=== PATIENT | female | born 1970 | race Caucasian/White ===

== ENCOUNTER 2016-08-28 10:22 | Emergency (ER) | payer SELFPAY ==
[~2016-08-28] VITALS: Ht 165.1 cm; Wt 81.6 kg
[~2016-08-28 10:22] MED LIST: ALBU8.5HRX IH; AMOX-358 PO; AZTH250C PO; CEPH500C PO; CIPR-225 PO; CIPR500T4; CPR500T PO; FLC100T1 PO; GFN600TCR PO; LEVO500T80 PO; LORA10TA7 PO; METR500T PO; OMEP20TA2 PO; POLY17PO23 GT; PRD20T PO; PRD50T PO; PRX20T; RT-ALBUINH; TRAM50TA2 PO
--- OUTSIDE RECORDS SUMMARY | 2016-08-28 10:31 | XMS REPORT | Continuity of Care Document ---
Author Author [facility] Organization [facility] Address Unknown Phone Unavailable Care Team Providers Care Learning Coach Name Role Phone RONIT SALINAS DO PCP Insurance Providers Payer Name Policy Number Subscriber Name Relationship Unknown Augie Daniel 19 Self / Same As Patient Advance Directives Directive Response Recorded Date/Time Advance Directives No 11/29/13 12:46pm Health Care Power of Seamless Tube Drawer No 11/29/13 12:46pm Organ Donor Yes 11/29/13 12:46pm Chief Complaint and Reason for Visit Chief Complaint Cough/Cold/Flu Symptoms Reason for Visit [id number] Pneumonia Problems Active Problems Medical Problem Onset Date Status Diverticulitis Unknown Acute Otitis media, acute Unknown Acute Pneumonia Unknown Acute chronic rectovaginal fistula Unknown Acute cystocele/rectocele Unknown Acute Medications Current Home Medications Medication Dose Units Route Directions Days/Qty Instructions Start Date Loratadine 10 Mg 10 Mg Oral Daily 11/17/11 Albuterol Sulfate 6.7 Gm 7 04/12/16 Levofloxacin 500 Mg 500 Mg Oral Daily 7 04/12/16 Prednisone 20 Mg 20 Mg Oral Daily 6 04/12/16 Past Home Medications Medication Directions Ordered Status Paroxetine Hcl 20 Mg Tab, 08/13/09 Discontinued Polyethylene Glycol 17 Gm Pack, 17 Gm G Tube Twice A Day 12/26/12 Discontinued Cephalexin Monohydrate (Keflex) 500 Mg Capsule, 1 Each Oral Four Times Daily 07/14/12 Discontinued Omeprazole 20 Mg Tablet.dr, 20 Mg Oral Daily 03/22/13 Discontinued Guaifenesin 600 Mg Tab, 600 Mg Oral Daily 03/22/13 Discontinued Albuterol Sulfate 8 Gm Hfa.aer.ad, 8 Gm Inhalation Every 4HRS as needed 03/22 Discontinued Azithromycin 250 Mg Tablet, 1 Tab Oral Daily 03/22/13 Discontinued Prednisone 50 Mg Tab, 50 Mg Oral Daily 03/22/13 Discontinued Metronidazole 500 Mg Tab, 1 Each Oral Three Times A Day 06/24/13 Discontinued Ciprofloxacin 500 Mg Tablet, 1 Tab Oral Twice A Day 06/24/13 Discontinued Tramadol Hcl 50 Mg Tablet, 50 Mg Oral Every 4HRS as needed for Pain 06/24/13 Discontinued Fluconazole 100 Mg Tablet, 1 Each Oral Daily 06/24/13 Discontinued Ciprofloxacin Hcl 500 Mg Tablet, 04/12/16 Discontinued Social History Social History Problem Response Recorded Date/Time Alcohol Use Denies Use 06/24/2013 12:22pm Recreational Drug Use No 06/24/2013 12:22pm Recent Foreign Travel No 04/12/2016 9:34am Recent Infectious Disease Exposure No 04/12/2016 9:34am Hospitalization with Isolation Denies 04/12/2016 9:34am Sexually Transmitted Disease No 04/12/2016 9:40am HIV/AIDS No 04/12/2016 9:40am Recent Hopitalizations No 04/12/2016 9:40am Sexually Transmitted Disease No 04/12/2016 9:40am Hospitalization with Isolation Denies 04/12/2016 9:34am Hospital Discharge Instructions No hospital discharge instructions. Plan of Care Discharge Date 04/12/16 12:13pm Disposition 01 HOME, SELF-CARE Condition at Discharge Stable Instructions/Education Provided Otitis Media (ED) Bacterial Pneumonia (ED) Prescriptions See Medication Section Referrals RONIT SALINAS DO - Primary Care Physician SAMUEL RENEE - Primary Care Physician Additional Instructions/Education All discharge instructions reviewed with patient and/or family. Voiced understanding. He should drink plenty of fluids and get rest. Take the antibiotics prescribed to you to completion. Return to the ER or your primary care physician if symptoms worsen or do not improve in 3-4 days. Functional Status No functional status results. Allergies, Adverse Reactions, Alerts Allergen Type Severity Reaction Status Last Updated mepveroniquedine HCl Allergy Mild "gets vicious" Active 11/17/11 Morphine Allergy Mild "gets vicious" Active 11/17/11 shellfish derived ([id number]) Allergy Unknown Active 11/17/11 [id number] (SULFA (SULFONAMIDE ANTIBIOTICS)) Allergy Mild Active Immunizations No immunization records. Vital Signs Acute Vital Signs Vital Response Date/Time Temperature (Fahrenheit) 98.2 degrees F (97.6 - 99.5) 04/12/2016 9:34am Temperature (Calculated Celsius) 36.46026 degrees C (36.4 - 37.5) 04/12/2016 9:34am Temperature Source Temporal 04/12/2016 9:34am Pulse Rate (adult) 92 bpm (60 - 90) 04/12/2016 9:34am Respiratory Rate 18 bpm (12 - 24) 04/12/2016 9:34am Blood Pressure 110/81 mm Hg 04/12/2016 9:34am Blood Pressure Mean 91 mm Hg 04/12/2016 9:34am Pain Numeric Pain Scale 0-No Pain 04/12/2016 9:34am Height (Feet) 5 feet 04/12/2016 9:34am Height (Inches) 6 inches 04/12/2016 9:34am Height (Calculated Centimeters) 167.371894 cm 04/12/2016 9:34am Weight (Pounds) 179 pounds 04/12/2016 9:34am Weight (Calculated Kilograms) 81.379367 kilograms 04/12/2016 9:34am Capillary Refill Capillary Refill Less Than 3 Seconds 04/12/2016 9:34am Height 5 ft 6 in Weight 179 lb Body Mass Index 28.9 kg/m^2 Results Laboratory Results Test Name Result Units Flags Reference Collection Date/Time Result Date/ Time Comments White Blood Count 3.6 10^3/uL L 4.3-11.0 04/12/2016 10:30am 04/12/2016 10 :39am Red Blood Count 4.85 10^6/uL 4.35-5.85 04/12/2016 10:30am 04/12/2016 10 :39am Hemoglobin 15.0 G/DL 11.5-16.0 04/12/2016 10:3004/12/2016 10:39am Hematocrit 42 % 35-52 04/12/2016 10:3004/12/2016 10:39am Mean Corpuscular Volume 87 FL 80-99 04/12/2016 10:3004/12/2016 10: 39am Mean Corpuscular Hemoglobin 31 PG 25-34 04/12/2016 10:3004/12/2016 10:39am Mean Corpuscular Hemoglobin Concent 36 G/DL 32-36 04/12/2016 10:30 10:39am Red Cell Distribution Width 13.1 % 10.0-14.5 04/12/2016 10:302015 10:39am Platelet Count 195 10^3/uL 130-400 04/12/2016 10:3004/12/2016 10: 39am Mean Platelet Volume 8.8 FL 7.4-10.4 04/12/2016 10:3004/12/2016 10: 39am Neutrophils (%) (Auto) 60 % 42-75 04/12/2016 10:04/12/2016 10: 39am Lymphocytes (%) (Auto) 25 % 12-44 04/12/2016 10:04/12/2016 10: 39am Monocytes (%) (Auto) 13 % H 0-12 04/12/2016 10:04/12/2016 10:39am Eosinophils (%) (Auto) 0 % 0-10 04/12/2016 10:04/12/2016 10:39am Basophils (%) (Auto) 1 % 0-10 04/12/2016 10:04/12/2016 10:39am Neutrophils # (Auto) 2.2 X 10^3 1.8-7.8 04/12/2016 10:3004/12/2016 10:39am Lymphocytes # (Auto) 0.9 X 10^3 L 1.0-4.0 04/12/2016 10:04/12/2016 10:39am Monocytes # (Auto) 0.5 X 10^3 0.0-1.0 04/12/2016 10:3004/12/2016 10: 39am Eosinophils # (Auto) 0.0 10^3/uL 0.0-0.3 04/12/2016 10:30am 04/12/2016 10:39am Basophils # (Auto) 0.1 10^3/uL 0.0-0.1 04/12/2016 10:30am 04/12/2016 10 :39am Urine Color YELLOW 04/12/2016 10:0504/12/2016 10:39am Urine Clarity CLEAR 04/12/2016 10:0504/12/2016 10:39am Urine pH 6 5-9 04/12/2016 10:05am 04/12/2016 10:39am Urine Specific [place] 1.010 * 1.016-1.022 04/12/2016 10:05am 2015 10:39am Urine Protein NEGATIVE NEGATIVE 04/12/2016 10:0504/12/2016 10: 39am Urine Glucose (UA) NEGATIVE NEGATIVE 04/12/2016 10:05am 04/12/2016 10 :39am Urine RBC (Auto) 1+ * NEGATIVE 04/12/2016 10:0504/12/2016 10:39am Urine Ketones NEGATIVE NEGATIVE 04/12/2016 10:0504/12/2016 10: 39am Urine Nitrite NEGATIVE NEGATIVE 04/12/2016 10:0504/12/2016 10: 39am Urine Bilirubin NEGATIVE NEGATIVE 04/12/2016 10:0504/12/2016 10: 39am Urine Urobilinogen NORMAL MG/DL NORMAL 04/12/2016 10:05am 04/12/2016 10 :39am Urine Leukocyte Esterase 2+ * NEGATIVE 04/12/2016 10:0504/12/2016 10 :39am Urine RBC RARE /HPF 04/12/2016 10:0504/12/2016 10:39am Urine WBC RARE /HPF 04/12/2016 10:05am 04/12/2016 10:39am Urine Bacteria NEGATIVE /HPF 04/12/2016 10:05am 04/12/2016 10:39am Urine Squamous Epithelial Cells 5-10 /HPF 04/12/2016 10:05am 2015 10:39am Urine Crystals NONE /LPF 04/12/2016 10:05am 04/12/2016 10:39am Urine Casts NONE /LPF 04/12/2016 10:05am 04/12/2016 10:39am Urine Mucus NEGATIVE /LPF 04/12/2016 10:05am 04/12/2016 10:39am Urine Culture Indicated NO 04/12/2016 10:05am 04/12/2016 10:39am Procedures No known history of procedures. Encounters Encounter Location Arrival/Admit Date Discharge/Depart Date Attending Provider Departed Emergency Room [facility] 04/12/16 9:34am 04/12 12:13pm YOLY SALTER MD Recent Diagnosis
[2016-08-28] MEDS ORDERED: CITA20TA7 PO (10:39)
[2016-08-28] MEDS ORDERED: URIN1STR81 MC (10:39)
[2016-08-28 11:27] LABS: BILIRUBIN,URINE NEGATIVE (NEGATIVE); KETONES,URINE NEGATIVE (NEGATIVE); LEUKOCYTE ESTERASE ,URINE 2+ (NEGATIVE); NITRITE,URINE NEGATIVE (NEGATIVE); PH,URINE 7 (5-9); PROTEIN,URINE NEGATIVE (NEGATIVE); UROBILINOGEN,URINE NORMAL (NORMAL)
--- NOTE | 2016-08-28 11:32 | ED GU-Female ---
General Chief Complaint: -Female Stated Complaint: UTI SYMPTOMS Nursing Triage Note: PT CO OF UTI SX, STARTED THIS AM Nursing Sepsis Screen: No Definite Risk History of Present Illness Time seen by provider: 11:15 Initial Comments Patient presents for UTI symptoms which began today. She also reports having a cough since February 2016. She's been treated with multiple antibiotics for pneumonia. She has an inhaler, but she hasn't used it for a few days. Timing/Duration: this morning Severity/Quality: moderate (rates pain 5/10) Location: suprapubic Radiation: none Activities at Onset: none Prior Genitourinary Problems: none Modifying Factors: Improves With Lying down, Improves With Resting, Improves With Urinating Associated Symptoms: denies symptoms Allergies and Home Medications Allergies Coded Allergies: meperidine HCl (Verified Allergy, Mild, "gets vicious", 11/17/11) morphine (Verified Allergy, Mild, "gets vicious", 11/17/11) shellfish derived (Verified Allergy, Unknown, 11/17/11) Uncoded Allergies: [id number] (SULFA (SULFONAMIDE ANTIBIOTICS)) (Allergy, Mild, 08/13/09) Home Medications Albuterol Sulfate 8.5 Gm Hfa.aer.ad #1 1-2 PUFF IH Q6H Prescribed by: JENNIFER DILLON on 08/28/16 1204 Citalopram Hydrobromide 20 Mg Tablet 20 MG PO DAILY (Reported) Guaifenesin/Pseudoephedrne HCl 1 Each Tab.er.12h #20 1 EACH PO BID Prescribed by: JENNIFER DILLON on 08/28/16 1137 Loratadine 10 Mg Tablet 10 MG PO DAILY (Reported) Nitrofurantoin Monohyd/M-Cryst 100 Mg Capsule #10 1 TAB PO BID Prescribed by: JENNIFER DILLON on 08/28/16 1204 Constitutional: no symptoms reported see HPI EENTM: no symptoms reported see HPI Respiratory: see HPI coughNo phlegm, No short of breath, wheezing Cardiovascular: no symptoms reported see HPI Gastrointestinal: no symptoms reported see HPI Genitourinary: see HPI burningdenies discharge, frequencydenies hematuria, denies incontinence, urgency : No (hysterectomy) Musculoskeletal: no symptoms reported see HPI Skin: no symptoms reported see HPI Psychiatric/Neurological: No Symptoms Reported See HPI Endocrine: No Symptoms Reported See HPI Hematologic/Lymphatic: No Symptoms Reported See HPI All Other Systemes Reviewed Negative Unless Noted: Yes Past Odlvkvo-Csgcof-Xopjjc Hx Patient Social History Alcohol Use: Denies Use Recreational Drug Use: No Smoking Status: Never a Smoker Recent Foreign Travel: No Contact w/Someone Who Travel: No Recent Infectious Disease Expo: No Recent Hopitalizations: No Immunizations Up To Date Date of Influenza Vaccine: Apr 19, 2012 Seasonal Allergies Seasonal Allergies: No Surgeries HX Surgeries: Yes Surgeries: Breast, Hysterectomy, Tonsillectomy Respiratory Hx Respiratory Disorders: Yes Respiratory Disorders: Pneumonia Cardiovascular Hx Cardiac Disorders: No Neurological Hx Neurological Disorders: No Reproductive System Hx Reproductive Disorders: No Sexually Transmitted Disease: No 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/AIDS: 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 Genitourinary Hx Genitourinary Disorders: No Gastrointestinal Hx Gastrointestinal Disorders: No Musculoskeletal Hx Musculoskeletal Disorders: No Endocrine Hx Endocrine Disorders: No HEENT HX ENT Disorders: No Cancer Hx Cancer: Yes Cancer: Breast Psychosocial Hx Psychiatric Problems: No Integumentary HX Skin/Integumentary Disorder: No Blood Transfusions Hx Blood Disorders: No Adverse Reaction to a Blood Tr: No Reviewed Nursing Assessment Reviewed/Agree w Nursing PMH: Yes Family Medical History Significant Family History: No Pertinent Family Hx Physical Exam Vital Signs Vital Sign - Last 12Hours 08/28/16 10:25 Temp 98.0 Pulse 80 Resp 18 B/P 105/67 Pulse Ox 97 Capillary Refill : Less Than 3 Seconds General Appearance: WD/WN no apparent distress HEENT: PERRL/EOMI normal ENT inspection TMs normal pharynx normal Neck: non-tender full range of motion normal inspection Cardiovascular: normal peripheral pulses regular rate, rhythm no murmur Respiratory: chest non-tender lungs clear normal breath sounds Gastrointestinal: normal bowel sounds non tender soft no organomegaly no pulsatile massNo rebound, tenderness (suprapubic) Back: normal inspection no CVA tenderness Extremities: normal range of motion non-tender normal inspection no pedal edema no calf tenderness normal capillary refill Neurologic/Psychiatric: no motor/sensory deficits alert normal mood/affect oriented x 3 Skin: normal color warm/dry Lymphatic: no adenopathy Progress/Results/Core Measures Results/Orders Lab Results Laboratory Tests Test 08/28/16 11:01 Range/Units Urine Bacteria TRACE /HPF Urine Bilirubin NEGATIVE NEGATIVE Urine Casts NONE /LPF Urine Clarity CLEAR Urine Color YELLOW Urine Crystals NONE /LPF Urine Culture Indicated YES Urine Glucose (UA) NEGATIVE NEGATIVE Urine Ketones NEGATIVE NEGATIVE Urine Leukocyte Esterase 2+ H NEGATIVE Urine Mucus NEGATIVE /LPF Urine Nitrite NEGATIVE NEGATIVE Urine Protein NEGATIVE NEGATIVE Urine RBC RARE /HPF Urine RBC (Auto) NEGATIVE NEGATIVE Urine Specific [place] 1.010 L 1.016-1.022 Urine Squamous Epithelial Cells RARE /HPF Urine Urobilinogen NORMAL NORMAL MG/DL Urine WBC 2-5 /HPF Urine pH 7 5-9 Vital Signs/I&O Vital Sign - Last 12Hours 08/28/16 08/28/16 10:25 12:24 Temp 98.0 98.0 Pulse 80 80 Resp 18 18 B/P 105/67 Pulse Ox 97 97 Blood Pressure Mean: 80 Progress Note : Time: 12:05 Progress Note Reviewed UA with patient, pH 7.0, specific gravity 1.010, 2+ leuks, 2-5 WBC. Recommended starting treatment for UTI. She can continue taking Azo. Discussed at length getting established with a primary care provider, as she recently has been just using [facility] and the emergency department for medical care. Encouraged her to call [facility] and get an established appointment with one of their providers. Departure Impression Impression: Primary Impression: Urinary tract infection Qualified Code: N30.01 - Acute cystitis with hematuria Additional Impression: Cough Disposition: HOME, SELF-CARE Condition: Stable Departure-Patient Inst. Decision time for Depature: 12:15 Referrals: [facility] (PCP/Family) Primary Care Physician Patient Instructions: Cough in Adults, Urinary Tract Infection, Adult (DC) Add. Discharge Instructions: All discharge instructions reviewed with patient and/or family. Voiced understanding. Take all antibiotics as directed. Return to Emergency Dept for increase or change in symptoms, fever, abdominal pain or any other concerns. Schedule appt at [facility] to be established with provider next week. Scripts Albuterol Sulfate (Proair Hfa)8.5 Gm Hfa.aer.ad1-2 Puff IH Q6H #1 INH Ref 1 Prov:JENNIFER DILLONP 08/28/16 Nitrofurantoin Monohyd/M-Cryst (Macrobid 100 mg Capsule)100 Mg Capsule1 Tab PO BID #10 CAP Ref 0 Prov:JENNIFER DILLON [employer] 08/28/16 Guaifenesin/Pseudoephedrne HCl (Mucinex D ER 600-60 mg Tablet)1 Each Tab.er.12h1 Each PO BID #20 TAB Ref 1 Prov:JENNIFER DILLON 08/28/16 JENNIFER DILLON Aug 28, 2016 11:32
[2016-08-28] MEDS ORDERED: GUAI-370 PO (11:37)
[2016-08-28 11:53] LABS: SQUAMOUS EPITHELIAL CELL,UR RARE /HPF
[2016-08-28] MEDS ORDERED: NITR-65 PO (12:04)
[2016-08-28] MEDS ORDERED: RT-ALBUINH IH (12:04)
[2016-08-28 12:24] VITALS: BP 105/67
== END 2016-08-28 12:24 | disposition home or self-care (01) ==
LOC: EDUNIT# 10:22 → ER 10:25
DX: N39.0 Urinary tract infection, site not specified (principal); R05 Cough
CPT/HCPCS: 81000; 87088; 99282

== ENCOUNTER 2016-08-30 12:40 | Emergency (ER) | payer SELFPAY ==
[~2016-08-30] VITALS: Ht 165.1 cm; Wt 81.6 kg
[~2016-08-30 12:40] MED LIST changes: +CITA20TA7 PO; +GUAI-370 PO; +NITR-65 PO; +RT-ALBUINH IH; +URIN1STR81 MC
--- OUTSIDE RECORDS SUMMARY | 2016-08-30 12:45 | XMS REPORT | Continuity of Care Document ---
Author Author [facility] Organization [facility] Address Unknown Phone Unavailable Care Team Providers Care Power Lineman Name Role Phone RONIT SALINAS DO PCP Insurance Providers Payer Name Policy Number Subscriber Name Relationship Unknown Augie Daniel 19 Self / Same As Patient Advance Directives Directive Response Recorded Date/Time Advance Directives No 11/29/13 12:46pm Health Care Power of Pediatrics Hospitalist No 11/29/13 12:46pm Organ Donor Yes 11/29/13 12:46pm Chief Complaint and Reason for Visit Chief Complaint Cough/Cold/Flu Symptoms Reason for Visit [id number] Pneumonia Problems Active Problems Medical Problem Onset [...] Mild "gets vicious" Active 11/17/11 shellfish derived ([id number]) Allergy Unknown Active 11/17/11 [id number] (SULFA (SULFONAMIDE ANTIBIOTICS)) Allergy Mild Active Immunizations No immunization records. Vital Signs Acute Vital Signs Vital Response Date/Time Temperature (Fahrenheit) 98.2 degrees F (97.6 - 99.5) 04/12/2016 9:34am Temperature (Calculated Celsius) 36.03529 degrees C (36.4 - 37.5) 04/12/2016 9:34am [...] 6 inches 04/12/2016 9:34am Height (Calculated Centimeters) 167.439639 cm 04/12/2016 9:34am Weight (Pounds) 179 pounds 04/12/2016 9:34am Weight (Calculated Kilograms) 81.599124 kilograms 04/12/2016 9:34am Capillary Refill Capillary Refill [...] 5-9 04/12/2016 10:05am 04/12/2016 10:39am Urine Specific [place] 1.010 * 1.016-1.022 04/12/2016 10:05am 2015 10:39am [...] Date Attending Provider Departed Emergency Room [facility] 04/12/16 9:34am 04/12 12:13pm YOLY SALTER MD Recent Diagnosis
[2016-08-30] MEDS ORDERED: NS IV 1000 ML 1,000 ML IV ONE (13:02)
[2016-08-30 13:40] LABS: BASOPHILS % (AUTO) 0 % (0-10); EOSINOPHILS # (AUTO) 0.2 10^3/uL (0.0-0.3); EOSINOPHILS % (AUTO) 2 % (0-10); LYMPHOCYTES # (AUTO) 1.7 X 10^3 (1.0-4.0); LYMPHOCYTES % (AUTO) 18 % (12-44); MEAN CORPUSCULAR HEMOGLOBIN 31 PG (25-34); MEAN CORPUSCULAR HGB CONC 35 G/DL (32-36); MEAN CORPUSCULAR VOLUME 87 FL (80-99); MEAN PLATELET VOLUME 8.7 FL (7.4-10.4); MONOCYTES # (AUTO) 0.7 X 10^3 (0.0-1.0); MONOCYTES % (AUTO) 7 % (0-12); NEUTROPHILS # (AUTO) 6.9 X 10^3 (1.8-7.8); NEUTROPHILS % (AUTO) 73 % (42-75); PLATELET COUNT 259 10^3/uL (130-400); RED BLOOD COUNT 4.12 10^6/uL (4.35-5.85); RED CELL DISTRIBUTION WIDTH 12.7 % (10.0-14.5); WHITE BLOOD COUNT 9.4 10^3/uL (4.3-11.0)
[2016-08-30 14:00] LABS: ALANINE AMINOTRANSFERASE 13 U/L (0-55); AMYLASE 44 U/L (25-125); ANION GAP 13 MMOL/L (5-14); ASPARTATE AMINO TRANSFERASE 14 U/L (5-34); BILIRUBIN,TOTAL 0.9 MG/DL (0.1-1.0); BLOOD UREA NITROGEN 10 MG/DL (7-18); BUN/CREATININE RATIO 11; CALCIUM 9.3 MG/DL (8.5-10.1); CARBON DIOXIDE 22 MMOL/L (21-32); CHLORIDE 101 MMOL/L (98-107); CREATININE SERUM 0.88 MG/DL (0.60-1.30); GFR ESTIMATED > 60; GLUCOSE 86 MG/DL (70-105); LIPASE 34 U/L (8-78); POTASSIUM 3.4 MMOL/L (3.6-5.0); SODIUM 136 MMOL/L (135-145)
--- NOTE | 2016-08-30 14:01 | ED GI ---
General Chief Complaint: Abdominal/GI Problems Stated Complaint: UTI/FEVER/DIARRHEA Nursing Triage Note: AMBULATED TO ROOM 07 WITH COMPLAINTS OF DIARRHEA SINCE THE 3RD, UTI DX 2 DAYS AGO IN THIS ER, FEVER,DIZZINESS, ET WEAKNESS Sepsis Screen: No Definite Risk Source of Information: Patient Exam Limitations: No Limitations History of Present Illness Time Seen By Provider: 13:25 Initial Comments Here with report of nausea and diarrhea with fever for the last week. Seen 2 days ago for the same. UTI found and started on nitrofurantoin. This has not helped and she returns today for persistent pain. She does report suprapubic tenderness. Diarrhea is nonbloody. States that she is able to drink but does not feel like eating. Complains of weakness. Timing/Duration: 1 Week Severity/Quality: Mild, Moderate, Aching, Cramping Location: Suprapubic Radiation: RLQ, LLQ Activities at Onset: None Associated Symptoms: Fever/Chills Fatigue Nausea/Vomiting Weakness Allergies and Home Medications Allergies Coded Allergies: meperidine HCl (Verified Allergy, Mild, "gets vicious", 11/17/11) morphine (Verified Allergy, Mild, "gets vicious", 11/17/11) shellfish derived (Verified Allergy, Unknown, 11/17/11) Uncoded Allergies: [id number] (SULFA (SULFONAMIDE ANTIBIOTICS)) (Allergy, Mild, 08/13/09) Home Medications Albuterol Sulfate 8.5 Gm Hfa.aer.ad #1 1-2 PUFF IH Q6H Prescribed by: JENNIFER DILLON on 08/28/16 1204 Ciprofloxacin HCl 500 Mg Tablet #10 500 MG PO BID Prescribed by: LAMONT HERNANDEZ on 08/30/16 1450 Citalopram Hydrobromide 20 Mg Tablet 20 MG PO DAILY (Reported) Guaifenesin/Pseudoephedrne HCl 1 Each Tab.er.12h #20 1 EACH PO BID Prescribed by: JENNIFER DILLON on 08/28/16 1137 Loratadine 10 Mg Tablet 10 MG PO DAILY (Reported) Nitrofurantoin Monohyd/M-Cryst 100 Mg Capsule #10 1 TAB PO BID Prescribed by: JENNIFER DILLON on 08/28/16 1204 Review of Systems Constitutional: see HPI chills fever weakness EENTM: No Symptoms Reported Respiratory: No Symptoms Reported Cardiovascular: No Symptoms Reported Gastrointestinal: Abdominal Pain Diarrhea Nausea Genitourinary: See HPI Pain Urgency Musculoskeletal: no symptoms reported Skin: no symptoms reported All Other Systems Reviewed Negative Unless Noted: Yes Past Krvxaef-Yuqrwc-Cjbrua Hx Patient Social History Alcohol Use: Denies Use Recreational Drug Use: No Smoking Status: Never a Smoker Recent Foreign Travel: No Contact w/Someone Who Travel: No Recent Infectious Disease Expo: No Recent Hopitalizations: No Immunizations Up To Date Date of Influenza Vaccine: Apr 19, 2012 Seasonal Allergies Seasonal Allergies: No Surgeries HX Surgeries: Yes Surgeries: Breast, Hysterectomy, Tonsillectomy Respiratory Hx Respiratory Disorders: Yes Respiratory Disorders: Pneumonia Cardiovascular Hx Cardiac Disorders: No Neurological Hx Neurological Disorders: No Reproductive System Hx Reproductive Disorders: No Sexually Transmitted Disease: No HIV/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 Genitourinary Hx Genitourinary Disorders: No Gastrointestinal Hx Gastrointestinal Disorders: No Musculoskeletal Hx Musculoskeletal Disorders: No Endocrine Hx Endocrine Disorders: No HEENT HX ENT Disorders: No Cancer Hx Cancer: Yes Cancer: Breast Psychosocial Hx Psychiatric Problems: No Integumentary HX Skin/Integumentary Disorder: No Blood Transfusions Hx Blood Disorders: No Adverse Reaction to a Blood Tr: No Reviewed Nursing Assessment Reviewed/Agree w Nursing PMH: Yes Family Medical History Significant Family History: No Pertinent Family Hx Physical Exam Vital Signs VS - Last 72 Hours, by Label 08/30/16 08/30/16 12:56 15:20 Temp 96.9 Pulse 77 86 Resp 16 14 B/P 102/68 Pulse Ox 98 98 Capillary Refill : Less Than 3 Seconds General Appearance: WD/WN no apparent distress HEENT: PERRL/EOMI pharynx normal Neck: full range of motion supple Respiratory: lungs clear normal breath sounds Cardiovascular: regular rate, rhythm no murmur Peripheral Pulses: 2+ Dorsalis Pedis (R), 2+ Left Dors-Pedis (L), 2+ Radial Pulses (R), 2+ Radial Pulses (L) Gastrointestinal: soft tenderness (suprapubic) Extremities: non-tender normal inspection Back: normal inspection no CVA tenderness no vertebral tenderness Neurologic/Psychiatric: alert oriented x 3 Skin: normal color warm/dry (LL of the urine) Progress/Results/Core Measures Results/Orders Lab Results Laboratory Tests Test 08/30/16 13:29 08/30/16 13:47 Range/Units Alanine Aminotransferase (ALT/SGPT) 13 0-55 U/L Albumin 4.0 3.2-4.5 G/DL Alkaline Phosphatase 63 40-136 U/L Amylase Level 44 25-125 U/L Anion Gap 13 5-14 MMOL/L Aspartate Amino Transf (AST/SGOT) 14 5-34 U/L BUN/Creatinine Ratio 11 Basophils # (Auto) 0.0 0.0-0.1 10^3/uL Basophils (%) (Auto) 0 0-10 % Blood Urea Nitrogen 10 7-18 MG/DL Calcium Level 9.3 8.5-10.1 MG/DL Carbon Dioxide Level 22 21-32 MMOL/L Chloride Level 101 98-107 MMOL/L Creatinine 0.88 0.60-1.30 MG/DL Eosinophils # (Auto) 0.2 0.0-0.3 10^3/uL Eosinophils (%) (Auto) 2 0-10 % Estimat Glomerular Filtration Rate > 60 Glucose Level 86 70-105 MG/DL Hematocrit 36 35-52 % Hemoglobin 12.7 11.5-16.0 G/DL Lipase 34 8-78 U/L Lymphocytes # (Auto) 1.7 1.0-4.0 X 10^3 Lymphocytes (%) (Auto) 18 12-44 % Mean Corpuscular Hemoglobin 31 25-34 PG Mean Corpuscular Hemoglobin Concent 35 32-36 G/DL Mean Corpuscular Volume 87 80-99 FL Mean Platelet Volume 8.7 7.4-10.4 FL Monocytes # (Auto) 0.7 0.0-1.0 X 10^3 Monocytes (%) (Auto) 7 0-12 % Neutrophils # (Auto) 6.9 1.8-7.8 X 10^3 Neutrophils (%) (Auto) 73 42-75 % Platelet Count 259 130-400 10^3/uL Potassium Level 3.4 L 3.6-5.0 MMOL/L Red Blood Count 4.12 L 4.35-5.85 10^6/uL Red Cell Distribution Width 12.7 10.0-14.5 % Sodium Level 136 135-145 MMOL/L Total Bilirubin 0.9 0.1-1.0 MG/DL Total Protein 7.0 6.4-8.2 G/DL White Blood Count 9.4 4.3-11.0 10^3/uL Urine Bacteria TRACE /HPF Urine Bilirubin 2+ H NEGATIVE Urine Casts NONE /LPF Urine Clarity CLEAR Urine Color YELLOW Urine Crystals NONE /LPF Urine Culture Indicated NO Urine Glucose (UA) NEGATIVE NEGATIVE Urine Ketones NEGATIVE NEGATIVE Urine Leukocyte Esterase 1+ H NEGATIVE Urine Mucus NEGATIVE /LPF Urine Nitrite POSITIVE H NEGATIVE Urine Protein NEGATIVE NEGATIVE Urine RBC NONE /HPF Urine RBC (Auto) NEGATIVE NEGATIVE Urine Specific [place] 1.005 L 1.016-1.022 Urine Squamous Epithelial Cells 0-2 /HPF Urine Urobilinogen 4 H NORMAL MG/DL Urine WBC NONE /HPF Urine pH 7 5-9 Micro Results Microbiology 08/30/16 Urine Culture - Preliminary, Resulted My Orders Orders-LAMONT HERNANDEZ MD Cbc With Automated Diff (08/30/16 13:02) Comprehensive Metabolic Panel (08/30/16 13:02) Ua Culture If Indicated (08/30/16 13:02) Saline Lock/Iv-Start (08/30/16 13:02) Ns Iv 1000 Ml (Sodium Chloride 0.9%) (08/30/16 13:02) Amylase (08/30/16 13:19) Lipase (08/30/16 13:19) Ceftriaxone Injection (Rocephin Injectio (08/30/16 14:30) Urine Culture (08/30/16 14:31) Medications Given in ED Vital Signs/I&O Vital Sign - Last 12Hours 08/30/16 08/30/16 12:56 15:20 Temp 96.9 Pulse 77 86 Resp 16 14 B/P 102/68 Pulse Ox 98 98 Blood Pressure Mean: 79 Progress Note : Progress Note Seen and evaluated. IV, labs and UA ordered. Normal saline 1 L bolus. Monitor patient. 1425: Labs reviewed and no significant findings except for nitrite positive on urine test. We will culture that. She is currently on antibiotic with nitrofurantoin. Rocephin 1 g IV given as patient has nausea symptoms and I am concerned about her being able to keep antibiotics down as well as her symptoms of diarrhea which prevents good absorption of antibiotics. Monitor patient. 1445: Feeling better with completion of fluids. We talked about outpatient antibiotic options. I will add Cipro for 5 days. Discharged home with return precautions. Patient verbalize understanding instructions and agreement with plan. Departure Impression Impression: Primary Impression: Diarrhea Qualified Code: R19.7 - Diarrhea, unspecified Additional Impression: Urinary tract infection Qualified Code: N30.00 - Acute cystitis without hematuria Disposition: HOME, SELF-CARE Condition: Stable Departure-Patient Inst. Decision time for Depature: 14:50 Referrals: [facility] (PCP/Family) Primary Care Physician Patient Instructions: Diarrhea in Adolescents and Adults, Urinary Tract Infection, Adult (DC) Add. Discharge Instructions: All discharge instructions reviewed with patient and/or family. Voiced understanding. Clear liquid diet for 24 hours and then advance as tolerated. Drink plenty of fluids. Avoid meats, cheeses or milks for the next several days and then slowly introduce some back into your diet. Follow up with your doctor on Thursday or Thursday for recheck and further evaluation. Return for worse pain, fever, vomiting, weakness, rhythm problems or other concerns as needed. Continue home medications as previously prescribed. Scripts Ciprofloxacin HCl 500 Mg [id number] Mg PO BID #10 TAB Prov:LAMONT HERNANDEZ MD 08/30/16 LAMONT HERNANDEZ MD Aug 30, 2016 14:00 understanding. Clear liquid diet for 24 hours and then advance as tolerated. Drink plenty of fluids. Avoid meats, cheeses or milks for the next several days and then slowly introduce some back into your diet. Follow up with your doctor on Thursday or Thursday for recheck and further evaluation. Return for worse pain, fever, vomiting, weakness, rhythm problems or other concerns as needed. Continue home medications as previously prescribed. Scripts Ciprofloxacin HCl 500 Mg [id number] Mg PO BID #10 TAB Prov:LAMONT HERNANDEZ MD 08/30/16 LAMONT HERNANDEZ MD Aug 30, 2016 14:00
[2016-08-30 14:05] LABS: KETONES,URINE NEGATIVE (NEGATIVE); LEUKOCYTE ESTERASE ,URINE 1+ (NEGATIVE); NITRITE,URINE POSITIVE (NEGATIVE); PH,URINE 7 (5-9); PROTEIN,URINE NEGATIVE (NEGATIVE); UROBILINOGEN,URINE 4 MG/DL (NORMAL)
[2016-08-30 14:19] LABS: BILIRUBIN,URINE 2+ (NEGATIVE); SQUAMOUS EPITHELIAL CELL,UR 0-2 /HPF
[2016-08-30] MEDS ORDERED: cefTRIAXone INJECTION 1,000 MG in NS (IVPB) 50 ML IV ONE (14:30)
[2016-08-30] MEDS ORDERED: CIPR500T4 PO (14:50)
[2016-08-30 15:20] VITALS: BP 113/86
== END 2016-08-30 15:18 | disposition home or self-care (01) ==
LOC: EDUNIT# 12:40 → ER 12:41
DX: R19.7 Diarrhea, unspecified (principal); N39.0 Urinary tract infection, site not specified
CPT/HCPCS: 36415; 80053; 81000; 82150; 83690; 85025; 87088; 96365

== ENCOUNTER 2018-04-22 14:38 | Emergency (ER) | payer SELFPAY ==
[~2018-04-22] VITALS: Ht 167.6 cm; Wt 63.5 kg
[~2018-04-22 14:38] MED LIST changes: +CIPR500T4 PO; -CITA20TA7 PO; +CITA20TA9 PO
--- OUTSIDE RECORDS SUMMARY | 2018-04-22 14:47 | XMS REPORT ---
Author Author SAMMY TOMPKINS Organization [facility] Address [address] [place] [address] Care Team Providers Care Emergency Response Technician Name Role Phone SAMMY TOMPKINS Unavailable PROBLEMS Type Condition ICD9-CM Code FLK15-LC Code Onset Dates Condition Status SNOMED Code Problem Chronic allergic rhinitis, unspecified seasonality, unspecified trigger J30.9 Active 67713810 Problem Migraine G43.909 Active 98796054 Problem Chronic UTI N39.0 Active 476556839 Problem Bladder prolapse, female, acquired N81.10 Active 898900730 Problem Personal history of breast cancer Z85.3 Active 932570415 Problem Chronic pansinusitis J32.4 Active 36127217 Problem Anhedonia R45.84 Active 47057630 ALLERGIES Substance Reaction Event Type Date Status SulfADIAZINE swelling Drug Allergy Feb, Active Morphine Sulfate Unknown Drug Allergy Feb, Active Shellfish Unknown Non Drug Allergy Feb, Active ENCOUNTERS Encounter Location Date Diagnosis [facility] [address] [address] Feb, Dizziness R42 ; Migraine G43.909 ; Anhedonia R45.84 and Screening cholesterol level Z13.220 [facility] [address] [address] Jan, Dysuria R30.0 and Acute cystitis with hematuria N30.01 [facility] [address] [address] Sep, Dysuria R30.0 ; Acute cystitis with hematuria N30.01 and Abrasion of left cornea, initial encounter S05.02XA [facility] [address] [address] Aug, Dysuria R30.0 and Acute cystitis with hematuria N30.01 [place] [address] [address] Feb, Dizziness R42 ; Chronic pansinusitis J32.4 and Chronic seasonal allergic rhinitis, unspecified trigger J30.2 [place] [address] [address] Dec, Personal history of breast cancer Z85.3 ; Anhedonia R45.84 ; Chronic allergic rhinitis, unspecified seasonality, unspecified trigger J30.9 and Bladder prolapse, female, acquired N81.10 [place] [address] [address] Dec, [place] [address] [address] November, Seasonal allergic rhinitis, unspecified allergic rhinitis trigger J30.2 [place] [address] [address] November, [place] [address] [address] November, Dysuria R30.0 ; Encounter for immunization Z23 and Personal history of pneumonia (recurrent) Z87.01 [place] [address] [address] Aug, Sinusitis J32.9 [place] [address] [address] 18 May, 2016 Acute recurrent maxillary sinusitis J01.01 [place] [address] [address] 15 May, 2016 Sinusitis J32.9 and Subacute maxillary sinusitis J01.00 [place] [address] [address] May, Subacute maxillary sinusitis J01.00 [facility] [address] [id number] Feb, Dental examination Z01.20 [facility] [id number] [place] [address] Jan, Dysuria R30.0 and Acute cystitis without hematuria N30.00 [facility] [address] [place] [id number] [place] [id number] Jan, Dental examination Z01.20 [facility] [address] [place] [id number] [place] [id number] Dec, Dental examination Z01.20 [facility] [address] [address] Dec, Dental examination Z01.20 [facility] [address] [id number] [place] [address] Oct, Dental examination Z01.20 [facility] [address] [place] [id number] [place] [address] Aug, Acute recurrent sinusitis, unspecified location J01.91 and Sinusitis J32.9 [facility] [address] [id number] [place] [address] May, Dizziness R42 and Sinusitis J32.9 [facility] [id number] [place] [address] May, Dysuria R30.0 and Urinary tract infection N39.0 [facility] [address] [id number] [place] [address] Feb, Encounter to establish care V65.8 ; Depression 311 ; Sciatica 724.3 ; Peptic ulcer 533.90 and History of breast cancer V10.3 [facility] [address] [id number] [place] [address] Jan, [facility] [id number] [place] [address] Jan, [facility] [address] [address] Oct, [facility] [place] [facility] [address] [id number] [place] [address] 13 Oct, 2014 [facility] [place] [facility] [address] [id number] [place] [address] 14 Jul, 2014 [facility] [place] [facility] [address] [id number] [place] [address] 14 Jul, 2014 [facility] [place] [facility] [address] [id number] [place] [address] Jun, [facility] [place] [facility] [address] [id number] [place] [address] Jun, [facility] [place] [facility] [address] [id number] [place] [address] May, [facility] [place] [facility] [address] [id number] [place] [address] May, [facility] [place] [facility] [address] [id number] [place] [address] 18 Mar, 2014 [facility] [place] [facility] [address] [id number] [place] [address] 18 Mar, 2014 [facility] [place] [facility] [address] [id number] [place] [address] 18 Mar, 2014 [facility] [place] [facility] [address] [id number] [place] [address] 18 Mar, 2014 [facility] [place] [facility] [address] [id number], [place] [address] November, [facility] [place] [facility] [address] [id number] [place] [address] November, [facility] [place] [facility] [address] [id number] [place] [address] Oct, [facility] [place] [facility] [address] [id number] [place] [address] Oct, [facility] [place] [facility] [address] [id number], [place] [address] Oct, [facility] [place] [facility] [address] [id number] [place] [address] Oct, [facility] [place] [facility] [address] [id number] [place] [address] Oct, [facility] [place] [facility] [address] [id number] [place] [address] Oct, [facility] [place] [facility] [address] [id number] [place] [address] Oct, [facility] [place] [facility] [address] [id number] [place] [address] Oct, [facility] [place] [facility] [address] [id number] [place] [address] Aug, [facility] [place] [facility] [address] [id number] [place] [address] Aug, [facility] [place] [facility] [address] [id number] [place] [address] Aug, [facility] [place] [facility] [address] [id number] [place] [address] Jul, [facility] [place] [facility] [address] [facility] [id number] [place] [address] Jul, [facility] [place] [facility] [address] [id number] [place] [address] Jul, [facility] [place] [facility] [address] [id number] [place] [address] Jul, [facility] [place] [facility] [address] [id number] [place] [address] Jul, [facility] [place] [facility] [address] [id number] [place] [address] Jul, [facility] [place] [facility] [address] [id number] [place] [address] Jul, [facility] [place] [facility] [address] [id number] [place] [address] Jun, [facility] [address] [id number] [place] [address] Jun, [facility] [place] [facility] [address] [id number] [place] [address] Jun, [facility] [place] [facility] [address] [id number] [place] [address] Jun, [facility] [place] [facility] [address] [id number] [place] [address] Jun, [facility] [place] [facility] [address] [id number] [place] [address] Jun, [facility] [address] [id number] [place] [address] Jun, [facility] [place] [facility] [address] [id number] [place] [address] Jun, [facility] [address] [id number] [place] [address] Jun, [facility] [place] [facility] [address] [id number] [place] [address] Jun, [facility] [place] [facility] [address] [id number] [place] [address] Apr, [facility] [place] [facility] [address] [id number] [place] [address] Apr, [facility] [place] [facility] [address] [id number] [place] [address] Apr, [facility] [place] [facility] [address] [id number] [place] [address] Apr, [facility] [place] [facility] [address] [id number] [place] [address] Apr, [facility] [place] [facility] [address] [id number] [place] [address] 24 Apr, 2013 [facility] [place] [facility] [address] [id number] [place] [address] 20 Mar, 2013 [facility] [place] [facility] [address] [id number] [place] [address] 16 Mar, 2013 [facility] [place] [facility] [address] [id number] [place] [address] Jan, [facility] [place] [facility] [address] [id number] [place] [address] Jul, [facility] [place] [facility] [address] [id number] [place] [address] Jun, [facility] [place] [facility] [address] [id number] [place] [address] Jun, [facility] [place] [facility] [address] [id number] [place] [address] Jun, [facility] [place] [facility] [address] [id number] [place] [address]- [address] Jun, [facility] [place] [facility] [address] [id number] [place] [address] Jun, [facility] [place] [facility] [address] [id number] [place] [address] Jun, [facility] [place] [facility] [address] [id number], [place] [address] May, [facility] [place] [facility] [address] [id number], [place] [address] May, [facility] [place] [facility] [address] [id number] [place] [address] Feb, [facility] [place] [facility] [address] [id number] [place] [address] November, [facility] [place] [facility] [address] [id number] [place] [address] Apr, [facility] [place] [facility] [address] [facility] [id number] [place] [address] Apr, [facility] [address] [facility] [id number], [place] [address] Apr, [facility] [address] [facility] [id number], [place] [address] Apr, [facility] [address] [facility] [id number], [place] [address] Apr, IMMUNIZATIONS No Known Immunizations SOCIAL HISTORY Never Assessed REASON FOR VISIT walk in follow up-RAMIRO keating, pt. is having headaches, dizziness and weakness PLAN OF CARE Activity Details Follow Up 6 Months Reason:depression/ anxiety VITAL SIGNS Height 65 in 2018-03-01 Weight 144.6 lbs 2018-03-01 Temperature 97.0 degrees Fahrenheit 2018-03-01 Heart Rate 69 bpm 2018-03-01 Respiratory Rate 18 2018-03-01 BMI 24.06 kg/m2 2018-03-01 Blood pressure systolic 108 mmHg 2018-03-01 Blood pressure diastolic 74 mmHg 2018-03-01 MEDICATIONS Medication Instructions Dosage Frequency Start Date End Date Duration Status Hair/Skin/Nails/Biotin - Active Tramadol HCl 50 mg Orally every 6 hrs 1 tablet as needed 6h November, Active Loratadine 10 MG Orally Once a day 1 tablet 24h Active Imitrex 50 mg Orally once daily as needed 1 tablet as needed Feb, Active 27-1 MG Orally Once a day 1 tablet 24h Active Bcsyiaw-Bxahdtbqg-Vlpw 333-133-8.3 MG Orally Once a day 1 tablet with a meal 24h Active Gelatin 600 MG Orally 2 times a day 12h Active Citalopram Hydrobromide 20 mg Orally Once a day 1 tablet 24h 30 days Active RESULTS No Results PROCEDURES Procedure Date Ordered Result Body Site ASSAY THYROID STIM HORMONE Mar 01, 2018 COMPLETE CBC W/AUTO DIFF WBC Mar 01, 2018 VENIPUNCT, ROUTINE* Mar 01, 2018 COMPREHEN METABOLIC PANEL Mar 01, 2018 INSTRUCTIONS MEDICATIONS ADMINISTERED No Known Medications MEDICAL (GENERAL) HISTORY Type Description Date Medical History dx with urogenital fistula in 2006 Medical History breast cancer with lymphnode involvement Medical History hx of Pneumonia Medical History chronic UTI's Medical History bladder infection Surgical History tonsillectomy Surgical History mastectomy-right mass with lymphnode dissection Stage III at onset Surgical History hysterectomy Surgical History surgery on foot Surgical History infuaport placement and removal Surgical History Colonoscopy - diverticulosis. Dr Ross 12/2013 Hospitalization History Hospitalization for surgery only
--- OUTSIDE RECORDS SUMMARY | 2018-04-22 14:48 | XMS REPORT ---
Author Author AMY SAY [facility] Address [address] [place] [address] Care Team Providers Care Consultant Internship Name Role Phone SAY REYES Unavailable PROBLEMS Type Condition ICD9-CM Code QUW19-OC Code Onset Dates Condition Status SNOMED Code Problem Chronic pansinusitis J32.4 Active 57425352 Problem Anhedonia R45.84 Active 03543856 Problem Chronic allergic rhinitis, unspecified seasonality, unspecified trigger J30.9 Active 97147769 Problem Bladder prolapse, female, acquired N81.10 Active 189161732 Problem Personal history of breast cancer Z85.3 Active 619067983 ALLERGIES Substance Reaction Event Type Date Status SulfADIAZINE swelling Drug Allergy Sep, Active Morphine Sulfate Unknown Drug Allergy Sep, Active Shellfish Unknown Non Drug Allergy Sep, Active ENCOUNTERS Encounter Location Date Diagnosis [facility] [address] [address] Sep, Dysuria R30.0 ; Acute cystitis with hematuria N30.01 and Abrasion of left cornea, initial encounter S05.02XA [facility] [id number] [place] [address] Aug, Dysuria R30.0 and Acute cystitis with hematuria N30.01 [facility] [id number] [place] [address] Feb, Dizziness R42 ; Chronic pansinusitis J32.4 and Chronic seasonal allergic rhinitis, unspecified trigger J30.2 [facility] [address] [address] Dec, Personal history of breast cancer Z85.3 ; Anhedonia R45.84 ; Chronic allergic rhinitis, unspecified seasonality, unspecified trigger J30.9 and Bladder prolapse, female, acquired N81.10 [facility] [address] [address] Dec, [facility] [address] [address] November, Seasonal allergic rhinitis, unspecified allergic rhinitis trigger J30.2 [facility] [address] [address] November, [facility] [address] [address] November, Dysuria R30.0 ; Encounter for immunization Z23 and Personal history of pneumonia (recurrent) Z87.01 [facility] [address] [address] Aug, Sinusitis J32.9 [facility] [address] [address] 18 May, 2016 Acute recurrent maxillary sinusitis J01.01 [facility] [address] [address] May, Sinusitis J32.9 and Subacute maxillary sinusitis J01.00 [facility] [id number] [place] [address] May, Subacute maxillary sinusitis J01.00 [facility] [address] [id number] Feb, Dental examination Z01.20 [facility] [id number] [place] [address] Jan, Dysuria R30.0 and Acute cystitis without hematuria N30.00 [facility] [address] [id number] Jan, Dental examination Z01.20 [facility] [address] [id number] Dec, Dental examination Z01.20 [facility] [id number] [place] [address] 13 Dec, 2015 Dental examination Z01.20 [facility] [id number] [place] [address] 18 Oct, 2015 Dental examination Z01.20 [facility] [id number] [place] [address] Aug, Acute recurrent sinusitis, unspecified location J01.91 and Sinusitis J32.9 [facility] [id number] [place] [address] May, Dizziness R42 and Sinusitis J32.9 [facility] [id number] [place] [address] May, Dysuria R30.0 and Urinary tract infection N39.0 [facility] [id number] [place] [address] Feb, Encounter to establish care V65.8 ; Depression 311 ; Sciatica 724.3 ; Peptic ulcer 533.90 and History of breast cancer V10.3 [facility] [id number] [place] [address] Jan, [facility] [id number] [place] [address] Jan, [facility] [id number] [place] [address] Oct, [facility] [id number] [place] [address] Oct, [facility] [address] [address] Jul, [facility] [id number] [place] [address] Jul, [facility] [id number] [place] [address] Jun, [facility] [place] [facility] [address] [id number] [place] [address] Jun, [facility] [place] [facility] [address] [id number] [place] [address] May, [facility] [place] [facility] [address] [id number] [place] [address] May, [facility] [place] [facility] [address] [id number] [place] [address] 18 Mar, 2014 [facility] [place] [facility] [address] [id number] [place] [address] Mar, [facility] [place] [facility] [address] [id number] [place] [address] Mar, [facility] [place] [facility] [address] [id number] [place] [address] Mar, [facility] [place] [facility] [address] [id number] [place] [address] November, [facility] [place] [facility] [address] [id number] [place] [address] November, [facility] [place] [facility] [address] [id number] [place] [address] Oct, [facility] [place] [facility] [address] [id number] [place] [address] Oct, [facility] [place] [facility] [address] [id number] [place] [address] Oct, [facility] [place] [facility] [address] [id number] [place] [address] Oct, [facility] [place] [facility] [address] [id number] [place] [address] Oct, [facility] [place] [facility] [address] [id number] [place] [address] Oct, [facility] [place] [facility] [address] [id number] [place] [address] Oct, [facility] [place] [facility] [address] [id number] [place] [address] Oct, [facility] [place] [facility] [address] [id number] [place] [address] Aug, [facility] [place] [facility] [address] [id number] [place] [address] Aug, [facility] [place] [facility] [address] [id number] [place] [address] Aug, [facility] [place] [facility] [address] [id number] [place] [address] Jul, [facility] [place] [facility] [address] [id number] [place] [address] Jul, [facility] [place] [facility] [address] [id number] [place] [address] Jul, [facility] [place] [facility] [address] [id number] [place] [address] Jul, [facility] [place] [facility] [address] [id number] [place] [address] Jul, [facility] [place] [facility] [address] [id number] [place] [address] Jul, [facility] [place] [facility] [address] [id number] [place] [address] Jul, [facility] [place] [facility] [address] [id number] [place] [address]- [address] Jun, [facility] [place] [facility] [address] [id number] [place] [address]- [address] Jun, [facility] [place] [facility] [address] [id number] [place] [address] Jun, [facility] [place] [facility] [address] [id number] [place] [address]- [address] Jun, [facility] [place] [facility] [address] [id number] [place] [address]- [address] Jun, [facility] [address] [id number] [place] [address] Jun, [facility] [address] [id number] [place] [address]- [address] Jun, [facility] [address] [id number] [place] [address]- [address] Jun, [facility] [address] [id number] [place] [address]- [address]686 Jun, [facility] [address] [id number] [place] [address]- [address] Jun, [facility] [address] [id number] [place] [address]- [address]798 Apr, [facility] [address] [id number] [place] [address]- [address] Apr, [facility] [address] [id number] [place] [address]- [address] Apr, [facility] [address] [id number] [place] [address]- [address] Apr, [facility] [address] [id number] [place] [address]- [address] Apr, [facility] [address] [id number] [address] Apr, [facility] [place] [facility] [address] [id number] [place] [address]- [address] Mar, [facility] [place] [facility] [address] [id number] [place] [address]- 9999 Mar, [facility] [place] [facility] [address] [id number] [place] [address] Jan, [facility] [place] [facility] [address] [id number], [place] [address] Jul, [facility] [address] [facility] [id number] [place] [address] Jun, [facility] [address] [facility] [id number], [place] [address] Jun, [facility] [address] [facility] [id number], [place] [address] Jun, [facility] [address] [facility] [id number], [place] [address] Jun, [facility] [address] [facility] [id number] [place] [address] Jun, [facility] [address] [facility] [id number], [place] [address] Jun, [facility] [address] [facility] [id number], [place] [address] May, [facility] [address] [facility] [id number], [place] [address] May, [facility] [address] [facility] [id number][place] [address] Feb, [facility] [address] [facility] [id number][place] [address] November, [facility] [address] [facility] [id number][place] [address] Apr, [facility] [address] [facility] [id number], [place] [address] Apr, [facility] [address] [facility] [id number][place] Apr, [facility] [address] [facility] [id number][place] Apr, [facility] [address] [facility] [id number], [place] [address] Apr, IMMUNIZATIONS No Known Immunizations SOCIAL HISTORY Never Assessed REASON FOR VISIT Bladder infection began this morning, "a piece of something in eye" jeanine storm PLAN OF CARE Activity Details Follow Up prn Reason: VITAL SIGNS Height 65 in 2017-09-30 Weight 154.6 lbs 2017-09-30 Temperature 97.2 degrees Fahrenheit 2017-09-30 Heart Rate 72 bpm 2017-09-30 Respiratory Rate 16 2017-09-30 BMI 25.72 kg/m2 2017-09-30 Blood pressure systolic 108 mmHg 2017-09-30 Blood pressure diastolic 72 mmHg 2017-09-30 MEDICATIONS Medication Instructions Dosage Frequency Start Date End Date Duration Status Loratadine 10 MG Orally Once a day 1 tablet 24h Active Amoxicillin 500 mg Orally every 8 hrs 1 tablet 8h Sep, Sep, 07 days Active Tramadol HCl 50 mg Orally every 6 hrs 1 tablet as needed 6h November, Not-Taking Flonase 50 mcg/act Nasally Once a day 1 spray in each nostril 24h November, 90 days Not-Taking Citalopram Hydrobromide 20 mg Orally Once a day 1 tablet 24h 90 days Active Erythromycin 5 MG/GM Ophthalmic Four times a day 1 application 6h Sep, Sep, 10 day(s) Active RESULTS No Results PROCEDURES Procedure Date Ordered Result Body Site URINALYSIS, AUTO, W/O SCOPE September 30, 2017 URINE CULTURE/COLONY COUNT September 30, 2017 INSTRUCTIONS MEDICATIONS ADMINISTERED No Known Medications MEDICAL (GENERAL) HISTORY Type Description Date Medical History dx with urogenital fistula in 2006 Medical History breast cancer with lymphnode involvement Medical History hx of Pneumonia Surgical History tonsillectomy Surgical History mastectomy-right mass with lymphnode dissection Stage III at onset Surgical History hysterectomy Surgical History surgery on foot Surgical History infuaport placement and removal Surgical History Colonoscopy - diverticulosis. Dr Ross 12/2013 Hospitalization History Hospitalization for surgery only
--- OUTSIDE RECORDS SUMMARY | 2018-04-22 14:48 | XMS REPORT ---
Author Author SANDY CABRAL [facility] eClinicalWorks Address Unknown Phone Unavailable Care Team Providers Care Marine Pipefitter Helper Name Role Phone SANDY CABRAL CP Unavailable Allergies, Adverse Reactions, Alerts Substance Reaction Event Type SulfADIAZINE Info Not Available Drug Allergy Morphine Sulfate Info Not Available Drug Allergy Shellfish Info Not Available Non Drug Allergy Problems Problem Type Condition Code Onset Dates Condition Status Problem Other symptoms referable to back 724.8 Active Problem Other specified disorders of bladder 596.89 Active Problem Diverticulitis of colon (without mention of hemorrhage) 562.11 Active Problem Malignant neoplasm of female breast, unspecified laterality, unspecified site of breast C50.919 Active Assessment Dizziness R42 Active Problem Contact dermatitis and other eczema, due to unspecified cause 692.9 Active Assessment Sinusitis J32.9 Active Problem Dysuria R30.0 Active Problem Unspecified symptom associated with female genital organs 625.9 Active Problem Rectocele without mention of uterine prolapse 618.04 Active Problem Abdominal pain, other specified site 789.09 Active Problem Urgency of urination 788.63 Active Problem Abdominal pain, generalized 789.07 Active Problem Acute nasopharyngitis (common cold) 460 Active Problem Observation of other suspected mental condition V71.09 Active Problem Other, multiple, and unspecified sites, insect bite, nonvenomous, without mention of infection 919.4 Active Problem Sciatica 724.3 Active Problem Allergic rhinitis, cause unspecified 477.9 Active Problem Major depressive disorder, recurrent episode, severe, without mention of psychotic behavior 296.33 Active Problem Other general symptoms 780.99 Active Problem Unspecified local infection of skin and subcutaneous tissue 686.9 Active Problem Sacroiliitis, not elsewhere classified 720.2 Active Medications Medication Code System Code Instructions Start Date End Date Status Dosage Amoxicillin [facility] [address]-78 500 MG Orally every 12 hrs Jun 09, 2015 Jun 19, 2015 1 tablet Flonase Allergy Relief [facility] [address]-44 50 MCG/ACT Nasally Once a day Jun 09, 2015 1 spray in each nostril Meclizine HCl [facility] [address]-34 25 MG Orally Once a day Jun 09, 2015 1 tablet as needed Loratadine [facility] [address]-31 10 MG Orally Once a day not defined Mucinex D [facility] [address]-46 60-600 MG Orally not defined Citalopram Hydrobromide [facility] [address]-85 20 MG Orally Once a day January 22, 2015 1 tablet Procedures Procedure Coding System Code Date Office Visit, Est Pt., Level 3 CPT-4 76355 Jun 09, 2015 Vital Signs Date/Time: Jun 09, 2015 Temperature 97.6 F Weight 165.4 lbs Height 65 in BMI 27.52 Index Blood Pressure Diastolic 74 mmHg Blood Pressure Systolic 105 mmHg Cardiac Monitoring Heart Rate 76 bpm Results No Known Results Summary Purpose eClinicalWorks Submission
--- OUTSIDE RECORDS SUMMARY | 2018-04-22 14:48 | XMS REPORT ---
Author Author SANDY CABRAL [facility] eClinicalWorks Address Unknown Phone Unavailable Care Team Providers Care Slab Polisher Name Role Phone SANDY CABRAL CP Unavailable Allergies, Adverse Reactions, Alerts Substance Reaction Event Type SulfADIAZINE Info Not Available Drug Allergy Morphine Sulfate Info Not Available Drug Allergy Shellfish Info Not Available Non Drug Allergy Problems Problem Type Condition Code Onset Dates Condition Status Problem Sacroiliitis, not elsewhere classified 720.2 Active Problem Diverticulitis of colon (without mention of hemorrhage) 562.11 Active Problem Other symptoms referable to back 724.8 Active Problem Contact dermatitis and other eczema, due to unspecified cause 692.9 Active Assessment Dysuria R30.0 Active Problem Abdominal pain, other specified site 789.09 Active Assessment Urinary tract infection N39.0 Active Problem Dysuria R30.0 Active Problem Rectocele without mention of uterine prolapse 618.04 Active Problem Other specified disorders of bladder 596.89 Active Problem Urgency of urination 788.63 Active Problem Unspecified symptom associated with female genital organs 625.9 Active Problem Other, multiple, and unspecified sites, insect bite, nonvenomous, without mention of infection 919.4 Active Problem Abdominal pain, generalized 789.07 Active Problem Malignant neoplasm of unspecified site of unspecified female breast C50.919 Active Problem Observation of other suspected mental condition V71.09 Active Problem Unspecified local infection of skin and subcutaneous tissue 686.9 Active Problem Sciatica 724.3 Active Problem Acute nasopharyngitis (common cold) 460 Active Problem Allergic rhinitis, cause unspecified 477.9 Active Problem Major depressive disorder, recurrent episode, severe, without mention of psychotic behavior 296.33 Active Problem Other general symptoms 780.99 Active Medications Medication Code System Code Instructions Start Date End Date Status Dosage Macrodantin [facility] [address]-31 100 MG Orally 2 times a day May 25, 2015 May 28, 2015 1 capsule Pyridium [facility] [address]-86 100 MG Orally Three times a day May 25, 2015 May 27, 2015 1 tablet after meals Citalopram Hydrobromide [facility] [address]-71 20 MG Orally Once a day January 22, 2015 1 tablet Procedures Procedure Coding System Code Date URINE CULTURE/COLONY COUNT CPT-4 47005 May 25, 2015 Office Visit, Est Pt., Level 3 CPT-4 20485 May 25, 2015 URINALYSIS, AUTO, W/O SCOPE CPT-4 98477 May 25, 2015 Vital Signs Date/Time: May 25, 2015 Temperature 98.7 F Weight 164 lbs Height 65 in BMI 27.29 Index Blood Pressure Diastolic 80 mmHg Blood Pressure Systolic 102 mmHg Cardiac Monitoring Heart Rate 70 bpm Results Name Result Date Reference Range Unit Abnormality Flag UA LONG DIP (IN HOUSE) Summary Purpose eClinicalWorks Submission
--- OUTSIDE RECORDS SUMMARY | 2018-04-22 14:48 | XMS REPORT ---
Author Author SUNG NEGRETE Organization [facility] Address [address] [place] [address] Care Team Providers Care Lock Tender Name Role Phone SUNG NEGRETE Unavailable PROBLEMS Type Condition ICD9-CM Code DSX20-GN Code Onset Dates Condition Status SNOMED Code Problem Chronic allergic rhinitis, unspecified seasonality, unspecified trigger J30.9 Active 84526023 Problem Migraine G43.909 Active 20636674 Problem Chronic UTI N39.0 Active 873114442 Problem Bladder prolapse, female, acquired N81.10 Active 687065525 Problem Personal history of breast cancer Z85.3 Active 118803258 Problem Chronic pansinusitis J32.4 Active 24583579 Problem Anhedonia R45.84 Active 44082484 ALLERGIES Substance Reaction Event Type Date Status SulfADIAZINE swelling Drug Allergy Jan, Active Morphine Sulfate Unknown Drug Allergy Jan, Active Shellfish Unknown Non Drug Allergy Jan, Active ENCOUNTERS Encounter Location Date Diagnosis [facility] [address] [address] Feb, Dizziness R42 ; Migraine G43.909 ; Anhedonia R45.84 and Screening cholesterol level Z13.220 [facility] [address] [address] Jan, Dysuria R30.0 and Acute cystitis with hematuria N30.01 [facility] [address] [address] Sep, Dysuria R30.0 ; Acute cystitis with hematuria N30.01 and Abrasion of left cornea, initial encounter S05.02XA [facility] [address] [address] Aug, Dysuria R30.0 and Acute cystitis with hematuria N30.01 [facility] [address] [place] [id number] [place] [address] Feb, Dizziness R42 ; Chronic pansinusitis J32.4 and Chronic seasonal allergic rhinitis, unspecified trigger J30.2 [place] [address] [address] Dec, Personal history of breast cancer Z85.3 ; Anhedonia R45.84 ; Chronic allergic rhinitis, unspecified seasonality, unspecified trigger J30.9 and Bladder prolapse, female, acquired N81.10 [place] [address] [address] Dec, [place] [address] [address] November, Seasonal allergic rhinitis, unspecified allergic rhinitis trigger J30.2 [place] [address] [address] November, [place] [address] [address] November, Dysuria R30.0 ; Encounter for immunization Z23 and Personal history of pneumonia (recurrent) Z87.01 [facility] [address] [address] Aug, Sinusitis J32.9 [place] [address] [address] 18 May, 2016 Acute recurrent maxillary sinusitis J01.01 [place] [address] [address] 15 May, 2016 Sinusitis J32.9 and Subacute maxillary sinusitis J01.00 [place] [address] [address] May, Subacute maxillary sinusitis J01.00 [facility] [address] [id number] Feb, Dental examination Z01.20 [facility] [address] [address] Jan, Dysuria R30.0 and Acute cystitis without hematuria N30.00 [facility] [id number] [place] [id number] Jan, Dental examination Z01.20 [facility] [address] [place] [id number] [place] [id number] Dec, Dental examination Z01.20 [facility] [id number] [place] [address] Dec, Dental examination Z01.20 [facility] [id number] [place] [address] Oct, Dental examination Z01.20 [facility] [id number] [place] [address] Aug, Acute recurrent sinusitis, unspecified location J01.91 and Sinusitis J32.9 [facility] [id number] [place] [address] May, Dizziness R42 and Sinusitis J32.9 [facility] [id number] [place] [address] May, Dysuria R30.0 and Urinary tract infection N39.0 [facility] [id number] [place] [address] Feb, Encounter to establish care V65.8 ; Depression 311 ; Sciatica 724.3 ; Peptic ulcer 533.90 and History of breast cancer V10.3 [facility] [id number] [place] [address] Jan, [facility] [id number] [place] [address] Jan, [facility] [id number] [place] [address] Oct, [facility] [place] [facility] [address] [id number] [place] [address] 13 Oct, 2014 [facility] [place] [facility] [address] [id number] [place] [address] 14 Jul, 2014 [facility] [place] [facility] [address] [id number] [place] [address] 14 Jul, 2014 [facility] [place] [facility] [address] [id number] [place] [address] Jun, [facility] [place] [facility] [address] [id number] [place] [address] Jun, [facility] [place] [facility] [address] [id number] [place] [address] May, [facility] [place] [facility] [address] [id number] [place] [address] May, [facility] [place] [facility] [address] [id number] [place] [address] 18 Mar, 2014 [facility] [place] [facility] [address] [id number] [place] [address] 18 Mar, 2014 [facility] [place] [facility] [address] [id number] [place] [address] 18 Mar, 2014 [facility] [place] [facility] [address] [id number] [place] [address] 18 Mar, 2014 [facility] [place] [facility] [address] [id number] [place] [address] November, [facility] [place] [facility] [address] [id number] [place] [address] November, [facility] [place] [facility] [address] [id number] [place] [address] Oct, [facility] [place] [facility] [address] [id number] [place] [address] Oct, [facility] [place] [facility] [address] [id number] [place] [address] 17 Oct, 2013 [facility] [place] [facility] [address] [id number] [place] [address] Oct, [facility] [place] [facility] [address] [id number] [place] [address] 8[address] Oct, [facility] [place] [facility] [address] [id number] [place] [address]- [address] Oct, [facility] [place] [facility] [address] [id number] [place] [address]- [address] Oct, [facility] [place] [facility] [address] [id number] [place] [address] 79[address] Oct, [facility] [place] [facility] [address] [id number] [place] [address] Aug, [facility] [place] [facility] [address] [id number] [place] [address] Aug, [facility] [place] [facility] [address] [id number] [place] [address] Aug, [facility] [place] [facility] [address] [id number] [place] [address]- 118[address] Jul, [facility] [place] [facility] [address] [id number] [place] [address] Jul, [facility] [place] [facility] [address] [id number] [place] [address]- [address] Jul, [facility] [place] [facility] [address] [id number] [place] [address]- 4[address] Jul, [facility] [place] [facility] [address] [id number] [place] [address]- 114[address] Jul, [facility] [place] [facility] [address] [id number] [place] [address]- 44[address] Jul, [facility] [place] [facility] [address] [id number] [place] [address]- 6276 Jul, [facility] [place] [facility] [address] [id number] [place] [address]- 15[address] Jun, [facility] [address] [id number] [place] [address] Jun, [facility] [address] [id number] [place] [address]- [address] Jun, [facility] [address] [id number] [place] [address]- 7[address] Jun, [facility] [address] [id number] [place] [address] Jun, [facility] [address] [id number] [place] [address]- [address] Jun, [facility] [address] [id number] [place] [address]- [address] Jun, [facility] [address] [id number] [place] [address]- 9[address] Jun, [facility] [address] [id number] [place] [address]- 77[address] Jun, [facility] [address] [id number] [place] [address]- [address] Jun, [facility] [address] [id number] [place] [address]- [address] Apr, [facility] [address] [id number], [place] [address] Apr, [facility] [address] [id number] [place] [address]- [address] Apr, [facility] [place] [facility] [address] [id number] [place] [address]- 49[address] Apr, [facility] [address] [id number], [place] [address] Apr, [facility] [address] [id number], [place] [address] 24 Apr, 2013 [facility] [place] [facility] [address] [id number] [place] [address]- 93[address] 20 Mar, 2013 [facility] [place] [facility] [address] [id number] [place] [address]- 96[address] 16 Mar, 2013 [facility] [place] [facility] [address] [id number] [place] [address]- 65[address] 16 Jan, 2013 [facility] [place] [facility] [address] [id number] [place] [address]- [address] Jul, [facility] [place] [facility] [address] [id number] [place] [address]- [address] Jun, [facility] [place] [facility] [address] [id number] [place] [address]- 7547 Jun, [facility] [place] [facility] [address] [id number] [place] [address]- 79[address] Jun, [facility] [place] [facility] [address] [id number] [place] [address]- 8754 Jun, [facility] [place] [facility] [address] [id number] [place] [address]- 0080 Jun, [facility] [place] [facility] [address] [id number] [place] [address]- 0916 Jun, [facility] [place] [facility] [address] [id number] [place] [address]- 70[address] May, [facility] [place] [facility] [address] [id number] [place] [address]- 139[address] May, [facility] [place] [facility] [address] [id number] [place] [address]- 6[address] Feb, [facility] [place] [facility] [address] [id number] [place] [address]- 86[address] November, [facility] [place] [facility] [address] [id number] [place] [address]- 116[address] Apr, [facility] [place] [facility] [address] [facility] [id number] [place] [address]- [address] Apr, [facility] [address] [facility] [id number], [place] [address]- [address] Apr, [facility] [address] [facility] [id number], [place] [address]- [address] Apr, [facility] [address] [facility] [id number][place] [address] Apr, IMMUNIZATIONS No Known Immunizations SOCIAL HISTORY Never Assessed REASON FOR VISIT UTI-Nausea x 1 week, fever yesterday and pain on urination last night. The patient took two amoxicillan one last night and one this morning that she had saved from last UTI. The patient is also taking cranberry pills also.--RAMIRO Austin PLAN OF CARE Activity Details Follow Up March 01 w/ Dr. Pérez Reason:chronic UTIs VITAL SIGNS Height 65 in 2018-02-10 Weight 142 lbs 2018-02-10 Temperature 97.5 degrees Fahrenheit 2018-02-10 Heart Rate 80 bpm 2018-02-10 Respiratory Rate 18 2018-02-10 BMI 23.63 kg/m2 2018-02-10 Blood pressure systolic 104 mmHg 2018-02-10 Blood pressure diastolic 82 mmHg 2018-02-10 MEDICATIONS Medication Instructions Dosage Frequency Start Date End Date Duration Status Citalopram Hydrobromide 20 mg Orally Once a day 1 tablet 24h 90 days Active Cipro 500 mg Orally Once a day 2 tablets 24h Jan, Feb, 10 day(s) Active Loratadine 10 MG Orally Once a day 1 tablet 24h Active Flonase 50 mcg/act Nasally Once a day 1 spray in each nostril 24h November, 90 days Not-Taking Cranberry 400 MG Orally Three times a day 1 capsule with meals 8h Active Tramadol HCl 50 mg Orally every 6 hrs 1 tablet as needed 6h November, Not-Taking RESULTS No Results PROCEDURES Procedure Date Ordered Result Body Site URINALYSIS, AUTO, W/O SCOPE February 10, 2018 URINE CULTURE/COLONY COUNT February 10, 2018 INSTRUCTIONS MEDICATIONS ADMINISTERED No Known Medications [...]
--- OUTSIDE RECORDS SUMMARY | 2018-04-22 14:48 | XMS REPORT ---
Author Author AWILDA DIAMOND [facility] Address [address] [place] [address] Care Team Providers Care Electronics Scale Tester Name Role Phone AWILDA DIAMOND Unavailable PROBLEMS Type Condition ICD9-CM Code WHX17-NE Code Onset Dates Condition Status SNOMED Code Problem Chronic pansinusitis J32.4 Active 83268635 Problem Anhedonia R45.84 Active 95832167 Problem Chronic allergic rhinitis, unspecified seasonality, unspecified trigger J30.9 Active 77303840 Problem Bladder prolapse, female, acquired N81.10 Active 359198719 Problem Personal history of breast cancer Z85.3 Active 794708864 ALLERGIES Substance Reaction Event Type Date Status SulfADIAZINE swelling Drug Allergy Aug, Active Morphine Sulfate Unknown Drug Allergy Aug, Active Shellfish Unknown Non Drug Allergy Aug, Active ENCOUNTERS Encounter Location Date Diagnosis [facility] [id number] [place] [address] Sep, Dysuria R30.0 ; Acute cystitis with hematuria N30.01 and Abrasion of left cornea, initial encounter S05.02XA [facility] [id number] [place] [address] Aug, Dysuria R30.0 and Acute cystitis with hematuria N30.01 [facility] [id number] [place] [address]95[address] Feb, Dizziness R42 ; Chronic pansinusitis J32.4 and Chronic seasonal allergic rhinitis, unspecified trigger J30.2 [facility] [address] [place] [address]96[address] Dec, Personal history of breast cancer Z85.3 ; Anhedonia R45.84 ; Chronic allergic rhinitis, unspecified seasonality, unspecified trigger J30.9 and Bladder prolapse, female, acquired N81.10 [facility] [id number] [place] [address]99[address] 6702 Dec, [facility] [id number] [place] [address]111[address] 7710 November, Seasonal allergic rhinitis, unspecified allergic rhinitis trigger J30.2 [facility] [address] [address] November, [facility] [address] [address] November, Dysuria R30.0 ; Encounter for immunization Z23 and Personal history of pneumonia (recurrent) Z87.01 [facility] [id number] [place] [address] 8191 Aug, Sinusitis J32.9 [facility] [address] [address]- [address] 18 May, 2016 Acute recurrent maxillary sinusitis J01.01 [facility] [id number] [place] [address]- 4199 15 May, 2016 Sinusitis J32.9 and Subacute maxillary sinusitis J01.00 [facility] [id number] [place] [address] 50867[address] 8664 May, Subacute maxillary sinusitis J01.00 [facility] [id number] [place] [id number] Feb, Dental examination Z01.20 [facility] [id number] [place] [address]659 Jan, Dysuria R30.0 and Acute cystitis without hematuria N30.00 [facility] [id number] [place] [id number] Jan, Dental examination Z01.20 [facility] [address] [id number] Dec, Dental examination Z01.20 [facility] [address] [place] [address]285[address] Dec, Dental examination Z01.20 [facility] [id number] [place] [address]01- 4968 Oct, Dental examination Z01.20 [facility] [id number] [place] [address] 80915- 7175 Aug, Acute recurrent sinusitis, unspecified location J01.91 and Sinusitis J32.9 [facility] [id number] [place] [address]95 [address]6285 May, Dizziness R42 and Sinusitis J32.9 [facility] [id number] [place] [address]2574 -9964 May, Dysuria R30.0 and Urinary tract infection N39.0 [facility] [id number] [place] [address]80- 0716 Feb, Encounter to establish care V65.8 ; Depression 311 ; Sciatica 724.3 ; Peptic ulcer 533.90 and History of breast cancer V10.3 [facility] [address] [place] [address] 46511- 8552 Jan, [facility] [address] [place] [address] 35037- 8375 Jan, [facility] [address] [place] [address] 25862- 5129 Oct, [facility] [id number] [place] [address] 42269- 2493 Oct, [facility] [id number] [place] [address] 29162- 5017 Jul, [facility] [address] [place] [address] 01974- 4141 Jul, [facility] [id number] [place] [address] 90588- 6352 Jun, [facility] [place] [facility] [address] [id number] [place] [address] 67[address] Jun, [facility] [place] [facility] [address] [id number] [place] [address] 9588 May, [facility] [place] [facility] [address] [id number] [place] [address]- 3708 May, [facility] [place] [facility] [address] [id number] [place] [address]- 9486 18 Mar, 2014 [facility] [place] [facility] [address] [id number] [place] [address]- 6123 18 Mar, 2014 [facility] [place] [facility] [address] [id number] [place] [address]- 5778 Mar, [facility] [place] [facility] [address] [id number] [place] [address]- 0925 Mar, [facility] [place] [facility] [address] [id number] [place] [address] 1990 November, [facility] [place] [facility] [address] [id number] [place] [address]- 8068 November, [facility] [place] [facility] [address] [id number] [place] [address]- 3880 Oct, [facility] [place] [facility] [address] [id number] [place] [address]- 5273 Oct, [facility] [place] [facility] [address] [id number], [place] [address] 8193 Oct, [facility] [place] [facility] [address] [id number] [place] [address]- 5566 17 Oct, 2013 [facility] [place] [facility] [address] [id number] [place] [address]- 2688 Oct, [facility] [place] [facility] [address] [id number] [place] [address]- 7294 Oct, [facility] [place] [facility] [address] [id number] [place] [address]- 0097 Oct, [facility] [address] [id number] [place] [address]- 0157 Oct, [facility] [address] [id number] [place] [address]- 3496 Aug, [facility] [address] [id number] [place] [address]- 2756 Aug, [facility] [address] [id number] [place] [address]- 3294 Aug, [facility] [address] [id number] [place] [address]- 7459 Jul, [facility] [address] [id number] [place] [address]- 0147 Jul, [facility] [address] [id number] [place] [address]- 8685 Jul, [facility] [address] [id number] [place] [address]- 0601 Jul, [facility] [address] [id number] [place] [address]- 2206 Jul, [facility] [address] [facility] [id number] [place] [address]- 2898 Jul, [facility] [address] [id number] [place] [address]- 8766 Jul, [facility] [address] [id number] [place] [address]- 9858 Jun, [facility] [place] [facility] [address] [id number] [place] [address] Jun, [facility] [place] [facility] [address] [id number] [place] [address]- 7964 Jun, [facility] [address] [id number] [place] [address]- 3304 Jun, [facility] [address] [id number] [place] [address]75 Jun, [facility] [place] [facility] [address] [id number] [place] [address] Jun, [facility] [place] [facility] [address] [id number] [place] [address]- 5123 Jun, [facility] [place] [facility] [address] [id number] [place] [address]- 7948 Jun, [facility] [address] [id number] [place] [address] Jun, [facility] [place] [facility] [address] [id number] [place] [address] Jun, [facility] [place] [facility] [address] [id number] [place] [address]- 1205 Apr, [facility] [place] [facility] [address] [id number], [place] [address]- 9939 Apr, [facility] [place] [facility] [address] [id number] [place] [address]- 7089 Apr, [facility] [place] [facility] [address] [id number], [place] [address]- 1741 Apr, [facility] [place] [facility] [address] [id number], [place] [address]- 6672 Apr, [facility] [place] [facility] [address] [id number], [place] [address]- 5622 Apr, [facility] [place] [facility] [address] [id number] [address] Mar, [facility] [place] [facility] [address] [id number], [place] [address]- 5533 Mar, [facility] [place] [facility] [address] [id number], [place] [address]- 1572 Jan, [facility] [place] [facility] [address] [id number], [place] [address]- [address] 07 Jul, 2012 [facility] [address] [facility] [id number] [place] [address]- 2377 Jun, [facility] [address] [facility] [id number], [place] [address]- 0466 Jun, [facility] [address] [address]- 7746 Jun, [facility] [address] [facility] [id number], [place] [address]- 6378 Jun, [facility] [id number] [place] [address]- 8401 Jun, [facility] [address] [id number] [address]3 Jun, [facility] [address], [place] [address]- 7557 May, [facility] [address] [address]- 3634 May, [facility] [address] [address]- 5633 Feb, [facility] [address] [address] November, [facility] [address] [address] Apr, [facility] [id number] [address]- 9420 Apr, [facility] [id number] [address]- 7912 Apr, [facility] [id number] [address] Apr, [facility] [address], [place] [address]- 1605 Apr, IMMUNIZATIONS No Known Immunizations SOCIAL HISTORY Never Assessed REASON FOR VISIT dysuria, urinary frequency with little results. been like this since last noc. [email or web address] PLAN OF CARE Activity Details Follow Up prn Reason: VITAL SIGNS Height 65 in 2017-09-07 Weight 161.6 lbs 2017-09-07 Temperature 97.9 degrees Fahrenheit 2017-09-07 Heart Rate 80 bpm 2017-09-07 Respiratory Rate 20 2017-09-07 BMI 26.89 kg/m2 2017-09-07 Blood pressure systolic 114 mmHg 2017-09-07 Blood pressure diastolic 70 mmHg 2017-09-07 MEDICATIONS Medication Instructions Dosage Frequency Start Date End Date Duration Status Citalopram Hydrobromide 20 mg Orally Once a day 1 tablet 24h 90 days Not-Taking Loratadine 10 MG Orally Once a day 1 tablet 24h Active Macrobid 100 MG Orally every 12 hrs 1 capsule with food 12h Aug, Aug, 7 day(s) Active Tramadol HCl 50 mg Orally every 6 hrs 1 tablet as needed 6h November, Active Flonase 50 mcg/act Nasally Once a day 1 spray in each nostril 24h November, 90 days Not-Taking RESULTS No Results PROCEDURES Procedure Date Ordered Result Body Site URINALYSIS, AUTO, W/O SCOPE Sep 07, 2017 URINE CULTURE/COLONY COUNT Sep 07, 2017 INSTRUCTIONS MEDICATIONS ADMINISTERED No Known Medications [...]
--- OUTSIDE RECORDS SUMMARY | 2018-04-22 14:49 | XMS REPORT ---
Author Author JOCELYN DOMINGO Organization [employer] Address Unknown Phone Unavailable Care Team Providers Care Disaster Response Director Name Role Phone JOCELYN DOMINGO CP Unavailable Allergies, Adverse Reactions, Alerts Substance Reaction Event Type Morphine Sulfate Info Not Available Drug Allergy sulfa drugs Info Not Available Non Drug Allergy Shellfish Info Not Available Non Drug Allergy Problems Problem Type Condition Code Onset Dates Condition Status Problem Other symptoms referable to back 724.8 Active Problem Other specified disorders of bladder 596.89 Active Problem Diverticulitis of colon (without mention of hemorrhage) 562.11 Active Problem Malignant neoplasm of female breast, unspecified laterality, unspecified site of breast C50.919 Active Assessment Dysuria R30.0 Active Problem Contact dermatitis and other eczema, due to unspecified cause 692.9 Active Assessment Acute cystitis without hematuria N30.00 Active Problem Dysuria R30.0 Active Problem Unspecified [...] Instructions Start Date End Date Status Dosage Citalopram Hydrobromide [facility] [address]-10 20 MG Orally Once a day 1 tablet Loratadine [facility] [address]-63 10 MG Orally Once a day 1 tablet Ciprofloxacin HCl [facility] [address]-63 500 MG Orally Twice a day February 09, 2016 February 14, 2016 1 tablet Procedures Procedure Coding System Code Date URINE CULTURE/COLONY COUNT CPT-4 55794 February 09, 2016 Office Visit, Est Pt., Level 3 CPT-4 59694 February 09, 2016 Vital Signs Date/Time: February 09, 2016 Cardiac Monitoring Heart Rate 92 bpm Weight 178.4 lbs Height 65 in Blood Pressure Diastolic 76 mmHg Blood Pressure Systolic 108 mmHg Results No Known Results Summary Purpose [employer] Submission
--- OUTSIDE RECORDS SUMMARY | 2018-04-22 14:49 | XMS REPORT ---
Author Author SAMUEL RENEE Organization [facility] Address [address] [place] [address] Care Team Providers Care Dimethylaniline Sulfator Operator Name Role Phone SAMUEL RENEE Unavailable PROBLEMS Type Condition ICD9-CM Code VOP07-ZW Code Onset Dates Condition Status SNOMED Code Problem Chronic pansinusitis J32.4 Active 47863359 Problem Anhedonia R45.84 Active 62827382 Problem Chronic allergic rhinitis, unspecified seasonality, unspecified trigger J30.9 Active 72008049 Problem Bladder prolapse, female, acquired N81.10 Active 237979204 Problem Personal history of breast cancer Z85.3 Active 364327199 ALLERGIES No Information SOCIAL HISTORY Never Assessed PLAN OF CARE VITAL SIGNS MEDICATIONS Medication Instructions Dosage Frequency Start Date End Date Duration Status Flonase Allergy Relief 50 MCG/ACT Nasally Once a day 1 spray in each nostril 24h May, 30 day(s) Active RESULTS No Results PROCEDURES No Known procedures IMMUNIZATIONS No Known Immunizations MEDICAL (GENERAL) HISTORY Type Description Date Medical [...]
--- OUTSIDE RECORDS SUMMARY | 2018-04-22 14:49 | XMS REPORT ---
Author Author DALILA ROLDAN Organization [employer] Address Unknown Phone Unavailable Care Team Providers Care Entertainment Usher Name Role Phone DALIAL ROLDAN CP Unavailable Allergies No Known Allergies Problems Problem Type Condition Code Onset Dates Condition Status Problem Other specified disorders of bladder 596.89 Active Problem Unspecified symptom associated with female genital organs 625.9 Active Problem Rectocele without mention of uterine prolapse 618.04 Active Problem Subacute maxillary sinusitis J01.00 Active Problem Other, multiple, and unspecified sites, insect bite, nonvenomous, without mention of infection 919.4 Active Problem Dysuria R30.0 Active Problem Observation of other suspected mental condition V71.09 Active Assessment Acute recurrent maxillary sinusitis J01.01 Active Problem Sinusitis J32.9 Active Problem Abdominal pain, other specified site 789.09 Active Problem Urgency of urination 788.63 Active Problem Malignant neoplasm of female breast, unspecified laterality, unspecified site of breast C50.919 Active Problem Contact dermatitis and other eczema, due to unspecified cause 692.9 Active Problem Major depressive disorder, recurrent episode, severe, without mention of psychotic behavior 296.33 Active Problem Unspecified local infection of skin and subcutaneous tissue 686.9 Active Problem Abdominal pain, generalized 789.07 Active Problem Acute nasopharyngitis (common cold) 460 Active Problem Other general symptoms 780.99 Active Problem Sacroiliitis, not elsewhere classified 720.2 Active Problem Sciatica 724.3 Active Problem Other symptoms referable to back 724.8 Active Problem Allergic rhinitis, cause unspecified 477.9 Active Problem Diverticulitis of colon (without mention of hemorrhage) 562.11 Active Medications Medication Code System Code Instructions Start Date End Date Status Dosage Sudafed [facility] [address]-76 60 mg Orally every 6 hrs Jun 06, 2016 1 tablet as needed Results No Known Results Summary Purpose [employer] Submission
--- OUTSIDE RECORDS SUMMARY | 2018-04-22 14:49 | XMS REPORT ---
Author Author SAMMY TOMPKINS Organization [facility] Address [address] [place] [address] Care Team Providers Care Clearance Diver Name Role Phone SAMMY TOMPKINS Unavailable PROBLEMS Type Condition ICD9-CM Code [id number] Code Onset Dates Condition Status SNOMED Code Problem Chronic pansinusitis J32.4 Active 11287171 Problem Anhedonia R45.84 Active 64295837 Problem Chronic allergic rhinitis, unspecified seasonality, unspecified trigger J30.9 Active 24522905 Problem Bladder prolapse, female, acquired N81.10 Active 179354542 Problem Personal history of breast cancer Z85.3 Active 816502668 ALLERGIES Substance Reaction Event Type Date Status SulfADIAZINE swelling Drug Allergy Dec, Active Morphine Sulfate Unknown Drug Allergy Dec, Active Shellfish Unknown Non Drug Allergy Dec, Active ENCOUNTERS Encounter Location Date Diagnosis [facility] [address] [address] Sep, Dysuria R30.0 ; Acute cystitis with hematuria N30.01 and Abrasion of left cornea, initial encounter S05.02XA [facility] [id number] [place] [address] Aug, Dysuria R30.0 and Acute cystitis with hematuria N30.01 [facility] [address] [address] Feb, Dizziness R42 ; Chronic pansinusitis J32.4 and Chronic seasonal allergic rhinitis, unspecified trigger J30.2 [facility] [address] [address] Dec, Personal history of breast cancer Z85.3 ; Anhedonia R45.84 ; Chronic allergic rhinitis, unspecified seasonality, unspecified trigger J30.9 and Bladder prolapse, female, acquired N81.10 [facility] [id number] [place] [address] Dec, [facility] [address] [address] November, Seasonal allergic rhinitis, unspecified allergic rhinitis trigger J30.2 [facility] [address] [address] November, [facility] [address] [address] November, Dysuria R30.0 ; Encounter for immunization Z23 and Personal history of pneumonia (recurrent) Z87.01 [facility] [id number] [place] [address] Aug, Sinusitis J32.9 [facility] [address] [address] 18 May, 2016 Acute recurrent maxillary sinusitis J01.01 [facility] [id number] [place] [address] May, Sinusitis J32.9 and Subacute maxillary sinusitis J01.00 [facility] [id number] [place] [address] May, Subacute maxillary sinusitis J01.00 [facility] [id number] [place] [id number] Feb, Dental examination Z01.20 [facility] [id number] [place] [address] Jan, Dysuria R30.0 and Acute cystitis without hematuria N30.00 [facility] [address] [id number] Jan, Dental examination Z01.20 [facility] [id number] [place] [id number] Dec, Dental examination Z01.20 [facility] [id number] [place] [address] 13 Dec, 2015 Dental examination Z01.20 [facility] [address] [address] 18 Oct, 2015 Dental examination Z01.20 [facility] [address] [address] Aug, Acute recurrent sinusitis, unspecified location J01.91 and Sinusitis J32.9 [facility] [id number] [place] [address] May, Dizziness R42 and Sinusitis J32.9 [facility] [address] [address] May, Dysuria R30.0 and Urinary tract infection N39.0 [place] [address] [address] Feb, Encounter to establish care V65.8 ; Depression 311 ; Sciatica 724.3 ; Peptic ulcer 533.90 and History of breast cancer V10.3 [facility] [address] [address] Jan, [facility] [id number] [place] [address] Jan, [facility] [id number] [place] [address] Oct, [facility] [id number] [place] [address] Oct, [facility] [address] [address] Jul, [facility] [address] [address] Jul, [facility] [address] [address] Jun, [facility] [place] [facility] [address] [id number] [place] [address] Jun, [facility] [place] [facility] [address] [id number] [place] [address] May, [facility] [place] [facility] [address] [id number] [place] [address] May, [facility] [place] [facility] [address] [id number] [place] [address] Mar, [facility] [place] [facility] [address] [id number] [place] [address] Mar, [facility] [place] [facility] [address] [id number] [place] [address] Mar, [facility] [place] [facility] [address] [id number] [place] [address] Mar, [facility] [place] [facility] [address] [id number] [place] [address] November, [facility] [place] [facility] [address] [id number] [place] [address] November, [facility] [place] [facility] [address] [id number] [place] [address] Oct, [facility] [place] [facility] [address] [id number] [place] [address] Oct, [facility] [place] [facility] [address] [id number], [place] [address] Oct, [facility] [place] [facility] [address] [id number] [place] [address] Oct, [facility] [place] [facility] [address] [id number] [place] [address] Oct, [facility] [place] [facility] [address] [id number] [place] [address] Oct, [facility] [place] [facility] [address] [id number], [place] [address] Oct, [facility] [address] [id number] [place] [address] Oct, [facility] [place] [facility] [address] [id number] [place] Aug, [facility] [place] [facility] [address] [id number] [place] [address] Aug, [facility] [place] [facility] [address] [id number] [place] [address] Aug, [facility] [place] [facility] [address] [id number] [place] [address] Jul, [facility] [place] [facility] [address] [id number] [place] [address] Jul, [facility] [address] [id number] [place] [address] Jul, [facility] [place] [facility] [address] [id number] [place] [address] Jul, [facility] [place] [facility] [address] [id number] [place] [address] Jul, [facility] [place] [facility] [address] [facility] [id number] [place] [address] Jul, [facility] [place] [facility] [address] [id number] [place] [address] Jul, [facility] [place] [facility] [address] [id number], [place] [address] Jun, [facility] [place] [facility] [address] [id number] [place] [address] Jun, [facility] [place] [facility] [address] [id number] [place] [address] Jun, [facility] [place] [facility] [address] [id number] [place] [address]- [address] Jun, [facility] [place] [facility] [address] [id number] [place] [address]- [address] Jun, [facility] [place] [facility] [address] [id number] [place] [address]- [address] Jun, [facility] [place] [facility] [address] [id number] [place] [address]- [address] Jun, [facility] [place] [facility] [address] [id number] [place] [address]- 82[address] Jun, [facility] [place] [facility] [address] [id number] [place] [address]- [address] Jun, [facility] [place] [facility] [address] [id number] [place] [address]- [address] Jun, [facility] [place] [facility] [address] [id number] [place] [address]- [address] Apr, [facility] [place] [facility] [address] [id number] [place] [address]- [address] Apr, [facility] [place] [facility] [address] [id number] [place] [address]- [address] Apr, [facility] [place] [facility] [address] [id number] [place] [address]- 3599 Apr, [facility] [place] [facility] [address] [id number] [place] [address]- 4[address] Apr, [facility] [place] [facility] [address] [id number] [place] [address]- [address] Apr, [facility] [place] [facility] [address] [id number] [place] [address]- [address] Mar, [facility] [place] [facility] [address] [id number] [place] [address]- [address] Mar, [facility] [place] [facility] [address] [id number] [place] [address]- 60[address] Jan, [facility] [place] [facility] [address] [id number] [place] [address] Jul, [facility] [address] [facility] [id number] [place] [address] Jun, [facility] [address] [facility] [id number], [place] [address] Jun, [facility] [address] [facility] [id number], [place] [address] Jun, [facility] [address] [facility] [id number], [place] [address] Jun, [facility] [address] [facility] [id number] [place] [address]- [address] Jun, [facility] [address] [facility] [id number], [place] [address] Jun, [facility] [address] [facility] [id number], [place] [address] May, [facility] [address] [facility] [id number], [place] [address] May, [facility] [address] [facility] [id number], [place] [address] Feb, [facility] [address] [facility] [id number], [place] [address] November, [facility] [address] [id number], [place] [address] Apr, [facility] [address] [facility] [id number], [place] [address] Apr, [facility] [address] [facility] [id number] [address] Apr, [facility] [address] [facility] [id number][place] [address] Apr, [facility] [address] [id number], [place] [address] Apr, IMMUNIZATIONS No Known Immunizations SOCIAL HISTORY Never Assessed REASON FOR VISIT PMH Updated -CLRN PLAN OF CARE VITAL SIGNS MEDICATIONS Medication Instructions Dosage Frequency Start Date End Date Duration Status Loratadine 10 MG Orally Once a day 1 tablet 24h Active Tramadol HCl 50 MG Orally every 6 hrs 1 tablet as needed 6h November, Active Flonase 50 mcg/act Nasally Once a day 1 spray in each nostril 24h November, 30 day(s) Active Citalopram Hydrobromide 20 mg Orally Once a day 1 tablet 24h 30 days Active RESULTS No Results PROCEDURES No Known procedures INSTRUCTIONS MEDICATIONS ADMINISTERED No Known Medications MEDICAL [...]
--- OUTSIDE RECORDS SUMMARY | 2018-04-22 14:49 | XMS REPORT ---
Author Author DALILA ROLDAN [facility] [employer] Address Unknown Phone Unavailable Care Team Providers Care District Captain Name Role Phone DALILA ROLDAN CP Unavailable Allergies, Adverse Reactions, Alerts Substance Reaction Event Type Morphine Sulfate Info Not Available Drug Allergy sulfa drugs Info Not Available Non Drug Allergy Shellfish Info Not Available Non Drug Allergy Problems Problem Type Condition Code Onset Dates Condition Status Problem Diverticulitis of colon (without mention of hemorrhage) 562.11 Active Problem Rectocele without mention of uterine prolapse 618.04 Active Problem Other specified disorders of bladder 596.89 Active Problem Dysuria R30.0 Active Problem Observation of other suspected mental condition V71.09 Active Problem Malignant neoplasm of female breast, unspecified laterality, unspecified site of breast C50.919 Active Assessment Subacute maxillary sinusitis J01.00 Active Problem Subacute maxillary sinusitis J01.00 Active Problem Urgency of urination 788.63 Active Problem Unspecified symptom associated with female genital organs 625.9 Active Problem Contact dermatitis and other eczema, due to unspecified cause 692.9 Active Problem Abdominal pain, other specified site 789.09 Active Problem Acute nasopharyngitis (common cold) 460 Active Problem Major depressive disorder, recurrent episode, severe, without mention of psychotic behavior 296.33 Active Problem Other, multiple, and unspecified sites, insect bite, nonvenomous, without mention of infection 919.4 Active Problem Abdominal pain, generalized 789.07 Active Problem Allergic rhinitis, cause unspecified 477.9 Active Problem Other general symptoms 780.99 Active Problem Unspecified local infection of skin and subcutaneous tissue 686.9 Active Problem Sacroiliitis, not elsewhere classified 720.2 Active Problem Sciatica 724.3 Active Problem Other symptoms referable to back 724.8 Active Medications Medication Code System Code Instructions Start Date End Date Status Dosage Citalopram Hydrobromide [facility] [address]-30 20 MG TAKE ONE TABLET BY MOUTH ONCE DAILY Loratadine [facility] [address]-22 10 MG Orally Once a day 1 tablet Procedures Procedure Coding System Code Date Office Visit, Est Pt., Level 4 CPT-4 70769 Jun 02, 2016 Vital Signs Date/Time: Jun 02, 2016 Cardiac Monitoring Heart Rate 72 bpm Weight 176.9 lbs Height 65 in BMI 29.43 Index Blood Pressure Diastolic 72 mmHg Blood Pressure Systolic 102 mmHg Results No Known Results Summary Purpose eClinicalWorks Submission
--- OUTSIDE RECORDS SUMMARY | 2018-04-22 14:49 | XMS REPORT ---
Author Author SAMMY TOMPKINS Organization [facility] Address [address] [place] [address] Care Team Providers Care Photographic Supervisor Name Role Phone SAMMY TOMPKINS Unavailable PROBLEMS Type Condition ICD9-CM Code VAU43-AH Code Onset Dates Condition Status SNOMED Code Problem Chronic pansinusitis J32.4 Active 93945044 Problem Anhedonia R45.84 Active 17177978 Problem Chronic allergic rhinitis, unspecified seasonality, unspecified trigger J30.9 Active 84283593 Problem Bladder prolapse, female, acquired N81.10 Active 361907765 Problem Personal history of breast cancer Z85.3 Active 219180081 ALLERGIES Substance Reaction Event Type Date Status Morphine Sulfate Unknown Drug Allergy November, Active sulfa drugs Unknown Non Drug Allergy November, Active Shellfish Unknown Non Drug Allergy November, Active SOCIAL HISTORY Never Assessed PLAN OF CARE Activity Details Follow Up est care with me Reason: VITAL SIGNS Height 65 in 2016-12-17 Weight 178.6 lbs 2016-12-17 Temperature 98.0 degrees Fahrenheit 2016-12-17 Heart Rate 74 bpm 2016-12-17 Respiratory Rate 20 2016-12-17 BMI 29.72 kg/m2 2016-12-17 Blood pressure systolic 110 mmHg 2016-12-17 Blood pressure diastolic 72 mmHg 2016-12-17 MEDICATIONS Medication Instructions Dosage Frequency Start Date End Date Duration Status Flonase 50 mcg/act Nasally Once a day 1 spray in each nostril 24h November, 30 day(s) Active Citalopram Hydrobromide 20 mg Orally Once a day 1 tablet 24h 30 days Active Loratadine 10 MG Orally Once a day 1 tablet 24h Active RESULTS No Results PROCEDURES No Known [...]
--- OUTSIDE RECORDS SUMMARY | 2018-04-22 14:49 | XMS REPORT ---
Author Author DALILA ROLDAN [facility] [employer] Address Unknown Phone Unavailable Care Team Providers Care Computer Discovery Teacher Name Role Phone DALILA ROLDAN CP Unavailable Allergies No Known Allergies [...] other suspected mental condition V71.09 Active Assessment Sinusitis J32.9 Active Problem Sinusitis J32.9 Active Problem Abdominal [...] Other symptoms referable to back 724.8 Active Assessment Subacute maxillary sinusitis J01.00 Active Problem Allergic rhinitis, cause unspecified 477.9 Active Problem Diverticulitis of colon (without mention of hemorrhage) 562.11 Active Medications No Known Medications Results Name Result Date Reference Range Unit Abnormality Flag CT Scan : Sinus w/o Contrast Summary Purpose eClinicalWorks Submission
--- OUTSIDE RECORDS SUMMARY | 2018-04-22 14:50 | XMS REPORT ---
Author Author SAMMY TOMPKINS Organization [facility] Address [address] [place] [address] Care Team Providers Care Site Inspector Name Role Phone SAMMY TOMPKINS Unavailable PROBLEMS Type Condition ICD9-CM Code HNG03-LS Code Onset Dates Condition Status SNOMED Code Problem Chronic pansinusitis J32.4 Active 86298460 Problem Anhedonia R45.84 Active 38050677 Problem Chronic allergic rhinitis, unspecified seasonality, unspecified trigger J30.9 Active 71389593 Problem Bladder prolapse, female, acquired N81.10 Active 959878415 Problem Personal history of breast cancer Z85.3 Active 367160090 ALLERGIES Substance Reaction Event Type Date Status SulfADIAZINE swelling Drug Allergy Dec, Active Morphine Sulfate Unknown Drug Allergy Dec, Active Shellfish Unknown Non Drug Allergy Dec, Active ENCOUNTERS Encounter Location Date Diagnosis [facility] [address] [address] Sep, Dysuria R30.0 ; Acute cystitis with hematuria N30.01 and Abrasion of left cornea, initial encounter S05.02XA [facility] [id number] [place] [address] Aug, Dysuria R30.0 and Acute cystitis with hematuria N30.01 [facility] [address] [address] Feb, Dizziness R42 ; Chronic pansinusitis J32.4 and Chronic seasonal allergic rhinitis, unspecified trigger J30.2 [facility] [address] [address] Dec, Personal history of breast cancer Z85.3 ; Anhedonia R45.84 ; Chronic allergic rhinitis, unspecified seasonality, unspecified trigger J30.9 and Bladder prolapse, female, acquired N81.10 [facility] [id number] [place] [address] Dec, [facility] [address] [address] November, Seasonal allergic rhinitis, unspecified allergic rhinitis trigger J30.2 [facility] [address] [address] November, [facility] [address] [address] November, Dysuria R30.0 ; Encounter for immunization Z23 and Personal history of pneumonia (recurrent) Z87.01 [facility] [id number] [place] [address] Aug, Sinusitis J32.9 [facility] [address] [address] 18 May, 2016 Acute recurrent maxillary sinusitis J01.01 [facility] [id number] [place] [address] May, Sinusitis J32.9 and Subacute maxillary sinusitis J01.00 [facility] [id number] [place] [address] May, Subacute maxillary sinusitis J01.00 [facility] [id number] [place] [id number] Feb, Dental examination Z01.20 [facility] [id number] [place] [address] Jan, Dysuria R30.0 and Acute cystitis without hematuria N30.00 [facility] [address] [id number] Jan, Dental examination Z01.20 [facility] [id number] [place] [id number] Dec, Dental examination Z01.20 [facility] [id number] [place] [address] 13 Dec, 2015 Dental examination Z01.20 [facility] [address] [address] 18 Oct, 2015 Dental examination Z01.20 [facility] [address] [address] Aug, Acute recurrent sinusitis, unspecified location J01.91 and Sinusitis J32.9 [facility] [id number] [place] [address] May, Dizziness R42 and Sinusitis J32.9 [facility] [address] [address] May, Dysuria R30.0 and Urinary tract infection N39.0 [facility] [address] [address] Feb, Encounter to establish care V65.8 ; Depression 311 ; Sciatica 724.3 ; Peptic ulcer 533.90 and History of breast cancer V10.3 [facility] [address] [address] Jan, [facility] [id number] [place] [address] Jan, [facility] [id number] [place] [address] Oct, [facility] [id number] [place] [address] Oct, [facility] [address] [address] Jul, [facility] [address] [address] Jul, [facility] [address] [address] Jun, [facility] [place] [facility] [address] [id number] [place] [address] Jun, [facility] [place] [facility] [address] [id number] [place] [address] May, [facility] [place] [facility] [address] [id number] [place] [address] May, [facility] [place] [facility] [address] [id number] [place] [address] Mar, [facility] [place] [facility] [address] [id number] [place] [address] Mar, [facility] [place] [facility] [address] [id number] [place] [address] Mar, [facility] [place] [facility] [address] [id number] [place] [address] Mar, [facility] [place] [facility] [address] [id number] [place] [address] November, [facility] [place] [facility] [address] [id number] [place] [address] November, [facility] [place] [facility] [address] [id number] [place] [address] Oct, [facility] [place] [facility] [address] [id number] [place] [address] Oct, [facility] [place] [facility] [address] [id number], [place] [address] Oct, [facility] [place] [facility] [address] [id number] [place] [address] Oct, [facility] [place] [facility] [address] [id number] [place] [address] Oct, [facility] [place] [facility] [address] [id number] [place] [address] Oct, [facility] [place] [facility] [address] [id number], [place] [address] Oct, [facility] [address] [id number] [place] [address] Oct, [facility] [place] [facility] [address] [id number] [place] [address] Aug, [facility] [place] [facility] [address] [id number] [place] [address]- [address] Aug, [facility] [place] [facility] [address] [id number] [place] [address]- [address] Aug, [facility] [place] [facility] [address] [id number] [place] [address] Jul, [facility] [place] [facility] [address] [id number] [place] [address]- [address] Jul, [facility] [address] [id number] [place] [address]- [address] Jul, [facility] [place] [facility] [address] [id number] [place] [address] Jul, [facility] [place] [facility] [address] [id number] [place] [address] Jul, [facility] [place] [facility] [address] [facility] [id number] [place] [address]- 118[address] Jul, [facility] [place] [facility] [address] [id number] [place] [address] Jul, [facility] [place] [facility] [address] [id number], [place] [address] Jun, [facility] [place] [facility] [address] [id number] [place] [address]- [address] Jun, [facility] [place] [facility] [address] [id number] [place] [address]- 9467 Jun, [facility] [place] [facility] [address] [id number] [place] [address]- [address] Jun, [facility] [place] [facility] [address] [id number] [place] [address]- [address] Jun, [facility] [place] [facility] [address] [id number] [place] [address]- [address] Jun, [facility] [place] [facility] [address] [id number] [place] [address]- [address] Jun, [facility] [place] [facility] [address] [id number] [place] [address]- [address] Jun, [facility] [place] [facility] [address] [id number] [place] [address]- [address] Jun, [facility] [place] [facility] [address] [id number] [place] [address]- [address] Jun, [facility] [place] [facility] [address] [id number] [place] [address]- [address] Apr, [facility] [place] [facility] [address] [id number] [place] [address]- [address] Apr, [facility] [place] [facility] [address] [id number] [place] [address]- [address] Apr, [facility] [place] [facility] [address] [id number] [place] [address]- 68[address] Apr, [facility] [place] [facility] [address] [id number] [place] [address]- 76[address] Apr, [facility] [place] [facility] [address] [id number] [place] [address]- 3588 Apr, [facility] [place] [facility] [address] [id number] [place] [address]- [address] Mar, [facility] [place] [facility] [address] [id number] [place] [address]- 3536 Mar, [facility] [place] [facility] [address] [id number] [place] [address]- [address] Jan, [facility] [place] [facility] [address] [id number] [place] [address]- [address] Jul, [facility] [address] [facility] [id number] [place] [address] Jun, [facility] [address] [facility] [id number], [place] [address] Jun, [facility] [address] [facility] [id number], [place] [address] Jun, [facility] [address] [facility] [id number], [place] [address] Jun, [facility] [address] [facility] [id number] [place] [address]- [address] Jun, [facility] [address] [facility] [id number], [place] [address]- [address] Jun, [facility] [address] [facility] [id number], [place] [address]- [address] May, [facility] [address] [facility] [id number], [place] [address]- [address] May, [facility] [address] [facility] [id number], [place] [address]- [address] Feb, [facility] [address] [facility] [id number], [place] [address]- [address] November, [facility] [address] [id number], [place] [address] Apr, [facility] [address] [facility] [id number], [place] [address]- [address] Apr, [facility] [address] [facility] [id number], [place] [address]- [address] Apr, [facility] [address] [facility] [id number], [place] [address] Apr, [facility] [address] [id number], [place] [address] Apr, IMMUNIZATIONS No Known Immunizations SOCIAL HISTORY Never Assessed REASON FOR VISIT Establish Care, Rash on stomach that wont go away ondr PLAN OF CARE Activity Details Follow Up 6 Months Reason: VITAL SIGNS Height 65 in 2017-01-15 Weight 175.4 lbs 2017-01-15 Temperature 97.6 degrees Fahrenheit 2017-01-15 Heart Rate 72 bpm 2017-01-15 Respiratory Rate 18 2017-01-15 BMI 29.18 kg/m2 2017-01-15 Blood pressure systolic 116 mmHg 2017-01-15 Blood pressure diastolic 74 mmHg 2017-01-15 MEDICATIONS Medication Instructions Dosage Frequency Start Date End Date Duration Status Loratadine 10 MG Orally Once a day 1 tablet 24h Active Tramadol HCl 50 mg Orally every 6 hrs 1 tablet as needed 6h November, Active Citalopram Hydrobromide 20 mg Orally Once a day 1 tablet 24h 90 days Active Flonase 50 mcg/act Nasally Once a day 1 spray in each nostril 24h November, 90 days Active RESULTS No Results PROCEDURES No [...]
--- OUTSIDE RECORDS SUMMARY | 2018-04-22 14:53 | XMS REPORT | Continuity of Care Document ---
Author Author [facility] Address Unknown Phone Unavailable Allergies Active Description Code Type Severity Reaction Onset Reported/Identified Relationship to Patient Clinical Status Yes [id number] (SULFA (SULFONAMIDE ANTIBIOTICS)) [id number] (SULFA (SULFONAMIDE ANTIBIOTICS)) Mild N/A 08/13/2009 Yes morphine Drug Allergy N/A N/A 08/23/2010 Yes sulfADIAZINE Drug Allergy N/ A N/A 08/23/2010 Yes morphine Drug Allergy 08/23/2010 Yes sulfADIAZINE Drug Allergy 08/23/2010 Yes meperidine HCl [id number] Drug Allergy Mild "gets vicious" 11/17/2011 Yes morphine [id number] Drug Allergy Mild "gets vicious" 11/17/2011 Yes shellfish derived [id number] Drug Allergy Unknown N/A 11/17/2011 Yes shellfish Food Allergy N/A N/A 04/06/2014 Medications There is no data. Problems Date Dx Coded Attending Type Code Diagnosis Diagnosed By 09/24/2009 619.1 DIGESTIVE- GENITAL TRACT FISTULA, FEMALE 09/24/2009 RONIT SALINAS DO 619.1 DIGESTIVE-GENITAL TRACT FISTULA, FEMALE 09/24/2009 619.1 DIGESTIVE- GENITAL TRACT FISTULA, FEMALE 09/24/2009 DALILA ROLDAN MD 619.1 DIGESTIVE-GENITAL TRACT FISTULA, FEMALE 09/24/2009 [facility] DIGESTIVE-GENITAL TRACT FISTULA, FEMALE 09/24/2009 ROBIN CALIXTO APRN 619.1 DIGESTIVE-GENITAL TRACT FISTULA, FEMALE 09/24/2009 NORMA RAM APRN 619.1 DIGESTIVE-GENITAL TRACT FISTULA, FEMALE 09/24/2009 ONRMA RAM APRN 619.1 DIGESTIVE-GENITAL TRACT FISTULA, FEMALE 09/24/2009 RONIT SALINAS DO 619.1 DIGESTIVE-GENITAL TRACT FISTULA, FEMALE 09/24/2009 NORMA RAM APRN 619.1 DIGESTIVE-GENITAL TRACT FISTULA, FEMALE 09/24/2009 BROOKS DDS, MARIELA 619.1 DIGESTIVE-GENITAL TRACT FISTULA, FEMALE 09/24/2009 YO BENCH INSPECTOR, NORMA R 619.1 DIGESTIVE-GENITAL TRACT FISTULA, FEMALE 09/24/2009 GUADALUPE PROP MAKER, TOM B 619.1 DIGESTIVE-GENITAL TRACT FISTULA, FEMALE 09/24/2009 YO BENCH INSPECTOR, NORMA R 619.1 DIGESTIVE-GENITAL TRACT FISTULA, FEMALE 09/24/2009 MUKESH BHAKTAN, [place] 619.1 DIGESTIVE-GENITAL TRACT FISTULA, FEMALE 09/24/2009 YO BENCH INSPECTOR, NORMA R 619.1 DIGESTIVE-GENITAL TRACT FISTULA, FEMALE 05/08/2010 311 DEPRESSIVE DISORDER NOT ELSEWHERE CLASSIFIED 05/08/2010 593.9 UNSPECIFIED DISORDER OF KIDNEY AND URETER 05/08/2010 V10.90 PERSONAL HISTORY OF UNSPECIFIED MALIGNANT NEOPLASM 05/08/2010 RONIT SALINAS DO K 311 DEPRESSIVE DISORDER NOT ELSEWHERE CLASSIFIED 05/08/2010 RONIT SALINAS DO 593.9 UNSPECIFIED DISORDER OF KIDNEY AND URETER 05/08/2010 RONIT SALINAS DO V10.90 PERSONAL HISTORY OF UNSPECIFIED MALIGNANT NEOPLASM 05/08/2010 311 DEPRESSIVE DISORDER NOT ELSEWHERE CLASSIFIED 05/08/2010 593.9 UNSPECIFIED DISORDER OF KIDNEY AND URETER 05/08/2010 V10.90 PERSONAL HISTORY OF UNSPECIFIED MALIGNANT NEOPLASM 05/08/2010 DALILA ROLDAN MD 311 DEPRESSIVE DISORDER NOT ELSEWHERE CLASSIFIED 05/08/2010 DALILA ROLDAN MD 593.9 UNSPECIFIED DISORDER OF KIDNEY AND URETER 05/08/2010 DALILA ROLDAN MD V10.90 PERSONAL HISTORY OF UNSPECIFIED MALIGNANT NEOPLASM 05/08/2010 [facility], JEROD R 311 DEPRESSIVE DISORDER NOT ELSEWHERE CLASSIFIED 05/08/2010 [facility], JEROD R 593.9 UNSPECIFIED DISORDER OF KIDNEY AND URETER 05/08/2010 [facility], JEROD R V10.90 PERSONAL HISTORY OF UNSPECIFIED MALIGNANT NEOPLASM 05/08/2010 ROBIN CALIXTO APRN A 311 DEPRESSIVE DISORDER NOT ELSEWHERE CLASSIFIED 05/08/2010 ROBIN CALIXTO APRN A 593.9 UNSPECIFIED DISORDER OF KIDNEY AND URETER 05/08/2010 ROBIN CALIXTO APRN A V10.90 PERSONAL HISTORY OF UNSPECIFIED MALIGNANT NEOPLASM 05/08/2010 YO BENCH INSPECTOR, NORMA R 311 DEPRESSIVE DISORDER NOT ELSEWHERE CLASSIFIED 05/08/2010 YO LYON NORMA R 593.9 UNSPECIFIED DISORDER OF KIDNEY AND URETER 05/08/2010 YO LYON NORMA R V10.90 PERSONAL HISTORY OF UNSPECIFIED MALIGNANT NEOPLASM 05/08/2010 YO LYON NORMA R 311 DEPRESSIVE DISORDER NOT ELSEWHERE CLASSIFIED 05/08/2010 YO LYON NORMA R 593.9 UNSPECIFIED DISORDER OF KIDNEY AND URETER 05/08/2010 YO LYON NORMA R V10.90 PERSONAL HISTORY OF UNSPECIFIED MALIGNANT NEOPLASM 05/08/2010 SALINAS DO, RONIT K 311 DEPRESSIVE DISORDER NOT ELSEWHERE CLASSIFIED 05/08/2010 SALINAS DO, RONIT K 593.9 UNSPECIFIED DISORDER OF KIDNEY AND URETER 05/08/2010 SALINAS DO, RONIT K V10.90 PERSONAL HISTORY OF UNSPECIFIED MALIGNANT NEOPLASM 05/08/2010 YO LYON NORMA R 311 DEPRESSIVE DISORDER NOT ELSEWHERE CLASSIFIED 05/08/2010 YO LYON NORMA R 593.9 UNSPECIFIED DISORDER OF KIDNEY AND URETER 05/08/2010 YO LYON NORMA R V10.90 PERSONAL HISTORY OF UNSPECIFIED MALIGNANT NEOPLASM 05/08/2010 BROOKS DDS, MARIELA 311 DEPRESSIVE DISORDER NOT ELSEWHERE CLASSIFIED 05/08/2010 BROOKS DDS, MARIELA 593.9 UNSPECIFIED DISORDER OF KIDNEY AND URETER 05/08/2010 BROOKS DDS, MARIELA V10.90 PERSONAL HISTORY OF UNSPECIFIED MALIGNANT NEOPLASM 05/08/2010 YO LYON NORMA R 311 DEPRESSIVE DISORDER NOT ELSEWHERE CLASSIFIED 05/08/2010 ELIZABETH RAM APRNINA R 593.9 UNSPECIFIED DISORDER OF KIDNEY AND URETER 05/08/2010 YO LYON NORMA R V10.90 PERSONAL HISTORY OF UNSPECIFIED MALIGNANT NEOPLASM 05/08/2010 GUADALUPE PROP MAKER, TOM B 311 DEPRESSIVE DISORDER NOT ELSEWHERE CLASSIFIED 05/08/2010 GUADALUPE PROP MAKER, TOM B 593.9 UNSPECIFIED DISORDER OF KIDNEY AND URETER 05/08/2010 GUADALUPE PROP MAKER, TOM B V10.90 PERSONAL HISTORY OF UNSPECIFIED MALIGNANT NEOPLASM 05/08/2010 YO LYON NORMA R 311 DEPRESSIVE DISORDER NOT ELSEWHERE CLASSIFIED 05/08/2010 YO LYON NORMA R 593.9 UNSPECIFIED DISORDER OF KIDNEY AND URETER 05/08/2010 YO LYON NORMA R V10.90 PERSONAL HISTORY OF UNSPECIFIED MALIGNANT NEOPLASM 05/08/2010 MADL BENCH INSPECTOR, EVERETT L 311 DEPRESSIVE DISORDER NOT ELSEWHERE CLASSIFIED 05/08/2010 MADL BENCH INSPECTOR, EVERETT L 593.9 UNSPECIFIED DISORDER OF KIDNEY AND URETER 05/08/2010 MADL BENCH INSPECTOR, EVERETT L V10.90 PERSONAL HISTORY OF UNSPECIFIED MALIGNANT NEOPLASM 05/08/2010 YO BENCH INSPECTOR, NORMA R 311 DEPRESSIVE DISORDER NOT ELSEWHERE CLASSIFIED 05/08/2010 YO BENCH INSPECTOR, NORMA R 593.9 UNSPECIFIED DISORDER OF KIDNEY AND URETER 05/08/2010 YO BENCH INSPECTOR, NORMA R V10.90 PERSONAL HISTORY OF UNSPECIFIED MALIGNANT NEOPLASM 08/23/2010 465.9 UPPER RESPIRATORY INFECTION 08/23/2010 RONIT SALINAS DO 465.9 UPPER RESPIRATORY INFECTION 08/23/2010 465.9 UPPER RESPIRATORY INFECTION 08/23/2010 JAMAR JEFF, DALILA 465.9 UPPER RESPIRATORY INFECTION 08/23/2010 [facility], JEROD R 465.9 UPPER RESPIRATORY INFECTION 08/23/2010 DURGA LYON, ROBIN A 465.9 UPPER RESPIRATORY INFECTION 08/23/2010 YO BENCH INSPECTOR, NORMA R 465.9 UPPER RESPIRATORY INFECTION 08/23/2010 YO BENCH INSPECTOR, NORMA R 465.9 UPPER RESPIRATORY INFECTION 08/23/2010 RONIT SALINAS DO K 465.9 UPPER RESPIRATORY INFECTION 08/23/2010 YO BENCH INSPECTOR, NORMA R 465.9 UPPER RESPIRATORY INFECTION 08/23/2010 TODD ARRIOLA, MARIELA 465.9 UPPER RESPIRATORY INFECTION 08/23/2010 YO BENCH INSPECTOR, NORMA R 465.9 UPPER RESPIRATORY INFECTION 08/23/2010 GAUDALUPE GREGORIOPC, TOM B 465.9 UPPER RESPIRATORY INFECTION 08/23/2010 YO BENCH INSPECTOR, NORMA R 465.9 UPPER RESPIRATORY INFECTION 08/23/2010 MADAbdiel BENCH INSPECTOR, EVERETT L 465.9 UPPER RESPIRATORY INFECTION 08/23/2010 YO BENCH INSPECTOR, NORMA R 465.9 UPPER RESPIRATORY INFECTION 09/20/2010 611.71 MASTODYNIA 09/20/2010 786.50 UNSPECIFIED CHEST PAIN 09/20/2010 RONIT SALINAS DO K 611.71 MASTODYNIA 09/20/2010 SALINAS RONIT DELVALLE K 786.50 UNSPECIFIED CHEST PAIN 09/20/2010 611.71 MASTODYNIA 09/20/2010 786.50 UNSPECIFIED CHEST PAIN 09/20/2010 JAMAR JEFF, DALILA 611.71 MASTODYNIA 09/20/2010 JAMAR JEFF, DALILA 786.50 UNSPECIFIED CHEST PAIN 09/20/2010 [facility], JEROD R 611.71 MASTODYNIA 09/20/2010 [facility], JEROD R 786.50 UNSPECIFIED CHEST PAIN 09/20/2010 DURGA BENCH INSPECTOR, ROBIN A 611.71 MASTODYNIA 09/20/2010 DURGA BENCH INSPECTOR, ROBIN A 786.50 UNSPECIFIED CHEST PAIN 09/20/2010 YO BENCH INSPECTOR, NORMA R 611.71 MASTODYNIA 09/20/2010 YO BENCH INSPECTOR, NORMA R 786.50 UNSPECIFIED CHEST PAIN 09/20/2010 YO BENCH INSPECTOR, NORMA R 611.71 MASTODYNIA 09/20/2010 YO BENCH INSPECTOR, NORMA R 786.50 UNSPECIFIED CHEST PAIN 09/20/2010 SALINAS DO, RONIT K 611.71 MASTODYNIA 09/20/2010 SALINAS DO, RONIT K 786.50 UNSPECIFIED CHEST PAIN 09/20/2010 YO BENCH INSPECTOR, NORMA R 611.71 MASTODYNIA 09/20/2010 YO BENCH INSPECTOR, NORMA R 786.50 UNSPECIFIED CHEST PAIN 09/20/2010 BROOKS DDS, MARIELA 611.71 MASTODYNIA 09/20/2010 BROOKS DDS, MARIELA 786.50 UNSPECIFIED CHEST PAIN 09/20/2010 YO BENCH INSPECTOR, NORMA R 611.71 MASTODYNIA 09/20/2010 YO BENCH INSPECTOR, NORMA R 786.50 UNSPECIFIED CHEST PAIN 09/20/2010 GUADALUPE PROP MAKER, TOM B 611.71 MASTODYNIA 09/20/2010 GUADALUPE PROP MAKER, TOM B 786.50 UNSPECIFIED CHEST PAIN 09/20/2010 YO BENCH INSPECTOR, NORMA R 611.71 MASTODYNIA 09/20/2010 YO BENCH INSPECTOR, NORMA R 786.50 UNSPECIFIED CHEST PAIN 09/20/2010 MADL BENCH INSPECTOR, EVERETT L 611.71 MASTODYNIA 09/20/2010 MADL BENCH INSPECTOR, EVERETT L 786.50 UNSPECIFIED CHEST PAIN 09/20/2010 YO BENCH INSPECTOR, NORMA R 611.71 MASTODYNIA 09/20/2010 YO BENCH INSPECTOR, NORMA R 786.50 UNSPECIFIED CHEST PAIN 10/15/2010 477.0 ALLERGIC RHINITIS DUE TO POLLEN 10/15/2010 RONIT SALINAS DO K 477.0 ALLERGIC RHINITIS DUE TO POLLEN 10/15/2010 477.0 ALLERGIC RHINITIS DUE TO POLLEN 10/15/2010 DALILA ROLDAN MD 477.0 ALLERGIC RHINITIS DUE TO POLLEN 10/15/2010 [facility], JEROD R 477.0 ALLERGIC RHINITIS DUE TO POLLEN 10/15/2010 ROBIN CALIXTO APRN A 477.0 ALLERGIC RHINITIS DUE TO POLLEN 10/15/2010 YO BENCH INSPECTOR, NORMA R 477.0 ALLERGIC RHINITIS DUE TO POLLEN 10/15/2010 YO BENCH INSPECTOR, NORMA R 477.0 ALLERGIC RHINITIS DUE TO POLLEN 10/15/2010 RONIT SALINAS DO K 477.0 ALLERGIC RHINITIS DUE TO POLLEN 10/15/2010 YO BENCH INSPECTOR, NORMA R 477.0 ALLERGIC RHINITIS DUE TO POLLEN 10/15/2010 TODD AVINASMARIELA 477.0 ALLERGIC RHINITIS DUE TO POLLEN 10/15/2010 YO BENCH INSPECTOR, NORMA R 477.0 ALLERGIC RHINITIS DUE TO POLLEN 10/15/2010 TOM BUTCHER LCPC B 477.0 ALLERGIC RHINITIS DUE TO POLLEN 10/15/2010 YO BENCH INSPECTOR, NORMA R 477.0 ALLERGIC RHINITIS DUE TO POLLEN 10/15/2010 EVERETT MAYORGA APRN 477.0 ALLERGIC RHINITIS DUE TO POLLEN 10/15/2010 YO BENCH INSPECTOR, NORMA R 477.0 ALLERGIC RHINITIS DUE TO POLLEN 11/21/2010 530.81 ESOPHAGEAL REFLUX 11/21/2010 535.10 ATROPHIC GASTRITIS (WITHOUT HEMORRHAGE) 11/21/2010 RONIT SALINAS DO K 530.81 ESOPHAGEAL REFLUX 11/21/2010 RONIT SALINAS DO K 535.10 ATROPHIC GASTRITIS (WITHOUT HEMORRHAGE) 11/21/2010 530.81 ESOPHAGEAL REFLUX 11/21/2010 535.10 ATROPHIC GASTRITIS (WITHOUT HEMORRHAGE) 11/21/2010 DALILA ROLDAN MD 530.81 ESOPHAGEAL REFLUX 11/21/2010 DALILA ROLDAN MD 535.10 ATROPHIC GASTRITIS (WITHOUT HEMORRHAGE) 11/21/2010 [facility], JEROD R 530.81 ESOPHAGEAL REFLUX 11/21/2010 [facility], JEROD R 535.10 ATROPHIC GASTRITIS (WITHOUT HEMORRHAGE) 11/21/2010 DURGA BENCH INSPECTOR, ROBIN A 530.81 ESOPHAGEAL REFLUX 11/21/2010 DURGA BENCH INSPECTOR, ROBIN A 535.10 ATROPHIC GASTRITIS (WITHOUT HEMORRHAGE) 11/21/2010 YO BENCH INSPECTOR, NORMA R 530.81 ESOPHAGEAL REFLUX 11/21/2010 YO BENCH INSPECTOR, NORMA R 535.10 ATROPHIC GASTRITIS (WITHOUT HEMORRHAGE) 11/21/2010 YO BENCH INSPECTOR, NORMA R 530.81 ESOPHAGEAL REFLUX 11/21/2010 YO BENCH INSPECTOR, NORMA R 535.10 ATROPHIC GASTRITIS (WITHOUT HEMORRHAGE) 11/21/2010 SALINAS DO, RONIT K 530.81 ESOPHAGEAL REFLUX 11/21/2010 SALINAS DO, RONIT K 535.10 ATROPHIC GASTRITIS (WITHOUT HEMORRHAGE) 11/21/2010 YO BENCH INSPECTOR, NORMA R 530.81 ESOPHAGEAL REFLUX 11/21/2010 YO BENCH INSPECTOR, NORMA R 535.10 ATROPHIC GASTRITIS (WITHOUT HEMORRHAGE) 11/21/2010 BROOKS DDS, MARIELA 530.81 ESOPHAGEAL REFLUX 11/21/2010 BROOKS DDS, MARIELA 535.10 ATROPHIC GASTRITIS (WITHOUT HEMORRHAGE) 11/21/2010 YO BENCH INSPECTOR, NORMA R 530.81 ESOPHAGEAL REFLUX 11/21/2010 YO BENCH INSPECTOR, NORMA R 535.10 ATROPHIC GASTRITIS (WITHOUT HEMORRHAGE) 11/21/2010 GUADALPUE PROP MAKER, TOM B 530.81 ESOPHAGEAL REFLUX 11/21/2010 GUADALUPE PROP MAKER, TOM B 535.10 ATROPHIC GASTRITIS (WITHOUT HEMORRHAGE) 11/21/2010 YO BENCH INSPECTOR, NORMA R 530.81 ESOPHAGEAL REFLUX 11/21/2010 YO BENCH INSPECTOR, NORMA R 535.10 ATROPHIC GASTRITIS (WITHOUT HEMORRHAGE) 11/21/2010 MADL BENCH INSPECTOR, EVERETT L 530.81 ESOPHAGEAL REFLUX 11/21/2010 MADL BENCH INSPECTOR, EVERETT L 535.10 ATROPHIC GASTRITIS (WITHOUT HEMORRHAGE) 11/21/2010 YO BENCH INSPECTOR, NORMA R 530.81 ESOPHAGEAL REFLUX 11/21/2010 YO BENCH INSPECTOR, NORMA R 535.10 ATROPHIC GASTRITIS (WITHOUT HEMORRHAGE) 02/10/2011 787.02 NAUSEA ALONE 02/10/2011 787.1 HEARTBURN 02/10/2011 SALINAS DO, RONIT K 787.02 NAUSEA ALONE 02/10/2011 SALINAS DO, RONIT K 787.1 HEARTBURN 02/10/2011 787.02 NAUSEA ALONE 02/10/2011 787.1 HEARTBURN 02/10/2011 DALILA ROLDAN MD 787.02 NAUSEA ALONE 02/10/2011 DALILA ROLDAN MD 787.1 HEARTBURN 02/10/2011 [facility], JEROD R 787.02 NAUSEA ALONE 02/10/2011 [facility], JEROD R 787.1 HEARTBURN 02/10/2011 ROBIN CALIXTO APRN A 787.02 NAUSEA ALONE 02/10/2011 ROBIN CALIXTO APRN A 787.1 HEARTBURN 02/10/2011 YO LYON NORMA R 787.02 NAUSEA ALONE 02/10/2011 YO LYON, NORMA R 787.1 HEARTBURN 02/10/2011 YO LYON NORMA R 787.02 NAUSEA ALONE 02/10/2011 YO LYON, NORMA R 787.1 HEARTBURN 02/10/2011 SALINAS DOMELODYA K 787.02 NAUSEA ALONE 02/10/2011 SALINAS DO, RONIT K 787.1 HEARTBURN 02/10/2011 YO LYON NORMA R 787.02 NAUSEA ALONE 02/10/2011 YO LYON NORMA R 787.1 HEARTBURN 02/10/2011 BROOKS DDS, MARIELA 787.02 NAUSEA ALONE 02/10/2011 BROOKS DDS, MARIELA 787.1 HEARTBURN 02/10/2011 YO LYON NORMA R 787.02 NAUSEA ALONE 02/10/2011 YO LYON NORMA R 787.1 HEARTBURN 02/10/2011 TOM BUTCHER LCPC B 787.02 NAUSEA ALONE 02/10/2011 TOM BUTCHER LCPC B 787.1 HEARTBURN 02/10/2011 YO LYON NORMA R 787.02 NAUSEA ALONE 02/10/2011 YO LYON NORMA R 787.1 HEARTBURN 02/10/2011 EVERETT MAYORGA APRN L 787.02 NAUSEA ALONE 02/10/2011 EVERETT MAYORGA APRN L 787.1 HEARTBURN 02/10/2011 YO LYON NORMA R 787.02 NAUSEA ALONE 02/10/2011 YO LYON NORMA R 787.1 HEARTBURN 04/09/2011 719.41 PAIN IN JOINT INVOLVING SHOULDER REGION 04/09/2011 V04.81 FLU DX (3 YRS AND ABOVE, IM) 04/09/2011 RONIT SALINAS DO K 719.41 PAIN IN JOINT INVOLVING SHOULDER REGION 04/09/2011 RONIT SALINAS DO K V04.81 FLU DX (3 YRS AND ABOVE, IM) 04/09/2011 719.41 PAIN IN JOINT INVOLVING SHOULDER REGION 04/09/2011 V04.81 FLU DX (3 YRS AND ABOVE, IM) 04/09/2011 DALILA ROLDAN MD 719.41 PAIN IN JOINT INVOLVING SHOULDER REGION 04/09/2011 DALILA ROLDAN MD V04.81 FLU DX (3 YRS AND ABOVE, IM) 04/09/2011 [facility], JEROD R 719.41 PAIN IN JOINT INVOLVING SHOULDER REGION 04/09/2011 [facility], JEROD R V04.81 FLU DX (3 YRS AND ABOVE, IM) 04/09/2011 ROBIN CALIXTO APRN 719.41 PAIN IN JOINT INVOLVING SHOULDER REGION 04/09/2011 ROBIN CALIXTO APRN V04.81 FLU DX (3 YRS AND ABOVE, IM) 04/09/2011 NORMA RAM APRN R 719.41 PAIN IN JOINT INVOLVING SHOULDER REGION 04/09/2011 YO LYON NORMA R V04.81 FLU DX (3 YRS AND ABOVE, IM) 04/09/2011 NORMA RAM APRN R 719.41 PAIN IN JOINT INVOLVING SHOULDER REGION 04/09/2011 ELIZABETH RAM APRNINA R V04.81 FLU DX (3 YRS AND ABOVE, IM) 04/09/2011 RONIT SALINAS DO 719.41 PAIN IN JOINT INVOLVING SHOULDER REGION 04/09/2011 RONIT SALINAS DO V04.81 FLU DX (3 YRS AND ABOVE, IM) 04/09/2011 ELIZABETH RAM APRNINA R 719.41 PAIN IN JOINT INVOLVING SHOULDER REGION 04/09/2011 ELIZABETH RAM APRNINA R V04.81 FLU DX (3 YRS AND ABOVE, IM) 04/09/2011 MARIELA BROOKS DDS 719.41 PAIN IN JOINT INVOLVING SHOULDER REGION 04/09/2011 MARIELA BROOKS DDS V04.81 FLU DX (3 YRS AND ABOVE, IM) 04/09/2011 NORMA RAM APRN R 719.41 PAIN IN JOINT INVOLVING SHOULDER REGION 04/09/2011 YO LYON, NORMA R V04.81 FLU DX (3 YRS AND ABOVE, IM) 04/09/2011 GUADALUPE PROP MAKER, TOM B 719.41 PAIN IN JOINT INVOLVING SHOULDER REGION 04/09/2011 UGADALUPE PROP MAKER, TOM B V04.81 FLU DX (3 YRS AND ABOVE, IM) 04/09/2011 YO LYON NORMA R 719.41 PAIN IN JOINT INVOLVING SHOULDER REGION 04/09/2011 YO BHAKTAN NORMA R V04.81 FLU DX (3 YRS AND ABOVE, IM) 04/09/2011 MUKESH BENCH INSPECTOR, EVERETT L 719.41 PAIN IN JOINT INVOLVING SHOULDER REGION 04/09/2011 MADL BENCH INSPECTOR, EVERETT L V04.81 FLU DX (3 YRS AND ABOVE, IM) 04/09/2011 YO LYON NORMA R 719.41 PAIN IN JOINT INVOLVING SHOULDER REGION 04/09/2011 YO LYON NORMA R V04.81 FLU DX (3 YRS AND ABOVE, IM) 11/17/2011 Ot 724.2 LUMBAGO 11/17/2011 Ot 846.0 SPRAIN LUMBOSACRAL 11/17/2011 Ot E000.8 OTHER EXTERNAL CAUSE STATUS 11/17/2011 Ot E849.0 ACCIDENT IN HOME 11/17/2011 Ot E927.0 OVEREXERTION FROM SUDDEN STRENUOUS MOVEM 11/27/2011 720.2 SACROILIITIS NOT ELSEWHERE CLASSIFIED 11/27/2011 724.8 OTHER SYMPTOMS REFERABLE TO BACK 11/27/2011 RONIT SALINAS DO 720.2 SACROILIITIS NOT ELSEWHERE CLASSIFIED 11/27/2011 RONIT SALINAS DO 724.8 OTHER SYMPTOMS REFERABLE TO BACK 11/27/2011 720.2 SACROILIITIS NOT ELSEWHERE CLASSIFIED 11/27/2011 724.8 OTHER SYMPTOMS REFERABLE TO BACK 11/27/2011 DALILA ROLDAN MD 720.2 SACROILIITIS NOT ELSEWHERE CLASSIFIED 11/27/2011 DALILA ROLDAN MD 724.8 OTHER SYMPTOMS REFERABLE TO BACK 11/27/2011 [facility] 720.2 SACROILIITIS NOT ELSEWHERE CLASSIFIED 11/27/2011 [facility] 724.8 OTHER SYMPTOMS REFERABLE TO BACK 11/27/2011 DURGA BENCH INSPECTOR, ROBIN A 720.2 SACROILIITIS NOT ELSEWHERE CLASSIFIED 11/27/2011 DURGA APRN, ROBIN A 724.8 OTHER SYMPTOMS REFERABLE TO BACK 11/27/2011 YO LYON, NORMA R 720.2 SACROILIITIS NOT ELSEWHERE CLASSIFIED 11/27/2011 YO BHAKTAN NORMA R 724.8 OTHER SYMPTOMS REFERABLE TO BACK 11/27/2011 YO LYON, NORMA R 720.2 SACROILIITIS NOT ELSEWHERE CLASSIFIED 11/27/2011 YO LYON NORMA R 724.8 OTHER SYMPTOMS REFERABLE TO BACK 11/27/2011 SALINAS DO, RONIT K 720.2 SACROILIITIS NOT ELSEWHERE CLASSIFIED 11/27/2011 SALINAS DO, RONIT K 724.8 OTHER SYMPTOMS REFERABLE TO BACK 11/27/2011 YO LYON NORMA R 720.2 SACROILIITIS NOT ELSEWHERE CLASSIFIED 11/27/2011 YO LYON NORMA R 724.8 OTHER SYMPTOMS REFERABLE TO BACK 11/27/2011 TODD DDS MARIELA 720.2 SACROILIITIS NOT ELSEWHERE CLASSIFIED 11/27/2011 BROOKS DDS, MARIELA 724.8 OTHER SYMPTOMS REFERABLE TO BACK 11/27/2011 YO LYON, NORMA R 720.2 SACROILIITIS NOT ELSEWHERE CLASSIFIED 11/27/2011 YO LYON NORMA R 724.8 OTHER SYMPTOMS REFERABLE TO BACK 11/27/2011 GUADALUPE PROP MAKER, TOM B 720.2 SACROILIITIS NOT ELSEWHERE CLASSIFIED 11/27/2011 GUADALUPE PROP MAKER, TOM B 724.8 OTHER SYMPTOMS REFERABLE TO BACK 11/27/2011 YO LYON NORMA R 720.2 SACROILIITIS NOT ELSEWHERE CLASSIFIED 11/27/2011 YO LYON NORMA R 724.8 OTHER SYMPTOMS REFERABLE TO BACK 11/27/2011 MADL SONALI, EVERETT L 720.2 SACROILIITIS NOT ELSEWHERE CLASSIFIED 11/27/2011 CHIOL SONALI, EVERETT L 724.8 OTHER SYMPTOMS REFERABLE TO BACK 11/27/2011 YO LYON NORMA R 720.2 SACROILIITIS NOT ELSEWHERE CLASSIFIED 11/27/2011 YO LYON NORMA R 724.8 OTHER SYMPTOMS REFERABLE TO BACK 03/03/2012 477.9 RHINITIS 03/03/2012 RONIT SALINAS DO K 477.9 RHINITIS 03/03/2012 477.9 RHINITIS 03/03/2012 DALILA ROLDAN MD 477.9 RHINITIS 03/03/2012 [facility], JEROD R 477.9 RHINITIS 03/03/2012 DURGA LYON, ROBIN A 477.9 RHINITIS 03/03/2012 YO BENCH INSPECTOR, NORMA R 477.9 RHINITIS 03/03/2012 YO BENCH INSPECTOR, NORMA R 477.9 RHINITIS 03/03/2012 RONIT SALINAS DO K 477.9 RHINITIS 03/03/2012 YO BENCH INSPECTOR, NORMA R 477.9 RHINITIS 03/03/2012 MARIELA BROOKS DDS 477.9 RHINITIS 03/03/2012 YO BENCH INSPECTOR, NORMA R 477.9 RHINITIS 03/03/2012 TOM BUTCHER LCPC 477.9 RHINITIS 03/03/2012 YO BENCH INSPECTOR, NORMA R 477.9 RHINITIS 03/03/2012 EVERETT MAYORGA APRN 477.9 RHINITIS 03/03/2012 YO BENCH INSPECTOR, NORMA R 477.9 RHINITIS 06/30/2012 RONIT SALINAS DO K 780.99 ANHEDONIA 06/30/2012 780.99 ANHEDONIA 06/30/2012 DALILA ROLDAN MD 780.99 ANHEDONIA 06/30/2012 [facility], JEROD R 780.99 ANHEDONIA 06/30/2012 ROBIN CALIXTO APRN A 780.99 ANHEDONIA 06/30/2012 YO BENCH INSPECTOR, NORMA R 780.99 ANHEDONIA 06/30/2012 YO BENCH INSPECTOR, NORMA R 780.99 ANHEDONIA 06/30/2012 RONIT SALINAS DO K 780.99 ANHEDONIA 06/30/2012 YO BENCH INSPECTOR, NORMA R 780.99 ANHEDONIA 06/30/2012 MARIELA BROOKS DDS 780.99 ANHEDONIA 06/30/2012 YO BENCH INSPECTOR, NORMA R 780.99 ANHEDONIA 06/30/2012 TOM BUTCHER LCPC 780.99 ANHEDONIA 06/30/2012 YO BENCH INSPECTOR, NORMA R 780.99 ANHEDONIA 06/30/2012 EVERETT MAYORGA APRN 780.99 ANHEDONIA 06/30/2012 YO BENCH INSPECTOR, NORMA R 780.99 ANHEDONIA 07/14/2012 Ot 599.0 URIN TRACT INFECTION NOS 07/14/2012 Ot 789.04 ABDOMINAL PAIN, LEFT LOWER QUADRANT 07/26/2012 788.63 URINARY URGENCY 07/26/2012 789.09 ABDOMINAL PAIN OTHER SPECIFIED SITE 07/26/2012 DALILA ROLDAN MD 788.63 URINARY URGENCY 07/26/2012 DALILA ROLDAN MD 789.09 ABDOMINAL PAIN OTHER SPECIFIED SITE 07/26/2012 AGUSTÍN LSCS, JEROD R 788.63 URINARY URGENCY 07/26/2012 AGUSTÍN LSCS, JEROD R 789.09 ABDOMINAL PAIN OTHER SPECIFIED SITE 07/26/2012 DURGA APRN, ROBIN A 788.63 URINARY URGENCY 07/26/2012 DURGA LYON ROBIN A 789.09 ABDOMINAL PAIN OTHER SPECIFIED SITE 07/26/2012 YO BENCH INSPECTOR, NORMA R 788.63 URINARY URGENCY 07/26/2012 YO BHAKTAN, NORMA R 789.09 ABDOMINAL PAIN OTHER SPECIFIED SITE 07/26/2012 YO LYON, NORMA R 788.63 URINARY URGENCY 07/26/2012 YO BHAKTAN, NORMA R 789.09 ABDOMINAL PAIN OTHER SPECIFIED SITE 07/26/2012 SALINAS DO, RONIT K 788.63 URINARY URGENCY 07/26/2012 SALINAS DO, RONIT K 789.09 ABDOMINAL PAIN OTHER SPECIFIED SITE 07/26/2012 YO BHAKTAN, NORMA R 788.63 URINARY URGENCY 07/26/2012 YO BHAKTAN, NORMA R 789.09 ABDOMINAL PAIN OTHER SPECIFIED SITE 07/26/2012 BROOKS DDS, MARIELA 788.63 URINARY URGENCY 07/26/2012 BROOKS DDS, MARIELA 789.09 ABDOMINAL PAIN OTHER SPECIFIED SITE 07/26/2012 YO BENCH INSPECTOR, NORMA R 788.63 URINARY URGENCY 07/26/2012 YO BHAKTAN, NORMA R 789.09 ABDOMINAL PAIN OTHER SPECIFIED SITE 07/26/2012 TOM BUTCHER LCPC 788.63 URINARY URGENCY 07/26/2012 TOM BUTCHER LCPC 789.09 ABDOMINAL PAIN OTHER SPECIFIED SITE 07/26/2012 YO BHAKTAN, NORMA R 788.63 URINARY URGENCY 07/26/2012 YO BHAKTAN, NORMA R 789.09 ABDOMINAL PAIN OTHER SPECIFIED SITE 07/26/2012 RYLEE MAYORGA APRNNYA L 788.63 URINARY URGENCY 07/26/2012 MADL BENCH INSPECTOR, EVERETT L 789.09 ABDOMINAL PAIN OTHER SPECIFIED SITE 07/26/2012 YO BENCH INSPECTOR, NORMA R 788.63 URINARY URGENCY 07/26/2012 YO BENCH INSPECTOR, NORMA R 789.09 ABDOMINAL PAIN OTHER SPECIFIED SITE 02/01/2013 DALILA ROLDAN MD 724.3 SCIATICA 02/01/2013 [facility], JEROD R 724.3 SCIATICA 02/01/2013 DURGA LYON, ROBIN A 724.3 SCIATICA 02/01/2013 YO BENCH INSPECTOR, NORMA R 724.3 SCIATICA 02/01/2013 YO BENCH INSPECTOR, NORMA R 724.3 SCIATICA 02/01/2013 RONIT SALINAS DO 724.3 SCIATICA 02/01/2013 YO BENCH INSPECTOR, NORMA R 724.3 SCIATICA 02/01/2013 TODD AVINAS, MARIELA 724.3 SCIATICA 02/01/2013 YO BENCH INSPECTOR, NORMA R 724.3 SCIATICA 02/01/2013 GUADALUPE PROP MAKER, TOM B 724.3 SCIATICA 02/01/2013 YO BENCH INSPECTOR, NORMA R 724.3 SCIATICA 02/01/2013 MUKESH BENCH INSPECTOR, EVERETT L 724.3 SCIATICA 02/01/2013 YO BENCH INSPECTOR, NORMA R 724.3 SCIATICA 03/22/2013 SUSAN ANGELES APRN Ot 465.9 ACUTE URI NOS 03/22/2013 SUSAN ANGELES APRN Ot 490 BRONCHITIS NOS 03/22/2013 SUSAN ANGELES APRN Ot 786.2 COUGH 04/04/2013 DALILA ROLDAN MD 686.9 UNSPECIFIED LOCAL INFECTION OF SKIN AND SUBCUTANEOUS TISSUE 04/04/2013 [facility], JEROD R 686.9 UNSPECIFIED LOCAL INFECTION OF SKIN AND SUBCUTANEOUS TISSUE 04/04/2013 ROBIN CALIXTO APRN 686.9 UNSPECIFIED LOCAL INFECTION OF SKIN AND SUBCUTANEOUS TISSUE 04/04/2013 YO LYON, NORMA R 686.9 UNSPECIFIED LOCAL INFECTION OF SKIN AND SUBCUTANEOUS TISSUE 04/04/2013 YO LYON NORMA R 686.9 UNSPECIFIED LOCAL INFECTION OF SKIN AND SUBCUTANEOUS TISSUE 04/04/2013 RONIT SALINAS DO K 686.9 UNSPECIFIED LOCAL INFECTION OF SKIN AND SUBCUTANEOUS TISSUE 04/04/2013 YO LYON, NORMA R 686.9 UNSPECIFIED LOCAL INFECTION OF SKIN AND SUBCUTANEOUS TISSUE 04/04/2013 MARIELA BROOKS DDS 686.9 UNSPECIFIED LOCAL INFECTION OF SKIN AND SUBCUTANEOUS TISSUE 04/04/2013 YO LYON, NORMA R 686.9 UNSPECIFIED LOCAL INFECTION OF SKIN AND SUBCUTANEOUS TISSUE 04/04/2013 TOM BUTCHER LCPC 686.9 UNSPECIFIED LOCAL INFECTION OF SKIN AND SUBCUTANEOUS TISSUE 04/04/2013 YO BHAKTAN, NORMA R 686.9 UNSPECIFIED LOCAL INFECTION OF SKIN AND SUBCUTANEOUS TISSUE 04/04/2013 EVERETT MAYORGA APRN 686.9 UNSPECIFIED LOCAL INFECTION OF SKIN AND SUBCUTANEOUS TISSUE 04/04/2013 YO LYON, NORMA R 686.9 UNSPECIFIED LOCAL INFECTION OF SKIN AND SUBCUTANEOUS TISSUE 05/12/2013 [facility], JEROD R V71.09 OBSERVATION OF OTHER SUSPECTED MENTAL CONDITION 05/12/2013 ROBIN CALIXTO APRN A V71.09 OBSERVATION OF OTHER SUSPECTED MENTAL CONDITION 05/12/2013 YO LYON, NORMA R V71.09 OBSERVATION OF OTHER SUSPECTED MENTAL CONDITION 05/12/2013 YO LYON, NORMA R V71.09 OBSERVATION OF OTHER SUSPECTED MENTAL CONDITION 05/12/2013 RONIT SALINAS DO K V71.09 OBSERVATION OF OTHER SUSPECTED MENTAL CONDITION 05/12/2013 YO LYON, NORMA R V71.09 OBSERVATION OF OTHER SUSPECTED MENTAL CONDITION 05/12/2013 MARIELA BROOKS DDS V71.09 OBSERVATION OF OTHER SUSPECTED MENTAL CONDITION 05/12/2013 YO LYON, NORMA R V71.09 OBSERVATION OF OTHER SUSPECTED MENTAL CONDITION 05/12/2013 TOM BUTCHER LCPC V71.09 OBSERVATION OF OTHER SUSPECTED MENTAL CONDITION 05/12/2013 YO LYON, NORMA R V71.09 OBSERVATION OF OTHER SUSPECTED MENTAL CONDITION 05/12/2013 EVERETT MAYORGA APRN V71.09 OBSERVATION OF OTHER SUSPECTED MENTAL CONDITION 05/12/2013 YO LYON, NORMA R V71.09 OBSERVATION OF OTHER SUSPECTED MENTAL CONDITION 06/24/2013 MARIELA SMITH L Ot 562.11 DIVERTICULITIS COLON (W/O MENT OF HEMORR 06/24/2013 MARIELA SMITH Ot 618.01 CYSTOCELE, MIDLINE 06/24/2013 MARIELA SMITH Ot 618.04 RECTOCELE 06/24/2013 MARIELA SMITH Ot 619.1 DIGEST-GENIT FISTUL, FEM 06/24/2013 MARIELA SMITH Ot 789.00 ABDOMINAL PAIN, UNSPECIFIED SITE 06/27/2013 ROBIN CALIXTO APRN A 562.11 DIVERTICULITIS OF COLON (WITHOUT HEMORRHAGE) 06/27/2013 ROBIN CALIXTO APRN A 596.89 OTHER SPECIFIED DISORDERS OF BLADDER 06/27/2013 ROBIN CALIXTO APRN A 618.04 RECTOCELE 06/27/2013 ROBIN CALIXTO APRN A 625.9 PELVIC PAIN 06/27/2013 YO LYON NORMA R 562.11 DIVERTICULITIS OF COLON (WITHOUT HEMORRHAGE) 06/27/2013 YO LYON NORMA R 596.89 OTHER SPECIFIED DISORDERS OF BLADDER 06/27/2013 YO LYON NORMA R 618.04 RECTOCELE 06/27/2013 YO LYON, NORMA R 625.9 PELVIC PAIN 06/27/2013 YO LYON, NORMA R 562.11 DIVERTICULITIS OF COLON (WITHOUT HEMORRHAGE) 06/27/2013 YO LYON NORMA R 596.89 OTHER SPECIFIED DISORDERS OF BLADDER 06/27/2013 YO BHAKTAN, NORMA R 618.04 RECTOCELE 06/27/2013 YO BHAKTAN, NORMA R 625.9 PELVIC PAIN 06/27/2013 RITA DO RONIT K 562.11 DIVERTICULITIS OF COLON (WITHOUT HEMORRHAGE) 06/27/2013 SALINAS DO RONIT K 596.89 OTHER SPECIFIED DISORDERS OF BLADDER 06/27/2013 SALINAS DO, RONIT K 618.04 RECTOCELE 06/27/2013 SALINAS DO RONIT K 625.9 PELVIC PAIN 06/27/2013 YO LYON, NORMA R 562.11 DIVERTICULITIS OF COLON (WITHOUT HEMORRHAGE) 06/27/2013 YO LYON NORMA R 596.89 OTHER SPECIFIED DISORDERS OF BLADDER 06/27/2013 YO LYON, NORMA R 618.04 RECTOCELE 06/27/2013 YO LYON, NORMA R 625.9 PELVIC PAIN 06/27/2013 BROOKS DDS, MARIELA 562.11 DIVERTICULITIS OF COLON (WITHOUT HEMORRHAGE) 06/27/2013 BROOKS DDS, MARIELA 596.89 OTHER SPECIFIED DISORDERS OF BLADDER 06/27/2013 BROOKS DDS, MARIELA 618.04 RECTOCELE 06/27/2013 BROKOS DDS, MARIELA 625.9 PELVIC PAIN 06/27/2013 YO LYON NORMA R 562.11 DIVERTICULITIS OF COLON (WITHOUT HEMORRHAGE) 06/27/2013 YO BHAKTAN NORMA R 596.89 OTHER SPECIFIED DISORDERS OF BLADDER 06/27/2013 YO BENCH INSPECTOR, NORMA R 618.04 RECTOCELE 06/27/2013 YO LYON NORMA R 625.9 PELVIC PAIN 06/27/2013 GUADALUPE GREGORIOPCTOM B 562.11 DIVERTICULITIS OF COLON (WITHOUT HEMORRHAGE) 06/27/2013 GUADALUPE PROP MAKER, TOM B 596.89 OTHER SPECIFIED DISORDERS OF BLADDER 06/27/2013 GUADALUPE PROP MAKER, TOM B 618.04 RECTOCELE 06/27/2013 GUADALUPE PROP MAKER, TOM B 625.9 PELVIC PAIN 06/27/2013 YO BHAKTAN NORMA R 562.11 DIVERTICULITIS OF COLON (WITHOUT HEMORRHAGE) 06/27/2013 YO LYON NORMA R 596.89 OTHER SPECIFIED DISORDERS OF BLADDER 06/27/2013 YO BHAKTAN NORMA R 618.04 RECTOCELE 06/27/2013 YO LYON NORMA R 625.9 PELVIC PAIN 06/27/2013 CHIOL SONALI EVERETT L 562.11 DIVERTICULITIS OF COLON (WITHOUT HEMORRHAGE) 06/27/2013 MADL BENCH INSPECTOR, EVERETT L 596.89 OTHER SPECIFIED DISORDERS OF BLADDER 06/27/2013 MADL BENCH INSPECTOR, EVERETT L 618.04 RECTOCELE 06/27/2013 CHIOL BENCH INSPECTOR, EVERETT L 625.9 PELVIC PAIN 06/27/2013 YO BHAKTAN NORMA R 562.11 DIVERTICULITIS OF COLON (WITHOUT HEMORRHAGE) 06/27/2013 YO LYON NORMA R 596.89 OTHER SPECIFIED DISORDERS OF BLADDER 06/27/2013 YO LYON NORMA R 618.04 RECTOCELE 06/27/2013 YO BENCH INSPECTOR, NORMA R 625.9 PELVIC PAIN 07/07/2013 YO BENCH INSPECTOR, NORMA R 789.07 ABDOMINAL PAIN GENERALIZED 07/07/2013 YO BENCH INSPECTOR, NORMA R 789.07 ABDOMINAL PAIN GENERALIZED 07/07/2013 SALINAS RONIT DELVALLE Higinio 789.07 ABDOMINAL PAIN GENERALIZED 07/07/2013 YO BENCH INSPECTOR, NORMA R 789.07 ABDOMINAL PAIN GENERALIZED 07/07/2013 TODD AVINAS, MARIELA 789.07 ABDOMINAL PAIN GENERALIZED 07/07/2013 YO BENCH INSPECTOR, NORMA R 789.07 ABDOMINAL PAIN GENERALIZED 07/07/2013 TOM BUTCHER LCPC 789.07 ABDOMINAL PAIN GENERALIZED 07/07/2013 YO BENCH INSPECTOR, NORMA R 789.07 ABDOMINAL PAIN GENERALIZED 07/07/2013 EVERETT MAYORGA APRN 789.07 ABDOMINAL PAIN GENERALIZED 07/07/2013 YO BENCH INSPECTOR, NORMA R 789.07 ABDOMINAL PAIN GENERALIZED 10/19/2013 YO LYON, NORMA R 692.9 CONTACT DERMATITIS AND OTHER ECZEMA UNSPECIFIED CAUSE 10/19/2013 TODD AVINAS, MARIELA 692.9 CONTACT DERMATITIS AND OTHER ECZEMA UNSPECIFIED CAUSE 10/19/2013 YO BENCH INSPECTOR, NORMA R 692.9 CONTACT DERMATITIS AND OTHER ECZEMA UNSPECIFIED CAUSE 10/19/2013 TOM BUTCHER LCPC 692.9 CONTACT DERMATITIS AND OTHER ECZEMA UNSPECIFIED CAUSE 10/19/2013 YO BENCH INSPECTOR, NORMA R 692.9 CONTACT DERMATITIS AND OTHER ECZEMA UNSPECIFIED CAUSE 10/19/2013 EVERETT MAYORGA APRN 692.9 CONTACT DERMATITIS AND OTHER ECZEMA UNSPECIFIED CAUSE 10/19/2013 YO BENCH INSPECTOR, NORMA R 692.9 CONTACT DERMATITIS AND OTHER ECZEMA UNSPECIFIED CAUSE 11/08/2013 YO BENCH INSPECTOR, NORMA R 919.4 INSECT BITE NONVENOMOUS OF OTHER MULTIPLE AND UNSPECIFIED SITES WITHOUT INFECTION 11/08/2013 TOM BUTCHER LCPC B 919.4 INSECT BITE NONVENOMOUS OF OTHER MULTIPLE AND UNSPECIFIED SITES WITHOUT INFECTION 11/08/2013 YO BENCH INSPECTOR, NORMA R 919.4 INSECT BITE NONVENOMOUS OF OTHER MULTIPLE AND UNSPECIFIED SITES WITHOUT INFECTION 11/08/2013 EVERETT MAYORGA APRN L 919.4 INSECT BITE NONVENOMOUS OF OTHER MULTIPLE AND UNSPECIFIED SITES WITHOUT INFECTION 11/08/2013 NORMA RAM APRN R 919.4 INSECT BITE NONVENOMOUS OF OTHER MULTIPLE AND UNSPECIFIED SITES WITHOUT INFECTION 11/29/2013 ANAY SERRANO DO Ot 562.10 DIVERTICULOSIS COLON (W/O MENT OF HEMORR 11/29/2013 ANAY SERRANO DO Ot 618.01 CYSTOCELE, MIDLINE 11/29/2013 ANAY SERRANO DO Ot 618.04 RECTOCELE 04/06/2014 TOM BUTCHER LCPC B 296.33 MO DEPRESSIVE RECURRENT SEVERE W/O PSYCHOTIC BEHAVIOR 04/06/2014 TOM BUTCHER LCPC B 460 ACUTE NASOPHARYNGITIS (COMMON COLD) 04/06/2014 NORMA RAM APRN 296.33 MO DEPRESSIVE RECURRENT SEVERE W/O PSYCHOTIC BEHAVIOR 04/06/2014 NORMA RAM APRN 460 ACUTE NASOPHARYNGITIS (COMMON COLD) 04/06/2014 EVERETT MAYORGA APRN 296.33 MO DEPRESSIVE RECURRENT SEVERE W/O PSYCHOTIC BEHAVIOR 04/06/2014 EVERETT MAYORGA APRN 460 ACUTE NASOPHARYNGITIS (COMMON COLD) 04/06/2014 NOMRA RAM APRN 296.33 MO DEPRESSIVE RECURRENT SEVERE W/O PSYCHOTIC BEHAVIOR 04/06/2014 NORMA RAM APRN 460 ACUTE NASOPHARYNGITIS (COMMON COLD) 06/01/2014 Ot 530.81 06/01/2014 Ot 564.00 06/01/2014 Ot V10.3 06/01/2014 Ot V45.71 06/01/2014 Ot V67.2 06/01/2014 Ot 530.81 06/01/2014 Ot 536.8 06/01/2014 Ot 564.00 06/01/2014 Ot V10.3 06/01/2014 Ot V45.71 06/01/2014 Ot V67.2 06/01/2014 ANAY SERRANO DO Ot 789.00 06/01/2014 ANAY SERRANO DO Ot V12.79 06/01/2014 ANAY SERRANO DO Ot V72.84 10/23/2014 EVERETT MAYORGA APRN 461.9 SINUSITIS ACUTE 10/23/2014 NORMA RAM APRN 461.9 SINUSITIS ACUTE 03/20/2015 Ot 530.81 03/20/2015 Ot 564.00 03/20/2015 Ot V10.3 03/20/2015 Ot V45.71 03/20/2015 Ot V67.2 03/20/2015 Ot 530.81 03/20/2015 Ot 536.8 03/20/2015 Ot 564.00 03/20/2015 Ot V10.3 03/20/2015 Ot V45.71 03/20/2015 Ot V67.2 03/20/2015 ANAY SERRANO DO Ot 789.00 03/20/2015 ANAY SERRANO DO Ot V12.79 03/20/2015 ANAY SERRANO DO Ot V72.84 04/18/2015 ZAKI JEFF, CHERRI Sylvester Ot 791.9 ABN URINE FINDINGS NEC 04/18/2015 ZAKI JEFF, CHERRI Sylvester Ot V10.3 HX OF BREAST MALIGNANCY 04/18/2015 ZAKI JEFF, CHERRI Sylvester Ot V45.71 ACQUIRED ABSENCE OF BREAST AND NIPPLE 04/18/2015 ZAKI JEFF, CHERRI Sylvester Ot V67.2 CHEMOTHERAPY FOLLOW-UP 05/10/2015 Ot 530.81 05/10/2015 Ot 564.00 05/10/2015 Ot V10.3 05/10/2015 Ot V45.71 05/10/2015 Ot V67.2 05/10/2015 Ot 530.81 05/10/2015 Ot 536.8 05/10/2015 Ot 564.00 05/10/2015 Ot V10.3 05/10/2015 Ot V45.71 05/10/2015 Ot V67.2 05/10/2015 SERRANOANAY PLATA DO Ot 789.00 05/10/2015 ANAY SERRANO DO Ot V12.79 05/10/2015 ANAY SERRANO DO Ot V72.84 05/10/2015 ZAKI JEFF, CHERRI Sylvester Ot 174.9 05/10/2015 ZAKI JEFF, CHERRI Sylvester Ot 241.0 05/10/2015 ZAKI JEFF, CHERRI Sylvester Ot V58.69 05/10/2015 ZAKI JEFF, CHERRI Sylvester Ot V58.83 05/10/2015 ZAKI JEFF, CHERRI Sylvester Ot V10.3 05/10/2015 CHERRI HAINES MD Ot V45.71 05/10/2015 CHERRI HAINES MD Ot V67.2 05/10/2015 CHERRI HAINES MD Higinio Ot 174.9 05/10/2015 ZAKI JEFF, CHERRI Higinio Ot 241.0 05/10/2015 ZAKI JEFF, CHERRI Higinio Ot V58.69 05/10/2015 ZAKI JEFF, CHERRI Higinio Ot V58.83 05/11/2015 ZAKI JEFF, CHERRI Higinio Ot C50.919 05/11/2015 ZAKI JEFF, CHERRI Higinio Ot M89.9 05/22/2015 ZAKI JEFF, CHERRI Sylvester Ot V10.3 05/22/2015 ZAKI JEFF, CHERRI Higinio Ot V45.71 05/22/2015 ZAKI JEFF, CHERRI Higinio Ot V67.2 05/29/2015 ZAKI JEFF, CHERRI Higinio Ot V10.3 05/29/2015 ZAKI JEFF, CHERRI Higinio Ot V45.71 05/29/2015 ZAKI JEFF, CHERRI Higinio Ot V67.2 06/06/2015 ZAKI JEFF, CHERRI Higinio Ot C50.411 06/06/2015 ZAKI JEFF, CHERRI Sylvester Ot Z12.31 06/11/2015 ZAKI JEFF, CHERRI Sylvester Ot C50.411 06/11/2015 ZAKI JEFF, CHERRI Sylvester Ot Z12.31 07/03/2015 ZAKI JEFF, CHERRI Higinio Ot V10.3 07/03/2015 ZAKI JEFF, CHERRI Higinio Ot V45.71 07/03/2015 ZAKI JEFF, CHERRI Higinio Ot V67.2 07/11/2015 ZAKI JEFF, CHERRI Higinio Ot 174.9 07/11/2015 ZAKI JEFF, CHERRI Higinio Ot 241.0 07/11/2015 ZAKI JEFF, CHERRI Higinio Ot V58.69 07/11/2015 ZAKI JEFF, CHERRI Sylvester Ot V58.83 07/11/2015 ZAKI JEFF, CHERRI Sylvester Ot C50.919 07/11/2015 ZAKI JEFF, CHERRI Sylvester Ot M89.9 07/11/2015 ZAKI JEFF, CHERRI Sylvester Ot C50.919 07/11/2015 ZAKI JEFF, CHERRI Sylvester Ot M89.9 08/27/2015 ZAKI JEFF, CHERRI Sylvester Ot Z08 ENCNTR FOR FOLLOW-UP EXAM AFTER TRTMT FO 08/27/2015 ZAKI JEFF, CHERRI Sylvester Ot Z85.3 PERSONAL HISTORY OF MALIGNANT NEOPLASM O 08/27/2015 ZAKI JEFF, CHERRI Sylvester Ot Z90.10 ACQUIRED ABSENCE OF UNSPECIFIED BREAST A 09/17/2015 Ot Z08 09/17/2015 Ot Z85.3 09/17/2015 Ot Z90.10 04/12/2016 YOLY SALTER MD Ot B37.3 CANDIDIASIS OF VULVA AND VAGINA 04/12/2016 YOLY SALTER MD Ot H65.191 OTHER ACUTE NONSUPPURATIVE OTITIS MEDIA, 04/12/2016 YOLY SALTER MD Ot J18.9 PNEUMONIA, UNSPECIFIED ORGANISM 04/12/2016 YOLY SALTER MD Ot R05 COUGH 04/12/2016 Ot 530.81 ESOPHAGEAL REFLUX 04/12/2016 Ot 564.00 UNSPEC CONSTIPATION 04/12/2016 Ot V10.3 HX OF BREAST MALIGNANCY 04/12/2016 Ot V45.71 ACQUIRED ABSENCE OF BREAST AND NIPPLE 04/12/2016 Ot V67.2 CHEMOTHERAPY FOLLOW-UP 04/12/2016 Ot 530.81 ESOPHAGEAL REFLUX 04/12/2016 Ot 536.8 STOMACH FUNCTION DIS NEC 04/12/2016 Ot 564.00 UNSPEC CONSTIPATION 04/12/2016 Ot V10.3 HX OF BREAST MALIGNANCY 04/12/2016 Ot V45.71 ACQUIRED ABSENCE OF BREAST AND NIPPLE 04/12/2016 Ot V67.2 CHEMOTHERAPY FOLLOW-UP 04/12/2016 ANAY SERRANO DO Ot 789.00 ABDOMINAL PAIN, UNSPECIFIED SITE 04/12/2016 ANAY SERRANO DO Ot V12.79 PERSONAL HISTORY OTH SPEC DIGESTIVE SYST 04/12/2016 ANAY SERRANO DO Ot V72.84 EXAM PRE-OPERATIVE NOS 04/12/2016 CHERRI HAINES MD Ot 174.9 MALIGN NEOPL BREAST NOS 04/12/2016 CHERRI HAINES MD Ot 241.0 NONTOX UNINODULAR GOITER 04/12/2016 CHERRI HAINES MD Ot V58.69 OTH MED,LT,CURRENT USE 04/12/2016 CHERRI HAINES MD Ot V58.83 ENCOUNTER FOR THERAPEUTIC DRUG MONITORIN 04/12/2016 CHERRI HAINES MD Ot C50.411 MALIG NEOPLM OF UPPER-OUTER QUADRANT OF 04/12/2016 CHERRI HAINES MD Ot Z12.31 ENCNTR SCREEN MAMMOGRAM FOR MALIGNANT NE 04/12/2016 Ot Z08 ENCNTR FOR FOLLOW-UP EXAM AFTER TRTMT FO 04/12/2016 Ot Z85.3 PERSONAL HISTORY OF MALIGNANT NEOPLASM O 04/12/2016 Ot Z90.10 ACQUIRED ABSENCE OF UNSPECIFIED BREAST A 04/14/2016 YOLY SALTER MD Ot H65.191 OTHER ACUTE NONSUPPURATIVE OTITIS MEDIA, 04/14/2016 YOLY SALTER MD Ot J18.9 PNEUMONIA, UNSPECIFIED ORGANISM 04/14/2016 YOLY SALTER MD J Ot R05 COUGH 04/14/2016 YOLY SALTER MD Ot H65.191 OTHER ACUTE NONSUPPURATIVE OTITIS MEDIA, 04/14/2016 YOLY SALTER MD Ot J18.9 PNEUMONIA, UNSPECIFIED ORGANISM 04/14/2016 YOLY SALTER MD Ot R05 COUGH 04/14/2016 YOLY SALTER MD Ot B37.3 CANDIDIASIS OF VULVA AND VAGINA 04/14/2016 YOLY SALTER MD Ot H65.191 OTHER ACUTE NONSUPPURATIVE OTITIS MEDIA, 04/14/2016 YOLY SALTER MD J Ot J18.9 PNEUMONIA, UNSPECIFIED ORGANISM 04/14/2016 YOLY SALTER MD Ot R05 COUGH 04/17/2016 SUSAN ANGELES APRN Ot J40 BRONCHITIS, NOT SPECIFIED ACUTE OR CH 04/17/2016 SUSAN ANGELES BENCH INSPECTOR Ot R05 COUGH 04/18/2016 YOLY SALTER MD Ot B37.3 CANDIDIASIS OF VULVA AND VAGINA 04/18/2016 YOLY SALTER MD Ot H65.191 OTHER ACUTE NONSUPPURATIVE OTITIS MEDIA, 04/18/2016 YOLY SALTER MD Ot J18.9 PNEUMONIA, UNSPECIFIED ORGANISM 04/18/2016 YOLY SALTER MD Ot R05 COUGH 04/18/2016 SUSAN ANGELES APRN Ot J40 BRONCHITIS, NOT SPECIFIED ACUTE OR CH 04/18/2016 SUSAN ANGELES BENCH INSPECTOR Ot R05 COUGH 04/25/2016 MADDY GARCIA MD Ot N39.0 URINARY TRACT INFECTION, SITE NOT SPECIF 04/25/2016 MADDY GARCIA MD Ot R30.0 DYSURIA 04/30/2016 MADDY GARCIA MD Ot N39.0 URINARY TRACT INFECTION, SITE NOT SPECIF 04/30/2016 MADDY GARCIA MD Ot R30.0 DYSURIA 05/26/2016 PRUDENCIO JEFF, NIKI Jaiver Ot H92.03 OTALGIA, BILATERAL 05/26/2016 PRUDENCIO MD, NIKI S Ot J06.9 ACUTE UPPER RESPIRATORY INFECTION, UNSPE 05/27/2016 PRUDENCIO JEFF, NIKI Javier Ot H92.03 OTALGIA, BILATERAL 05/27/2016 PRUDENCIO JEFF, NIKI Concepcion Ot J06.9 ACUTE UPPER RESPIRATORY INFECTION, UNSPE 06/03/2016 SUSAN ANGELES BENCH INSPECTOR Ot H92.01 OTALGIA, RIGHT EAR 06/03/2016 SUSAN ANGELES BENCH INSPECTOR Ot J01.00 ACUTE MAXILLARY SINUSITIS, UNSPECIFIED 06/04/2016 SUSAN ANGELES BENCH INSPECTOR Ot H92.01 OTALGIA, RIGHT EAR 06/04/2016 SUSAN ANGELES BENCH INSPECTOR Ot J01.00 ACUTE MAXILLARY SINUSITIS, UNSPECIFIED 06/04/2016 Ot 530.81 ESOPHAGEAL REFLUX 06/04/2016 Ot 564.00 UNSPEC CONSTIPATION 06/04/2016 Ot V10.3 HX OF BREAST MALIGNANCY 06/04/2016 Ot V45.71 ACQUIRED ABSENCE OF BREAST AND NIPPLE 06/04/2016 Ot V67.2 CHEMOTHERAPY FOLLOW-UP 06/04/2016 Ot 530.81 ESOPHAGEAL REFLUX 06/04/2016 Ot 536.8 STOMACH FUNCTION DIS NEC 06/04/2016 Ot 564.00 UNSPEC CONSTIPATION 06/04/2016 Ot V10.3 HX OF BREAST MALIGNANCY 06/04/2016 Ot V45.71 ACQUIRED ABSENCE OF BREAST AND NIPPLE 06/04/2016 Ot V67.2 CHEMOTHERAPY FOLLOW-UP 06/04/2016 ANAY SERRANO DO Ot 789.00 ABDOMINAL PAIN, UNSPECIFIED SITE 06/04/2016 ANAY SERRANO DO Ot V12.79 PERSONAL HISTORY OTH SPEC DIGESTIVE SYST 06/04/2016 ANAY SERRANO DO Ot V72.84 EXAM PRE-OPERATIVE NOS 06/04/2016 CHERRI HAINES MD Ot 174.9 MALIGN NEOPL BREAST NOS 06/04/2016 CHERRI HAINES MD Ot 241.0 NONTOX UNINODULAR GOITER 06/04/2016 CHERRI HAINES MD Ot V58.69 OTH MED,LT,CURRENT USE 06/04/2016 CHERRI HAINES MD Ot V58.83 ENCOUNTER FOR THERAPEUTIC DRUG MONITORIN 06/04/2016 CHERRI HAINES MD Ot C50.411 MALIG NEOPLM OF UPPER-OUTER QUADRANT OF 06/04/2016 CHERRI HAINES MD Ot Z12.31 ENCNTR SCREEN MAMMOGRAM FOR MALIGNANT NE 06/04/2016 Ot Z08 ENCNTR FOR FOLLOW-UP EXAM AFTER TRTMT FO 06/04/2016 Ot Z85.3 PERSONAL HISTORY OF MALIGNANT NEOPLASM O 06/04/2016 Ot Z90.10 ACQUIRED ABSENCE OF UNSPECIFIED BREAST A 06/04/2016 ZAKI JEFF, CHERRI Sylvester Ot C50.411 MALIG NEOPLM OF UPPER-OUTER QUADRANT OF 06/04/2016 CHERRI HAINES MD Ot Z12.31 ENCNTR SCREEN MAMMOGRAM FOR MALIGNANT NE 06/09/2016 DALILA ROLDAN MD Ot J01.00 ACUTE MAXILLARY SINUSITIS, UNSPECIFIED 06/18/2016 SUSAN ANGELES APRN Ot H92.01 OTALGIA, RIGHT EAR 06/18/2016 SUSAN ANGELES APRN Ot J01.00 ACUTE MAXILLARY SINUSITIS, UNSPECIFIED 07/03/2016 DALILA ROLDAN MD Ot J01.00 ACUTE MAXILLARY SINUSITIS, UNSPECIFIED 07/03/2016 ZAKI JEFF, CHERRI Sylvester Ot C50.411 MALIG NEOPLM OF UPPER-OUTER QUADRANT OF 07/03/2016 CHERRI HAINES MD Ot Z12.31 ENCNTR SCREEN MAMMOGRAM FOR MALIGNANT NE 07/04/2016 CHERRI HAINES MD Ot C50.411 MALIG NEOPLM OF UPPER-OUTER QUADRANT OF 07/04/2016 CHERRI HAINES MD Ot Z12.31 ENCNTR SCREEN MAMMOGRAM FOR MALIGNANT NE 08/28/2016 JENNIFER DILLON Ot N39.0 URINARY TRACT INFECTION, SITE NOT SPECIF 08/28/2016 JENNIFER DILLON Ot R05 COUGH 08/29/2016 WILMA, JENNIFER FISHMAN Ot N39.0 URINARY TRACT INFECTION, SITE NOT SPECIF 08/29/2016 WILMA, JENNIFER PANEL FITTER Ot R05 COUGH 08/30/2016 DALILA ROLDAN MD Ot J01.00 ACUTE MAXILLARY SINUSITIS, UNSPECIFIED 09/02/2016 LAMONT HERNANDEZ MD Ot N39.0 URINARY TRACT INFECTION, SITE NOT SPECIF 09/02/2016 LAMONT HERNANDEZ MD Ot R19.7 DIARRHEA, UNSPECIFIED Procedures Code Description [place] [address] UA W/ CULTURE IF INDICATED 07/26/2012 05695 PSYCH DIAGNOSTIC EVALUATION 05/12/2013 18854 ROUTINE VENIPUNCTURE 07/07/2013 22222 CBC 07/07/2013 [id number] GFR CALC (RESULT ONLY) 07/07/2013 55824 CMP 07/07/2013 73917 PSYTX CRISIS INITIAL 60 MIN 04/06/2014 65483 UA W/ CULTURE IF INDICATED 10/23/2014 Results Test Result Range Complete urinalysis with reflex to culture - 04/12/16 10:05 Urine color determination YELLOW NRG Urine clarity determination CLEAR NRG Urine pH measurement by test strip 6 5-9 Specific gravity of urine by test strip 1.010 1.016- 1.022 Urine protein assay by test strip, semi-quantitative NEGATIVE NEGATIVE Urine glucose detection by automated test strip NEGATIVE NEGATIVE Erythrocytes detection in urine sediment by light microscopy 1+ NEGATIVE Urine ketones detection by automated test strip NEGATIVE NEGATIVE Urine nitrite detection by test strip NEGATIVE NEGATIVE Urine total bilirubin detection by test strip NEGATIVE NEGATIVE Urine urobilinogen measurement by automated test strip (mass/volume) NORMAL NORMAL Urine leukocyte esterase detection by dipstick 2+ NEGATIVE Automated urine sediment erythrocyte count by microscopy (number/high power field) RARE NRG Automated urine sediment leukocyte count by microscopy (number/high power field ) RARE NRG Bacteria detection in urine sediment by light microscopy NEGATIVE NRG Squamous epithelial cells detection in urine sediment by light microscopy 5-10 NRG Crystals detection in urine sediment by light microscopy NONE NRG Casts detection in urine sediment by light microscopy NONE NRG Mucus detection in urine sediment by light microscopy NEGATIVE NRG Complete urinalysis with reflex to culture NO NRG Complete blood count (CBC) with automated white blood cell (WBC) differential - 04/12/16 10:30 Blood leukocytes automated count (number/volume) 3.6 10*3/uL 4.3-11.0 Blood erythrocytes automated count (number/volume) 4.85 10*6/uL 4.35-5.85 Venous blood hemoglobin measurement (mass/volume) 15.0 g/dL 11.5-16.0 Blood hematocrit (volume fraction) 42 % 35-52 Automated erythrocyte mean corpuscular volume 87 [foz_us] 80-99 Automated erythrocyte mean corpuscular hemoglobin (mass per erythrocyte) 31 pg 25-34 Automated erythrocyte mean corpuscular hemoglobin concentration measurement ( mass/volume) 36 g/dL 32-36 Automated erythrocyte distribution width ratio 13.1 % 10.0-14.5 Automated blood platelet count (count/volume) 195 10*3/uL 130-400 Automated blood platelet mean volume measurement 8.8 [foz_us] 7.4-10.4 Automated blood neutrophils/100 leukocytes 60 % 42-75 Automated blood lymphocytes/100 leukocytes 25 % 12-44 Blood monocytes/100 leukocytes 13 % 0-12 Automated blood eosinophils/100 leukocytes 0 % 0-10 Automated blood basophils/100 leukocytes 1 % 0-10 Blood neutrophils automated count (number/volume) 2.2 10*3 1.8-7.8 Blood lymphocytes automated count (number/volume) 0.9 10*3 1.0-4.0 Blood monocytes automated count (number/volume) 0.5 10*3 0.0-1.0 Automated eosinophil count 0.0 10*3/uL 0.0-0.3 Automated blood basophil count (count/volume) 0.1 10*3/uL 0.0-0.1 Complete blood count (CBC) with automated white blood cell (WBC) differential - 04/17/16 21:38 Blood leukocytes automated count (number/volume) 7.5 10*3/uL 4.3-11.0 Blood erythrocytes automated count (number/volume) 4.43 10*6/uL 4.35-5.85 Venous blood hemoglobin measurement (mass/volume) 13.7 g/dL 11.5-16.0 Blood hematocrit (volume fraction) 39 % 35-52 Automated erythrocyte mean corpuscular volume 87 [foz_us] 80-99 Automated erythrocyte mean corpuscular hemoglobin (mass per erythrocyte) 31 pg 25-34 Automated erythrocyte mean corpuscular hemoglobin concentration measurement ( mass/volume) 35 g/dL 32-36 Automated erythrocyte distribution width ratio 13.0 % 10.0-14.5 Automated blood platelet count (count/volume) 254 10*3/uL 130-400 Automated blood platelet mean volume measurement 8.8 [foz_us] 7.4-10.4 Automated blood neutrophils/100 leukocytes 71 % 42-75 Automated blood lymphocytes/100 leukocytes 22 % 12-44 Blood monocytes/100 leukocytes 6 % 0-12 Automated blood eosinophils/100 leukocytes 0 % 0-10 Automated blood basophils/100 leukocytes 1 % 0-10 Blood neutrophils automated count (number/volume) 5.3 10*3 1.8-7.8 Blood lymphocytes automated count (number/volume) 1.7 10*3 1.0-4.0 Blood monocytes automated count (number/volume) 0.5 10*3 0.0-1.0 Automated eosinophil count 0.0 10*3/uL 0.0-0.3 Automated blood basophil count (count/volume) 0.1 10*3/uL 0.0-0.1 Complete urinalysis with reflex to culture - 04/25/16 14:15 Urine color determination YELLOW NRG Urine clarity determination CLEAR NRG Urine pH measurement by test strip 7 5-9 Specific gravity of urine by test strip 1.005 1.016- 1.022 Urine protein assay by test strip, semi-quantitative NEGATIVE NEGATIVE Urine glucose detection by automated test strip NEGATIVE NEGATIVE Erythrocytes detection in urine sediment by light microscopy 2+ NEGATIVE Urine ketones detection by automated test strip NEGATIVE NEGATIVE Urine nitrite detection by test strip NEGATIVE NEGATIVE Urine total bilirubin detection by test strip NEGATIVE NEGATIVE Urine urobilinogen measurement by automated test strip (mass/volume) NORMAL NORMAL Urine leukocyte esterase detection by dipstick 3+ NEGATIVE Automated urine sediment erythrocyte count by microscopy (number/high power field) [HPF] NRG Automated urine sediment leukocyte count by microscopy (number/high power field ) [HPF] NRG Bacteria detection in urine sediment by light microscopy NEGATIVE NRG Squamous epithelial cells detection in urine sediment by light microscopy NONE NRG Crystals detection in urine sediment by light microscopy NONE NRG Casts detection in urine sediment by light microscopy NONE NRG Mucus detection in urine sediment by light microscopy NEGATIVE NRG Complete urinalysis with reflex to culture YES NRG Bacterial urine culture - 04/25/16 14:15 Bacterial urine culture [id number] NRG COLONY COUNT <10,000 NRG FTX;REPORTABLE PLUS MIXED GRAM POSITIVES NRG FREE TEXT ENTRY 2 <10,000/ML NRG Complete urinalysis with reflex to culture - 08/28/16 11:01 Urine color determination YELLOW NRG Urine clarity determination CLEAR NRG Urine pH measurement by test strip 7 5-9 Specific gravity of urine by test strip 1.010 1.016- 1.022 Urine protein assay by test strip, semi-quantitative NEGATIVE NEGATIVE Urine glucose detection by automated test strip NEGATIVE NEGATIVE Erythrocytes detection in urine sediment by light microscopy NEGATIVE NEGATIVE Urine ketones detection by automated test strip NEGATIVE NEGATIVE Urine nitrite detection by test strip NEGATIVE NEGATIVE Urine total bilirubin detection by test strip NEGATIVE NEGATIVE Urine urobilinogen measurement by automated test strip (mass/volume) NORMAL NORMAL Urine leukocyte esterase detection by dipstick 2+ NEGATIVE Automated urine sediment erythrocyte count by microscopy (number/high power field) RARE NRG Automated urine sediment leukocyte count by microscopy (number/high power field ) [HPF] NRG Bacteria detection in urine sediment by light microscopy TRACE NRG Squamous epithelial cells detection in urine sediment by light microscopy RARE NRG Crystals detection in urine sediment by light microscopy NONE NRG Casts detection in urine sediment by light microscopy NONE NRG Mucus detection in urine sediment by light microscopy NEGATIVE NRG Complete urinalysis with reflex to culture YES NRG Bacterial urine culture - 08/28/16 11:01 URINE CULTURE RESULTS <10,000/ML NRG Complete blood count (CBC) with automated white blood cell (WBC) differential - 08/30/16 13:29 Blood leukocytes automated count (number/volume) 9.4 10*3/uL 4.3-11.0 Blood erythrocytes automated count (number/volume) 4.12 10*6/uL 4.35-5.85 Venous blood hemoglobin measurement (mass/volume) 12.7 g/dL 11.5-16.0 Blood hematocrit (volume fraction) 36 % 35-52 Automated erythrocyte mean corpuscular volume 87 [foz_us] 80-99 Automated erythrocyte mean corpuscular hemoglobin (mass per erythrocyte) 31 pg 25-34 Automated erythrocyte mean corpuscular hemoglobin concentration measurement ( mass/volume) 35 g/dL 32-36 Automated erythrocyte distribution width ratio 12.7 % 10.0-14.5 Automated blood platelet count (count/volume) 259 10*3/uL 130-400 Automated blood platelet mean volume measurement 8.7 [foz_us] 7.4-10.4 Automated blood neutrophils/100 leukocytes 73 % 42-75 Automated blood lymphocytes/100 leukocytes 18 % 12-44 Blood monocytes/100 leukocytes 7 % 0-12 Automated blood eosinophils/100 leukocytes 2 % 0-10 Automated blood basophils/100 leukocytes 0 % 0-10 Blood neutrophils automated count (number/volume) 6.9 10*3 1.8-7.8 Blood lymphocytes automated count (number/volume) 1.7 10*3 1.0-4.0 Blood monocytes automated count (number/volume) 0.7 10*3 0.0-1.0 Automated eosinophil count 0.2 10*3/uL 0.0-0.3 Automated blood basophil count (count/volume) 0.0 10*3/uL 0.0-0.1 Comprehensive metabolic panel - 08/30/16 13:29 Serum or plasma sodium measurement (moles/volume) 136 mmol/L 135-145 Serum or plasma potassium measurement (moles/volume) 3.4 mmol/L 3.6-5.0 Serum or plasma chloride measurement (moles/volume) 101 mmol/L 98-107 Carbon dioxide 22 mmol/L 21-32 Serum or plasma anion gap determination (moles/volume) 13 mmol/L 5-14 Serum or plasma urea nitrogen measurement (mass/volume) 10 mg/dL 7-18 Serum or plasma creatinine measurement (mass/volume) 0.88 mg/dL 0.60-1.30 Serum or plasma urea nitrogen/creatinine mass ratio 11 NRG Serum or plasma creatinine measurement with calculation of estimated glomerular filtration rate > NRG Serum or plasma glucose measurement (mass/volume) 86 mg/dL 70-105 Serum or plasma calcium measurement (mass/volume) 9.3 mg/dL 8.5-10.1 Serum or plasma total bilirubin measurement (mass/volume) 0.9 mg/dL 0.1-1.0 Serum or plasma alkaline phosphatase measurement (enzymatic activity/volume) 63 U/L 40-136 Serum or plasma aspartate aminotransferase measurement (enzymatic activity/ volume) 14 U/L 5-34 Serum or plasma alanine aminotransferase measurement (enzymatic activity/volume ) 13 U/L 0-55 Serum or plasma protein measurement (mass/volume) 7.0 g/dL 6.4-8.2 Serum or plasma albumin measurement (mass/volume) 4.0 g/dL 3.2-4.5 Serum or plasma amylase measurement (enzymatic activity/volume) - 08/30/16 13: 29 Serum or plasma amylase measurement (enzymatic activity/volume) 44 U /L 25-125 Lipase - 08/30/16 13:29 Lipase 34 U/L 8-78 Complete urinalysis with reflex to culture - 08/30/16 13:47 Urine color determination YELLOW NRG Urine clarity determination CLEAR NRG Urine pH measurement by test strip 7 5-9 Specific gravity of urine by test strip 1.005 1.016- 1.022 Urine protein assay by test strip, semi-quantitative NEGATIVE NEGATIVE Urine glucose detection by automated test strip NEGATIVE NEGATIVE Erythrocytes detection in urine sediment by light microscopy NEGATIVE NEGATIVE Urine ketones detection by automated test strip NEGATIVE NEGATIVE Urine nitrite detection by test strip POSITIVE NEGATIVE Urine total bilirubin detection by test strip 2+ NEGATIVE Urine urobilinogen measurement by automated test strip (mass/volume) 4 mg/dL NORMAL Urine leukocyte esterase detection by dipstick 1+ NEGATIVE Automated urine sediment erythrocyte count by microscopy (number/high power field) NONE NRG Automated urine sediment leukocyte count by microscopy (number/high power field ) NONE NRG Bacteria detection in urine sediment by light microscopy TRACE NRG Squamous epithelial cells detection in urine sediment by light microscopy 0-2 NRG Crystals detection in urine sediment by light microscopy NONE NRG Casts detection in urine sediment by light microscopy NONE NRG Mucus detection in urine sediment by light microscopy NEGATIVE NRG Complete urinalysis with reflex to culture NO NRG Bacterial urine culture - 08/30/16 13:47 URINE CULTURE RESULTS <10,000/ML NRG CBC With Differential/Platelet - 03/11/17 11:37 WBC 3.9 x10E3/uL 3.4-10.8 RBC 4.62 x10E6/uL 3.77-5.28 Hemoglobin 14.0 g/dL 11.1-15.9 Hematocrit 40.6 % 34.0-46.6 MCV 88 fL 79-97 MCH 30.3 pg 26.6-33.0 MCHC 34.5 g/dL 31.5-35.7 RDW 13.6 % 12.3-15.4 Platelets 252 x10E3/uL 150-379 Neutrophils 50 % Lymphs 38 % Monocytes 7 % Eos 3 % Basos 1 % Neutrophils (Absolute) 2.0 x10E3/uL 1.4-7.0 Lymphs (Absolute) 1.5 x10E3/uL 0.7-3.1 Monocytes(Absolute) 0.3 x10E3/uL 0.1-0.9 Eos (Absolute) 0.1 x10E3/uL 0.0-0.4 Baso (Absolute) 0.0 x10E3/uL 0.0-0.2 Immature Granulocytes 1 % Immature Grans (Abs) 0.0 x10E3/uL 0.0-0.1 CBC - 03/11/17 11:37 WBC 3.9 x10E3/uL 3.4-10.8 RBC 4.62 x10E6/uL 3.77-5.28 Hemoglobin 14.0 g/dL 11.1-15.9 Hematocrit 40.6 % 34.0-46.6 MCV 88 fL 79-97 MCH 30.3 pg 26.6-33.0 MCHC 34.5 g/dL 31.5-35.7 RDW 13.6 % 12.3-15.4 Platelets 252 x10E3/uL 150-379 Neutrophils 50 % NRG Lymphs 38 % NRG Monocytes 7 % NRG Eos 3 % NRG Basos 1 % NRG Neutrophils (Absolute) 2.0 x10E3/uL 1.4-7.0 Lymphs (Absolute) 1.5 x10E3/uL 0.7-3.1 Monocytes(Absolute) 0.3 x10E3/uL 0.1-0.9 Eos (Absolute) 0.1 x10E3/uL 0.0-0.4 Baso (Absolute) 0.0 x10E3/uL 0.0-0.2 Immature Granulocytes 1 % NRG Immature Grans (Abs) 0.0 x10E3/uL 0.0-0.1 Immature Cells NRG NRBC NRG Hematology Comments: NRG CULTURE, URINE - 09/07/17 16:51 CULTURE, URINE, ROUTINE SEE NOTE NRG CULTURE, URINE - 09/30/17 09:01 CULTURE, URINE, ROUTINE SEE NOTE NRG CULTURE, URINE - 02/10/18 12:50 CULTURE, URINE, ROUTINE SEE NOTE NRG TSH - 03/01/18 14:26 TSH 1.25 mIU/L NRG Encounters ACCT No. Visit Date/Time Discharge Status Pt. Type Provider Facility Loc./Unit Complaint [id number] 11/02/2014 15:22:00 11/02/2014 23:59:59 CLS Outpatient NORMA RAM APRN [id number] 10/23/2014 11:00:00 10/23/2014 23:59:59 CLS Outpatient EVERETT MAYORGA APRN [id number] 06/30/2014 08:22:00 06/30/2014 23:59:59 CLS Outpatient NORMA RAM APRN [id number] 04/06/2014 10:17:00 04/06/2014 23:59:59 CLS Outpatient TOM BUTCHER LCPC [id number] 11/08/2013 16:37:00 11/08/2013 23:59:59 CLS Outpatient NORMA RAM APRN [id number] 10/26/2013 14:44:00 10/26/2013 23:59:59 CLS Outpatient MARIELA BROOKS DDS [id number] 10/19/2013 13:06:00 10/19/2013 23:59:59 CLS Outpatient YO LYON NORMA Vazquez [id number] 08/17/2013 13:55:00 08/17/2013 23:59:59 CLS Outpatient RONIT SALINAS DO [id number] 08/03/2013 13:21:00 08/03/2013 23:59:59 CLS Outpatient YO LYONNORMA [id number] 07/07/2013 11:15:00 07/07/2013 23:59:59 CLS Outpatient YO LYONNORMA [id number] 06/27/2013 09:51:00 06/27/2013 23:59:59 CLS Outpatient MONY CALIXTO APRNLIZABETH De Dios [id number] 05/12/2013 10:52:00 05/12/2013 23:59:59 CLS Outpatient JEROD ZAVALETA [id number] 04/04/2013 15:39:00 04/04/2013 23:59:59 CLS Outpatient DALILA ROLDAN MD [id number] 07/26/2012 08:46:00 07/26/2012 23:59:59 CLS Outpatient [id number] 06/30/2012 08:47:00 06/30/2012 23:59:59 CLS Outpatient RITA DELVALLE RONIT Higinio [id number] 04/15/2012 07:49:00 04/15/2012 23:59:59 CLS Outpatient [id number] 03/12/2017 07:05:00 Document Registration [id number] 04/17/2015 14:35:20 ACT Document Registration [id number] 08/30/2016 12:41:00 08/30/2016 15:18:00 DIS Outpatient LAMONT HERNANDEZ MD [facility] ER UTI/FEVER/DIARRHEA [id number] 08/28/2016 10:25:00 08/28/2016 12:24:00 DIS Emergency JENNIFER DILLON [facility] ER UTI SYMPTOMS [id number] 06/03/2016 12:55:00 06/03/2016 23:59:59 CLS Outpatient DALILA ROLDAN MD [facility] RAD SUBACUTE MAXILLARY SINUSITIS [id number] 06/03/2016 13:25:00 06/03/2016 14:33:00 DIS Emergency SUSAN ANGELES BENCH INSPECTOR [facility] ER FACIAL/EAR PAIN [id number] 05/26/2016 13:50:00 05/26/2016 16:18:00 DIS Emergency PRUDENCIO JEFF, NIKI Javier [facility] ER EARACHE CHEST CONGESTION [id number] 04/25/2016 13:04:00 04/25/2016 15:26:00 DIS Emergency RADHA JEFF, MADDY Sylvester [facility] ER UTI SYMPTOMS [id number] 04/17/2016 20:56:00 04/17/2016 22:24:00 DIS Emergency SUSAN ANGELES APRN [facility] ER PNEUMONIA [id number] 04/12/2016 09:34:00 04/12/2016 12:13:00 DIS Emergency YOLY SALTER MD [facility] ER COUGH/BURNING LUNGS [id number] 06/04/2015 10:22:00 06/04/2015 23:59:59 CLS Outpatient CHERRI HAINES MD [facility] RAD SCREENING,RT BREAST CA [id number] 05/29/2015 14:49:00 05/29/2015 23:59:59 CLS Outpatient CHERRI HAINES MD [facility] ONC [id number] 05/10/2015 12:06:00 05/10/2015 23:59:59 CLS Outpatient CHERRI HAINES MD [facility] CARD [id number] 04/17/2015 14:31:00 04/18/2015 00:01:00 DIS Outpatient CHERRI HAINES MD [facility] ONC [id number] 03/29/2015 12:41:00 03/29/2015 23:59:59 CLS Outpatient CHERRI HAINES MD [facility] RAD BREAST CANCER CARDIOTOXIC DRUG [id number] 11/29/2013 12:19:00 11/29/2013 15:50:00 DIS Outpatient ANAY SERRANO DO [facility] SDC HISTORY DIVERTICULTIS [id number] 11/23/2013 08:53:00 11/23/2013 23:59:59 CLS Outpatient ZACH DELVALLEANAY [facility] PREOP HISTORY DIVERTICULITIS [id number] 08/10/2013 12:08:00 08/10/2013 23:59:59 CLS Outpatient SERRANO ANAY DELVALLE [facility] RAD ABD PAIN ,HX OF DIVERTICULITIS [id number] 06/24/2013 11:59:00 06/24/2013 16:16:00 DIS Emergency MARIELA SMITH [facility] ER BLADDER PAIN/PRESSURE [id number] 03/22/2013 11:05:00 03/22/2013 12:15:00 DIS Emergency SUSAN ANGLEES APRN [facility] ER FEVER COUGH/CONGESTION [id number] 09/24/2015 14:38:00 Document Registration [id number] 03/20/2015 17:16:00 Document Registration [id number] 07/14/2012 04:37:00 Document Registration [id number] 11/17/2011 19:37:00 Document Registration [id number] 05/19/2011 14:14:00 Document Registration [id number] 05/05/2011 13:39:00 Document Registration [id number] 02/10/2018 11:20:00 02/10/2018 23:59:59 CLS Outpatient SAMMY YOUNG MD [facility] [id number] 03/01/2018 13:00:00 Document Registration [id number] 02/10/2018 11:20:00 Document Registration [id number] 09/30/2017 08:00:00 Document Registration [id number] 09/07/2017 16:20:00 Document Registration [id number] 03/11/2017 10:40:00 Document Registration
[2018-04-22 15:11] LABS: BASOPHILS # (AUTO) 0.1 10^3/uL (0.0-0.1); BASOPHILS % (AUTO) 1 % (0-10); EOSINOPHILS # (AUTO) 0.1 10^3/uL (0.0-0.3); EOSINOPHILS % (AUTO) 1 % (0-10); HEMATOCRIT 39 % (35-52); LYMPHOCYTES # (AUTO) 1.6 X 10^3 (1.0-4.0); LYMPHOCYTES % (AUTO) 32 % (12-44); MEAN CORPUSCULAR HEMOGLOBIN 32 PG (25-34); MEAN CORPUSCULAR HGB CONC 36 G/DL (32-36); MEAN CORPUSCULAR VOLUME 87 FL (80-99); MEAN PLATELET VOLUME 8.7 FL (7.4-10.4); MONOCYTES # (AUTO) 0.3 X 10^3 (0.0-1.0); MONOCYTES % (AUTO) 6 % (0-12); NEUTROPHILS % (AUTO) 59 % (42-75); PLATELET COUNT 271 10^3/uL (130-400); RED BLOOD COUNT 4.43 10^6/uL (4.35-5.85); RED CELL DISTRIBUTION WIDTH 13.2 % (10.0-14.5); WHITE BLOOD COUNT 5.1 10^3/uL (4.3-11.0)
[2018-04-22] MEDS ORDERED: ASPIRIN 81 MG CHEW (CHILDREN'S ASA) PO ONE (15:15)
--- NOTE | 2018-04-22 15:15 | ED General ---
General Chief Complaint: Chest Pain Stated Complaint: WEAKNESS;DIZZINESS;NAUSEA;CP Nursing Triage Note: PT AMB TO ROOM #9 W/O DIFFICULTY. A&OX4. CO LT SIDED CHEST PAIN DESCRIBED "FEELS LIKE MY HEART FLOPPED IN MY CHEST." PT REPOTS SYMPTOMS BECAME SEVERE THIS MORNING WHEN SHE FELT "SO WEAK SHE FELL TO THE GROUND AND COULDNT GET UP." PT DENIES INJURY OR HITTING HEAD. PT REPORTS SHE IS CURRENTLY ON A KETO DIET, AND HAS RECENTLY LOST 40LBS. PT REPORTS SHE FEELS NAUSEOUS, WEAK, AND DIZZY, WITH INTERMITTENT CHEST DISCOMFORT. Nursing Sepsis Screen: No Definite Risk Source of Information: Patient Exam Limitations: No Limitations History of Present Illness Date Seen by Provider: Apr 22, 2018 Time Seen by Provider: 15:11 Initial Comments To ER with reports of left sided chest pain that she states feels "like my heart flipped over in my chest". The pain is gone now this lasted only a few seconds and occurred while she was at rest watching TV. She also states that she 's had progressive weakness over the past several weeks. This was initially believed by primary care to be related to her Celexa. She stopped the Celexa last month and for about one week her symptoms improved. They then recurred, she states that she has constant nausea, she gets carsick now which is a new symptom for her she has intermittent dizziness nearly every day. She also states that her ears are very itchy. She denies any runny nose or sore throat or cough or shortness of breath. She denies fevers or chills. The only symptom that is new today is that her "heart flipped over in her chest". All other symptoms have been present for at least a month. Timing/Duration: Intermittent Severity: Moderate Associated Systoms: No Chest Pain, No Cough, No Diaphoresis, No Fever/Chills; Malaise, Nausea/Vomiting, Weakness Allergies and Home Medications Allergies Coded Allergies: meperidine HCl (Verified Allergy, Mild, "gets vicious", 11/17/11) morphine (Verified Allergy, Mild, "gets vicious", 11/17/11) shellfish derived (Verified Allergy, Unknown, 11/17/11) Uncoded Allergies: [id number] (SULFA (SULFONAMIDE ANTIBIOTICS)) (Allergy, Mild, 1/25/10) Home Medications Albuterol Sulfate 8.5 Gm Hfa.aer.ad, 1-2 PUFF IH Q6H Prescribed by: JENNIFER DILLON on 08/28/16 1204 Ciprofloxacin HCl 500 Mg Tablet, 500 MG PO BID Prescribed by: LAMONT HERNANDEZ on 08/30/16 1450 Citalopram Hydrobromide 20 Mg Tablet, 20 MG PO DAILY, (Reported) Guaifenesin/Pseudoephedrne HCl 1 Each Tab.er.12h, 1 EACH PO BID Prescribed by: JENNIFER DILLON on 08/28/16 1137 Loratadine 10 Mg Tablet, 10 MG PO DAILY, (Reported) Meclizine HCl 25 Mg Tab.chew, 25 MG PO TID PRN for DIZZINESS Prescribed by: SUSAN ANGELES on 04/22/18 1611 Nitrofurantoin Monohyd/M-Cryst 100 Mg Capsule, 1 TAB PO BID Prescribed by: JENNIFER DILLON on 08/28/16 1204 Patient Home Medication List Home Medication List Reviewed: Yes Review of Systems Review of Systems Constitutional: see HPI; No chills, No fever; malaise, weakness EENTM: see HPI Respiratory: no symptoms reported; No cough, No short of breath Cardiovascular: see HPI, chest pain; No edema, No Hx of Intervention; palpitations; No syncope, No vascular heart diseas Gastrointestinal: No abdominal pain, No constipation, No diarrhea; nausea; No vomiting Genitourinary: no symptoms reported; No dysuria, No frequency, No hematuria, No hesitancy Musculoskeletal: no symptoms reported; No back pain, No joint pain, No joint swelling Psychiatric/Neurological: See HPI, Emotional Problems (she states that she gets very angry sometimes) Past Ioosqus-Lkodja-Zjjcmz Hx Patient Social History Recent Foreign Travel: No Contact w/Someone Who Travel: No Recent Infectious Disease Expo: No Recent Hopitalizations: No Immunizations Up To Date Date of Influenza Vaccine: Apr 19, 2012 Seasonal Allergies Seasonal Allergies: No Past Medical History Breast, Hysterectomy, Tonsillectomy Pneumonia 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 oz. 63.459320cc; 25.82 BMI Method:Stated General Appearance: No Apparent Distress, WD/WN Eyes: Bilateral Eye Normal Inspection, Bilateral Eye PERRL, Bilateral Eye EOMI HEENT: PERRL/EOMI, TMs Normal Respiratory: No Accessory Muscle Use, No Respiratory Distress Cardiovascular: Regular Rate, Rhythm, Normal Peripheral Pulses Gastrointestinal: Normal Bowel Sounds, Non Tender, Soft Extremity: Normal Capillary Refill, Normal Inspection Neurologic/Psychiatric: Alert, Oriented x3 Skin: Normal Color, Warm/Dry Progress/Results/Core Measures Suspected Sepsis Recent Fever Within 48 Hours: No Infection Criteria Present: None New/Unexplained Altered Menta: No Sepsis Screen: No Definite Risk SIRS Temperature:97.2 Pulse: 68 Respiratory Rate: 15 Laboratory Tests 04/22/18 14:50: White Blood Count 5.1 Blood Pressure 123 /73 Mean: 90 Laboratory Tests 04/22/18 14:50: Creatinine 0.92, INR Comment 1.0, Platelet Count 271, Total Bilirubin 0.8 Results/Orders Lab Results Laboratory Tests Test 04/22/18 14:50 04/22/18 15:55 Range/Units White Blood Count 5.1 4.3-11.0 10^3/uL Red Blood Count 4.43 4.35-5.85 10^6/uL Hemoglobin 14.0 11.5-16.0 G/DL Hematocrit 39 35-52 % Mean Corpuscular Volume 87 80-99 FL Mean Corpuscular Hemoglobin 32 25-34 PG Mean Corpuscular Hemoglobin Concent 36 32-36 G/DL Red Cell Distribution Width 13.2 10.0-14.5 % Platelet Count 271 130-400 10^3/uL Mean Platelet Volume 8.7 7.4-10.4 FL Neutrophils (%) (Auto) 59 42-75 % Lymphocytes (%) (Auto) 32 12-44 % Monocytes (%) (Auto) 6 0-12 % Eosinophils (%) (Auto) 1 0-10 % Basophils (%) (Auto) 1 0-10 % Neutrophils # (Auto) 3.0 1.8-7.8 X 10^3 Lymphocytes # (Auto) 1.6 1.0-4.0 X 10^3 Monocytes # (Auto) 0.3 0.0-1.0 X 10^3 Eosinophils # (Auto) 0.1 0.0-0.3 10^3/uL Basophils # (Auto) 0.1 0.0-0.1 10^3/uL Prothrombin Time 13.0 12.2-14.7 SEC INR Comment 1.0 0.8-1.4 Activated Partial Thromboplast Time 30 24-35 SEC D-Dimer 0.15 0.00-0.49 UG/ML Sodium Level 137 135-145 MMOL/L Potassium Level 3.8 3.6-5.0 MMOL/L Chloride Level 103 98-107 MMOL/L Carbon Dioxide Level 24 21-32 MMOL/L Anion Gap 10 5-14 MMOL/L Blood Urea Nitrogen 10 7-18 MG/DL Creatinine 0.92 0.60-1.30 MG/DL Estimat Glomerular Filtration Rate > 60 BUN/Creatinine Ratio 11 Glucose Level 92 70-105 MG/DL Calcium Level 9.7 8.5-10.1 MG/DL Corrected Calcium 8.5-10.1 MG/DL Magnesium Level 2.4 1.8-2.4 MG/DL Total Bilirubin 0.8 0.1-1.0 MG/DL Aspartate Amino Transf (AST/SGOT) 18 5-34 U/L Alanine Aminotransferase (ALT/SGPT) 14 0-55 U/L Alkaline Phosphatase 54 40-136 U/L Myoglobin 47.7 10.0-92.0 NG/ML Troponin I < 0.30 <0.30 NG/ML B-Type Natriuretic Peptide 21.3 <100.0 PG/ML Total Protein 7.4 6.4-8.2 GM/DL Albumin 4.6 H 3.2-4.5 GM/DL Lipase 65 8-78 U/L Thyroid Stimulating Hormone (TSH) 0.91 0.35-4.94 UIU/ML Urine Color YELLOW Urine Clarity CLEAR Urine pH 6 5-9 Urine Specific [place] 1.010 L 1.016-1.022 Urine Protein NEGATIVE NEGATIVE Urine Glucose (UA) NEGATIVE NEGATIVE Urine Ketones NEGATIVE NEGATIVE Urine Nitrite NEGATIVE NEGATIVE Urine Bilirubin NEGATIVE NEGATIVE Urine Urobilinogen NORMAL NORMAL MG/DL Urine Leukocyte Esterase NEGATIVE NEGATIVE Urine RBC (Auto) NEGATIVE NEGATIVE Urine RBC NONE /HPF Urine WBC NONE /HPF Urine Squamous Epithelial Cells 0-2 /HPF Urine Crystals NONE /LPF Urine Bacteria NONE /HPF Urine Casts NONE /LPF Urine Mucus NEGATIVE /LPF Urine Culture Indicated NO Urine Test NEGATIVE NEGATIVE My Orders Orders - SUSAN ANGELES APRN Cbc With Automated Diff (04/22/18 15:02) Magnesium (04/22/18 15:02) Ekg Tracing (04/22/18 15:02) Cardiac Profile 1 (04/22/18 15:02) Comprehensive Metabolic Panel (04/22/18 15:02) Myoglobin Serum (04/22/18 15:02) Protime With Inr (04/22/18 15:02) Partial Thromboplastin Time (04/22/18 15:02) O2 (04/22/18 15:02) Monitor-Rhythm Ecg Trace Only (04/22/18 15:02) Aspirin Chewable Tablet (Baby Aspirin Ch (04/22/18 15:15) Saline Lock/Iv-Start (04/22/18 15:02) Lipase (04/22/18 15:02) BNP (04/22/18 15:02) Fibrin Degradation Products (04/22/18 15:02) Ua Culture If Indicated (04/22/18 15:03) Hcg,Qualitative Urine (04/22/18 15:03) Ct Head Wo (04/22/18 15:15) Chest Pa/Lat (2 View) (04/22/18 15:02) Thyroid Stimulating Hormone (04/22/18 15:52) Ondansetron Injection (Zofran Injectio (04/22/18 16:00) Medications Given in ED Current Medications Medications Dose Ordered Sig/Johnathon Route Start Time Stop Time Status Last Admin Dose Admin Aspirin 324 mg ONCE ONCE PO 04/22/18 15:15 04/22/18 15:16 DC 04/22/18 15:30 324 MG Ondansetron HCl 8 mg ONCE ONCE IVP 04/22/18 16:00 04/22/18 16:01 DC 04/22/18 16:00 8 MG Vital Signs/I&O 04/22/18 04/22/18 04/22/18 14:43 14:43 17:14 Temp 97.2 97.2 Pulse 68 66 Resp 15 16 B/P (MAP) 123/73 (90) 101/62 (90) Pulse Ox 99 99 O2 Delivery Room Air Room Air Room Air Capillary Refill : Less Than 3 Seconds Blood Pressure Mean: 90 Departure Impression Primary Impression: Dizziness Additional Impressions: Intermittent palpitations Nausea Disposition: 01 HOME, SELF-CARE Condition: Stable Departure-Patient Inst. Decision time for Depature: 15:49 Referrals: [facility] (PCP/Family) Primary Care Physician Patient Instructions: Nausea and Vomiting, Adult, Palpitations, Vertigo (a Type of Dizziness) Add. Discharge Instructions: 1. Follow up with primary care to further evaluate your symptoms 2. Return to ER for any concerns. All discharge instructions reviewed with patient and/or family. Voiced understanding. Scripts Meclizine HCl (Meclizine HCl) 25 Mg Tab.chew 25 MG PO TID PRN for DIZZINESS, #20 TAB Prov: SUSAN ANGELES APRN 04/22/18 SUSAN ANGELES APRN Apr 22, 2018 15:15
[2018-04-22 15:27] LABS: ALANINE AMINOTRANSFERASE 14 U/L (0-55); ALBUMIN 4.6 GM/DL (3.2-4.5); ALKALINE PHOSPHATASE 54 U/L (40-136); BILIRUBIN,TOTAL 0.8 MG/DL (0.1-1.0); BUN/CREATININE RATIO 11; CALCIUM 9.7 MG/DL (8.5-10.1); CARBON DIOXIDE 24 MMOL/L (21-32); CHLORIDE 103 MMOL/L (98-107); CREATININE SERUM 0.92 MG/DL (0.60-1.30); GFR ESTIMATED > 60; GLUCOSE 92 MG/DL (70-105); LIPASE 65 U/L (8-78); MAGNESIUM 2.4 MG/DL (1.8-2.4); POTASSIUM 3.8 MMOL/L (3.6-5.0); SODIUM 137 MMOL/L (135-145); TOTAL PROTEIN 7.4 GM/DL (6.4-8.2)
[2018-04-22 15:35] LABS: MYOGLOBIN SERUM 47.7 NG/ML (10.0-92.0)
--- NOTE | 2018-04-22 15:50 | Diagnostic Imaging Report ---
PROCEDURE: CT head without contrast. TECHNIQUE: Multiple contiguous axial images were obtained through the brain without the use of intravenous contrast. INDICATION: Dizziness and weakness. No prior studies are available for comparison. Ventricles and sulci are within normal limits. No sulcal effacement, midline shift or hemorrhage is detected. The cisterns are patent. The visualized paranasal sinuses are clear. IMPRESSION: No acute intracranial process is detected. Dictated by: Dictated on workstation # [id number]
--- NOTE | 2018-04-22 15:52 | Diagnostic Imaging Report ---
INDICATION: Heart palpitations. TIME OF EXAM 4:11 p.m. EXAMINATION: Two views of the chest were obtained. COMPARISON: Correlation is made with prior study from 05/26/2016. FINDINGS: The heart size is normal. The pulmonary vascularity is unremarkable. The lungs are clear. No infiltrate, effusion or pneumothorax is detected. IMPRESSION: No acute cardiopulmonary process is detected. Dictated by: Dictated on workstation # [id number]
[2018-04-22] MEDS ORDERED: ONDANSETRON 4 MG/2 ML (SDV) Z0FRAN IVP ONE (16:00)
[2018-04-22 16:01] LABS: BILIRUBIN,URINE NEGATIVE (NEGATIVE); CLARITY,URINE CLEAR; COLOR,URINE YELLOW; GLUCOSE, URINE (UA) NEGATIVE (NEGATIVE); KETONES,URINE NEGATIVE (NEGATIVE); LEUKOCYTE ESTERASE ,URINE NEGATIVE (NEGATIVE); NITRITE,URINE NEGATIVE (NEGATIVE); PH,URINE 6 (5-9); PROTEIN,URINE NEGATIVE (NEGATIVE); UROBILINOGEN,URINE NORMAL (NORMAL)
[2018-04-22 16:07] LABS: SQUAMOUS EPITHELIAL CELL,UR 0-2 /HPF
[2018-04-22] MEDS ORDERED: MECL-124 PO (16:11)
[2018-04-22 17:14] VITALS: BP 101/62
== END 2018-04-22 17:15 | disposition home or self-care (01) ==
LOC: EDUNIT# 14:38 → ER 14:39
DX: R42 Dizziness and giddiness (principal); R00.2 Palpitations; R11.0 Nausea; Z88.5 Allergy status to narcotic agent; Z88.8 Allergy status to other drugs, medicaments and biological substances; Z79.51 Long term (current) use of inhaled steroids; Z90.710 Acquired absence of both cervix and uterus; Z87.01 Personal history of pneumonia (recurrent); Z90.89 Acquired absence of other organs
CPT/HCPCS: 36415; 70450; 71046; 80053; 81000; 83690; 83735; 83874; 83880; 84443; 84484; 84703; 85025; 85379; 85610; 85730; 93005; 93041

== ENCOUNTER 2019-04-30 13:08 | Emergency (ER) | payer SELFPAY ==
[~2019-04-30] VITALS: Ht 165 cm; Wt 63.0 kg
[~2019-04-30 13:08] MED LIST changes: +MECL-124 PO
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
[2019-04-30] MEDS ORDERED: CYCL10TA9 PO (13:53)
[2019-04-30] MEDS ORDERED: IBUPROFEN 800 MG (MOTRIN) TAB PO ONE (14:00)
[2019-04-30 14:10] VITALS: BP 128/87
== END 2019-04-30 14:09 | disposition home or self-care (01) ==
LOC: EDUNIT# 13:08 → ER 13:09
DX: S16.1XXA Strain of muscle, fascia and tendon at neck level, initial encounter (principal); Z88.5 Allergy status to narcotic agent; Z90.710 Acquired absence of both cervix and uterus; Z90.89 Acquired absence of other organs; Z85.3 Personal history of malignant neoplasm of breast; V49.50XA Passenger injured in collision with unspecified motor vehicles in traffic accident, initial encounter
CPT/HCPCS: 70450; 72125

== ENCOUNTER → 2019-08-01 | Outpatient (CLI) | payer SELFPAY ==
[~2019-08-01] MED LIST changes: +CYCL10TA9 PO
--- NOTE | 2019-08-01 15:37 | Diagnostic Imaging Report ---
PROCEDURE: MRI lumbar spine. TECHNIQUE: Multiplanar, multisequence MRI of the lumbar spine was performed without contrast. INDICATION: Chronic low back pain. COMPARISON: No prior studies are available for comparison. FINDINGS: Curvature and alignment of the lumbar spine are normal. Vertebral body heights are maintained. Marrow signal intensity is unremarkable. There is fairly normal height and signal intensity to the lumbar intervertebral discs. The conus is unremarkable at the L1 level. T12-L1: The central canal and neural foramina are widely patent. L1-L2: There are some degenerative facet changes, but central canal and neural foramina are widely patent. L2-L3: Degenerative facet changes are noted, but central canal and neural foramina appear patent. L3-L4: There is some broad-based disc/osteophyte complex with mild wide-based midline disc bulge indenting the ventral thecal sac. Central canal remains patent. There does appear to be some narrowing of the lateral recesses bilaterally. There is also takn-ig-vflhypzt bilateral neural foraminal narrowing. Degenerative facet changes are noted. L4-L5: Hypertrophic facet changes are noted. There is broad-based disc/osteophyte complex flattening the ventral thecal sac. This does narrow the lateral recesses bilaterally as well as produce moderate bilateral neural foraminal narrowing. L5-S1: There are mild facet degenerative changes. Central canal is widely patent. Neural foramina are patent. Paraspinous tissues are unremarkable. IMPRESSION: Generalized lumbar degenerative facet and disc disease with lateral recess and neural foraminal narrowing described level by level above. No significant central canal stenosis is seen. There is a small wide-based midline disc bulge at the L3-L4 level. No acute compression fracture is detected. Dictated by: Dictated on workstation # [id number]
== END ==
LOC: RAD 13:05
PROVIDERS: ATTEND Nurse Practitioner Community Health
DX: M47.817 Spondylosis without myelopathy or radiculopathy, lumbosacral region (principal); M48.061 Spinal stenosis, lumbar region without neurogenic claudication; M51.26 Other intervertebral disc displacement, lumbar region; M51.36 Other intervertebral disc degeneration, lumbar region
CPT/HCPCS: 72148

== ENCOUNTER 2020-02-27 10:56 | Emergency (ER) | payer SELFPAY ==
[~2020-02-27] VITALS: Ht 165.1 cm; Wt 63.5 kg
--- NOTE | 2020-02-27 11:04 | ED General ---
General Stated Complaint: LOW BACK PAIN History of Present Illness Date Seen by Provider: Feb 27, 2020 Time Seen by Provider: 11:04 Initial Comments 50-year-old female presents with back pain that is now moved into her pelvis. Patient thinks that she has a urinary tract infection or kidney stone. Patient reports frequent urination. No gross blood. Mild nausea no vomiting. No fevers or chills. Patient reports the pain started in her back on Thursday and over the last day or 2 his with a urinary symptoms presented. Allergies and Home Medications Allergies Coded Allergies: meperidine HCl (Verified Allergy, Mild, "gets vicious", 11/17/11) morphine (Verified Allergy, Mild, "gets vicious", 11/17/11) shellfish derived (Verified Allergy, Unknown, 11/17/11) Uncoded Allergies: [id number] (SULFA (SULFONAMIDE ANTIBIOTICS)) (Allergy, Mild, 08/13/09) Home Medications Albuterol Sulfate 8.5 Gm Hfa.aer.ad, 1-2 PUFF IH Q6H Prescribed by: JENNIFER DILLON on 08/28/16 1204 Ciprofloxacin HCl 500 Mg Tablet, 500 MG PO BID Prescribed by: LAMONT HERNANDEZ on 08/30/16 1450 Ciprofloxacin HCl 500 Mg Tablet, 500 MG PO BID Prescribed by: PAYAL KATZ on 02/27/20 1247 Citalopram Hydrobromide 20 Mg Tablet, 20 MG PO DAILY, (Reported) Cyclobenzaprine HCl 10 Mg Tablet, 10 MG PO Q8H PRN for SPASMS Prescribed by: YOLY SALTER on 04/30/19 1353 Guaifenesin/Pseudoephedrne HCl 1 Each Tab.er.12h, 1 EACH PO BID Prescribed by: JENNIFER DILLON on 08/28/16 1137 Loratadine 10 Mg Tablet, 10 MG PO DAILY, (Reported) Meclizine HCl 25 Mg Tab.chew, 25 MG PO TID PRN for DIZZINESS Prescribed by: SUSAN ANGELES on 04/22/18 1611 Metronidazole 500 Mg Tablet, 500 MG PO BID Prescribed by: PAYAL KATZ on 02/27/20 1247 Nitrofurantoin Monohyd/M-Cryst 100 Mg Capsule, 1 TAB PO BID Prescribed by: JENNIFER DILLON on 08/28/16 1204 Patient Home Medication List Home Medication List Reviewed: Yes Review of Systems Review of Systems Constitutional: No chills, No fever Respiratory: No cough, No short of breath Cardiovascular: No chest pain Gastrointestinal: see HPI, abdominal pain (suprapubic), nausea; No vomiting Genitourinary: frequency, pain Musculoskeletal: see HPI, back pain Skin: no symptoms reported Psychiatric/Neurological: No Symptoms Reported Hematologic/Lymphatic: No Symptoms Reported Immunological/Allergic: no symptoms reported Past Vueyjeb-Unanfz-Kkuvzq Hx Past Med/Social Hx: Reviewed Nursing Past Med/Soc Hx Patient Social History 2nd Hand Smoke Exposure: No Recent Foreign Travel: No Contact w/Someone Who Travel: No Recent Hopitalizations: No Immunizations Up To Date Date of Influenza Vaccine: Apr 19, 2012 Seasonal Allergies Seasonal Allergies: No Past Medical History Surgeries: Yes (MASTECTOMY ) Breast, Hysterectomy, Tonsillectomy Respiratory: Yes Pneumonia Cardiac: No Neurological: No Reproductive Disorders: No [employer]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 oz. 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 Norm as Tested Skin: Normal Color, Warm/Dry Progress/Results/Core Measures Suspected Sepsis SIRS Temperature: Pulse: Respiratory Rate: Blood Pressure / Mean: Results/Orders Lab Results Laboratory Tests Test 02/27/20 11:13 Range/Units Urine Color YELLOW Urine Clarity CLEAR Urine pH 6.5 5-9 Urine Specific [place] 1.010 L 1.016-1.022 Urine Protein NEGATIVE NEGATIVE Urine Glucose (UA) NEGATIVE NEGATIVE Urine Ketones NEGATIVE NEGATIVE Urine Nitrite NEGATIVE NEGATIVE Urine Bilirubin NEGATIVE NEGATIVE Urine Urobilinogen 0.2 < = 1.0 MG/DL Urine Leukocyte Esterase 3+ H NEGATIVE Urine RBC (Auto) 1+ H NEGATIVE Urine RBC 2-5 H /HPF Urine WBC 25-50 H /HPF Urine Squamous Epithelial Cells 2-5 /HPF Urine Renal Epithelial Cells 2-5 /HPF Urine Crystals NONE /LPF Urine Bacteria TRACE /HPF Urine Casts NONE /LPF Urine Mucus NEGATIVE /LPF Urine Culture Indicated YES My Orders Orders - KATZ,PAYAL L DO Ua Culture If Indicated (02/27/20 11:08) Abdomen/Kub 1view (02/27/20 11:08) Ketorolac Injection (Toradol Injection) (02/27/20 11:08) Ed Iv/Invasive Line Start (02/27/20 11:08) Urine Culture (02/27/20 11:13) Ceftriaxone For Iv Use (Rocephin For I (02/27/20 12:00) Ct Abd/Pelvis Wo(Kidney Stone) (02/27/20 11:50) Medications Given in ED Current Medications Medications Dose Ordered Sig/Johnathon Route Start Time Stop Time Status Last Admin Dose Admin Ceftriaxone Sodium 1000 mg/ Sterile Water 10 ml @ 200 mls/hr ONCE ONCE IV 02/27/20 12:00 02/27/20 12:02 DC 02/27/20 12:20 200 MLS/HR Vital Signs/I&O 02/27/20 11:01 Temp 37.3 Pulse 78 Resp 20 B/P (MAP) 104/45 (64) Pulse Ox 99 O2 Delivery Room Air Capillary Refill : Progress Note : Time: 12:48 Progress Note Patient with a urinary tract infection along with some mild diverticulitis. I will treat her with Cipro and Flagyl which should cover both entities. Patient is stable and needs follow-up with her primary care provider in 5-7 days for recheck in today symptoms. Diagnostic Imaging Diagonstic Imaging: Xray, CT Comments [facility] [place] NAME: AUGIE MENON MED REC#: [id number] PT STATUS: REG ER : 1970 PHYSICIAN: PAYAL KATZ DO ADMIT DATE: 02/27/20/ER Signed Date of Exam:02/27/20 ABDOMEN/KUB 1VIEW INDICATION: Low back pain with radiation superiorly into the lower pelvic region. TECHNIQUE: Single supine view of the abdomen 11:50 AM CORRELATION STUDY: None FINDINGS: There is no evidence for underlying bowel obstruction or gas to the level of the rectum. Mild/moderate severity fecal retention. No large fecal impaction. Surgical clips within the pelvis. No pathologic intra-abdominal calcifications. Osseous structures are unremarkable. IMPRESSION: 1. Mild severity fecal retention. No evidence for large fecal impaction or underlying bowel obstruction. [facility] [place] NAME: AUGIE MENON [employer] REC#: [id number] PT STATUS: REG ER : 1970 PHYSICIAN: PAYAL KATZ DO ADMIT DATE: 02/27/20/ER Draft Date of Exam:02/27/20 CT ABD/PELVIS WO(KIDNEY STONE) PROCEDURE: CT urinary tract, rule out kidney stone. TECHNIQUE: Multiple contiguous axial images were obtained through the abdomen and pelvis without the use of intravenous contrast. Auto Exposure Controls were utilized during the CT exam to meet ALARA standards for radiation dose reduction. INDICATION: Bilateral low back pain radiating to anterior with hematuria. Correlation is made with prior CT from 08/10/2013. The lung bases are clear. The liver and gallbladder are unremarkable. No biliary ductal dilatation is identified. Pancreas and spleen are unremarkable. No adrenal mass is detected. No renal calculi are identified. There is no hydronephrosis. No definite ureteral calculi or hydronephrosis is seen. No bladder calculi are detected. The aorta is non-aneurysmal. Bowel loops are normal in caliber. There is diverticulosis of sigmoid colon. There is suggestion a mild inflammation involving the sigmoid colon, suggesting mild acute diverticulitis. No fluid collection or abscess is seen. There is no obstruction. Uterus is surgically absent. The bony structures are nonacute. IMPRESSION: 1. No CT evidence of urinary tract calculi or obstruction. 2. Findings suggestive of mild sigmoid diverticulitis. No abscess formation or bowel obstruction is identifie Reviewed: Reviewed by Me, Reviewed/Discussed Departure Impression Primary Impression: Acute cystitis Qualified Codes: N30.01 - Acute cystitis with hematuria Additional Impression: Diverticulitis Disposition: HOME, SELF-CARE Condition: Stable Departure-Patient Inst. Referrals: [facility] (PCP/Family) Primary Care Physician Patient Instructions: Diverticulitis (DC), Urinary Tract Infection, Adult (DC) Add. Discharge Instructions: Follow-up with your primary care provider and approximate 5-7 days for continuation of care and recheck in today symptoms Scripts Metronidazole (Metronidazole) 500 Mg Tablet 500 MG PO BID, #14 TAB 0 Refills Prov: PAYAL KATZ DO 02/27/20 Ciprofloxacin HCl (Ciprofloxacin HCl) 500 Mg Tablet 500 MG PO BID, #14 TAB Prov: PAYAL KATZ DO 02/27/20 PAYAL KATZ DO Feb 27, 2020 11:04
[2020-02-27] MEDS ORDERED: KETOROLAC 30 MG/ML VIAL IVP STA (11:08)
[2020-02-27 11:19] LABS: BILIRUBIN,URINE NEGATIVE (NEGATIVE); CLARITY,URINE CLEAR; COLOR,URINE YELLOW; GLUCOSE, URINE (UA) NEGATIVE (NEGATIVE); KETONES,URINE NEGATIVE (NEGATIVE); LEUKOCYTE ESTERASE ,URINE 3+ (NEGATIVE); NITRITE,URINE NEGATIVE (NEGATIVE); PH,URINE 6.5 (5-9); PROTEIN,URINE NEGATIVE (NEGATIVE)
--- OUTSIDE RECORDS SUMMARY | 2020-02-27 11:38 | XMS REPORT ---
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 Interpreta Keya non-blacks MDRD vol [facility] rate[facility]area (S/P/Bld[facility] (51059) serum or plasma creatinine measurement (mass/volume) on 2018-04-22 Creatinine mass conc 0.92 mg/dL Invalid 0.60-1.30 Via Interpreta Keya tion Code [facility] (52827) serum or plasma chloride measurement (moles/volume) on 2018-04-22 Chloride molar conc 103 mmol/L Invalid 98-107 Via Interpreta Keya tion Code [facility] (49549) serum or plasma calcium measurement (mass/volume) on 2018-04-22 Calcium mass conc 9.7 mg/dL Invalid 8.5-10.1 Via Interpreta Keya tion Code [facility] (56262) serum or plasma aspartate aminotransferase measurement (enzymatic activity/volume) on 2018-04-22 AST enzyme act/vol 18 U/L Invalid 5-34 Via Interpreta Keya tion Code [facility] (75206) serum or plasma anion gap determination (moles/volume) on 2018-04-22 Anion gap 3 molar 10 mmol/L Invalid 5-14 Via conc Interpreta Keya tion Code [facility] (73517) serum or plasma alkaline phosphatase measurement (enzymatic activity/volume) on 2018-04-22 ALP enzyme act/vol 54 U/L Invalid 40-136 Via Interpreta Keya tion Code [facility] (52309) serum or plasma albumin measurement (mass/volume) on 2018-04-22 Albumin mass conc 4.6 g/dL High 3.2-4.[address] [facility] [facility] (04266) serum or plasma alanine aminotransferase measurement (enzymatic activity/volume) on 2018-04-22 ALT enzyme act/vol 14 U/L Invalid 0-55 Via Interpreta Keya tion Code [facility] (66676) prothrombin time (pt) in platelet poor plasma by coagulation assay on 2018-04-22 Prothrombin time 13.0 s Invalid 12.2-14.7 Via (PT) Coag time (PPP) Interpreta [facility] tion Code [facility] (44588) myoglobin, serum on 2018-04-22 Myoglobin mass conc 47.7 ng/mL Invalid 10.0-92.0 Via Interpreta Keya tion Code [facility] (97933) mucus detection in urine sediment by light microscopy on 2018-04-22 Mucus LM Ql (Urine Negative Invalid Via sed) Interpreta Keya tion Code [facility] (92302) magnesium on 2018-04-22 Magnesium mass conc 2.4 mg/dL Invalid 1.8-2.4 Via Interpreta Keya tion Code [facility] (78412) lipase on 2018-04-22 Lipase enzyme 65 U/L Invalid 8-78 Via act/vol Interpreta Keya tion Code [facility] (48473) leukocyte esterase on 2018-04-22 Leukocyte esterase Negative Invalid NEGATIVE Via Test strip Ql (U) Interpreta Keya tion Code [facility] (26141[facility] inr in platelet poor plasma or blood by coagulation assay on 2018-04-22 INR Coag RelTime 1.0 Invalid 0.8-1.4 Via (Platelet poor Interpreta Keya plasma or blood) tion Code [facility] (59789) fibrin d-dimer feu measurement in platelet poor plasma (mass/volume) on 2018-04-22 Fibrin D-dimer FEU 0.15 ug/mL Invalid 0.00-0.49 Via IA mass conc (Bld) Interpreta [facility]ion [facility] (62822) erythrocytes detection in urine sediment by light microscopy on 2018-04-22 RBC LM Ql (Urine Negative Invalid NEGATIVE Via sed) Interpreta Keya tion Code [facility] (36329) crystals detection in urine sediment by light microscopy on 2018-04-22 Crystals LM Ql NONE Invalid Via (Urine sed) Interpreta Keya tion Code [facility] (20095) complete urinalysis with reflex to culture on 2018-04-22 Urinalysis complete NO Invalid Via W Reflex Culture Interpreta Keya panel - Urine tion Code [facility] (07941) casts detection in urine sediment by light microscopy on 2018-04-22 Casts LM Ql (Urine NONE Invalid Via sed) Interpreta Keya tion Code [facility] (90294) carbon dioxide on 2018-04-22 CO2 molar conc 24 mmol/L Invalid 21-32 Via Interpreta Keya tion Code [facility] (88301) bnp level on 2018-04-22 Natriuretic peptide 21.3 pg/mL Invalid <100.0 Via B mass conc (Bld) Interpreta Keya tion Code [facility] (20853) blood neutrophils automated count (number/volume) on 2018-04-22 Neutrophils Auto 3.0 10*3/uL Invalid 1.8-7.8 Via #/vol (Bld) Interpreta Key[place] tion Code [facility] (69111) blood monocytes/100 leukocytes on 2018-04-22 Monocytes/100 WBC 6 % Invalid 0-12 Via Auto (Bld) Interpreta Keya tion Code [facility] (78319) blood monocytes automated count (number/volume) on 2018-04-22 Monocytes Auto #/vol 0.3 10*3/uL Invalid 0.0-1.0 Via (Bld) Interpreta Keya tion Code [facility] (75866) blood lymphocytes automated count (number/volume) on 2018-04-22 Lymphocytes Auto 1.6 10*3/uL Invalid 1.0-4.0 Via #/vol (Bld) Interpreta Keya tion Code [facility] (96229) blood leukocytes automated count (number/volume) on 2018-04-22 WBC Auto #/vol (Bld) 5.1 10*3/uL Invalid 4.3-11.0 Via Interpreta Keya tion Code [facility] (48436) blood hematocrit (volume fraction) on 2018-04-22 Hematocrit Auto 39 % Invalid 35-52 Via Volume Fraction Interpreta Keya (Bld) tion Code [facility] (96110) blood erythrocytes automated count (number/volume) on 2018-04-22 RBC Auto #/vol (Bld) 4.43 10*6/uL Invalid 4.35-5.85 Via Interpreta Keya tion Code [facility] (27301) bacteria detection in urine sediment by light microscopy on 2018-04-22 Bacteria LM Ql NONE Invalid Via (Urine sed) Interpreta Keya tion Code [facility] (43852) automated urine sediment leukocyte count by microscopy (number/high power field) on 2018-04-22 WBC LM.HPF #/area NONE Invalid Via (Urine sed) Interpreta Keya tion Code [facility] (66071) automated urine sediment erythrocyte count by microscopy (number/high power field) on 2018-04-22 RBC LM.HPF #/area NONE Invalid Via (Urine sed) Interpreta Keya tion Code [facility] (86638) automated erythrocyte mean corpuscular volume on 2018-04-22 MCV Auto Entitic 87 fL Invalid 80-99 Via volume (RBC) Interpreta Keya tion Code [facility] (85060) automated erythrocyte mean corpuscular hemoglobin concentration measurement (mass/volume) on 2018-04-22 MCHC Auto mass conc 36 g/dL Invalid 32-36 Via (RBC) Interpreta Keya tion Code [facility] (20006) automated erythrocyte mean corpuscular hemoglobin (mass per erythrocyte) on 2018-04-22 MCH Auto Entitic 32 pg Invalid 25-34 Via mass (RBC) Interpreta Keya tion Code [facility] (73240) automated erythrocyte distribution width ratio on 2018-04-22 Erythrocyte 13.2 % Invalid 10.0-14.5 Via distribution width Interpreta Keya Auto Ratio (RBC) tion Code [facility] (01018) automated eosinophil count on 2018-04-22 Eosinophils Auto 0.1 10*3/uL Invalid 0.0-0.3 Via #/vol (Bld) Interpreta Keya tion Code [facility] (29399) automated blood platelet mean volume measurement on 2018-04-22 Platelet mean volume 8.7 fL Invalid 7.4-10.4 Via Auto Entitic volume Interpreta Keya (Bld) tion Code [facility] (44350) automated blood platelet count (count/volume) on 2018-04-22 Platelets Auto #/vol 271 10*3/uL Invalid 130-400 Via (Bld) Interpreta Keya tion Code [facility] (38818) automated blood neutrophils/100 leukocytes on 2018-04-22 Neutrophils/100 WBC 59 % Invalid 42-75 Via Auto (Bld) [facility] (80017) automated blood lymphocytes/100 leukocytes on 2018-04-22 Lymphocytes/100 WBC 32 % Invalid 12-44 Via Auto (Bld) Interpreta Keya tion Code [facility] (61337) automated blood eosinophils/100 leukocytes on 2018-04-22 Eosinophils/100 WBC 1 % Invalid 0-10 Via Auto (Bld) Interpreta Keya tion Code [facility] (26193) automated blood basophils/100 leukocytes on 2018-04-22 Basophils/100 WBC 1 % Invalid 0-10 Via Auto (Bld) Interpreta Keya tion Code [facility] (61543) automated blood basophil count (count/volume) on 2018-04-22 Basophils Auto #/vol 0.1 10*3/uL Invalid 0.0-0.1 Via (Bld) Interpreta Keya tion Code [facility] (19197) activated partial thromboplastin time (aptt) in platelet poor plasma bycoagulation assay on 2018-04-22 aPTT Coag time (Bld) 30 s Invalid 24-35 Via Interpreta Keya tion Code [facility] (49908) thyroid on 2018-03-01 Thyrotropin Qn 1.25 m[IU]/L Normal mIU/L [facility] (04080) other on 2018-03-01 Albumin/Globulin 2.2 Normal 1.0-2.5 Communi mass ratio (calc) [facility] (22639) Globulin Calculated 2.2 Normal 1.9-3.7 Commun i mass conc (S) g/dL (calc) [facility] (42005) metabolic panel on 2018-03-01 Albumin mass conc 4.9 g/dL Normal 3.6-5.1 Communi g/dL [facility] (87529) ALP enzyme act/vol 52 U/L Normal 33-115 U/L [facility] (23990) ALT enzyme act/vol 14 U/L Normal 6-29 U/L [facility] (13736) AST enzyme act/vol 18 U/L Normal 10-35 U/L Communi ty [facility] (91852) Bilirubin mass conc 0.6 mg/dL Normal 0.2-1.2 Commun i mg/dL ty [facility] (43472) Calcium mass conc 9.7 mg/dL Normal 8.6-10.2 Communi mg/dL [facility] (05113) Chloride molar conc 103 mmol/L Normal 98-110 Commun i mmol/L [facility] (54656) CO2 molar conc 30 mmol/L Normal 20-32 Communi mmol/L [facility] (20436) Creatinine mass conc 1.03 mg/dL Normal 0.50-1.10 Commu ni mg/dL [facility] (02127) GFR/1.73 sq M 75 mL/min/{1.73_m2} Normal > OR = 60 Comm uni predicted among mL/min/1.7 ty blacks MDRD vol 2 Health rate/area (S/P/Bld) [facility] (89105) GFR/1.73 sq 65 mL/min/{1.73_m2} Normal > OR = 60 Commun i M.predicted MDRD vol mL/min/1.7 ty rate/area [address] [place] [address] (53821) Glucose mass conc 86 mg/dL Normal 65-99 Communi mg/dL [facility] (84805) Potassium molar conc 4.1 mmol/L Normal 3.5-5.3 Commu ni mmol/L [facility] (98495) Protein mass conc 7.1 g/dL Normal 6.1-8.1 Communi g/dL [facility] (47452) Sodium molar conc 140 mmol/L Normal 135-146 Communi mmol/L [facility] (88155) Urea nitrogen mass 15 mg/dL Normal 7-25 mg/dL Communi conc [facility] (78594) Urea NOT APPLICABLE Invalid 6-22 Communi nitrogen/Creatinine Interpreta (calc) ty mass ratio tion Code [facility] (90845) hematology on 2018-03-01 Basophils Auto #/vol 0.059 10*3/uL Normal 0-200 Com cecelia (Bld) cells/uL ty [facility] (38413) Basophils/100 WBC 1.3 % Normal % Communi Auto (Bld) [facility] (28655) Eosinophils Auto 0.059 10*3/uL Normal 15-500 Communi #/vol (Bld) cells/uL ty [facility] (69199) Eosinophils/100 WBC 1.3 % Normal % Commun i Auto (Bld) ty [facility] (10750) Erythrocyte 13.0 % Normal 11.0-15.0 Communi distribution width % ty Auto Ratio (RBC) [facility] (62170) Hematocrit Auto 41.8 % Normal 35.0-45.0 Communi Volume Fraction % ty (Bld) [facility] (37469) Hemoglobin mass conc 14.7 g/dL Normal 11.7-15.5 Commu ni (Bld) g/dL ty [facility] (41950) Lymphocytes Auto 1.733 10*3/uL Normal 850-3900 Communi #/vol (Bld) cells/uL [facility] (94035) Lymphocytes/100 WBC 38.5 % Normal % Commun i Auto (Bld) [facility] (94305) MCH Auto Entitic 31.3 pg Normal 27.0-33.0 Communi mass (RBC) pg ty [facility] (72051) MCHC Auto mass conc 35.2 g/dL Normal 32.0-36.0 Commun i (RBC) g/dL [facility] (88372) MCV Auto Entitic 89.1 fL Normal 80.0-100.0 Communi volume (RBC) fL [facility] (10193) Monocytes Auto #/vol 0.333 10*3/uL Normal 200-950 Com cecelia (Bld) cells/uL [facility] (83494) Monocytes/100 WBC 7.4 % Normal % Communi Auto (Bld) ty [facility] (46748) Neutrophils Auto 2.318 10*3/uL Normal 6208-6894 Communi #/vol (Bld) cells/uL ty [facility] (28708) Neutrophils/100 WBC 51.5 % Normal % Commun i Auto (Bld) ty [facility] (51815) Platelet mean volume 8.5 fL Normal 7.5-12.5 Commu ni Auto Entitic volume fL ty (Bld) [facility] (92188) Platelets Auto #/vol 267 10*3/uL Normal 140-400 Commu ni (Bld) Thousand/u ty L [facility] (83083) RBC Auto #/vol (Bld) 4.69 10*6/uL Normal 3.80-5.10 Comm uni Million/uL ty [facility] (01130) WBC Auto #/vol (Bld) 4.5 10*3/uL Normal 3.8-10.8 Commu ni Thousand/u ty L [facility] (21097) urinalysis on 2018-02-10 Urine culture, SEE NOTE Invalid Communi bacteria Interpreta ty tion Code [facility] (71427) Urine, protein Negative Invalid Communi Interpreta ty tion Code [facility] (20430) other on 2018-02-10 BLO 05/2018~clear~orange~yest~Trace~Negative~Nega Invalid Communi tive~<=1.005~Negative Interpreta ty tion Code [facility] (42526) Exp date Negative Invalid Communi Interpreta ty tion Code [facility] (45079) Lot # [id number] Invalid Communi Interpreta ty tion Code [facility] (32404) URO 1.0 Invalid Communi Interpreta ty tion Code [facility] (97714) hematology on 2018-02-10 pH of blood 5.5 [pH] Invalid Communi Interpreta ty tion Code [facility] (07158) urinalysis on 2017-09-30 Bacteria identified SEE NOTE Invalid Communi Cx Nom (U) Interpreta ty tion Code [facility] (91492) Protein mass conc 2+ Invalid Communi (U) Interpreta ty tion Code [facility] (13546) other on 2017-09-30 BLO 3+ Invalid Communi Interpreta ty tion Code [facility] (54851) KET 05/19/2018~cloudy~orange~none~trace~negative~ Invalid Communi negative Interpreta ty tion Code [facility] (26913) OMARI Positive Invalid Communi Interpreta ty tion Code [facility] (83973) Lot # [id number] Invalid Communi Interpreta ty tion Code [facility] (05977) SG 1.005 Invalid Communi Interpreta ty tion [facility] (46521) URO 1.0 Invalid Communi Interpreta ty tion Code [facility] (75569) hematology on 2017-09-30 pH (Bld) 5.5 [pH] Invalid Communi Interpreta ty tion [facility] (06372) urinalysis on 2017-09-07 Bacteria identified SEE NOTE Abnormal Communi Cx Nom (U) ty [facility] (13767) Protein mass conc 2+ Invalid Communi (U) Interpreta ty tion Code [facility] (20283) other on 2017-09-07 BLO 3+ Invalid Communi Interpreta ty tion Code [facility] (43435) Exp date Negative Invalid Communi Interpreta ty tion Code [facility] (26690) KET 2018 10 Invalid Communi 31~cloudy~yellow~none~negative~negative~negat Interpreta ty dereck tion [facility] (74235) Lot # [id number] Invalid Communi Interpreta ty tion Code [facility] (67953) SG 1.015 Invalid Communi Interpreta ty tion Code [facility] (26265) URO 1.0 Invalid Communi Interpreta ty tion Code [facility] (94091) hematology on 2017-09-07 pH (Bld) 7.5 [pH] Invalid Communi Interpreta ty tion Code [facility] (46771) other on 2017-03-12 Erythrocyte 13.6 % Invalid 12.3-15.4 Not distribution width Interpreta % Availab 017 (RBC) [Ratio] tion Code le 07:33-0 (09461) 400 Immature 0.0 10*3/uL Invalid 0.0-0.1 Not granulocytes (Bld) Interpreta x10E3/uL Availab 017 [#/Vol] tion Code le 07:33-0 (64951) 400 Immature 1 % Invalid % Not granulocytes/100 WBC Interpreta Availab 017 (Bld) tion Code le 07:33-0 (18552) 400 MCHC (RBC) 34.5 g/dL Invalid 31.5-35.7 Not [Mass/Vol] Interpreta g/dL Availab 017 tion Code le 07:33-0 (95077) 400 hematology on 2017-03-12 Basophils (Bld) 0.0 10*3/uL Invalid 0.0-0.2 Not 03-12 [#/Vol] Interpreta x10E3/uL Availab 017 tion Code le 07:33-0 (13445) 400 Basophils/100 WBC 1 % Invalid % Not 03-12 (Bld) Interpreta Availab 017 tion Code le 07:33-0 (09343) 400 Eosinophils (Bld) 0.1 10*3/uL Invalid 0.0-0.4 Not [#/Vol] Interpreta x10E3/uL Availab 017 tion Code le 07:33-0 (41107) 400 Eosinophils/100 WBC 3 % Invalid % Not (Bld) Interpreta Availab 017 tion Code le 07:33-0 (39522) 400 Hematocrit (Bld) 40.6 % Invalid 34.0-46.6 Not [Volume fraction] Interpreta % Availab 017 tion Code le 07:33-0 (99492) 400 Hemoglobin (Bld) 14.0 g/dL Invalid 11.1-15.9 Not [Mass/Vol] Interpreta g/dL Availab 017 tion Code le 07:33-0 (29250) 400 Lymphocytes (Bld) 1.5 10*3/uL Invalid 0.7-3.1 Not [#/Vol] Interpreta x10E3/uL Availab 017 tion Code le 07:33-0 (82389) 400 Lymphocytes/100 WBC 38 % Invalid % Not (Bld) Interpreta Availab 017 tion Code le 07:33-0 (78008) 400 MCH (RBC) [Entitic 30.3 pg Invalid 26.6-33.0 Not 02-18 4-2 mass] Interpreta pg Availab 017 tion Code le 07:33-0 (62810) 400 MCV (RBC) [Entitic 88 fL Invalid 79-97 fL Not 02-18 4-2 vol] Interpreta Availab 017 tion Code le 07:33-0 (20211) 400 Monocytes (Bld) 0.3 10*3/uL Invalid 0.1-0.9 Not 03-12 [#/Vol] Interpreta x10E3/uL Availab 017 tion Code le 07:33-0 (62496) 400 Monocytes/100 WBC 7 % Invalid % Not 03-12 (Bld) Interpreta Availab 017 tion Code le 07:33-0 (32691) 400 Neutrophils (Bld) 2.0 10*3/uL Invalid 1.4-7.0 Not [#/Vol] Interpreta x10E3/uL Availab 017 tion Code le 07:33-0 (62135) 400 Neutrophils/100 WBC 50 % Invalid % Not (Bld) Interpreta Availab 017 tion Code le 07:33-0 (67160) 400 Platelets (Bld) 252 10*3/uL Invalid 150-379 Not 03-12 [#/Vol] Interpreta x10E3/uL Availab 017 tion Code le 07:33-0 (86039) 400 RBC (Bld) [#/Vol] 4.62 10*6/uL Invalid 3.77-5.28 Not Interpreta x10E6/uL Availab 017 tion Code le 07:33-0 (78463) 400 WBC (Bld) [#/Vol] 3.9 10*3/uL Invalid 3.4-10.8 Not 24-2 Interpreta x10E3/uL Availab 017 tion Code le 07:33-0 (22489) 400 Social History Date Type Detail Facility Start: Tobacco smoking status NHIS Never smoked tobac co [place] [facility]83[facility] Start: Never a Smoker [place] [facility] 04-30-2019 [facility] (59247) Start: Denies Use [place] [facility] 06-24-2013 [facility] (31650) Start: No [place] [facility] 06-24-2013 [facility] (07396) Start: Sex Assigned At Female [facility] 1970 [facility] (23221) Vital Signs Date Time Vital Sign Value Performing Clinician Facil it 10-06-2018 Body height 165.1 cm [facility] 11:40-0400 [facility] () 10-06-2018 Body mass index 23.44 kg/m2 [facility] 11:40-0400 (BMI) [Ratio] [facility] () 10-06-2018 Body temperature 98.2 [degF] [facility] 11:40-0400 [facility] () 10-06-2018 Body weight 63.91 kg [facility] 11:40-0400 [facility] () 10-06-2018 Oxygen saturation in 97 % [facility] 11:40-0400 Arterial blood by [facility] Pulse oximetry [place] () 07-05-2018 BMI (Body Mass 23.89 kg/m2 [facility] 16:00-0500 Index) [facility] () 07-05-2018 Body Temperature 97.9 [degF] [facility] 16:00-0500 [facility] () 07-05-2018 Height 165.1 cm [facility] 16:00-0500 [facility] (26142) 07-05-2018 [facility] 65.14 [facility] (57357) 06-07-2018 BMI (Body Mass 3.09 kg/m2 [facility] 14:40-0500 Index) [facility] (44580) 06-07-2018 Body Temperature 97.9 [degF] [facility] 14:[facility] (15023) 06-07-2018 Height 165.1 cm [facility] ealt 14:40-0500 [facility] (99005) 06-07-2018 Weight 8.44 kg SUJEY [facility] ealt 14:40-0500 [facility] ([id number]) 04-11-2018 BMI (Body Mass 23.99 kg/m2 [facility] 13:45-0400 Index) [facility] ([id number]) 04-11-2018 Body Temperature 98 [degF] [facility] 13:45-0400 [facility] ([id number]) 04-11-2018 Height 165.1 cm [facility] lt 13:45-0400 [facility] ([id number]) 04-11-2018 Weight 65.41 kg [facility] 13:45-0400 [facility] ([id number]) 03-01-2018 BMI (Body Mass 24.06 kg/m2 [facility] 14:00-0400 Index) [facility] ([id number]) 03-01-2018 Body Temperature 97 [degF] [facility] 14:00-0400 [facility] ([id number]) 03-01-2018 Height 165.1 cm SAMMY [facility] 14:00-0400 [facility] ([id number]) 03-01-2018 Weight 65.59 kg SAMMY [facility] 14:00-0400 [facility] ([id number]) 02-10-2018 BMI (Body Mass 23.63 kg/m2 [facility] 12:0 Index) [facility] ([id number]) 02-10-2018 Body Temperature 97.5 [degF] [facility] 12:0400 [facility] ([id number]) 02-10-2018 Height 165.1 cm [facility] 12:0400 [facility] ([id number]) 02-10-2018 Weight 64.41 kg [facility] 12:200400 [facility] ([id number]) 06-30-2014 Body Temperature 97.2 [degF] [facility] 08:22-0500 [facility] ([id number]) 06-30-2014 Body weight 79.58 kg Counts include 234 beds at the [facility] 08:22-0500 [facility] ([id number]) 06-30-2014 Height 165.1 cm Counts include 234 beds at the [facility] 08:22-0500 [facility] ([id number]) 04-06-2014 Body Temperature 98.8 [degF] [facility] 08:54-0400 [facility] ([id number]) 04-06-2014 Body weight 77.43 kg Counts include 234 beds at the [facility] 08:54-0400 [facility] ([id number]) 04-06-2014 Height 165.1 cm Counts include 234 beds at the [facility] 08:54-0400 [facility] ([id number]) Functional Status The data below is from unstructured sourcesNo functional status results.No functional status results.No functional status results.No functional status results.No functional status results.No functional status results.No functional status results.No functional status results.No functional status results.No functional status results.No functional status results.No functional status results.No functional status results.No functional status re sults.No functional status results.No functional status results.No functional st atus results.No functional status results.No functional status results.No functi onal status information available.No functional status information available.No Functional Status information availableNo Functional Status information availabl e Mental Status The data below is from unstructured sourcesNo Mental Status Information Available Summary Purpose eClinicalWorks SubmissioneClinicalWorks SubmissioneClinicalWorks SubmissioneClinicalWorks SubmissioneClinicalWorks Submission Advance Directives Directive Response Recor ded Date/Time Advance Directives No 12:46pm Health Care Power of Program Professional No 11/29/13 12:46pm Organ Donor Yes 11/29/13 12:46pm Directive Response Recor ded Date/Time Advance Directives No 9:13pm Health Care Power of Program Professional No 04/17/16 9:13pm Organ Donor Yes 04/17/16 9:13pm Resuscitation Status Full Code 04/17/16 9:13pm Directive Response Recor ded Date/Time Advance Directives No 2:21pm Health Care Power of Program Professional No 04/25/16 2:21pm Organ Donor Yes 04/25/16 2:21pm Resuscitation Status Full Code 04/25/16 2:21pm Directive Response Recor ded Date/Time Advance Directives No 3:04pm Health Care Power of Program Professional No 05/26/16 3:04pm Organ Donor Yes 05/26/16 3:04pm Resuscitation Status Full Code 05/26/16 3:04pm Directive Response Recor ded Date/Time Advance Directives No 2:21pm Health Care Power of Program Professional No 06/03/16 2:21pm Organ Donor Yes 06/03/16 2:21pm Resuscitation Status Full Code 06/03/16 2:21pm Directive Response Recor ded Date/Time Advance Directives No 10:25am Health Care Power of Program Professional No 08/28/16 10:25am Organ Donor Yes 08/28/16 10:25am Resuscitation Status Full Code 08/28/16 10:25am Directive Response Recor ded Date/Time Advance Directives No 10:25am Health Care Power of Program Professional No 08/28/16 10:25am Organ Donor Yes 08/28/16 10:25am Directive Response Recor ded Date Advance Directives N 09/29 11:16am Directive Response Recor ded Date/Time Advance Directives No 2:43pm Health Care Power of Program Professional No 04/22/18 2:43pm Organ Donor Yes 04/22/18 2:43pm Resuscitation Status Full Code 04/22/18 2:43pm Advance Directive Response Recorded Date/Time Advance Directives No Oc tober 2018 1:25pm Health Care Power of Program Professional No April 22, 2018 2:43pm Organ Donor Yes April 22, 2018 2:43pm Resuscitation Status Full Code April 30, 2019 1:25pm Discharge Instructions No hospital discharge instructions.No hospital discharge instructions.No hospital discharge instructions.No hospital discharge instructions.No hospital discharge instructions.No hospital discharge instructions.No hospital discharge instructions.No hospital discharge instructions.No hospital discharge instructions.No hospital discharge instructions.No hospital discharge instruction information available. Chief Complaint and Reason for Visit Chief Complaint Chest Pain Reason for Visit Dizziness Intermittent palpitations Nausea Chief Complaint Trauma-Non Activatio n Reason for Visit [id number] Assessments No Assessments Information Available Additional Source Comments This clinical document has been generated using [employer] software that has been certified by the Office of the National Coordinator for Health Information Technology (ONC 15.99.04.3023.Diam.[id number]) and the National [employer] for [employer] (NCQA, as an eMeasure certified technology). FOR RECORDS PERTAINING TO PATIENTS WHO ARE OR HAVE BEEN ENROLLED IN A CHEMICAL D EPENDENCY/SUBSTANCE ABUSE PROGRAM, SOME INFORMATION MAY BE OMITTED. This clinica l summary was aggregated from multiple sources. Caution should be exercised in using it in the provision of clinical care. This summary normalizes information from multiple sources, and as a consequence, information in this document may ma terially change the coding, format and clinical context of patient data. In kimi tion, data may be omitted in some cases. CLINICAL DECISIONS SHOULD BE BASED ON T HE PRIMARY CLINICAL RECORDS. [employer] provides no warranty or guara ntee of the accuracy or completeness of information in this document.The followi ng information is based on time limited clinical information UNRECOGNIZED CONTENT PROVIDED BELOW FOR UNRECOGNIZED SECTION MEDICAL (GENERAL) HISTORY Type Description Date Medical History dx with urogenital f istula in 2006 Medical History breast cancer with l ymphnode involvement Medical History hx of Pneumonia Surgical History tonsillectomy Surgical History mastectomy-right ma ss with lymphnode dissection Stage III at onset Surgical History hysterectomy Surgical History surgery on foot Surgical History infuaport placement and removal Surgical History Colonoscopy - diver ticulosis. Dr Serrano 12/2013 Hospitalization History Hospitalizat ion for surgery only Type Description Date Medical History dx with urogenital f istula in 2006 Medical History breast cancer with l ymphnode involvement Medical History hx of Pneumonia Medical History chronic UTI's Medical History bladder infection Surgical History tonsillectomy Surgical History mastectomy-right ma ss with lymphnode dissection Stage III at onset Surgical History hysterectomy Surgical History surgery on foot Surgical History infuaport placement and removal Surgical History Colonoscopy - diver ticulosis. Dr Serrano 12/2013 Hospitalization History Hospitalizat ion for surgery only UNRECOGNIZED CONTENT PROVIDED BELOW FOR UNRECOGNIZED SECTION REASON FOR VISIT UTI-Nausea x 1 week, fever yesterday and pain on urination last night. The patie nt took two amoxicillan one last night and one this morning that she had saved f rom last UTI. The patient is also taking cranberry pills also.--Rohith Austin in follow up-RAMIRO keating, pt. is having headaches, dizziness and weakness Insect bite, possible right inner thigh started yesterday JStrasserRNbladder infection- abdominal pain, burning on urination and urinary retention.--Josselin Austin (mendoza k-in)est care Pt in to establish care, needing referral to urologist, Pt has an equilibrium problem, is better if she takes a motion sickness pill every night MARISA SwansonRWDGV-[id number]-[id number]-MigEMR-MigUlcers Pt states she has been having issue s with ulcers, today she is having lower abdominal pain, may be bladder or diver ticulitis Jose Whittesting mammogram
--- OUTSIDE RECORDS SUMMARY | 2020-02-27 11:39 | XMS REPORT ---
Author Author Maryam RENEE [facility] Address [address] [place] [address] Care Team Providers Care Plant Science Professor Name Role Phone SAMUEL RENEE Unavailable PROBLEMS Type Condition ICD9-CM Code UCM70-OT Code Onset Dates Condition S tatus SNOMED Code Problem Bladder prolapse, female, acquired N81.10 Active 328006056 Problem Anhedonia R45.84 Active 14078020 Problem Chronic pansinusitis J32.4 Active 67270733 Problem Severe episode of recurrent major depressive disorder, without psychotic features F33.2 Active 21407558 Problem Personal history of breast cancer Z85.3 Active 982057903 Problem Other chronic pain G89.29 Active 8 4294320 Problem Chronic allergic rhinitis, unspecified s easonality, unspecified trigger J30.9 Active 64624472 Problem Chronic UTI N39.0 Active 40284119 6 Problem Migraine G43.909 Active 14103014 Problem Personal history of malignant neoplasm of breast Z 85.3 Active 055207920 Problem Acute diverticulitis K57.92 Active 235183697 ALLERGIES No Information ENCOUNTERS Encounter Location Date Diagnosis [place] [address] [address] [facility] [id number] [address] [place] [address] Jan, [place] [address] [place] [id number] [address] [place] [address] Oct, Acute non-recurrent maxillar y sinusitis J01.00 [place] [address] [address] [facility] [id number] [address] [place] [address] Aug, Low back pain M54.5 and Othe r chronic pain G89.29 [place] [address] [address] [facility] [id number] [address] [place] [address] Jul, Acute midline low back pain without sciatica M54.5 and Severe episode of recurrent major depressive disorder, without psychotic features F33.2 [place] [address] [facility] [id number] [address] [place] [address] Jul, Low back pain M54.5 and Othe r chronic pain G89.29 [facility] [address] [facility] [id number] [address] [place] [address] Jun, Acute midline low back pain without sciatica M54.5 [place] [address] [address] [facility] [id number] [address] [place] [address] Jun, Acute midline low back pain without sciatica M54.5 and Severe episode of recurrent major depressive disorder, without psychotic features F33.2 [place] [address] [address] [facility] [id number] [address] [place] [address] Apr, [place] [address] [address] [facility] [id number] [address] [place] [address] Apr, Severe episode of recurrent major depressive disorder, without psychotic features F33.2 ; Arthralgia, unspecified joint M25.50 ; Chilling R68.83 ; Acute non-recurrent maxillary sinusitis J01.00 and Encounter for immunization Z23 [facility] [address] [facility] [id number] [address] [place] [address] November, Dysuria R30.0 and Urinary tr act infection without hematuria, site unspecified N39.0 [facility] [address] [facility] [id number] [address] [place] [address] November, Viral upper respiratory trac t infection J06.[id number] [place] [address] Oct, Encounter for other screenin g for malignant neoplasm of breast Z12.39 [facility] [address] [facility] [id number] [address] [place] [address] Oct, Encounter for other screenin g for malignant neoplasm of breast Z12.39 [place] [address] [address] [facility] [id number] [address] [place] [address] Sep, Abdominal pain R10.9 ; Acute diverticulitis K57.92 ; History of stomach ulcers Z87.19 and Dysfunction of both eustachian tubes H69.83 [place] [address] [address] 18 Sep, 2018 [place] [address] [address] 11 Aug, 2018 [place] [address] [address] Jun, Screening cholesterol level Z13.[address] [address] Jun, Personal history of malignan t neoplasm of breast Z85.3 ; Bladder prolapse, female, acquired N81.10 and Dizziness R42 [address] [address] May, Encounter for immunization Z 23 [facility] [address] [address] May, Dysuria R30.0 and Acute urin beata tract infection N39.0 [facility] [address] [address] Mar, Insect bite (nonvenomous), r ight lower leg, initial encounter S80.861A and Bitten or stung by nonvenomous insect and other nonvenomous arthropods, initial encounter W57.XXXA [address] [address] Feb, Dizziness R42 ; Migraine G43 .909 ; Anhedonia R45.84 and Screening cholesterol level Z13.220 [facility] [address] [address] Jan, Dysuria R30.0 and Acute cyst itis with hematuria N30.01 [facility] [address] [place] [address] Sep, Dysuria R30.0 ; Acute cystit is with hematuria N30.01 and Abrasion of left cornea, initial encounter S05.02XA [facility] IN [facility] [address] [address] Aug, Dysuria R30.0 and Acute cyst itis with hematuria N30.01 [facility] [address] [address] Feb, Dizziness R42 ; Chronic pans inusitis J32.4 and Chronic seasonal allergic rhinitis, unspecified trigger J30.2 [facility] [address] [address] Dec, Personal history of breast c ancer Z85.3 ; Anhedonia R45.84 ; Chronic allergic rhinitis, unspecified seasonality, unspecified trigger J30.9 and Bladder prolapse, female, acquired N81.10 [facility] [address] [address] Dec, [facility] [address] [address] November, Seasonal allergic rhinitis, unspecified allergic rhinitis trigger J30.2 [place] [address] [address] November, [facility] [address] [address] November, Dysuria R30.0 ; Encounter fo r immunization Z23 and Personal history of pneumonia (recurrent) Z87.01 [facility] [address] [address] Aug, Sinusitis J32.9 [place] [address] [address] May, Acute recurrent maxillary si nusitis J01.01 [facility] [address] [address] May, Sinusitis J32.9 and Subacute maxillary sinusitis J01.00 [facility] [address] [address] May, Subacute maxillary sinusitis J01.00 [facility] [address] [place] [id number] Feb, Dental examination Z01.20 [facility] [address] [address] Jan, Dysuria R30.0 and Acute cyst itis without hematuria N30.00 [facility] [address] [id number] Jan, Dental examination Z01.20 [facility] [address] [place] [id number] [place] [id number] Dec, Dental examination Z01.20 [facility] [address] [address] Dec, Dental examination Z01.20 [facility] [address] [address] Oct, Dental examination Z01.20 [facility] [address] [address] Aug, Acute recurrent sinusitis, u nspecified location J01.91 and Sinusitis J32.9 [facility] [address] [address] May, Dizziness R42 and Sinusitis J32.9 [facility] [address] [address] May, Dysuria R30.0 and Urinary tr act infection N39.0 [facility] [address] [address] Feb, Encounter to establish care V65.8 ; Depression 311 ; Sciatica 724.3 ; Peptic ulcer 533.90 and History of breast cancer V10.3 [facility] [address] [id number] [address] [place] [address], [place] [address] 30 Jan, 2015 [facility] [address] [id number] [address] [place] [address] 06 Jan, 2015 [facility] [address] [id number] [address] [place] [address], [place] [address] 14 Oct, 2014 [facility] [address] [id number] [address] [place] [address] 13 Oct, 2014 [facility] [address] [id number] [address] [place] [address], [place] [address] 14 Jul, 2014 [facility] [address] [id number] [address] [place] [address] Jul, [facility] [address] [id number] [address] [place] [address] Jun, [facility] [address] [id number] [address] [place] [address] Jun, [facility] [address] [id number] [address] [place] [address] May, [facility] [address] [id number] [address] [place] [address] May, [facility] [address] [id number] [address] [place] [address], [place] [address] 18 Mar, 2014 [facility] [address] [id number] [address] [place] [address] Mar, [facility] [address] [id number] [address] [place] [address] Mar, [facility] [address] [id number] [address] [place] [address] Mar, [facility] [address] [id number] [address] [place] [address] November, [facility] [address] [id number] [address] [place] [address], [place] [address] November, [facility] [address] [id number] [address] [place] [address], [place] [address] Oct, [facility] [address] [id number] [address] [place] [address], [place] [address] Oct, [facility] [address] [id number] [address] [place] [address], [place] [address] Oct, [facility] [address] [id number] [address] [place] [address], [place] [address] Oct, [facility] [address] [id number] [address] [place] [address], [place] [address] Oct, [facility] [address] [id number] [address] [place] [address], [place] [address] Oct, [facility] [address] [id number] [address] [place] [address], [place] [address] Oct, [facility] [address] [id number] [address] [place] [address], [place] [address] Oct, [facility] [address] [id number] [address] [place] [address], [place] [address] Aug, [facility] [address] [id number] [address] [place] [address], [place] [address] Aug, [facility] [address] [id number] [address] [place] [address], [place] [address] Aug, [facility] [address] [id number] [address] [place] [address], [place] [address] Jul, [facility] [address] [id number] [address] [place] [address], [place] [address] Jul, [facility] [address] [id number] [address] [place] [address], [place] [address] Jul, [facility] [address] [id number] [address] [place] [address], [place] [address] Jul, [facility] [address] [id number] [address] [place] [address], [place] [address] Jul, [facility] [address] [id number] [address] [place] [address], [place] [address] Jul, [facility] [address] [id number] [address] [place] [address], [place] [address] Jul, [facility] [address] [id number] [address] [place] [address], [place] [address] Jun, [facility] [address] [id number] [address] [place] [address], [place] [address] Jun, [facility] [address] [id number] [address] [place] [address], [place] [address] Jun, [facility] [address] [id number] [address] [place] [address], [place] [address] Jun, [facility] [address] [id number] [address] [place] [address], [place] [address] Jun, [facility] [address] [id number] [address] [place] [address], [place] [address] Jun, [facility] [address] [id number] [address] [place] [address], [place] [address] Jun, [facility] [address] [id number] [address] [place] [address], [place] [address] Jun, [facility] [address] [id number] [address] [place] [address] Jun, [facility] [address] [id number] [address] [place] [address], [place] [address] Jun, [facility] [address] [id number] [address] [place] [address], [place] [address] Apr, [facility] [address] [id number] [address] [place] [address], [place] [address] Apr, [facility] [address] [id number] [address] [place] [address], [place] [address] Apr, [facility] [address] [id number] [address] [place] [address], [place] [address] Apr, [facility] [address] [id number] [address] [place] [address], [place] [address] Apr, [facility] [address] [id number] [address] [place] [address], [place] [address] Apr, [facility] [address] [id number] [address] [place] [address], [place] [address] Mar, [facility] [address] [id number] [address] [place] [address], [place] [address] Mar, [facility] [address] [id number] [address] [place] [address], [place] [address] Jan, [facility] [address] [id number] [address] [place] [address], [place] [address] Jul, [facility] [address] [id number] [address] [place] [address], [place] [address] Jun, [facility] [address] [id number] [address] [place] [address], [place] [address] Jun, [facility] [address] [id number] [address] [place] [address], [place] [address] Jun, [facility] [address] [id number] [address] [place] [address], [place] [address] Jun, [facility] [address] [id number] [address] [place] [address], [place] [address] Jun, [facility] [address] [id number] [address] [place] [address], [place] [address] Jun, [facility] [address] [id number] [address] [place] [address], [place] [address] May, [facility] [address] [id number] [address] [place] [address], [place] [address] May, [facility] [address] [id number] [address] [place] [address] Feb, [facility] [address] [id number] [address] [place] [address] November, [facility] [address] [id number] [address] [place] [address] Apr, [facility] [address] [id number] [address] [place] [address] Apr, [facility] [address] [id number] [address] [place] [address] Apr, [facility] [address] [id number] [address] [place] [address] Apr, [facility] [address] [id number] [address] [place] [address] Apr, IMMUNIZATIONS No Known Immunizations SOCIAL HISTORY Never Assessed REASON FOR VISIT requesting mammogram PLAN OF CARE VITAL SIGNS MEDICATIONS Unknown Medications RESULTS No Results PROCEDURES No Known procedures INSTRUCTIONS MEDICATIONS ADMINISTERED No Known Medications MEDICAL (GENERAL) HISTORY Type Description Date Medical History dx with urogenital fistula in 2006 Medical History breast cancer with lymphnode involvement Medical History hx of Pneumonia Medical History chronic UTI's Medical History bladder infection Surgical History tonsillectomy Surgical History mastectomy-right mass with l ymphnode dissection Stage III at onset Surgical History hysterectomy Surgical History surgery on foot Surgical History infuaport placement and removal Surgical History Colonoscopy - diverticulosis. Dr Ross 12/2013 Hospitalization History Hospitalization for surgery only
--- OUTSIDE RECORDS SUMMARY | 2020-02-27 11:39 | XMS REPORT ---
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 Name Role Phone AGUSTÍNAROLDOJEROD Unavailable PROBLEMS Type Condition ICD9-CM Code UOR70-RD Code Onset Dates Condition S tatus SNOMED Code Problem Bladder prolapse, female, acquired N81.10 Active 999730587 Problem Anhedonia R45.84 Active 01717645 Problem Chronic pansinusitis J32.4 Active 12986075 Problem Severe episode of recurrent major depressive disorder, without psychotic features F33.2 Active 81726840 Problem Personal history of breast cancer Z85.3 Active 971820464 Problem Other chronic pain G89.29 Active 8 4807887 Problem Chronic allergic rhinitis, unspecified s easonality, unspecified trigger J30.9 Active 05467207 Problem Chronic UTI N39.0 Active 21490125 6 Problem Migraine G43.909 Active 30637851 Problem Personal history of malignant neoplasm of breast Z 85.3 Active 458135847 Problem Acute diverticulitis K57.92 Active 697260345 ALLERGIES No Information ENCOUNTERS Encounter Location Date Diagnosis [facility] [address] [facility] [id number] [address] [place] [id number] Jan, [facility] [address] [facility] [id number] [address] [place] [address] Oct, Acute non-recurrent maxillar y sinusitis J01.00 [facility] [address] [facility] [id number] [address] [place] [id number] 03 Aug, 2019 Low back pain M54.5 and Othe r chronic pain G89.29 [facility] [address] [facility] [id number] [address] [place] [address] Jul, Acute midline low back pain without sciatica M54.5 and Severe episode of recurrent major depressive disorder, without psychotic features F33.2 [place] [address] [facility] [id number] [address] [place] [address] Jul, Low back pain M54.5 and Othe r chronic pain G89.29 [place] [address] [facility] [id number] [address] [place] [id number] Jun, Acute midline low back pain without sciatica M54.5 [place] [address] [facility] [id number] [address] [place] [address] Jun, Acute midline low back pain without sciatica M54.5 and Severe episode of recurrent major depressive disorder, without psychotic features F33.2 [place] [address] [facility] [id number] [address] [place] [address] Apr, [place] [address] [facility] [id number] [address] [place] [address] Apr, Severe episode of recurrent major depressive disorder, without psychotic features F33.2 ; Arthralgia, unspecified joint M25.50 ; Chilling R68.83 ; Acute non-recurrent maxillary sinusitis J01.00 and Encounter for immunization Z23 [facility] [address] [facility] [id number] [address] [place] [phone] November, Dysuria R30.0 and Urinary tr act infection without hematuria, site unspecified N39.0 [facility] [address] [facility] [id number] [address] [place] [address] November, Viral upper respiratory trac t infection J06.[address] 340B [id number] [place] [phone] Oct, Encounter for other screenin g for malignant neoplasm of breast Z12.39 [place] [address] [facility] [id number] [address] [place] [phone] Oct, Encounter for other screenin g for malignant neoplasm of breast Z12.39 [place] [address] [facility] [id number] [address] [place] [address] Sep, Abdominal pain R10.9 ; Acute diverticulitis K57.92 ; History of stomach ulcers Z87.19 and Dysfunction of both eustachian tubes H69.[address] [address] 18 Sep, 2018 [place] [address] [address] 11 Aug, [address] [address] Jun, Screening cholesterol level Z13.[address] [address] 17 Jun, 2018 Personal history of malignan t neoplasm of breast Z85.3 ; Bladder prolapse, female, acquired N81.10 and Dizziness R42 [address] [address] May, Encounter for immunization Z 23 [facility] [address] [address] May, Dysuria R30.0 and Acute urin beata tract infection N39.0 [facility] [address] [address] Mar, Insect bite (nonvenomous), r ight lower leg, initial encounter S80.861A and Bitten or stung by nonvenomous insect and other nonvenomous arthropods, initial encounter W57.XXXA [address] [address] Feb, Dizziness R42 ; Migraine G43 .909 ; Anhedonia R45.84 and Screening cholesterol level Z13.220 [facility] [address] [address] Jan, Dysuria R30.0 and Acute cyst itis with hematuria N30.01 [facility] [address] [address] Sep, Dysuria R30.0 ; Acute cystit is with hematuria N30.01 and Abrasion of left cornea, initial encounter S05.02XA [facility] [address] [address] Aug, Dysuria R30.0 and Acute cyst itis with hematuria N30.01 [facility] [address] [address] Feb, Dizziness R42 ; Chronic pans inusitis J32.4 and Chronic seasonal allergic rhinitis, unspecified trigger J30.2 [place] [address] [address] Dec, Personal history of breast c ancer Z85.3 ; Anhedonia R45.84 ; Chronic allergic rhinitis, unspecified seasonality, unspecified trigger J30.9 and Bladder prolapse, female, acquired N81.10 [facility] [address] [address] Dec, [facility] [address] [address] November, Seasonal allergic rhinitis, unspecified allergic rhinitis trigger J30.2 [place] [address] [address] November, [facility] [address] [address] November, Dysuria R30.0 ; Encounter fo r immunization Z23 and Personal history of pneumonia (recurrent) Z87.01 [facility] [address] [address] Aug, Sinusitis J32.9 [place] [address] [address] May, Acute recurrent maxillary si nusitis J01.01 [facility] [address] [address] May, Sinusitis J32.9 and Subacute maxillary sinusitis J01.00 [facility] [address] [address] May, Subacute maxillary sinusitis J01.00 [facility] [address] [place] [id number] [place] [id number] Feb, Dental examination Z01.20 [facility] [address] [address] Jan, Dysuria R30.0 and Acute cyst itis without hematuria N30.00 [facility] [address] [id number] Jan, Dental examination Z01.20 [facility] [address] [place] [id number] [place] [id number] Dec, Dental examination Z01.20 [facility] [address] [address] Dec, Dental examination Z01.20 [facility] [address] [address] Oct, Dental examination Z01.20 [facility] [address] [address] Aug, Acute recurrent sinusitis, u nspecified location J01.91 and Sinusitis J32.9 [facility] [address] [address] May, Dizziness R42 and Sinusitis J32.9 [facility] [address] [address] May, Dysuria R30.0 and Urinary tr act infection N39.0 [facility] [address] [address] Feb, Encounter to establish care V65.8 ; Depression 311 ; Sciatica 724.3 ; Peptic ulcer 533.90 and History of breast cancer V10.3 [facility] [address] [id number] [address] [place] [address], [place] [address] 30 Jan, 2015 [facility] [address] [id number] [address] [place] [address], [place] [address] 06 Jan, 2015 [facility] [address] [id number] [address] [place] [address], [place] [address] 14 Oct, 2014 [facility] [address] [id number] [address] [place] [address] 13 Oct, 2014 [facility] [address] [id number] [address] [place] [address], [place] [address] 14 Jul, 2014 [facility] [address] [id number] [address] [place] [address], [place] [address] Jul, [facility] [address] [id number] [address] [place] [address], [place] [address] Jun, [facility] [address] [id number] [address] [place] [address], [place] [address] Jun, [facility] [address] [id number] [address] [place] [address], [place] [address] May, [facility] [address] [id number] [address] [place] [address], [place] [address] May, [facility] [address] [id number] [address] [place] [address], [place] [address] 18 Mar, 2014 [facility] [address] [id number] [address] [place] [address], [place] [address] Mar, [facility] [address] [id number] [address] [place] [address], [place] [address] Mar, [facility] [address] [id number] [address] [place] [address], [place] [address] Mar, [facility] [address] [id number] [address] [place] [address], [place] [address] November, [facility] [address] [id number] [address] [place] [address], [place] [address] November, [facility] [address] [id number] [address] [place] [address], [place] [address] Oct, [facility] [address] [id number] [address] [place] [address], [place] [address] Oct, [facility] [address] [id number] [address] [place] [address], [place] [address] Oct, [facility] [address] [id number] [address] [place] [address], [place] [address] Oct, [facility] [address] [id number] [address] [place] [address], [place] [address] Oct, [facility] [address] [id number] [address] [place] [address], [place] [address] Oct, [facility] [address] [id number] [address] [place] [address], [place] [address] Oct, [facility] [address] [id number] [address] [place] [address], [place] [address] Oct, [facility] [address] [id number] [address] [place] [address], [place] [address] Aug, [facility] [address] [id number] [address] [place] [address], [place] [address] Aug, [facility] [address] [id number] [address] [place] [address], [place] [address] Aug, [facility] [address] [id number] [address] [place] [address], [place] [address] Jul, [facility] [address] [id number] [address] [place] [address], [place] [address] Jul, [facility] [address] [id number] [address] [place] [address], [place] [address] Jul, [facility] [address] [id number] [address] [place] [address], [place] [address] Jul, [facility] [address] [id number] [address] [place] [address], [place] [address] Jul, [facility] [address] [id number] [address] [place] [address], [place] [address] Jul, [facility] [address] [id number] [address] [place] [address], [place] [address] Jul, [facility] [address] [id number] [address] [place] [address], [place] [address] Jun, [facility] [address] [id number] [address] [place] [address], [place] [address] Jun, [facility] [address] [id number] [address] [place] [address], [place] [address] Jun, [facility] [address] [id number] [address] [place] [address], [place] [address] Jun, [facility] [address] [id number] [address] [place] [address], [place] [address] Jun, [facility] [address] [id number] [address] [place] [address], [place] [address] Jun, [facility] [address] [id number] [address] [place] [address], [place] [address] Jun, [facility] [address] [id number] [address] [place] [address], [place] [address] Jun, [facility] [address] [id number] [address] [place] [address] Jun, [facility] [address] [id number] [address] [place] [address], [place] [address] Jun, [facility] [address] [id number] [address] [place] [address], [place] [address] Apr, [facility] [address] [id number] [address] [place] [address], [place] [address] Apr, [facility] [address] [id number] [address] [place] [address], [place] [address] Apr, [facility] [address] [id number] [address] [place] [address], [place] [address] Apr, [facility] [address] [id number] [address] [place] [address], [place] [address] Apr, [facility] [address] [id number] [address] [place] [address], [place] [address] Apr, [facility] [address] [id number] [address] [place] [address], [place] [address] Mar, [facility] [address] [id number] [address] [place] [address], [place] [address] Mar, [facility] [address] [id number] [address] [place] [address], [place] [address] Jan, [facility] [address] [id number] [address] [place] [address], [place] [address] Jul, [facility] [address] [id number] [address] [place] [address], [place] [address] Jun, [facility] [address] [id number] [address] [place] [address], [place] [address] Jun, [facility] [address] [id number] [address] [place] [address], [place] [address] Jun, [facility] [address] [id number] [address] [place] [address], [place] [address] Jun, [facility] [address] [id number] [address] [place] [address], [place] [address] Jun, [facility] [address] [id number] [address] [place] [address], [place] [address] Jun, [facility] [address] [id number] [address] [place] [address], [place] [address] May, [facility] [address] [id number] [address] [place] [address], [place] [address] May, [facility] [address] [id number] [address] [place] [id number] Feb, [facility] [address] [id number] [address] [place] [address] November, [facility] [address] [id number] [address] [place] [address] Apr, [facility] [address] [id number] [address] [place] [address] Apr, [facility] [address] [id number] [address] [place] [address] Apr, [facility] [address] [facility] [id number] [address] [place] [address] Apr, [facility] [address] [facility] [id number] [address] [place] [address] Apr, IMMUNIZATIONS Vaccine Route Administration Date Status influenza IIV3 (history) Unknown May 12, 2013 Adminis tered SOCIAL HISTORY Never Assessed REASON FOR VISIT PLAN OF CARE VITAL SIGNS MEDICATIONS Unknown Medications RESULTS No Results PROCEDURES Procedure Date Ordered Result Body Site PSYCH DIAGNOSTIC EVALUATION May 12, 2013 INSTRUCTIONS MEDICATIONS ADMINISTERED No Known Medications MEDICAL [...]
--- OUTSIDE RECORDS SUMMARY | 2020-02-27 11:39 | XMS REPORT ---
Author Author Maryam RANDOLPH Organization [facility] Address [address] [place] [address] Care Team Providers Care Waste Examiner Name Role Phone AGUSTÍNAROLDOJEROD Unavailable PROBLEMS Type Condition ICD9-CM Code BKN86-RK Code Onset Dates Condition S tatus SNOMED Code Problem Bladder prolapse, female, acquired N81.10 Active 932798407 Problem Anhedonia R45.84 Active 71012601 Problem Chronic pansinusitis J32.4 Active 61578851 Problem Severe episode of recurrent major depressive disorder, without psychotic features F33.2 Active 36630778 Problem Personal history of breast cancer Z85.3 Active 438883280 Problem Other chronic pain G89.29 Active 8 1053906 Problem Chronic allergic rhinitis, unspecified s easonality, unspecified trigger J30.9 Active 93658353 Problem Chronic UTI N39.0 Active 74134353 6 Problem Migraine G43.909 Active 41529693 Problem Personal history of malignant neoplasm of breast Z 85.3 Active 872339745 Problem Acute diverticulitis K57.92 Active 163076836 ALLERGIES No Information ENCOUNTERS Encounter Location Date Diagnosis [facility] [address] [facility] [id number] [address] [place] [address] Jan, [facility] [address] [facility] [id number] [address] [place] [address] Oct, Acute non-recurrent maxillar y sinusitis J01.00 [facility] [address] [facility] [id number] [address] [place] [address] 03 Aug, 2019 Low back pain M54.5 and Othe r chronic pain G89.29 [facility] [address] [facility] [id number] [address] [place] [address] Jul, Acute midline low back pain without sciatica M54.5 and Severe episode of recurrent major depressive disorder, without psychotic features F33.2 [place] [address] [facility] [id number] [address] [place] [address] Jul, Low back pain M54.5 and Othe r chronic pain G89.29 [place] [address] [facility] [id number] [address] [place] [address] Jun, Acute midline low back pain without sciatica M54.5 [place] [address] [facility] [id number] [address] [place] [address] Jun, Acute midline low back pain without sciatica M54.5 and Severe episode of recurrent major depressive disorder, without psychotic features F33.2 [place] [address] [facility] [id number] [address] [place] [address] Apr, [place] [address] [facility] [id number] [address] [place] [address] Apr, Severe episode of recurrent major depressive disorder, without psychotic features F33.2 ; Arthralgia, unspecified joint M25.50 ; Chilling R68.83 ; Acute non-recurrent maxillary sinusitis J01.00 and Encounter for immunization Z23 [facility] [address] [facility] [id number] [address] [place] [address] November, Dysuria R30.0 and Urinary tr act infection without hematuria, site unspecified N39.0 [facility] [address] [facility] [id number] [address] [place] [address] November, Viral upper respiratory trac t infection J06.[id number] [place] [address] Oct, Encounter for other screenin g for malignant neoplasm of breast Z12.39 [place] [address] [facility] [id number] [address] [place] [address] Oct, Encounter for other screenin g for malignant neoplasm of breast Z12.39 [place] [address] [facility] [id number] [address] [place] [address] Sep, Abdominal pain R10.9 ; Acute diverticulitis K57.92 ; History of stomach ulcers Z87.19 and Dysfunction of both eustachian tubes H69.[address] [address] 18 Sep, 2018 [place] [address] [address] 11 Aug, [address] [address] Jun, Screening cholesterol level Z13.[address] [address] 17 Jun, 2018 Personal history of malignan t neoplasm of breast Z85.3 ; Bladder prolapse, female, acquired N81.10 and Dizziness R42 [address] [address] May, Encounter for immunization Z 23 [facility] [address] [address] May, Dysuria R30.0 and Acute urin beata tract infection N39.0 [facility] [address] [address] Mar, Insect bite (nonvenomous), r ight lower leg, initial encounter S80.861A and Bitten or stung by nonvenomous insect and other nonvenomous arthropods, initial encounter W57.XXXA [address] [address] Feb, Dizziness R42 ; Migraine G43 .909 ; Anhedonia R45.84 and Screening cholesterol level Z13.220 [facility] [address] [address] Jan, Dysuria R30.0 and Acute cyst itis with hematuria N30.01 [facility] [address] [address] Sep, Dysuria R30.0 ; Acute cystit is with hematuria N30.01 and Abrasion of left cornea, initial encounter S05.02XA [facility] [address] [address] Aug, Dysuria R30.0 and Acute cyst itis with hematuria N30.01 [facility] [address] [address] Feb, Dizziness R42 ; Chronic pans inusitis J32.4 and Chronic seasonal allergic rhinitis, unspecified trigger J30.2 [place] [address] [address] Dec, Personal history of breast c ancer Z85.3 ; Anhedonia R45.84 ; Chronic allergic rhinitis, unspecified seasonality, unspecified trigger J30.9 and Bladder prolapse, female, acquired N81.10 [facility] [address] [address] Dec, [facility] [address] [address] November, Seasonal allergic rhinitis, unspecified allergic rhinitis trigger J30.2 [place] [address] [address] November, [facility] [address] [address] November, Dysuria R30.0 ; Encounter fo r immunization Z23 and Personal history of pneumonia (recurrent) Z87.01 [facility] [address] [address] Aug, Sinusitis J32.9 [place] [address] [address] May, Acute recurrent maxillary si nusitis J01.01 [facility] [address] [address] May, Sinusitis J32.9 and Subacute maxillary sinusitis J01.00 [facility] [address] [address] May, Subacute maxillary sinusitis J01.00 [facility] [address] [place] [id number] [place] [id number] Feb, Dental examination Z01.20 [facility] [address] [address] Jan, Dysuria R30.0 and Acute cyst itis without hematuria N30.00 [facility] [address] [id number] Jan, Dental examination Z01.20 [facility] [address] [place] [id number] [place] [id number] Dec, Dental examination Z01.20 [facility] [address] [address] Dec, Dental examination Z01.20 [facility] [address] [address] Oct, Dental examination Z01.20 [facility] [address] [address] Aug, Acute recurrent sinusitis, u nspecified location J01.91 and Sinusitis J32.9 [facility] [address] [address] May, Dizziness R42 and Sinusitis J32.9 [facility] [address] [address] May, Dysuria R30.0 and Urinary tr act infection N39.0 [facility] [address] [address] Feb, Encounter to establish care V65.8 ; Depression 311 ; Sciatica 724.3 ; Peptic ulcer 533.90 and History of breast cancer V10.3 [facility] [address] [id number] [address] [place] [address], [place] [address] 30 Jan, 2015 [facility] [address] [id number] [address] [place] [address], [place] [address] 06 Jan, 2015 [facility] [address] [id number] [address] [place] [address], [place] [address] 14 Oct, 2014 [facility] [address] [id number] [address] [place] [address] 13 Oct, 2014 [facility] [address] [id number] [address] [place] [address], [place] [address] 14 Jul, 2014 [facility] [address] [id number] [address] [place] [address], [place] [address] Jul, [facility] [address] [id number] [address] [place] [address], [place] [address] Jun, [facility] [address] [id number] [address] [place] [address], [place] [address] Jun, [facility] [address] [id number] [address] [place] [address], [place] [address] May, [facility] [address] [id number] [address] [place] [address], [place] [address] May, [facility] [address] [id number] [address] [place] [address], [place] [address] 18 Mar, 2014 [facility] [address] [id number] [address] [place] [address], [place] [address] Mar, [facility] [address] [id number] [address] [place] [address], [place] [address] Mar, [facility] [address] [id number] [address] [place] [address], [place] [address] Mar, [facility] [address] [id number] [address] [place] [address], [place] [address] November, [facility] [address] [id number] [address] [place] [address], [place] [address] November, [facility] [address] [id number] [address] [place] [address], [place] [address] Oct, [facility] [address] [id number] [address] [place] [address], [place] [address] Oct, [facility] [address] [id number] [address] [place] [address], [place] [address] Oct, [facility] [address] [id number] [address] [place] [address], [place] [address] Oct, [facility] [address] [id number] [address] [place] [address], [place] [address] Oct, [facility] [address] [id number] [address] [place] [address], [place] [address] Oct, [facility] [address] [id number] [address] [place] [address], [place] [address] Oct, [facility] [address] [id number] [address] [place] [address], [place] [address] Oct, [facility] [address] [id number] [address] [place] [address], [place] [address] Aug, [facility] [address] [id number] [address] [place] [address], [place] [address] Aug, [facility] [address] [id number] [address] [place] [address], [place] [address] Aug, [facility] [address] [id number] [address] [place] [address], [place] [address] Jul, [facility] [address] [id number] [address] [place] [address], [place] [address] Jul, [facility] [address] [id number] [address] [place] [address], [place] [address] Jul, [facility] [address] [id number] [address] [place] [address], [place] [address] Jul, [facility] [address] [id number] [address] [place] [address], [place] [address] Jul, [facility] [address] [id number] [address] [place] [address], [place] [address] Jul, [facility] [address] [id number] [address] [place] [address], [place] [address] Jul, [facility] [address] [id number] [address] [place] [address], [place] [address] Jun, [facility] [address] [id number] [address] [place] [address], [place] [address] Jun, [facility] [address] [id number] [address] [place] [address], [place] [address] Jun, [facility] [address] [id number] [address] [place] [address], [place] [address] Jun, [facility] [address] [id number] [address] [place] [address], [place] [address] Jun, [facility] [address] [id number] [address] [place] [address], [place] [address] Jun, [facility] [address] [id number] [address] [place] [address], [place] [address] Jun, [facility] [address] [id number] [address] [place] [address], [place] [address] Jun, [facility] [address] [id number] [address] [place] [address] Jun, [facility] [address] [id number] [address] [place] [address], [place] [address] Jun, [facility] [address] [id number] [address] [place] [address], [place] [address] Apr, [facility] [address] [id number] [address] [place] [address], [place] [address] Apr, [facility] [address] [id number] [address] [place] [address], [place] [address] Apr, [facility] [address] [id number] [address] [place] [address], [place] [address] Apr, [facility] [address] [id number] [address] [place] [address], [place] [address] Apr, [facility] [address] [id number] [address] [place] [address], [place] [address] Apr, [facility] [address] [id number] [address] [place] [address], [place] [address] Mar, [facility] [address] [id number] [address] [place] [address], [place] [address] Mar, [facility] [address] [id number] [address] [place] [address], [place] [address] Jan, [facility] [address] [id number] [address] [place] [address], [place] [address] Jul, [facility] [address] [id number] [address] [place] [address], [place] [address] Jun, [facility] [address] [id number] [address] [place] [address], [place] [address] Jun, [facility] [address] [id number] [address] [place] [address], [place] [address] Jun, [facility] [address] [id number] [address] [place] [address], [place] [address] Jun, [facility] [address] [id number] [address] [place] [address], [place] [address] Jun, [facility] [address] [id number] [address] [place] [address], [place] [address] Jun, [facility] [address] [id number] [address] [place] [address], [place] [address] May, [facility] [address] [id number] [address] [place] [address], [place] [address] May, [facility] [address] [id number] [address] [place] [address] Feb, [facility] [address] [id number] [address] [place] [address] November, [facility] [address] [id number] [address] [place] [address] Apr, [facility] [address] [id number] [address] [place] [address] Apr, [facility] [address] [id number] [address] [place] [address] Apr, [facility] [address] [id number] [address] [place] [address] Apr, [facility] [address] [id number] [address] [place] [address] Apr, IMMUNIZATIONS No Known Immunizations SOCIAL HISTORY [...]
--- OUTSIDE RECORDS SUMMARY | 2020-02-27 11:39 | XMS REPORT ---
Author Author Maryam Casiano Organization [facility] Address [address] [place] [address] Care Team Providers Care It Infrastructure Specialist Name Role Phone NORMA Casiano Unavailable PROBLEMS Type Condition ICD9-CM Code MBL99-EQ Code Onset Dates Condition S tatus SNOMED Code Problem Bladder prolapse, female, acquired N81.10 Active 855517504 Problem Anhedonia R45.84 Active 58118833 Problem Chronic pansinusitis J32.4 Active 87832500 Problem Severe episode of recurrent major depressive disorder, without psychotic features F33.2 Active 66891754 Problem Personal history of breast cancer Z85.3 Active 851782228 Problem Other chronic pain G89.29 Active 8 4900873 Problem Chronic allergic rhinitis, unspecified s easonality, unspecified trigger J30.9 Active 97472705 Problem Chronic UTI N39.0 Active 40820506 6 Problem Migraine G43.909 Active 29089798 Problem Personal history of malignant neoplasm of breast Z 85.3 Active 887760643 Problem Acute diverticulitis K57.92 Active [id number] ALLERGIES No Information ENCOUNTERS Encounter Location Date Diagnosis [place] [address] [address] [facility] [id number] [address] [place] [address] Jan, [place] [address] [address] [facility] [id number] [address] [place] [address] Oct, Acute non-recurrent maxillar y sinusitis J01.00 [place] [address] [address] [facility] [id number] [address] [place] [address] 03 Aug, 2019 Low back pain M54.5 and Othe r chronic pain G89.29 [place] [address] [address] [facility] [id number] [address] [place] [address] Jul, Acute midline low back pain without sciatica M54.5 and Severe episode of recurrent major depressive disorder, without psychotic features F33.2 [place] [address] [address] [facility] [id number] [address] [place] [address] Jul, Low back pain M54.5 and Othe r chronic pain G89.29 [place] [address] [address] [facility] [id number] [address] [place] [address] Jun, Acute midline low back pain without sciatica M54.5 [place] [address] [address] [facility] [id number] [address] [place] [address] Jun, Acute midline low back pain without sciatica M54.5 and Severe episode of recurrent major depressive disorder, without psychotic features F33.2 [place] [address] [address] [facility] [id number] [address] [place] [address] Apr, [place] [address] [address] [facility] [id number] [address] [place] [address] Apr, Severe episode of recurrent major depressive disorder, without psychotic features F33.2 ; Arthralgia, unspecified joint M25.50 ; Chilling R68.83 ; Acute non-recurrent maxillary sinusitis J01.00 and Encounter for immunization Z23 [facility] [address] [facility] [id number] [address] [place] [address] November, Dysuria R30.0 and Urinary tr act infection without hematuria, site unspecified N39.0 [facility] [address] [facility] [id number] [address] [place] [address] November, Viral upper respiratory trac t infection J06.[address] [id number] [address] Oct, Encounter for other screenin g for malignant neoplasm of breast Z12.39 [facility] [address] [facility] [id number] [address] [place] [address] Oct, Encounter for other screenin g for malignant neoplasm of breast Z12.39 [place] [address] [facility] [id number] [address] [place] [address] Sep, Abdominal pain R10.9 ; Acute diverticulitis K57.92 ; History of stomach ulcers Z87.19 and Dysfunction of both eustachian tubes H69.[address] [address] 18 Sep, 2018 [place] [address] [address] Aug, [place] [address] [address] Jun, Screening cholesterol level Z13.[address] [address] Jun, Personal history of malignan t neoplasm of breast Z85.3 ; Bladder prolapse, female, acquired N81.10 and Dizziness R42 [address] [address] May, Encounter for immunization Z 23 [facility] [address] [place] [address] May, Dysuria R30.0 and Acute urin beata tract infection N39.0 [facility] [address] [address] Mar, Insect bite (nonvenomous), r ight lower leg, initial encounter S80.861A and Bitten or stung by nonvenomous insect and other nonvenomous arthropods, initial encounter W57.XXXA [address] [address] Feb, Dizziness R42 ; Migraine G43 .909 ; Anhedonia R45.84 and Screening cholesterol level Z13.220 [facility] [address] [address] Jan, Dysuria R30.0 and Acute cyst itis with hematuria N30.01 [facility] [address] [address] Sep, Dysuria R30.0 ; Acute cystit is with hematuria N30.01 and Abrasion of left cornea, initial encounter S05.02XA [facility] [address] [address] Aug, Dysuria R30.0 and Acute cyst itis with hematuria N30.01 [facility] [address] [address] Feb, Dizziness R42 ; Chronic pans inusitis J32.4 and Chronic seasonal allergic rhinitis, unspecified trigger J30.2 [place] [address] [address] Dec, Personal history of breast c ancer Z85.3 ; Anhedonia R45.84 ; Chronic allergic rhinitis, unspecified seasonality, unspecified trigger J30.9 and Bladder prolapse, female, acquired N81.10 [facility] [address] [address] Dec, [facility] [address] [address] November, Seasonal allergic rhinitis, unspecified allergic rhinitis trigger J30.2 [facility] [address] [address] November, [facility] [address] [address] November, Dysuria R30.0 ; Encounter fo r immunization Z23 and Personal history of pneumonia (recurrent) Z87.01 [facility] [address] [address] Aug, Sinusitis J32.9 [place] [address] [address] May, Acute recurrent maxillary si nusitis J01.01 [facility] [address] [address] 15 May, 2016 Sinusitis J32.9 and Subacute maxillary sinusitis J01.00 [facility] [address] [address] May, Subacute maxillary sinusitis J01.00 [facility] [address] [id number] Feb, Dental examination Z01.20 [facility] [address] [address] Jan, Dysuria R30.0 and Acute cyst itis without hematuria N30.00 [facility] [address] [id number] Jan, Dental examination Z01.20 [facility] [address] [id number] Dec, Dental examination Z01.20 [facility] [address] [address] Dec, Dental examination Z01.20 [facility] [address] [address] Oct, Dental examination Z01.20 [facility] [address] [address] Aug, Acute recurrent sinusitis, u nspecified location J01.91 and Sinusitis J32.9 [facility] [address] [address] May, Dizziness R42 and Sinusitis J32.9 [facility] [address] [address] May, Dysuria R30.0 and Urinary tr act infection N39.0 [facility] [address] [address] Feb, Encounter to establish care V65.8 ; Depression 311 ; Sciatica 724.3 ; Peptic ulcer 533.90 and History of breast cancer V10.3 [facility] [address] [id number] [address] [place] [address] 30 Jan, 2015 [facility] [address] [id number] [address] [place] [address] 06 Jan, 2015 [facility] [address] [id number] [address] [place] [address] 14 Oct, 2014 [facility] [address] [id number] [address] [place] [address] Oct, [facility] [address] [id number] [address] [place] [address] Jul, [facility] [address] [id number] [address] [place] [address] Jul, [facility] [address] [id number] [address] [place] [address] Jun, [facility] [address] [id number] [address] [place] [address] Jun, [facility] [address] [id number] [address] [place] [address] May, [facility] [address] [id number] [address] [place] [address] May, [facility] [address] [id number] [address] [place] [address] 18 Mar, 2014 [facility] [address] [id number] [address] [place] [address] Mar, [facility] [address] [id number] [address] [place] [address] Mar, [facility] [address] [id number] [address] [place] [address] Mar, [facility] [address] [id number] [address] [place] [address] November, [facility] [address] [id number] [address] [place] [address], [place] [address] November, [facility] [address] [id number] [address] [place] [address], [place] [address] Oct, [facility] [address] [id number] [address] [place] [address], [place] [address] Oct, [facility] [address] [id number] [address] [place] [address], [place] [address] Oct, [facility] [address] [id number] [address] [place] [address], [place] [address] Oct, [facility] [address] [id number] [address] [place] [address], [place] [address] Oct, [facility] [address] [id number] [address] [place] [address], [place] [address] Oct, [facility] [address] [id number] [address] [place] [address], [place] [address] Oct, [facility] [address] [id number] [address] [place] [address], [place] [address] Oct, [facility] [address] [id number] [address] [place] [address], [place] [address] Aug, [facility] [address] [id number] [address] [place] [address], [place] [address] Aug, [facility] [address] [id number] [address] [place] [address], [place] [address] Aug, [facility] [address] [id number] [address] [place] [address], [place] [address] Jul, [facility] [address] [id number] [address] [place] [address], [place] [address] Jul, [facility] [address] [id number] [address] [place] [address], [place] [address] Jul, [facility] [address] [id number] [address] [place] [address] Jul, [facility] [address] [id number] [address] [place] [address], [place] [address] Jul, [facility] [address] [id number] [address] [place] [address], [place] [address] Jul, [facility] [address] [id number] [address] [place] [address], [place] [address] Jul, [facility] [address] [id number] [address] [place] [address], [place] [address] Jun, [facility] [address] [id number] [address] [place] [address], [place] [address] Jun, [facility] [address] [id number] [address] [place] [address], [place] [address] Jun, [facility] [address] [id number] [address] [place] [address] Jun, [facility] [address] [id number] [address] [place] [address], [place] [address] Jun, [facility] [address] [id number] [address] [place] [address], [place] [address] Jun, [facility] [address] [id number] [address] [place] [address], [place] [address] Jun, [facility] [address] [id number] [address] [place] [address], [place] [address] Jun, [facility] [address] [id number] [address] [place] [address] Jun, [facility] [address] [id number] [address] [place] [address], [place] [address] Jun, [facility] [address] [id number] [address] [place] [address], [place] [address] Apr, [facility] [address] [id number] [address] [place] [address], [place] [address] Apr, [facility] [address] [id number] [address] [place] [address], [place] [address] Apr, [facility] [address] [id number] [address] [place] [address], [place] [address] Apr, [facility] [address] [id number] [address] [place] [address], [place] [address] Apr, [facility] [address] [id number] [address] [place] [address], [place] [address] Apr, [facility] [address] [id number] [address] [place] [address], [place] [address] Mar, [facility] [address] [id number] [address] [place] [address], [place] [address] Mar, [facility] [address] [id number] [address] [place] [address], [place] [address] Jan, [facility] [address] [id number] [address] [place] [address], [place] [address] Jul, [facility] [address] [id number] [address] [place] [address], [place] [address] Jun, [facility] [address] [id number] [address] [place] [address], [place] [address] Jun, [facility] [address] [id number] [address] [place] [address], [place] [address] Jun, [facility] [address] [id number] [address] [place] [address], [place] [address] Jun, [facility] [address] [id number] [address] [place] [address], [place] [address] Jun, [facility] [address] [id number] [address] [place] [address], [place] [address] Jun, [facility] [address] [id number] [address] [place] [address], [place] [address] May, [facility] [address] [id number] [address] [place] [address] [address] May, [facility] [address] [id number] [address] [place] [address] Feb, [facility] [address] [id number] [address] [place] [address] November, [facility] [address] [id number] [address] [place] [address] Apr, [facility] [address] [id number] [address] [place] [address] Apr, [facility] [address] [id number] [address] [place] [address] Apr, [facility] [address] [id number] [address] [place] [address] Apr, [facility] [address] [id number] [address] [place] [address] Apr, IMMUNIZATIONS No Known Immunizations SOCIAL HISTORY [...]
--- OUTSIDE RECORDS SUMMARY | 2020-02-27 11:39 | XMS REPORT ---
Author Author Maryam ROLDAN Organization [facility] Address [address] [place] [address] Care Team Providers Care Tour Leader Name Role Phone DALILA ROLDAN Unavailable PROBLEMS Type Condition ICD9-CM Code WEM20-HX Code Onset Dates Condition S tatus SNOMED Code Problem Bladder prolapse, female, acquired N81.10 Active 177635229 Problem Anhedonia R45.84 Active 42115655 Problem Chronic pansinusitis J32.4 Active 87314341 Problem Severe episode of recurrent major depressive disorder, without psychotic features F33.2 Active 56777642 Problem Personal history of breast cancer Z85.3 Active 504285341 Problem Other chronic pain G89.29 Active 8 7100202 Problem Chronic allergic rhinitis, unspecified s easonality, unspecified trigger J30.9 Active 01509667 Problem Chronic UTI N39.0 Active 73002160 6 Problem Migraine G43.909 Active 04649686 Problem Personal history of malignant neoplasm of breast Z 85.3 Active 225762709 Problem Acute diverticulitis K57.92 Active 162621548 ALLERGIES No Information ENCOUNTERS Encounter Location Date Diagnosis [place] [address] [address] [facility] [id number] [address] [place] [address] Jan, [facility] [address] [facility] [id number] [address] [place] [address] Oct, Acute non-recurrent maxillar y sinusitis J01.00 [facility] [address] [facility] [id number] [address] [place] [address] 03 Aug, 2019 Low back pain M54.5 and Othe r chronic pain G89.29 [facility] [address] [facility] [id number] [address] [place] [address] Jul, Acute midline low back pain without sciatica M54.5 and Severe episode of recurrent major depressive disorder, without psychotic features F33.2 [place] [address] [address] [facility] [id number] [address] [place] [address] Jul, Low back pain M54.5 and Othe r chronic pain G89.29 [place] [address] [address] [facility] [id number] [address] [place] [address] Jun, Acute midline low back pain without sciatica M54.5 [place] [address] [address] [facility] [id number] [address] [place] [address] Jun, Acute midline low back pain without sciatica M54.5 and Severe episode of recurrent major depressive disorder, without psychotic features F33.2 [place] [address] [address] [facility] [id number] [address] [place] [address] Apr, [place] [address] [address] [facility] [id number] [address] [place] [address] Apr, Severe episode of recurrent major depressive disorder, without psychotic features F33.2 ; Arthralgia, unspecified joint M25.50 ; Chilling R68.83 ; Acute non-recurrent maxillary sinusitis J01.00 and Encounter for immunization Z23 [facility] [address] [facility] [id number] [address] [place] [address] November, Dysuria R30.0 and Urinary tr act infection without hematuria, site unspecified N39.0 [facility] [address] [facility] [id number] [address] [place] [address] November, Viral upper respiratory trac t infection J06.[id number] [address] Oct, Encounter for other screenin g for malignant neoplasm of breast Z12.39 [place] [address] [address] [facility] [id number] [address] [place] [address] Oct, Encounter for other screenin g for malignant neoplasm of breast Z12.39 [place] [address] [address] [facility] [id number] [address] [place] [address] Sep, Abdominal pain R10.9 ; Acute diverticulitis K57.92 ; History of stomach ulcers Z87.19 and Dysfunction of both eustachian tubes H69.[address] [address] 18 Sep, 2018 [place] [address] [address] 11 Aug, [address] [address] Jun, Screening cholesterol level Z13.[address] [address] 17 Jun, 2018 Personal history of malignan t neoplasm of breast Z85.3 ; Bladder prolapse, female, acquired N81.10 and Dizziness R42 [address] [address] May, Encounter for immunization Z 23 [facility] [address] [address] May, Dysuria R30.0 and Acute urin beata tract infection N39.0 [facility] [address] [address] Mar, Insect bite (nonvenomous), r ight lower leg, initial encounter S80.861A and Bitten or stung by nonvenomous insect and other nonvenomous arthropods, initial encounter W57.XXXA [address] [address] Feb, Dizziness R42 ; Migraine G43 .909 ; Anhedonia R45.84 and Screening cholesterol level Z13.220 [facility] [address] [address] Jan, Dysuria R30.0 and Acute cyst itis with hematuria N30.01 [facility] [address] [address] Sep, Dysuria R30.0 ; Acute cystit is with hematuria N30.01 and Abrasion of left cornea, initial encounter S05.02[facility] IN [facility] [address] [address] Aug, Dysuria R30.0 and Acute cyst itis with hematuria N30.01 [facility] [address] [address] Feb, Dizziness R42 ; Chronic pans inusitis J32.4 and Chronic seasonal allergic rhinitis, unspecified trigger J30.2 [facility] [address] [address] Dec, Personal history of breast c ancer Z85.3 ; Anhedonia R45.84 ; Chronic allergic rhinitis, unspecified seasonality, unspecified trigger J30.9 and Bladder prolapse, female, acquired N81.10 [facility] [address] [address] Dec, [facility] [address] [address] November, Seasonal allergic rhinitis, unspecified allergic rhinitis trigger J30.2 [facility] [address] [address] November, [facility] [address] [address] November, Dysuria R30.0 ; Encounter fo r immunization Z23 and Personal history of pneumonia (recurrent) Z87.01 [facility] [address] [address] Aug, Sinusitis J32.9 [place] [address] [address] May, Acute recurrent maxillary si nusitis J01.01 [facility] [address] [address] May, Sinusitis J32.9 and Subacute maxillary sinusitis J01.00 [facility] [address] [address] May, Subacute maxillary sinusitis J01.00 [facility] [id number] [place] [id number] Feb, Dental examination Z01.20 [facility] [address] [place] [id number] [place] [address] Jan, Dysuria R30.0 and Acute cyst itis without hematuria N30.00 [facility] [address] [id number] Jan, Dental examination Z01.20 [facility] [address] [id number] Dec, Dental examination Z01.20 [facility] [address] [address] Dec, Dental examination Z01.20 [facility] [address] [address] Oct, Dental examination Z01.20 [facility] [address] [address] Aug, Acute recurrent sinusitis, u nspecified location J01.91 and Sinusitis J32.9 [facility] [address] [address] May, Dizziness R42 and Sinusitis J32.9 [facility] [address] [address] May, Dysuria R30.0 and Urinary tr act infection N39.0 [facility] [address] [place] [id number] [place] [address] Feb, Encounter to establish care V65.8 ; Depression 311 ; Sciatica 724.3 ; Peptic ulcer 533.90 and History of breast cancer V10.3 [facility] [address] [id number] [address] [place] [address], [place] [address] 30 Jan, 2015 [facility] [address] [id number] [address] [place] [address], [place] [address] 06 Jan, 2015 [facility] [address] [id number] [address] [place] [address], [place] [address] 14 Oct, 2014 [facility] [address] [id number] [address] [place] [address], [place] [address] 13 Oct, 2014 [facility] [address] [id number] [address] [place] [address], [place] [address] 14 Jul, 2014 [facility] [address] [id number] [address] [place] [address], [place] [address] Jul, [facility] [address] [id number] [address] [place] [address], [place] [address] Jun, [facility] [address] [id number] [address] [place] [address], [place] [address] Jun, [facility] [address] [id number] [address] [place] [address], [place] [address] May, [facility] [address] [id number] [address] [place] [address], [place] [address] May, [facility] [address] [id number] [address] [place] [address], [place] [address] 18 Mar, 2014 [facility] [address] [id number] [address] [place] [address], [place] [address] 18 Mar, 2014 [facility] [address] [id number] [address] [place] [address], [place] [address] Mar, [facility] [address] [id number] [address] [place] [address], [place] [address] Mar, [facility] [address] [id number] [address] [place] [address], [place] [address] November, [facility] [address] [id number] [address] [place] [address], [place] [address] November, [facility] [address] [id number] [address] [place] [address], [place] [address] Oct, [facility] [address] [id number] [address] [place] [address], [place] [address] Oct, [facility] [address] [id number] [address] [place] [address], [place] [address] Oct, [facility] [address] [id number] [address] [place] [address], [place] [address] Oct, [facility] [address] [id number] [address] [place] [address], [place] [address] Oct, [facility] [address] [id number] [address] [place] [address], [place] [address] Oct, [facility] [address] [id number] [address] [place] [address], [place] [address] Oct, [facility] [address] [id number] [address] [place] [address], [place] [address] Oct, [facility] [address] [id number] [address] [place] [address], [place] [address] Aug, [facility] [address] [id number] [address] [place] [address], [place] [address] Aug, [facility] [address] [id number] [address] [place] [address], [place] [address] Aug, [facility] [address] [id number] [address] [place] [address], [place] [address] Jul, [facility] [address] [id number] [address] [place] [address], [place] [address] Jul, [facility] [address] [id number] [address] [place] [address], [place] [address] Jul, [facility] [address] [id number] [address] [place] [address] [address] Jul, [facility] [address] [id number] [address] [place] [address], [place] [address] Jul, [facility] [address] [id number] [address] [place] [address], [place] [address] Jul, [facility] [address] [id number] [address] [place] [address], [place] [address] Jul, [facility] [address] [id number] [address] [place] [address], [place] [address] Jun, [facility] [address] [id number] [address] [place] [address], [place] [address] Jun, [facility] [address] [id number] [address] [place] [address], [place] [address] Jun, [facility] [address] [id number] [address] [place] [address], [place] [address] Jun, [facility] [address] [id number] [address] [place] [address], [place] [address] Jun, [facility] [address] [id number] [address] [place] [address], [place] [address] Jun, [facility] [address] [id number] [address] [place] [address], [place] [address] Jun, [facility] [address] [id number] [address] [place] [address], [place] [address] Jun, [facility] [address] [id number] [address] [place] [address] Jun, [facility] [address] [id number] [address] [place] [address], [place] [address] Jun, [facility] [address] [id number] [address] [place] [address], [place] [address] Apr, [facility] [address] [id number] [address] [place] [address], [place] [address] Apr, [facility] [address] [id number] [address] [place] [address], [place] [address] Apr, [facility] [address] [id number] [address] [place] [address], [place] [address] Apr, [facility] [address] [id number] [address] [place] [address], [place] [address] Apr, [facility] [address] [id number] [address] [place] [address], [place] [address] Apr, [facility] [address] [id number] [address] [place] [address], [place] [address] Mar, [facility] [address] [id number] [address] [place] [address], [place] [address] Mar, [facility] [address] [id number] [address] [place] [address], [place] [address] Jan, [facility] [address] [id number] [address] [place] [address], [place] [address] Jul, [facility] [address] [id number] [address] [place] [address], [place] [address] Jun, [facility] [address] [id number] [address] [place] [address], [place] [address] Jun, [facility] [address] [id number] [address] [place] [address], [place] [address] Jun, [facility] [address] [id number] [address] [place] [address], [place] [address] Jun, [facility] [address] [id number] [address] [place] [address], [place] [address] Jun, [facility] [address] [id number] [address] [place] [address], [place] [address] Jun, [facility] [address] [id number] [address] [place] [address], [place] [address] May, [facility] [address] [id number] [address] [place] [address], [place] [address] May, [facility] [address] [id number] [address] [place] [address] Feb, [facility] [address] [id number] [address] [place] [address] November, [facility] [address] [id number] [address] [place] [address] Apr, [facility] [address] [id number] [address] [place] [address] Apr, [facility] [address] [id number] [address] [place] [address] Apr, [facility] [address] [id number] [address] [place] [address] Apr, [facility] [address] [id number] [address] [place] [address] Apr, IMMUNIZATIONS No Known Immunizations SOCIAL HISTORY [...]
--- OUTSIDE RECORDS SUMMARY | 2020-02-27 11:39 | XMS REPORT ---
Author Author Maryam Cuba Organization [facility] Address [address] [place] [address] Care Team Providers Care Workers Compensation Claims Supervisor Name Role Phone ROBIN Cuba Unavailable PROBLEMS Type Condition ICD9-CM Code HHK82-LC Code Onset Dates Condition S tatus SNOMED Code Problem Bladder prolapse, female, acquired N81.10 Active 279442546 Problem Anhedonia R45.84 Active 18821445 Problem Chronic pansinusitis J32.4 Active 53584399 Problem Severe episode of recurrent major depressive disorder, without psychotic features F33.2 Active 31352080 Problem Personal history of breast cancer Z85.3 Active 821340114 Problem Other chronic pain G89.29 Active 8 6718244 Problem Chronic allergic rhinitis, unspecified s easonality, unspecified trigger J30.9 Active 29389457 Problem Chronic UTI N39.0 Active 16641573 6 Problem Migraine G43.909 Active 61087686 Problem Personal history of malignant neoplasm of breast Z 85.3 Active 150534756 Problem Acute diverticulitis K57.92 Active 602815968 ALLERGIES No Information ENCOUNTERS Encounter Location Date Diagnosis [place] [address] [address] [facility] [id number] [address] [place] [id number] Jan, [place] [address] [address] [facility] [id number] [address] [place] [address] Oct, Acute non-recurrent maxillar y sinusitis J01.00 [place] [address] [address] [facility] [id number] [address] [place] [address] Aug, Low back pain M54.5 and Othe r chronic pain G89.29 [place] [facility] [id number] [address] [place] [address] Jul, Acute midline low back pain without sciatica M54.5 and Severe episode of recurrent major depressive disorder, without psychotic features F33.2 [place] [facility] [id number] [address] [place] [address] Jul, Low back pain M54.5 and Othe r chronic pain G89.29 [facility] [address] [facility] [id number] [address] [place] [address] Jun, Acute midline low back pain without sciatica M54.5 [place] [address] [address] [facility] [id number] [address] [place] [address] Jun, Acute midline low back pain without sciatica M54.5 and Severe episode of recurrent major depressive disorder, without psychotic features F33.2 [place] [address] [address] [facility] [id number] [address] [place] [address] Apr, [place] [address] [address] [facility] [id number] [address] [place] [address] Apr, Severe episode of recurrent major depressive disorder, without psychotic features F33.2 ; Arthralgia, unspecified joint M25.50 ; Chilling R68.83 ; Acute non-recurrent maxillary sinusitis J01.00 and Encounter for immunization Z23 [facility] [address] [facility] [id number] [address] [place] [address] November, Dysuria R30.0 and Urinary tr act infection without hematuria, site unspecified N39.0 [facility] [address] [facility] [id number] [address] [place] [address] November, Viral upper respiratory trac t infection J06.[address]B [id number] [place] [address] Oct, Encounter for other screenin g for malignant neoplasm of breast Z12.39 [facility] [address] [facility] [id number] [address] [place] [address] Oct, Encounter for other screenin g for malignant neoplasm of breast Z12.39 [place] [address] [address] [facility] [id number] [address] [place] [address] Sep, Abdominal pain R10.9 ; Acute diverticulitis K57.92 ; History of stomach ulcers Z87.19 and Dysfunction of both eustachian tubes H69.83 [place] [address] [address] 18 Sep, 2018 [place] [address] [address] 11 Aug, 2018 [place] [address] [address] Jun, Screening cholesterol level Z13.[address] [address] Jun, Personal history of malignan t neoplasm of breast Z85.3 ; Bladder prolapse, female, acquired N81.10 and Dizziness R42 [address] [address] May, Encounter for immunization Z 23 [facility] [address] [address] May, Dysuria R30.0 and Acute urin beata tract infection N39.0 [facility] [address] [address] Mar, Insect bite (nonvenomous), r ight lower leg, initial encounter S80.861A and Bitten or stung by nonvenomous insect and other nonvenomous arthropods, initial encounter W57.XXXA [address] [address] Feb, Dizziness R42 ; Migraine G43 .909 ; Anhedonia R45.84 and Screening cholesterol level Z13.220 [facility] [address] [address] Jan, Dysuria R30.0 and Acute cyst itis with hematuria N30.01 [facility] [address] [place] [address] Sep, Dysuria R30.0 ; Acute cystit is with hematuria N30.01 and Abrasion of left cornea, initial encounter S05.02XA [facility] IN [facility] [address] [address] Aug, Dysuria R30.0 and Acute cyst itis with hematuria N30.01 [facility] [address] [address] Feb, Dizziness R42 ; Chronic pans inusitis J32.4 and Chronic seasonal allergic rhinitis, unspecified trigger J30.2 [facility] [address] [address] Dec, Personal history of breast c ancer Z85.3 ; Anhedonia R45.84 ; Chronic allergic rhinitis, unspecified seasonality, unspecified trigger J30.9 and Bladder prolapse, female, acquired N81.10 [facility] [address] [address] Dec, [facility] [address] [address] November, Seasonal allergic rhinitis, unspecified allergic rhinitis trigger J30.2 [place] [address] [address] November, [facility] [address] [address] November, Dysuria R30.0 ; Encounter fo r immunization Z23 and Personal history of pneumonia (recurrent) Z87.01 [facility] [address] [address] Aug, Sinusitis J32.9 [place] [address] [address] May, Acute recurrent maxillary si nusitis J01.01 [facility] [address] [address] May, Sinusitis J32.9 and Subacute maxillary sinusitis J01.00 [facility] [address] [address] May, Subacute maxillary sinusitis J01.00 [facility] [id number] [place] [id number] Feb, Dental examination Z01.20 [facility] [address] [address] Jan, Dysuria R30.0 and Acute cyst itis without hematuria N30.00 [facility] [address] [id number] Jan, Dental examination Z01.20 [facility] [address] [place] [id number] [place] [id number] Dec, Dental examination Z01.20 [facility] [address] [address] Dec, Dental examination Z01.20 [facility] [address] [address] Oct, Dental examination Z01.20 [facility] [address] [address] Aug, Acute recurrent sinusitis, u nspecified location J01.91 and Sinusitis J32.9 [facility] [address] [address] May, Dizziness R42 and Sinusitis J32.9 [facility] [address] [address] May, Dysuria R30.0 and Urinary tr act infection N39.0 [facility] [address] [address] Feb, Encounter to establish care V65.8 ; Depression 311 ; Sciatica 724.3 ; Peptic ulcer 533.90 and History of breast cancer V10.3 [facility] [address] [id number] [address] [place] [address], [place] [address] 30 Jan, 2015 [facility] [address] [id number] [address] [place] [address] 06 Jan, 2015 [facility] [address] [id number] [address] [place] [address], [place] [address] 14 Oct, 2014 [facility] [address] [id number] [address] [place] [address] 13 Oct, 2014 [facility] [address] [id number] [address] [place] [address], [place] [address] 14 Jul, 2014 [facility] [address] [id number] [address] [place] [address] Jul, [facility] [address] [id number] [address] [place] [phone] Jun, [facility] [address] [id number] [address] [place] [address] Jun, [facility] [address] [id number] [address] [place] [address] May, [facility] [address] [id number] [address] [place] [address] May, [facility] [address] [id number] [address] [place] [address], [place] [address] 18 Mar, 2014 [facility] [address] [id number] [address] [place] [phone] Mar, [facility] [address] [id number] [address] [place] [address] Mar, [facility] [address] [id number] [address] [place] [address] Mar, [facility] [address] [id number] [address] [place] [address] November, [facility] [address] [id number] [address] [place] [address], [place] [address] November, [facility] [address] [id number] [address] [place] [address], [place] [address] Oct, [facility] [address] [id number] [address] [place] [address], [place] [address] Oct, [facility] [address] [id number] [address] [place] [address], [place] [address] Oct, [facility] [address] [id number] [address] [place] [address], [place] [address] Oct, [facility] [address] [id number] [address] [place] [address], [place] [address] Oct, [facility] [address] [id number] [address] [place] [address], [place] [address] Oct, [facility] [address] [id number] [address] [place] [address], [place] [address] Oct, [facility] [address] [id number] [address] [place] [address], [place] [address] Oct, [facility] [address] [id number] [address] [place] [address], [place] [address] Aug, [facility] [address] [id number] [address] [place] [address], [place] [address] Aug, [facility] [address] [id number] [address] [place] [address], [place] [address] Aug, [facility] [address] [id number] [address] [place] [address], [place] [address] Jul, [facility] [address] [id number] [address] [place] [address], [place] [address] Jul, [facility] [address] [id number] [address] [place] [address], [place] [address] Jul, [facility] [address] [id number] [address] [place] [address], [place] [address] Jul, [facility] [address] [id number] [address] [place] [address], [place] [address] Jul, [facility] [address] [id number] [address] [place] [address], [place] [address] Jul, [facility] [address] [id number] [address] [place] [address], [place] [address] Jul, [facility] [address] [id number] [address] [place] [address], [place] [address] Jun, [facility] [address] [id number] [address] [place] [address], [place] [address] Jun, [facility] [address] [id number] [address] [place] [address], [place] [address] Jun, [facility] [address] [id number] [address] [place] [address], [place] [address] Jun, [facility] [address] [id number] [address] [place] [address], [place] [address] Jun, [facility] [address] [id number] [address] [place] [address], [place] [address] Jun, [facility] [address] [id number] [address] [place] [address], [place] [address] Jun, [facility] [address] [id number] [address] [place] [address], [place] [address] Jun, [facility] [address] [id number] [address] [place] [address] Jun, [facility] [address] [id number] [address] [place] [address], [place] [address] Jun, [facility] [address] [id number] [address] [place] [address], [place] [address] Apr, [facility] [address] [id number] [address] [place] [address], [place] [address] Apr, [facility] [address] [id number] [address] [place] [address], [place] [address] Apr, [facility] [address] [id number] [address] [place] [address], [place] [address] Apr, [facility] [address] [id number] [address] [place] [address], [place] [address] Apr, [facility] [address] [id number] [address] [place] [address], [place] [address] Apr, [facility] [address] [id number] [address] [place] [address], [place] [address] Mar, [facility] [address] [id number] [address] [place] [address], [place] [address] Mar, [facility] [address] [id number] [address] [place] [address], [place] [address] Jan, [facility] [address] [id number] [address] [place] [address], [place] [address] Jul, [facility] [address] [id number] [address] [place] [address], [place] [address] Jun, [facility] [address] [id number] [address] [place] [address], [place] [address] Jun, [facility] [address] [id number] [address] [place] [address], [place] [address] Jun, [facility] [address] [id number] [address] [place] [address], [place] [address] Jun, [facility] [address] [id number] [address] [place] [address], [place] [address] Jun, [facility] [address] [id number] [address] [place] [address], [place] [address] Jun, [facility] [address] [id number] [address] [place] [address], [place] [address] May, [facility] [address] [id number] [address] [place] [address], [place] [address] May, [facility] [address] [id number] [address] [place] [address] Feb, [facility] [address] [id number] [address] [place] [address] November, [facility] [address] [id number] [address] [place] [address] Apr, [facility] [address] [id number] [address] [place] [address] Apr, [facility] [address] [id number] [address] [place] [address] Apr, [facility] [address] [id number] [address] [place] [address] Apr, [facility] [address] [id number] [address] [place] [address] Apr, IMMUNIZATIONS No Known Immunizations SOCIAL HISTORY Never Assessed REASON FOR VISIT PLAN OF CARE VITAL SIGNS Height 65 in 2013-06-27 Weight 177.67 lbs 2013-06-27 Temperature 97.6 degrees Fahrenheit 2013-06-27 Heart Rate 68 bpm 2013-06-27 Respiratory Rate 18 2013-06-27 Blood pressure systolic 118 mmHg 2013-06-27 Blood pressure diastolic 70 mmHg 2013-06-27 MEDICATIONS Unknown Medications RESULTS No Results PROCEDURES [...]
--- OUTSIDE RECORDS SUMMARY | 2020-02-27 11:40 | XMS REPORT ---
Author Author Maryam Paerl Doctor Organization [facility] Address Unknown Phone Unavailable Care Team Providers Care Maths Tutor Name Role Phone Migration, Doctor Unavailable Unavailable PROBLEMS Type Condition ICD9-CM Code [id number] Code Onset Dates Condition S tatus SNOMED Code Problem Bladder prolapse, female, acquired N81.10 Active 771494013 Problem Anhedonia R45.84 Active 23099086 Problem Chronic pansinusitis J32.4 Active 70413799 Problem Severe episode of recurrent major depressive disorder, without psychotic features F33.2 Active 20307456 Problem Personal history of breast cancer Z85.3 Active 558369898 Problem Other chronic pain G89.29 Active 8 1941835 Problem Chronic allergic rhinitis, unspecified s easonality, unspecified trigger J30.9 Active 30821032 Problem Chronic UTI N39.0 Active 05496502 6 Problem Migraine G43.909 Active 02352651 Problem Personal history of malignant neoplasm of breast Z 85.3 Active 655513123 Problem Acute diverticulitis K57.92 Active 177315684 ALLERGIES No Information ENCOUNTERS Encounter Location Date Diagnosis [place] [address] [address] [facility] [id number] [address] [place] [address] Jan, [place] [address] [address] [facility] [id number] [address] [place] [address] Aug, Low back pain M54.5 and Othe r chronic pain G89.29 [id number] [address] [facility] [id number] [address] [place] [address] Jul, Acute midline low back pain without sciatica M54.5 and Severe episode of recurrent major depressive disorder, without psychotic features F33.2 [place] [facility] [id number] [address] [place] [address] Jul, Low back pain M54.5 and Othe r chronic pain G89.29 [place] [address] [address] [facility] [id number] [address] [place] [address] Jun, Acute midline low back pain without sciatica M54.5 [place] [address] [address] Jun, Acute midline low back pain without sciatica M54.5 and Severe episode of recurrent major depressive disorder, without psychotic features F33.2 [place] [address] [address] Apr, [place] [address] [address] Apr, Severe episode of recurrent major depressive disorder, without psychotic features F33.2 ; Arthralgia, unspecified joint M25.50 ; Chilling R68.83 ; Acute non-recurrent maxillary sinusitis J01.00 and Encounter for immunization Z23 [facility] [address] [place] [id number] [address] [place] [address] November, Dysuria R30.0 and Urinary tr act infection without hematuria, site unspecified N39.0 [facility] [address] [place] [id number] [address] [place] [address] November, Viral upper respiratory trac t infection J06.[address] [id number] [address] Oct, Encounter for other screenin g for malignant neoplasm of breast Z12.39 [place] [address] [place] [id number] [address] [place] [address] Oct, Encounter for other screenin g for malignant neoplasm of breast Z12.39 [place] [address] [address] [facility] [id number] [address] [place] [address] Sep, Abdominal pain R10.9 ; Acute diverticulitis K57.92 ; History of stomach ulcers Z87.19 and Dysfunction of both eustachian tubes H69.83 [place] [address] [place] [id number] [address] [place] [address] Sep, [address] [address] 11 Aug, [address] [address] Jun, Screening cholesterol level Z13.[address] [address] 17 Jun, 2018 Personal history of malignan t neoplasm of breast Z85.3 ; Bladder prolapse, female, acquired N81.10 and Dizziness R42 [address] [address] May, Encounter for immunization Z 23 [facility] [address] [address] May, Dysuria R30.0 and Acute urin beata tract infection N39.0 [facility] [address] [address] Mar, Insect bite (nonvenomous), r ight lower leg, initial encounter S80.861A and Bitten or stung by nonvenomous insect and other nonvenomous arthropods, initial encounter W57.XXXA [address] [address] Feb, Dizziness R42 ; Migraine G43 .909 ; Anhedonia R45.84 and Screening cholesterol level Z13.220 [facility] [address] [address] Jan, Dysuria R30.0 and Acute cyst itis with hematuria N30.01 [facility] [address] [address] 14 Sep, 2017 Dysuria R30.0 ; Acute cystit is with hematuria N30.01 and Abrasion of left cornea, initial encounter S05.02XA [facility] [address] [address] Aug, Dysuria R30.0 and Acute cyst itis with hematuria N30.01 [place] [address] [address] Feb, Dizziness R42 ; Chronic pans inusitis J32.4 and Chronic seasonal allergic rhinitis, unspecified trigger J30.2 [place] [address] [address] Dec, Personal history of breast c ancer Z85.3 ; Anhedonia R45.84 ; Chronic allergic rhinitis, unspecified seasonality, unspecified trigger J30.9 and Bladder prolapse, female, acquired N81.10 [place] [address] [address] Dec, [place] [address] [address] November, Seasonal allergic rhinitis, unspecified allergic rhinitis trigger J30.2 [place] [address] [address] November, [place] [address] [address] November, Dysuria R30.0 ; Encounter fo r immunization Z23 and Personal history of pneumonia (recurrent) Z87.01 [place] [address] [address] Aug, Sinusitis J32.9 [place] [address] [address] May, Acute recurrent maxillary si nusitis J01.01 [place] [address] [address] 15 May, 2016 Sinusitis J32.9 and Subacute maxillary sinusitis J01.00 [facility] [address] [address] 14 May, 2016 Subacute maxillary sinusitis J01.00 [place] [facility] [id number] [address] [place] [id number] Feb, Dental examination Z01.20 [facility] [address] [place] [id number] [place] [address] Jan, Dysuria R30.0 and Acute cyst itis without hematuria N30.00 [facility] [address] [id number] [address] [place] [id number] Jan, Dental examination Z01.20 [facility] [address] [facility] [id number] [place] [id number] Dec, Dental examination Z01.20 [facility] [address] [address] Dec, Dental examination Z01.20 [facility] [address] [address] Oct, Dental examination Z01.20 [facility] [address] [address] Aug, Acute recurrent sinusitis, u nspecified location J01.91 and Sinusitis J32.9 [facility] [address] [address] May, Dizziness R42 and Sinusitis J32.9 [facility] [address] [address] May, Dysuria R30.0 and Urinary tr act infection N39.0 [facility] [address] [address] Feb, Encounter to establish care V65.8 ; Depression 311 ; Sciatica 724.3 ; Peptic ulcer 533.90 and History of breast cancer V10.3 [facility] [address] [place] [id number] [address] [place] [address] Jan, [facility] [address] [address] Jan, [facility] [address] [id number] [address] [place] [address], [place] [address] 14 Oct, 2014 [facility] [address] [id number] [address] [place] [address], [place] [address] 13 Oct, 2014 [facility] [address] [id number] [address] [place] [address], [place] [address] 14 Jul, 2014 [facility] [address] [id number] [address] [place] [address], [place] [address] 14 Jul, 2014 [facility] [address] [id number] [address] [place] [address], [place] [address] Jun, [facility] [address] [id number] [address] [place] [address], [place] [address] Jun, [facility] [address] [id number] [address] [place] [address], [place] [address] May, [facility] [address] [id number] [address] [place] [address], [place] [address] May, [facility] [address] [id number] [address] [place] [address], [place] [address] 18 Mar, 2014 [facility] [address] [id number] [address] [place] [address], [place] [address] 18 Mar, 2014 [facility] [address] [id number] [address] [place] [address], [place] [address] 18 Mar, 2014 [facility] [address] [id number] [address] [place] [address], [place] [address] 18 Mar, 2014 [facility] [address] [id number] [address] [place] [address], [place] [address] November, [facility] [address] [id number] [address] [place] [address], [place] [address] November, [facility] [address] [id number] [address] [place] [address], [place] [address] Oct, [facility] [address] [id number] [address] [place] [address], [place] [address] Oct, [facility] [address] [id number] [address] [place] [address], [place] [address] Oct, [facility] [address] [id number] [address] [place] [address], [place] [address] Oct, [facility] [address] [id number] [address] [place] [address], [place] [address] Oct, [facility] [address] [id number] [address] [place] [address], [place] [address] Oct, [facility] [address] [id number] [address] [place] [address], [place] [address] Oct, [facility] [address] [id number] [address] [place] [address], [place] [address] Oct, [facility] [address] [id number] [address] [place] [address], [place] [address] Aug, [facility] [address] [id number] [address] [place] [address], [place] [address] Aug, [facility] [address] [id number] [address] [place] [address], [place] [address] Aug, [facility] [address] [id number] [address] [place] [address], [place] [address] Jul, [facility] [address] [id number] [address] [place] [address], [place] [address] Jul, [facility] [address] [id number] [address] [place] [address], [place] [address] Jul, [facility] [address] [id number] [address] [place] [address], [place] [address] Jul, [facility] [address] [id number] [address] [place] [address], [place] [address] Jul, [facility] [address] [id number] [address] [place] [address], [place] [address] Jul, [facility] [address] [id number] [address] [place] [address], [place] [address] Jul, [facility] [address] [id number] [address] [place] [address], [place] [address] Jun, [facility] [address] [id number] [address] [place] [address], [place] [address] Jun, [facility] [address] [id number] [address] [place] [address], [place] [address] Jun, [facility] [address] [id number] [address] [place] [address], [place] [address] Jun, [facility] [address] [id number] [address] [place] [address], [place] [address] Jun, [facility] [address] [id number] [address] [place] [address], [place] [address] Jun, [facility] [address] [id number] [address] [place] [address], [place] [address] Jun, [facility] [address] [id number] [address] [place] [address], [place] [address] Jun, [facility] [address] [id number] [address] [place] [address], [place] [address] Jun, [facility] [address] [id number] [address] [place] [address], [place] [address] Jun, [facility] [address] [id number] [address] [place] [address] Apr, [facility] [address] [id number] [address] [place] [address], [place] [address] Apr, [facility] [address] [id number] [address] [place] [address], [place] [address] Apr, [facility] [address] [id number] [address] [place] [address] Apr, [facility] [address] [id number] [address] [place] [address] Apr, [facility] [address] [id number] [address] [place] [address], [place] [address] 24 Apr, 2013 [facility] [address] [id number] [address] [place] [address], [place] [address] 20 Mar, 2013 [facility] [address] [id number] [address] [place] [address], [place] [address] 16 Mar, 2013 [facility] [address] [id number] [address] [place] [address], [place] [address] 16 Jan, 2013 [facility] [address] [id number] [address] [place] [address], [place] [address] Jul, [facility] [address] [id number] [address] [place] [address], [place] [address] Jun, [facility] [address] [id number] [address] [place] [address], [place] [address] Jun, [facility] [address] [id number] [address] [place] [address], [place] [address] Jun, [facility] [address] [id number] [address] [place] [address], [place] [address] Jun, [facility] [address] [id number] [address] [place] [address], [place] [address] Jun, [facility] [address] [id number] [address] [place] [address], [place] [address] Jun, [facility] [address] [id number] [address] [place] [address], [place] [address] May, [facility] [address] [id number] [address] [place] [address], [place] [address] May, [facility] [address] [id number] [address] [place] [address], [place] [address] Feb, [facility] [address] [id number] [address] [place] [address], [place] [address] November, [facility] [address] [id number] [address] [place] [address] Apr, [facility] [address] [facility] [id number] [address] [place] [address] Apr, [facility] [address] [facility] [id number] [address] [place] [address] Apr, [facility] [address] [facility] [id number] [address] [place] [address] Apr, [facility] [address] [facility] [id number] [address] [place] [address] Apr, IMMUNIZATIONS No Known Immunizations SOCIAL HISTORY [...]
--- OUTSIDE RECORDS SUMMARY | 2020-02-27 11:40 | XMS REPORT ---
Author Author Maryam Casiano Organization [facility] Address [address] [place] [address] Care Team Providers Care Casing Mixer Name Role Phone NORMA Casiano Unavailable PROBLEMS Type Condition ICD9-CM Code CYJ67-ST Code Onset Dates Condition S tatus SNOMED Code Problem Bladder prolapse, female, acquired N81.10 Active 411807897 Problem Anhedonia R45.84 Active 94250080 Problem Chronic pansinusitis J32.4 Active 30292720 Problem Severe episode of recurrent major depressive disorder, without psychotic features F33.2 Active 59242261 Problem Personal history of breast cancer Z85.3 Active 451344862 Problem Other chronic pain G89.29 Active 8 9192868 Problem Chronic allergic rhinitis, unspecified s easonality, unspecified trigger J30.9 Active 06102781 Problem Chronic UTI N39.0 Active 37371714 6 Problem Migraine G43.909 Active 06485651 Problem Personal history of malignant neoplasm of breast Z 85.3 Active 344837859 Problem Acute diverticulitis K57.92 Active 214193318 ALLERGIES No Information ENCOUNTERS Encounter Location Date Diagnosis [place] [address] [facility] [id number] [address] [place] [address] Jan, [place] [address] [facility] [id number] [address] [place] [address] Oct, Acute non-recurrent maxillar y sinusitis J01.00 [place] [address] [facility] [id number] [address] [place] [address] 03 Aug, 2019 Low back pain M54.5 and Othe r chronic pain G89.29 [place] [address] [facility] [id number] [address] [place] [address] Jul, Acute midline low back pain without sciatica M54.5 and Severe episode of recurrent major depressive disorder, without psychotic features F33.2 [place] [address] [facility] [id number] [address] [place] [address] Jul, Low back pain M54.5 and Othe r chronic pain G89.29 [place] [address] [facility] [id number] [address] [place] [address] Jun, Acute midline low back pain without sciatica M54.5 [place] [address] [facility] [id number] [address] [place] [address] Jun, Acute midline low back pain without sciatica M54.5 and Severe episode of recurrent major depressive disorder, without psychotic features F33.2 [place] [address] [facility] [id number] [address] [place] [address] Apr, [place] [address] [facility] [id number] [address] [place] [address] Apr, Severe episode of recurrent major depressive disorder, without psychotic features F33.2 ; Arthralgia, unspecified joint M25.50 ; Chilling R68.83 ; Acute non-recurrent maxillary sinusitis J01.00 and Encounter for immunization Z23 [facility] [address] [facility] [id number] [address] [place] [address] November, Dysuria R30.0 and Urinary tr act infection without hematuria, site unspecified N39.0 [facility] [address] [facility] [id number] [address] [place] [address] November, Viral upper respiratory trac t infection J06.[address] [place] [address] Oct, Encounter for other screenin g for malignant neoplasm of breast Z12.39 [facility] [address] [facility] [id number] [address] [place] [address] Oct, Encounter for other screenin g for malignant neoplasm of breast Z12.39 [place] [address] [facility] [id number] [address] [place] [address] Sep, Abdominal pain R10.9 ; Acute diverticulitis K57.92 ; History of stomach ulcers Z87.19 and Dysfunction of both eustachian tubes H69.[address] [address] 18 Sep, 2018 [place] [address] [address] Aug, [place] [address] [address] Jun, Screening cholesterol level Z13.[address] [address] Jun, Personal history of malignan t neoplasm of breast Z85.3 ; Bladder prolapse, female, acquired N81.10 and Dizziness R42 [address] [address] May, Encounter for immunization Z 23 [facility] [address] [place] [address] May, Dysuria R30.0 and Acute urin beata tract infection N39.0 [facility] [address] [address] Mar, Insect bite (nonvenomous), r ight lower leg, initial encounter S80.861A and Bitten or stung by nonvenomous insect and other nonvenomous arthropods, initial encounter W57.XXXA [address] [address] Feb, Dizziness R42 ; Migraine G43 .909 ; Anhedonia R45.84 and Screening cholesterol level Z13.220 [facility] [address] [address] Jan, Dysuria R30.0 and Acute cyst itis with hematuria N30.01 [facility] [address] [address] Sep, Dysuria R30.0 ; Acute cystit is with hematuria N30.01 and Abrasion of left cornea, initial encounter S05.02XA [facility] [address] [address] Aug, Dysuria R30.0 and Acute cyst itis with hematuria N30.01 [facility] [address] [address] Feb, Dizziness R42 ; Chronic pans inusitis J32.4 and Chronic seasonal allergic rhinitis, unspecified trigger J30.2 [place] [address] [address] Dec, Personal history of breast c ancer Z85.3 ; Anhedonia R45.84 ; Chronic allergic rhinitis, unspecified seasonality, unspecified trigger J30.9 and Bladder prolapse, female, acquired N81.10 [facility] [address] [address] Dec, [facility] [address] [address] November, Seasonal allergic rhinitis, unspecified allergic rhinitis trigger J30.2 [facility] [address] [address] November, [facility] [address] [address] November, Dysuria R30.0 ; Encounter fo r immunization Z23 and Personal history of pneumonia (recurrent) Z87.01 [facility] [address] [address] Aug, Sinusitis J32.9 [place] [address] [address] May, Acute recurrent maxillary si nusitis J01.01 [facility] [address] [address] 15 May, 2016 Sinusitis J32.9 and Subacute maxillary sinusitis J01.00 [facility] [address] [address] May, Subacute maxillary sinusitis J01.00 [facility] [address] [id number] Feb, Dental examination Z01.20 [facility] [address] [address] Jan, Dysuria R30.0 and Acute cyst itis without hematuria N30.00 [facility] [address] [id number] Jan, Dental examination Z01.20 [facility] [address] [id number] Dec, Dental examination Z01.20 [facility] [address] [address] Dec, Dental examination Z01.20 [facility] [address] [address] Oct, Dental examination Z01.20 [facility] [address] [address] Aug, Acute recurrent sinusitis, u nspecified location J01.91 and Sinusitis J32.9 [facility] [address] [address] May, Dizziness R42 and Sinusitis J32.9 [facility] [address] [address] May, Dysuria R30.0 and Urinary tr act infection N39.0 [facility] [address] [address] Feb, Encounter to establish care V65.8 ; Depression 311 ; Sciatica 724.3 ; Peptic ulcer 533.90 and History of breast cancer V10.3 [facility] [address] [id number] [address] [place] [address] 30 Jan, 2015 [facility] [address] [id number] [address] [place] [address] 06 Jan, 2015 [facility] [address] [id number] [address] [place] [address] 14 Oct, 2014 [facility] [address] [id number] [address] [place] [address] Oct, [facility] [address] [id number] [address] [place] [address] Jul, [facility] [address] [id number] [address] [place] [address] Jul, [facility] [address] [id number] [address] [place] [address] Jun, [facility] [address] [id number] [address] [place] [address] Jun, [facility] [address] [id number] [address] [place] [address] May, [facility] [address] [id number] [address] [place] [address] May, [facility] [address] [id number] [address] [place] [address] 18 Mar, 2014 [facility] [address] [id number] [address] [place] [address] Mar, [facility] [address] [id number] [address] [place] [address] Mar, [facility] [address] [id number] [address] [place] [address] Mar, [facility] [address] [id number] [address] [place] [address] November, [facility] [address] [id number] [address] [place] [address], [place] [address] November, [facility] [address] [id number] [address] [place] [address], [place] [address] Oct, [facility] [address] [id number] [address] [place] [address], [place] [address] Oct, [facility] [address] [id number] [address] [place] [address], [place] [address] Oct, [facility] [address] [id number] [address] [place] [address], [place] [address] Oct, [facility] [address] [id number] [address] [place] [address], [place] [address] Oct, [facility] [address] [id number] [address] [place] [address], [place] [address] Oct, [facility] [address] [id number] [address] [place] [address], [place] [address] Oct, [facility] [address] [id number] [address] [place] [address], [place] [address] Oct, [facility] [address] [id number] [address] [place] [address], [place] [address] Aug, [facility] [address] [id number] [address] [place] [address], [place] [address] Aug, [facility] [address] [id number] [address] [place] [address], [place] [address] Aug, [facility] [address] [id number] [address] [place] [address], [place] [address] Jul, [facility] [address] [id number] [address] [place] [address], [place] [address] Jul, [facility] [address] [id number] [address] [place] [address], [place] [address] Jul, [facility] [address] [id number] [address] [place] [address] Jul, [facility] [address] [id number] [address] [place] [address], [place] [address] Jul, [facility] [address] [id number] [address] [place] [address], [place] [address] Jul, [facility] [address] [id number] [address] [place] [address], [place] [address] Jul, [facility] [address] [id number] [address] [place] [address], [place] [address] Jun, [facility] [address] [id number] [address] [place] [address], [place] [address] Jun, [facility] [address] [id number] [address] [place] [address], [place] [address] Jun, [facility] [address] [id number] [address] [place] [address] Jun, [facility] [address] [id number] [address] [place] [address], [place] [address] Jun, [facility] [address] [id number] [address] [place] [address], [place] [address] Jun, [facility] [address] [id number] [address] [place] [address], [place] [address] Jun, [facility] [address] [id number] [address] [place] [address], [place] [address] Jun, [facility] [address] [id number] [address] [place] [address] Jun, [facility] [address] [id number] [address] [place] [address], [place] [address] Jun, [facility] [address] [id number] [address] [place] [address], [place] [address] Apr, [facility] [address] [id number] [address] [place] [address], [place] [address] Apr, [facility] [address] [id number] [address] [place] [address], [place] [address] Apr, [facility] [address] [id number] [address] [place] [address], [place] [address] Apr, [facility] [address] [id number] [address] [place] [address], [place] [address] Apr, [facility] [address] [id number] [address] [place] [address], [place] [address] Apr, [facility] [address] [id number] [address] [place] [address], [place] [address] Mar, [facility] [address] [id number] [address] [place] [address], [place] [address] Mar, [facility] [address] [id number] [address] [place] [address], [place] [address] Jan, [facility] [address] [id number] [address] [place] [address], [place] [address] Jul, [facility] [address] [id number] [address] [place] [address], [place] [address] Jun, [facility] [address] [id number] [address] [place] [address], [place] [address] Jun, [facility] [address] [id number] [address] [place] [address], [place] [address] Jun, [facility] [address] [id number] [address] [place] [address], [place] [address] Jun, [facility] [address] [id number] [address] [place] [address], [place] [address] Jun, [facility] [address] [id number] [address] [place] [address], [place] [address] Jun, [facility] [address] [id number] [address] [place] [address], [place] [address] May, [facility] [address] [id number] [address] [place] [address] [address] May, [facility] [address] [id number] [address] [place] [address] Feb, [facility] [address] [id number] [address] [place] [address] November, [facility] [address] [id number] [address] [place] [address] Apr, [facility] [address] [id number] [address] [place] [address] Apr, [facility] [address] [id number] [address] [place] [address] Apr, [facility] [address] [id number] [address] [place] [id number] Apr, [facility] [address] [id number] [address] [place] [address] Apr, IMMUNIZATIONS No Known Immunizations SOCIAL HISTORY [...]
--- OUTSIDE RECORDS SUMMARY | 2020-02-27 11:40 | XMS REPORT ---
Author Author Maryam Casiano Organization [facility] Address [address] [place] [address] Care Team Providers Care Human Resources Vice President Name Role Phone NORMA Casiano Unavailable PROBLEMS Type Condition ICD9-CM Code [id number] Code Onset Dates Condition S tatus SNOMED Code Problem Bladder prolapse, female, acquired N81.10 Active 888626159 Problem Anhedonia R45.84 Active 41553803 Problem Chronic pansinusitis J32.4 Active 09152802 Problem Severe episode of recurrent major depressive disorder, without psychotic features F33.2 Active 86240466 Problem Personal history of breast cancer Z85.3 Active 440970630 Problem Other chronic pain G89.29 Active 8 6308760 Problem Chronic allergic rhinitis, unspecified s easonality, unspecified trigger J30.9 Active 55021488 Problem Chronic UTI N39.0 Active 17593380 6 Problem Migraine G43.909 Active 28968852 Problem Personal history of malignant neoplasm of breast Z 85.3 Active 076893289 Problem Acute diverticulitis K57.92 Active [id number] ALLERGIES No Information ENCOUNTERS Encounter Location Date Diagnosis [place] [address] [address] [facility] [id number] [address] [place] [phone] Jan, [place] [id number] [facility] [id number] [address] [place] [address] Aug, Low back pain M54.5 and Othe r chronic pain G89.29 [facility] [address] [facility] [id number] [address] [place] [address] Jul, Acute midline low back pain without sciatica M54.5 and Severe episode of recurrent major depressive disorder, without psychotic features F33.2 [place] [address] [facility] [id number] [address] [place] [address] Jul, Low back pain M54.5 and Othe r chronic pain G89.29 [place] [address] [facility] [id number] [address] [place] [address] Jun, Acute midline low back pain without sciatica M54.5 [place] [address] [facility] [id number] [address] [place] [address] Jun, Acute midline low back pain without sciatica M54.5 and Severe episode of recurrent major depressive disorder, without psychotic features F33.2 [place] [address] [facility] [id number] [address] [place] [address] Apr, [place] [address] [place] [id number] [place] [address] Apr, Severe episode of recurrent major depressive disorder, without psychotic features F33.2 ; Arthralgia, unspecified joint M25.50 ; Chilling R68.83 ; Acute non-recurrent maxillary sinusitis J01.00 and Encounter for immunization Z23 [facility] [address] [place] [id number] [address] [place] [address] November, Dysuria R30.0 and Urinary tr act infection without hematuria, site unspecified N39.0 [facility] [address] [facility] [id number] [address] [place] [address] November, Viral upper respiratory trac t infection J06.[address] 340B [id number] [place] [address] Oct, Encounter for other screenin g for malignant neoplasm of breast Z12.39 [place] [address] [facility] [id number] [address] [place] [address] Oct, Encounter for other screenin g for malignant neoplasm of breast Z12.39 [place] [address] [facility] [id number] [address] [place] [address] Sep, Abdominal pain R10.9 ; Acute diverticulitis K57.92 ; History of stomach ulcers Z87.19 and Dysfunction of both eustachian tubes H69.83 [place] [address] [address] 18 Sep, 2018 [place] [address] [address] 11 Aug, 2018 [place] [address] [address] Jun, Screening cholesterol level Z13.220 [place] [address] [address] Jun, Personal history of malignan t neoplasm of breast Z85.3 ; Bladder prolapse, female, acquired N81.10 and Dizziness R42 [address] [address] May, Encounter for immunization Z 23 [facility] [address] [address] May, Dysuria R30.0 and Acute urin beata tract infection N39.0 [facility] [address] [address] Mar, Insect bite (nonvenomous), r ight lower leg, initial encounter S80.861A and Bitten or stung by nonvenomous insect and other nonvenomous arthropods, initial encounter W57.XXXA [address] [address] Feb, Dizziness R42 ; Migraine G43 .909 ; Anhedonia R45.84 and Screening cholesterol level Z13.220 [facility] [address] [address] Jan, Dysuria R30.0 and Acute cyst itis with hematuria N30.01 [facility] [address] [place] [address] 14 Sep, 2017 Dysuria R30.0 ; Acute cystit is with hematuria N30.01 and Abrasion of left cornea, initial encounter S05.02XA [facility] [address] [facility] [id number] [place] [address] Aug, Dysuria R30.0 and Acute cyst itis with hematuria N30.01 [facility] [address] [place] [id number] [address] [place] [address] Feb, Dizziness R42 ; Chronic pans inusitis J32.4 and Chronic seasonal allergic rhinitis, unspecified trigger J30.2 [facility] [address] [address] Dec, Personal history of breast c ancer Z85.3 ; Anhedonia R45.84 ; Chronic allergic rhinitis, unspecified seasonality, unspecified trigger J30.9 and Bladder prolapse, female, acquired N81.10 [facility] [address] [address] Dec, [facility] [address] [address] November, Seasonal allergic rhinitis, unspecified allergic rhinitis trigger J30.2 [place] [address] [address] November, [facility] [address] [address] November, Dysuria R30.0 ; Encounter fo r immunization Z23 and Personal history of pneumonia (recurrent) Z87.01 [facility] [address] [address] Aug, Sinusitis J32.9 [place] [address] [address] May, Acute recurrent maxillary si nusitis J01.01 [facility] [address] [place] [id number] [place] [address] May, Sinusitis J32.9 and Subacute maxillary sinusitis J01.00 [place] [address] [address] May, Subacute maxillary sinusitis J01.00 [facility] [address] [place] [id number] [place] [id number] Feb, Dental examination Z01.20 [facility] [address] [place] [id number] [place] [address] Jan, Dysuria R30.0 and Acute cyst itis without hematuria N30.00 [facility] [address] [place] [id number] [place] [id number] Jan, Dental examination Z01.20 [facility] [address] [id number] Dec, Dental examination Z01.20 [facility] [address] [address] Dec, Dental examination Z01.20 [facility] [address] [address] Oct, Dental examination Z01.20 [facility] [address] [address] Aug, Acute recurrent sinusitis, u nspecified location J01.91 and Sinusitis J32.9 [facility] [address] [address] May, Dizziness R42 and Sinusitis J32.9 [facility] [address] [address] May, Dysuria R30.0 and Urinary tr act infection N39.0 [facility] [address] [address] Feb, Encounter to establish care V65.8 ; Depression 311 ; Sciatica 724.3 ; Peptic ulcer 533.90 and History of breast cancer V10.3 [facility] [address] [address] 30 Jan, 2015 [facility] [address] [id number] [address] [place] [address], [place] [address] 06 Jan, 2015 [facility] [address] [id number] [address] [place] [address], [place] [address] 14 Oct, 2014 [facility] [address] [id number] [address] [place] [address], [place] [address] Oct, [facility] [address] [id number] [address] [place] [address], [place] [address] 14 Jul, 2014 [facility] [address] [id number] [address] [place] [address], [place] [address] Jul, [facility] [address] [id number] [address] [place] [address], [place] [address] Jun, [facility] [address] [id number] [address] [place] [address], [place] [address] Jun, [facility] [address] [id number] [address] [place] [address], [place] [address] May, [facility] [address] [id number] [address] [place] [address], [place] [address] May, [facility] [address] [id number] [address] [place] [address], [place] [address] 18 Mar, 2014 [facility] [address] [id number] [address] [place] [address], [place] [address] 18 Mar, 2014 [facility] [address] [id number] [address] [place] [address], [place] [address] Mar, [facility] [address] [id number] [address] [place] [address], [place] [address] Mar, [facility] [address] [id number] [address] [place] [address], [place] [address] November, [facility] [address] [id number] [address] [place] [address], [place] [address] November, [facility] [address] [id number] [address] [place] [address], [place] [address] Oct, [facility] [address] [id number] [address] [place] [address], [place] [address] Oct, [facility] [address] [id number] [address] [place] [address], [place] [address] Oct, [facility] [address] [id number] [address] [place] [address], [place] [address] Oct, [facility] [address] [id number] [address] [place] [address], [place] [address] Oct, [facility] [address] [id number] [address] [place] [address], [place] [address] Oct, [facility] [address] [id number] [address] [place] [address], [place] [address] Oct, [facility] [address] [id number] [address] [place] [address], [place] [address] Oct, [facility] [address] [id number] [address] [place] [address], [place] [address] Aug, [facility] [address] [id number] [address] [place] [address], [place] [address] Aug, [facility] [address] [id number] [address] [place] [address], [place] [address] Aug, [facility] [address] [id number] [address] [place] [address], [place] [address] Jul, [facility] [address] [id number] [address] [place] [address], [place] [address] Jul, [facility] [address] [id number] [address] [place] [address], [place] [address] Jul, [facility] [address] [id number] [address] [place] [address], [place] [address] Jul, [facility] [address] [id number] [address] [place] [address], [place] [address] Jul, [facility] [address] [id number] [address] [place] [address], [place] [address] Jul, [facility] [address] [id number] [address] [place] [address], [place] [address] Jul, [facility] [address] [id number] [address] [place] [address], [place] [address] Jun, [facility] [address] [id number] [address] [place] [address], [place] [address] Jun, [facility] [address] [id number] [address] [place] [address], [place] [address] Jun, [facility] [address] [id number] [address] [place] [address], [place] [address] Jun, [facility] [address] [id number] [address] [place] [address], [place] [address] Jun, [facility] [address] [id number] [address] [place] [address] Jun, [facility] [address] [id number] [address] [place] [address], [place] [address] Jun, [facility] [address] [id number] [address] [place] [address] Jun, [facility] [address] [id number] [address] [place] [address] Jun, [facility] [address] [id number] [address] [place] [address] Jun, [facility] [address] [id number] [address] [place] [address], [place] [address] Apr, [facility] [address] [id number] [address] [place] [address], [place] [address] Apr, [facility] [address] [id number] [address] [place] [address] Apr, [facility] [address] [id number] [address] [place] [address] Apr, [facility] [address] [id number] [address] [place] [address], [place] [address] Apr, [facility] [address] [id number] [address] [place] [address], [place] [address] Apr, [facility] [address] [id number] [address] [place] [address], [place] [address] Mar, [facility] [address] [id number] [address] [place] [address], [place] [address] 16 Mar, 2013 [facility] [address] [id number] [address] [place] [address], [place] [address] Jan, [facility] [address] [id number] [address] [place] [address], [place] [address] Jul, [facility] [address] [id number] [address] [place] [address], [place] [address] Jun, [facility] [address] [id number] [address] [place] [address], [place] [address] Jun, [facility] [address] [id number] [address] [place] [address], [place] [address] Jun, [facility] [address] [id number] [address] [place] [address], [place] [address] Jun, [facility] [address] [id number] [address] [place] [address], [place] [address] Jun, [facility] [address] [id number] [address] [place] [address], [place] [address] Jun, [facility] [address] [id number] [address] [place] [address], [place] [address] May, [facility] [address] [id number] [address] [place] [address], [place] [address] May, [facility] [address] [id number] [address] [place] [address], [place] [address] Feb, [facility] [address] [id number] [address] [place] [address] November, [facility] [address] [id number] [address] [place] [address] Apr, [facility] [address] [facility] [id number] [address] [place] [address] Apr, [facility] [address] [facility] [id number] [address] [place] [address] Apr, [facility] [address] [facility] [id number] [address] [place] [address] Apr, [facility] [address] [facility] [id number] [address] [place] [address] Apr, IMMUNIZATIONS No Known Immunizations SOCIAL HISTORY Never Assessed REASON FOR VISIT PLAN OF CARE VITAL SIGNS Height 65 in 2013-08-17 Weight 172.5 lbs 2013-08-17 Temperature 98.6 degrees Fahrenheit 2013-08-17 Heart Rate 82 bpm 2013-08-17 Respiratory Rate 20 2013-08-17 Blood pressure systolic 126 mmHg 2013-08-17 Blood pressure diastolic 78 mmHg 2013-08-17 MEDICATIONS Unknown Medications RESULTS No Results PROCEDURES [...]
--- OUTSIDE RECORDS SUMMARY | 2020-02-27 11:40 | XMS REPORT ---
Author Author Maryam Casiano Organization [facility] Address [address] [place] [address] Care Team Providers Care Program Analyst Name Role Phone NORMA Casiano Unavailable PROBLEMS Type Condition ICD9-CM Code UUW11-SC Code Onset Dates Condition S tatus SNOMED Code Problem Bladder prolapse, female, acquired N81.10 Active 547046672 Problem Anhedonia R45.84 Active 24994106 Problem Chronic pansinusitis J32.4 Active 92877198 Problem Severe episode of recurrent major depressive disorder, without psychotic features F33.2 Active 56712559 Problem Personal history of breast cancer Z85.3 Active 774403316 Problem Other chronic pain G89.29 Active 8 4613724 Problem Chronic allergic rhinitis, unspecified s easonality, unspecified trigger J30.9 Active 81345592 Problem Chronic UTI N39.0 Active 23749677 6 Problem Migraine G43.909 Active 78626514 Problem Personal history of malignant neoplasm of breast Z 85.3 Active 987192943 Problem Acute diverticulitis K57.92 Active [id number] ALLERGIES No Information ENCOUNTERS Encounter Location Date Diagnosis [place] [address] [facility] [id number] [address] [place] [address] Jan, [place] [address] [facility] [id number] [address] [place] [address] Aug, Low back pain M54.5 and Othe r chronic pain G89.29 [facility] [address] [facility] [id number] [address] [place] [address] Jul, Acute midline low back pain without sciatica M54.5 and Severe episode of recurrent major depressive disorder, without psychotic features F33.2 [place] [address] [facility] [id number] [address] [place] [address] Jul, Low back pain M54.5 and Othe r chronic pain G89.29 [place] [address] [address] [facility] [id number] [address] [place] [address] Jun, Acute midline low back pain without sciatica M54.5 [place] [address] [facility] [id number] [address] [place] [address] Jun, Acute midline low back pain without sciatica M54.5 and Severe episode of recurrent major depressive disorder, without psychotic features F33.2 [place] [address] [address] [facility] [id number] [address] [place] [address] Apr, [place] [address] [place] [id number] [place] [address] Apr, Severe episode of recurrent major depressive disorder, without psychotic features F33.2 ; Arthralgia, unspecified joint M25.50 ; Chilling R68.83 ; Acute non-recurrent maxillary sinusitis J01.00 and Encounter for immunization Z23 [facility] [address] [place] [id number] [address] [place] [address] November, Dysuria R30.0 and Urinary tr act infection without hematuria, site unspecified N39.0 [facility] [address] [facility] [id number] [address] [place] [address] November, Viral upper respiratory trac t infection J06.[id number] [place] [address] Oct, Encounter for other screenin g for malignant neoplasm of breast Z12.39 [place] [address] [facility] [id number] [address] [place] [address] Oct, Encounter for other screenin g for malignant neoplasm of breast Z12.39 [place] [address] [address] [facility] [id number] [address] [place] [address] Sep, Abdominal pain R10.9 ; Acute diverticulitis K57.92 ; History of stomach ulcers Z87.19 and Dysfunction of both eustachian tubes H69.83 [place] [address] [address] 18 Sep, 2018 [place] [address] [address] 11 Aug, 2018 [place] [address] [address] Jun, Screening cholesterol level Z13.220 [place] [address] [address] Jun, Personal history of malignan t neoplasm of breast Z85.3 ; Bladder prolapse, female, acquired N81.10 and Dizziness R42 [address] [address] May, Encounter for immunization Z [address] [facility] [address] [address] May, Dysuria R30.0 and Acute urin beata tract infection N39.0 [facility] [address] [address] Mar, Insect bite (nonvenomous), r ight lower leg, initial encounter S80.861A and Bitten or stung by nonvenomous insect and other nonvenomous arthropods, initial encounter W57.XXXA [address] [address] Feb, Dizziness R42 ; Migraine G43 .909 ; Anhedonia R45.84 and Screening cholesterol level Z13.220 [facility] [address] [address] Jan, Dysuria R30.0 and Acute cyst itis with hematuria N30.[address] [facility] [address] [place] [address] 14 Sep, 2017 Dysuria R30.0 ; Acute cystit is with hematuria N30.01 and Abrasion of left cornea, initial encounter S05.02XA [facility] [address] [facility] [id number] [place] [address] Aug, Dysuria R30.0 and Acute cyst itis with hematuria N30.01 [facility] [address] [place] [id number] [address] [place] [address] Feb, Dizziness R42 ; Chronic pans inusitis J32.4 and Chronic seasonal allergic rhinitis, unspecified trigger J30.2 [facility] [address] [address] Dec, Personal history of breast c ancer Z85.3 ; Anhedonia R45.84 ; Chronic allergic rhinitis, unspecified seasonality, unspecified trigger J30.9 and Bladder prolapse, female, acquired N81.10 [facility] [address] [address] Dec, [facility] [address] [address] November, Seasonal allergic rhinitis, unspecified allergic rhinitis trigger J30.2 [place] [address] [address] November, [facility] [address] [address] November, Dysuria R30.0 ; Encounter fo r immunization Z23 and Personal history of pneumonia (recurrent) Z87.01 [facility] [address] [address] Aug, Sinusitis J32.9 [place] [address] [address] May, Acute recurrent maxillary si nusitis J01.01 [facility] [address] [place] [id number] [place] [address] May, Sinusitis J32.9 and Subacute maxillary sinusitis J01.00 [place] [address] [address] May, Subacute maxillary sinusitis J01.00 [facility] [address] [place] [id number] [place] [id number] Feb, Dental examination Z01.20 [facility] [address] [place] [id number] [place] [address] Jan, Dysuria R30.0 and Acute cyst itis without hematuria N30.00 [facility] [address] [place] [id number] [place] [id number] Jan, Dental examination Z01.20 [facility] [address] [id number] Dec, Dental examination Z01.20 [facility] [address] [address] Dec, Dental examination Z01.20 [facility] [address] [address] Oct, Dental examination Z01.20 [facility] [address] [address] Aug, Acute recurrent sinusitis, u nspecified location J01.91 and Sinusitis J32.[address] [facility] [address] [address] May, Dizziness R42 and Sinusitis J32.[address] [facility] [address] [address] May, Dysuria R30.0 and Urinary tr act infection N39.0 [facility] [address] [address] Feb, Encounter to establish care V65.8 ; Depression 311 ; Sciatica 724.3 ; Peptic ulcer 533.90 and History of breast cancer V10.3 [facility] [address] [address] 30 Jan, 2015 [facility] [address] [id number] [address] [place] [address], [place] [address] 06 Jan, 2015 [facility] [address] [id number] [address] [place] [address], [place] [address] 14 Oct, 2014 [facility] [address] [id number] [address] [place] [address], [place] [address] Oct, [facility] [address] [id number] [address] [place] [address], [place] [address] 14 Jul, 2014 [facility] [address] [id number] [address] [place] [address], [place] [address] Jul, [facility] [address] [id number] [address] [place] [address], [place] [address] Jun, [facility] [address] [id number] [address] [place] [address], [place] [address] Jun, [facility] [address] [id number] [address] [place] [address], [place] [address] May, [facility] [address] [id number] [address] [place] [address], [place] [address] May, [facility] [address] [id number] [address] [place] [address], [place] [address] 18 Mar, 2014 [facility] [address] [id number] [address] [place] [address], [place] [address] 18 Mar, 2014 [facility] [address] [id number] [address] [place] [address], [place] [address] Mar, [facility] [address] [id number] [address] [place] [address], [place] [address] Mar, [facility] [address] [id number] [address] [place] [address], [place] [address] November, [facility] [address] [id number] [address] [place] [address], [place] [address] November, [facility] [address] [id number] [address] [place] [address], [place] [address] Oct, [facility] [address] [id number] [address] [place] [address], [place] [address] Oct, [facility] [address] [id number] [address] [place] [address], [place] [address] Oct, [facility] [address] [id number] [address] [place] [address], [place] [address] Oct, [facility] [address] [id number] [address] [place] [address], [place] [address] Oct, [facility] [address] [id number] [address] [place] [address], [place] [address] Oct, [facility] [address] [id number] [address] [place] [address], [place] [address] Oct, [facility] [address] [id number] [address] [place] [address], [place] [address] Oct, [facility] [address] [id number] [address] [place] [address], [place] [address] Aug, [facility] [address] [id number] [address] [place] [address], [place] [address] Aug, [facility] [address] [id number] [address] [place] [address], [place] [address] Aug, [facility] [address] [id number] [address] [place] [address], [place] [address] Jul, [facility] [address] [id number] [address] [place] [address], [place] [address] Jul, [facility] [address] [id number] [address] [place] [address], [place] [address] Jul, [facility] [address] [id number] [address] [place] [address], [place] [address] Jul, [facility] [address] [id number] [address] [place] [address], [place] [address] Jul, [facility] [address] [id number] [address] [place] [address], [place] [address] Jul, [facility] [address] [id number] [address] [place] [address], [place] [address] Jul, [facility] [address] [id number] [address] [place] [address], [place] [address] Jun, [facility] [address] [id number] [address] [place] [address], [place] [address] Jun, [facility] [address] [id number] [address] [place] [address], [place] [address] Jun, [facility] [address] [id number] [address] [place] [address], [place] [address] Jun, [facility] [address] [id number] [address] [place] [address], [place] [address] Jun, [facility] [address] [id number] [address] [place] [address] Jun, [facility] [address] [id number] [address] [place] [address], [place] [address] Jun, [facility] [address] [id number] [address] [place] [address] Jun, [facility] [address] [id number] [address] [place] [address] Jun, [facility] [address] [id number] [address] [place] [address] Jun, [facility] [address] [id number] [address] [place] [address], [place] [address] Apr, [facility] [address] [id number] [address] [place] [address], [place] [address] Apr, [facility] [address] [id number] [address] [place] [address] Apr, [facility] [address] [id number] [address] [place] [address] Apr, [facility] [address] [id number] [address] [place] [address], [place] [address] Apr, [facility] [address] [id number] [address] [place] [address], [place] [address] Apr, [facility] [address] [id number] [address] [place] [address], [place] [address] Mar, [facility] [address] [id number] [address] [place] [address], [place] [address] 16 Mar, 2013 [facility] [address] [id number] [address] [place] [address], [place] [address] Jan, [facility] [address] [id number] [address] [place] [address], [place] [address] Jul, [facility] [address] [id number] [address] [place] [address], [place] [address] Jun, [facility] [address] [id number] [address] [place] [address], [place] [address] Jun, [facility] [address] [id number] [address] [place] [address], [place] [address] Jun, [facility] [address] [id number] [address] [place] [address], [place] [address] Jun, [facility] [address] [id number] [address] [place] [address], [place] [address] Jun, [facility] [address] [id number] [address] [place] [address], [place] [address] Jun, [facility] [address] [id number] [address] [place] [address], [place] [address] May, [facility] [address] [id number] [address] [place] [address], [place] [address] May, [facility] [address] [id number] [address] [place] [address], [place] [address] Feb, [facility] [address] [id number] [address] [place] [address] November, [facility] [address] [id number] [address] [place] [address] Apr, [facility] [address] [id number] [address] [place] [address] Apr, [facility] [address] [facility] [id number] [address] [place] [address] Apr, [facility] [address] [facility] [id number] [address] [place] [address] Apr, [facility] [address] [facility] [id number] [address] [place] [address] Apr, IMMUNIZATIONS No Known Immunizations SOCIAL HISTORY Never Assessed REASON FOR VISIT PLAN OF CARE VITAL SIGNS Height 65 in 2013-08-03 Weight 175.25 lbs 2013-08-03 Temperature 97 degrees Fahrenheit 2013-08-03 Heart Rate 74 bpm 2013-08-03 Respiratory Rate 18 2013-08-03 Blood pressure systolic 120 mmHg 2013-08-03 Blood pressure diastolic 82 mmHg 2013-08-03 MEDICATIONS Unknown Medications RESULTS No Results PROCEDURES [...]
--- OUTSIDE RECORDS SUMMARY | 2020-02-27 11:40 | XMS REPORT ---
Author Author Maryam Cuba Organization [facility] Address [address] [place] [address] Care Team Providers Care Research Project Manager Name Role Phone ROBIN Cuba Unavailable PROBLEMS Type Condition ICD9-CM Code DYL79-ZH Code Onset Dates Condition S tatus SNOMED Code Problem Bladder prolapse, female, acquired N81.10 Active 195801541 Problem Anhedonia R45.84 Active 73319961 Problem Chronic pansinusitis J32.4 Active 78189264 Problem Severe episode of recurrent major depressive disorder, without psychotic features F33.2 Active 86974103 Problem Personal history of breast cancer Z85.3 Active 601428605 Problem Other chronic pain G89.29 Active 8 1358123 Problem Chronic allergic rhinitis, unspecified s easonality, unspecified trigger J30.9 Active 48740207 Problem Chronic UTI N39.0 Active 44783417 6 Problem Migraine G43.909 Active 37658966 Problem Personal history of malignant neoplasm of breast Z 85.3 Active 898609043 Problem Acute diverticulitis K57.92 Active 781436246 ALLERGIES No Information ENCOUNTERS Encounter Location Date Diagnosis [place] [address] [address] [facility] [id number] [address] [place] [address] Jan, [place] [address] [address] [facility] [id number] [address] [place] [address] Oct, Acute non-recurrent maxillar y sinusitis J01.00 [place] [address] [address] [facility] [id number] [address] [place] [address] Aug, Low back pain M54.5 and Othe r chronic pain G89.29 [place] [address] [facility] [id number] [address] [place] [address] Jul, Acute midline low back pain without sciatica M54.5 and Severe episode of recurrent major depressive disorder, without psychotic features F33.2 [place] [address] [facility] [id number] [address] [place] [address] Jul, Low back pain M54.5 and Othe r chronic pain G89.29 [facility] [address] [facility] [id number] [address] [place] [address] Jun, Acute midline low back pain without sciatica M54.5 [place] [address] [address] [facility] [id number] [address] [place] [address] Jun, Acute midline low back pain without sciatica M54.5 and Severe episode of recurrent major depressive disorder, without psychotic features F33.2 [place] [address] [address] [facility] [id number] [address] [place] [address] Apr, [place] [address] [address] [facility] [id number] [address] [place] [address] Apr, Severe episode of recurrent major depressive disorder, without psychotic features F33.2 ; Arthralgia, unspecified joint M25.50 ; Chilling R68.83 ; Acute non-recurrent maxillary sinusitis J01.00 and Encounter for immunization Z23 [facility] [address] [facility] [id number] [address] [place] [address] November, Dysuria R30.0 and Urinary tr act infection without hematuria, site unspecified N39.0 [facility] [address] [facility] [id number] [address] [place] [address] November, Viral upper respiratory trac t infection J06.[id number] [place] [address] Oct, Encounter for other screenin g for malignant neoplasm of breast Z12.39 [facility] [address] [facility] [id number] [address] [place] [address] Oct, Encounter for other screenin g for malignant neoplasm of breast Z12.39 [place] [address] [address] [facility] [id number] [address] [place] [address] Sep, Abdominal pain R10.9 ; Acute diverticulitis K57.92 ; History of stomach ulcers Z87.19 and Dysfunction of both eustachian tubes H69.83 [place] [address] [address] 18 Sep, 2018 [place] [address] [address] 11 Aug, 2018 [place] [address] [address] Jun, Screening cholesterol level Z13.[address] [address] Jun, Personal history of malignan t neoplasm of breast Z85.3 ; Bladder prolapse, female, acquired N81.10 and Dizziness R42 [address] [address] May, Encounter for immunization Z 23 [facility] [address] [address] May, Dysuria R30.0 and Acute urin beata tract infection N39.0 [facility] [address] [address] Mar, Insect bite (nonvenomous), r ight lower leg, initial encounter S80.861A and Bitten or stung by nonvenomous insect and other nonvenomous arthropods, initial encounter W57.XXXA [address] [address] Feb, Dizziness R42 ; Migraine G43 .909 ; Anhedonia R45.84 and Screening cholesterol level Z13.220 [facility] [address] [address] Jan, Dysuria R30.0 and Acute cyst itis with hematuria N30.01 [facility] IN [address] [place] [address] Sep, Dysuria R30.0 ; Acute cystit is with hematuria N30.01 and Abrasion of left cornea, initial encounter S05.02XA [facility] [address] [address] Aug, Dysuria R30.0 and Acute cyst itis with hematuria N30.01 [facility] [address] [address] Feb, Dizziness R42 ; Chronic pans inusitis J32.4 and Chronic seasonal allergic rhinitis, unspecified trigger J30.2 [facility] [address] [address] Dec, Personal history of breast c ancer Z85.3 ; Anhedonia R45.84 ; Chronic allergic rhinitis, unspecified seasonality, unspecified trigger J30.9 and Bladder prolapse, female, acquired N81.10 [facility] [address] [address] Dec, [facility] [address] [address] November, Seasonal allergic rhinitis, unspecified allergic rhinitis trigger J30.2 [place] [address] [address] November, [facility] [address] [address] November, Dysuria R30.0 ; Encounter fo r immunization Z23 and Personal history of pneumonia (recurrent) Z87.01 [facility] [address] [address] Aug, Sinusitis J32.9 [place] [address] [address] May, Acute recurrent maxillary si nusitis J01.01 [facility] [address] [address] May, Sinusitis J32.9 and Subacute maxillary sinusitis J01.00 [facility] [address] [address] May, Subacute maxillary sinusitis J01.00 [facility] [id number] [place] [id number] Feb, Dental examination Z01.20 [facility] [address] [address] Jan, Dysuria R30.0 and Acute cyst itis without hematuria N30.00 [facility] [address] [id number] Jan, Dental examination Z01.20 [facility] [address] [place] [id number] [place] [id number] Dec, Dental examination Z01.20 [facility] [address] [address] Dec, Dental examination Z01.20 [facility] [address] [address] Oct, Dental examination Z01.20 [facility] [address] [address] Aug, Acute recurrent sinusitis, u nspecified location J01.91 and Sinusitis J32.9 [facility] [address] [address] May, Dizziness R42 and Sinusitis J32.9 [facility] [address] [address] May, Dysuria R30.0 and Urinary tr act infection N39.0 [facility] [address] [address] Feb, Encounter to establish care V65.8 ; Depression 311 ; Sciatica 724.3 ; Peptic ulcer 533.90 and History of breast cancer V10.3 [facility] [address] [id number] [address] [place] [address], [place] [address] 30 Jan, 2015 [facility] [address] [id number] [address] [place] [address] 06 Jan, 2015 [facility] [address] [id number] [address] [place] [address], [place] [address] 14 Oct, 2014 [facility] [address] [id number] [address] [place] [address] 13 Oct, 2014 [facility] [address] [id number] [address] [place] [address], [place] [address] 14 Jul, 2014 [facility] [address] [id number] [address] [place] [address] Jul, [facility] [address] [id number] [address] [place] [address] Jun, [facility] [address] [id number] [address] [place] [address] Jun, [facility] [address] [id number] [address] [place] [address] May, [facility] [address] [id number] [address] [place] [address] May, [facility] [address] [id number] [address] [place] [address], [place] [address] 18 Mar, 2014 [facility] [address] [id number] [address] [place] [address] Mar, [facility] [address] [id number] [address] [place] [address] Mar, [facility] [address] [id number] [address] [place] [address] Mar, [facility] [address] [id number] [address] [place] [address] November, [facility] [address] [id number] [address] [place] [address], [place] [address] November, [facility] [address] [id number] [address] [place] [address], [place] [address] Oct, [facility] [address] [id number] [address] [place] [address], [place] [address] Oct, [facility] [address] [id number] [address] [place] [address], [place] [address] Oct, [facility] [address] [id number] [address] [place] [address], [place] [address] Oct, [facility] [address] [id number] [address] [place] [address], [place] [address] Oct, [facility] [address] [id number] [address] [place] [address], [place] [address] Oct, [facility] [address] [id number] [address] [place] [address], [place] [address] Oct, [facility] [address] [id number] [address] [place] [address], [place] [address] Oct, [facility] [address] [id number] [address] [place] [address], [place] [address] Aug, [facility] [address] [id number] [address] [place] [address], [place] [address] Aug, [facility] [address] [id number] [address] [place] [address], [place] [address] Aug, [facility] [address] [id number] [address] [place] [address], [place] [address] Jul, [facility] [address] [id number] [address] [place] [address], [place] [address] Jul, [facility] [address] [id number] [address] [place] [address], [place] [address] Jul, [facility] [address] [id number] [address] [place] [address], [place] [address] Jul, [facility] [address] [id number] [address] [place] [address], [place] [address] Jul, [facility] [address] [id number] [address] [place] [address], [place] [address] Jul, [facility] [address] [id number] [address] [place] [address], [place] [address] Jul, [facility] [address] [id number] [address] [place] [address], [place] [address] Jun, [facility] [address] [id number] [address] [place] [address], [place] [address] Jun, [facility] [address] [id number] [address] [place] [address], [place] [address] Jun, [facility] [address] [id number] [address] [place] [address], [place] [address] Jun, [facility] [address] [id number] [address] [place] [address], [place] [address] Jun, [facility] [address] [id number] [address] [place] [address], [place] [address] Jun, [facility] [address] [id number] [address] [place] [address], [place] [address] Jun, [facility] [address] [id number] [address] [place] [address], [place] [address] Jun, [facility] [address] [id number] [address] [place] [address] Jun, [facility] [address] [id number] [address] [place] [address], [place] [address] Jun, [facility] [address] [id number] [address] [place] [address], [place] [address] Apr, [facility] [address] [id number] [address] [place] [address], [place] [address] Apr, [facility] [address] [id number] [address] [place] [address], [place] [address] Apr, [facility] [address] [id number] [address] [place] [address], [place] [address] Apr, [facility] [address] [id number] [address] [place] [address], [place] [address] Apr, [facility] [address] [id number] [address] [place] [address], [place] [address] Apr, [facility] [address] [id number] [address] [place] [address], [place] [address] Mar, [facility] [address] [id number] [address] [place] [address], [place] [address] Mar, [facility] [address] [id number] [address] [place] [address], [place] [address] Jan, [facility] [address] [id number] [address] [place] [address], [place] [address] Jul, [facility] [address] [id number] [address] [place] [address], [place] [address] Jun, [facility] [address] [id number] [address] [place] [address], [place] [address] Jun, [facility] [address] [id number] [address] [place] [address], [place] [address] Jun, [facility] [address] [id number] [address] [place] [address], [place] [address] Jun, [facility] [address] [id number] [address] [place] [address], [place] [address] Jun, [facility] [address] [id number] [address] [place] [address], [place] [address] Jun, [facility] [address] [id number] [address] [place] [address], [place] [address] May, [facility] [address] [id number] [address] [place] [address], [place] [address] May, [facility] [address] [id number] [address] [place] [address] Feb, [facility] [address] [id number] [address] [place] [address] November, [facility] [address] [id number] [address] [place] [address] Apr, [facility] [address] [id number] [address] [place] [address] Apr, [facility] [address] [id number] [address] [place] [address] Apr, [facility] [address] [id number] [address] [place] [address] Apr, [facility] [address] [facility] [id number] [address] [place] [address] Apr, IMMUNIZATIONS No Known Immunizations SOCIAL HISTORY [...]
--- OUTSIDE RECORDS SUMMARY | 2020-02-27 11:40 | XMS REPORT ---
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 Name Role Phone Migration, Doctor Unavailable Unavailable PROBLEMS Type Condition ICD9-CM Code [id number] Code Onset Dates Condition S tatus SNOMED Code Problem Bladder prolapse, female, acquired N81.10 Active 000967969 Problem Anhedonia R45.84 Active 31934201 Problem Chronic pansinusitis J32.4 Active 42220639 Problem Severe episode of recurrent major depressive disorder, without psychotic features F33.2 Active 00620329 Problem Personal history of breast cancer Z85.3 Active 641329279 Problem Other chronic pain G89.29 Active 8 7869290 Problem Chronic allergic rhinitis, unspecified s easonality, unspecified trigger J30.9 Active 10542206 Problem Chronic UTI N39.0 Active 80590583 6 Problem Migraine G43.909 Active 46576893 Problem Personal history of malignant neoplasm of breast Z 85.3 Active 137904703 Problem Acute diverticulitis K57.92 Active [id number] ALLERGIES No Information ENCOUNTERS Encounter Location Date Diagnosis [place] [address] [address] [facility] [id number] [address] [place] [address] Jan, [place] [address] [address] FORMER[facility] NAMED [facility] [id number] [address] [place] [address] Oct, Acute non-recurrent maxillar y sinusitis J01.00 [place] [address] [address] [facility]MER[facility] NAM[address] [facility] [id number] [address] [place] [address] Aug, Low back pain M54.5 and Othe r chronic pain G89.29 [place] [address] [address] FORMER[facility] NAM[address] [facility] [id number] [address] [place] [id number] Jul, Acute midline low back pain without sciatica M54.5 and Severe episode of recurrent major depressive disorder, without psychotic features F33.2 [place] [address] [address] FORMER[facility] NAMED [facility] [id number] [address] [place] [address] Jul, Low back pain M54.5 and Othe r chronic pain G89.29 [place] [address] [address] [facility]MER[facility] NAMED [facility] [id number] [address] [place] [address] Jun, Acute midline low back pain without sciatica M54.5 [place] [address] [address] FOR[facility] NAMED [facility] [id number] [address] [place] [address] Jun, Acute midline low back pain without sciatica M54.5 and Severe episode of recurrent major depressive disorder, without psychotic features F33.2 [place] [address] [address] FOR[facility] NAM[address] [facility] [id number] [address] [place] [address] Apr, [place] [address] [address] [facility]AMED [facility] [id number] [address] [place] [address] Apr, Severe episode of recurrent major depressive disorder, without psychotic features F33.2 ; Arthralgia, unspecified joint M25.50 ; Chilling R68.83 ; Acute non-recurrent maxillary sinusitis J01.00 and Encounter for immunization Z23 [facility] [address] [address] [facility] [id number] [address] [place] [address] November, Dysuria R30.0 and Urinary tr act infection without hematuria, site unspecified N39.0 [facility] IN [facility] [address] FORMER[facility] [address]AM[address] [facility] [id number] [address] [place] [address] November, Viral upper respiratory trac t infection J06.[address] [id number] [address] Oct, Encounter for other screenin g for malignant neoplasm of breast Z12.39 [place] [address] [address] FORMER[facility] NAMED [facility] [id number] [address] [place] [address] Oct, Encounter for other screenin g for malignant neoplasm of breast Z12.39 [place] [address] [address] FOR[facility] NAMED [facility] [id number] [address] [place] [address] Sep, Abdominal pain R10.9 ; Acute diverticulitis K57.92 ; History of stomach ulcers Z87.19 and Dysfunction of both eustachian tubes H69.83 [place] [address] [address] 18 Sep, 2018 [place] [address] [address] 11 Aug, [address] [address] Jun, Screening cholesterol level Z13.[address] [address] 17 Jun, 2018 Personal history of malignan t neoplasm of breast Z85.3 ; Bladder prolapse, female, acquired N81.10 and Dizziness R42 [address] [address] May, Encounter for immunization Z 23 [facility] [address] [address] May, Dysuria R30.0 and Acute urin beata tract infection N39.0 [facility] IN [address] [address] Mar, Insect bite (nonvenomous), r ight lower leg, initial encounter S80.861A and Bitten or stung by nonvenomous insect and other nonvenomous arthropods, initial encounter W57.XXXA [address] [address] Feb, Dizziness R42 ; Migraine G43 .909 ; Anhedonia R45.84 and Screening cholesterol level Z13.220 [facility] [address] [address] Jan, Dysuria R30.0 and Acute cyst itis with hematuria N30.01 [facility] [address] [address] 14 Sep, 2017 Dysuria R30.0 ; Acute cystit is with hematuria N30.01 and Abrasion of left cornea, initial encounter S05.02XA [facility] [address] [facility] [address]AM[address] [facility] [id number] [address] [place] [address] Aug, Dysuria R30.0 and Acute cyst itis with hematuria N30.01 [facility] [address] [place] [id number] [place] [address] Feb, Dizziness R42 ; Chronic pans inusitis J32.4 and Chronic seasonal allergic rhinitis, unspecified trigger J30.2 [facility] [address] [facility] [address]AM[address] [facility] [id number] [place] [address] Dec, Personal history of breast c ancer Z85.3 ; Anhedonia R45.84 ; Chronic allergic rhinitis, unspecified seasonality, unspecified trigger J30.9 and Bladder prolapse, female, acquired N81.10 [facility] [address] [address] Dec, [facility] [address] [address] November, Seasonal allergic rhinitis, unspecified allergic rhinitis trigger J30.2 [facility] [address] [address] November, [facility] [address] [address] November, Dysuria R30.0 ; Encounter fo r immunization Z23 and Personal history of pneumonia (recurrent) Z87.01 [facility] [address] [place] [id number] [address] [place] [address] Aug, Sinusitis J32.9 [place] [address] [address] May, Acute recurrent maxillary si nusitis J01.01 [facility] [address] [place] [id number] [place] [address] May, Sinusitis J32.9 and Subacute maxillary sinusitis J01.00 [facility] [address] [address]AM[address] [facility] [id number] [address] [place] [address] 14 May, 2016 Subacute maxillary sinusitis J01.00 [facility] [address] [facility] [id number] [place] [id number] Feb, Dental examination Z01.20 [facility] [address] [facility] [address]AM[address] [facility] [id number] [address] [place] [address] Jan, Dysuria R30.0 and Acute cyst itis without hematuria N30.00 [facility] [address] [facility] [id number] [address] [place] [id number] Jan, Dental examination Z01.20 [facility] [id number] [place] [id number] Dec, Dental examination Z01.20 [facility] [address] [address] Dec, Dental examination Z01.20 [facility] [address] [address] Oct, Dental examination Z01.20 [facility] [address] [address] Aug, Acute recurrent sinusitis, u nspecified location J01.91 and Sinusitis J32.9 [facility] [address] [address] May, Dizziness R42 and Sinusitis J32.9 [facility] [address] [address] May, Dysuria R30.0 and Urinary tr act infection N39.0 [place] [id number] [address] Feb, Encounter to establish care V65.8 ; Depression 311 ; Sciatica 724.3 ; Peptic ulcer 533.90 and History of breast cancer V10.3 [place] [address] [address] [place] [address] 30 Jan, 2015 [facility] [address] [id number] [address] [place] [address], [place] [address] 06 Jan, 2015 [facility] [address] [id number] [address] [place] [address], [place] [address] 14 Oct, 2014 [facility] [address] [id number] [address] [place] [address], [place] [address] 13 Oct, 2014 [facility] [address] [id number] [address] [place] [address], [place] [address] 14 Jul, 2014 [facility] [address] [id number] [address] [place] [address], [place] [address] Jul, [facility] [address] [id number] [address] [place] [address], [place] [address] Jun, [facility] [address] [id number] [address] [place] [address], [place] [address] Jun, [facility] [address] [id number] [address] [place] [address], [place] [address] May, [facility] [address] [id number] [address] [place] [address], [place] [address] May, [facility] [address] [id number] [address] [place] [address], [place] [address] 18 Mar, 2014 [facility] [address] [id number] [address] [place] [address], [place] [address] 18 Mar, 2014 [facility] [address] [id number] [address] [place] [address], [place] [address] Mar, [facility] [address] [id number] [address] [place] [address], [place] [address] Mar, [facility] [address] [id number] [address] [place] [address], [place] [address] November, [facility] [address] [id number] [address] [place] [address], [place] [address] November, [facility] [address] [id number] [facility] [place] [address] Oct, [facility] [address] [id number] [address] [place] [address], [place] [address] Oct, [facility] [address] [id number] [address] [place] [address], [place] [address] Oct, [facility] [address] [id number] [address] [place] [address], [place] [address] Oct, [facility] [address] [id number] [address] [place] [address], [place] [address] Oct, [facility] [address] [id number] [address] [place] [address], [place] [address] Oct, [facility] [address] [id number] [address] [place] [address], [place] [address] Oct, [facility] [address] [id number] [address] [place] [address], [place] [address] Oct, [facility] [address] [id number] [address] [place] [address], [place] [address] Aug, [facility] [address] [id number] [address] [place] [address], [place] [address] Aug, [facility] [address] [id number] [address] [place] [address], [place] [address] Aug, [facility] [address] [id number] [address] [place] [address], [place] [address] Jul, [facility] [address] [id number] [address] [place] [address], [place] [address] Jul, [facility] [address] [id number] [address] [place] [address], [place] [address] Jul, [facility] [address] [id number] [address] [place] [address], [place] [address] Jul, [facility] [address] [id number] [address] [place] [address] Jul, [facility] [address] [id number] [address] [place] [address], [place] [address] Jul, [facility] [address] [id number] [address] [place] [address] Jul, [facility] [address] [id number] [address] [place] [address], [place] [address] Jun, [facility] [address] [id number] [address] [place] [address] Jun, [facility] [address] [id number] [address] [place] [address], [place] [address] Jun, [facility] [address] [id number] [address] [place] [address], [place] [address] Jun, [facility] [address] [id number] [address] [place] [address], [place] [address] Jun, [facility] [address] [id number] [address] [place] [address], [place] [address] Jun, [facility] [address] [id number] [address] [place] [address], [place] [address] Jun, [facility] [address] [id number] [address] [place] [address], [place] [address] Jun, [facility] [address] [id number] [address] [place] [address], [place] [address] Jun, [facility] [address] [id number] [address] [place] [address] Jun, [facility] [address] [id number] [address] [place] [address], [place] [address] Apr, [facility] [address] [id number] [address] [place] [address] Apr, [facility] [address] [id number] [address] [place] [address], [place] [address] Apr, [facility] [address] [id number] [address] [place] [address], [place] [address] Apr, [facility] [address] [id number] [address] [place] [address], [place] [address] Apr, [facility] [address] [id number] [address] [place] [address], [place] [address] Apr, [facility] [address] [id number] [address] [place] [address], [place] [address] Mar, [facility] [address] [id number] [address] [place] [address], [place] [address] 16 Mar, 2013 [facility] [address] [id number] [address] [place] [address], [place] [address] Jan, [facility] [address] [id number] [address] [place] [address], [place] [address] Jul, [facility] [address] [id number] [address] [place] [address], [place] [address] Jun, [facility] [address] [id number] [address] [place] [address], [place] [address] Jun, [facility] [address] [id number] [address] [place] [address], [place] [address] Jun, [facility] [address] [id number] [address] [place] [address], [place] [address] Jun, [facility] [address] [id number] [address] [place] [address], [place] [address] Jun, [facility] [address] [id number] [address] [place] [address], [place] [address] Jun, [facility] [address] [id number] [address] [place] [address], [place] [address] May, [facility] [address] [id number] [address] [place] [address], [place] [address] May, [facility] [address] [id number] [address] [place] [address], [place] [address] Feb, [facility] [address] [facility] [address] [facility] [id number] [address] [place] [address] November, [facility] [address] [facility]MER[facility] [address]AM[address] [facility] [id number] [address] [place] [address] Apr, [facility] [address] FORMER[facility] [address]AMED [facility] [id number] [address] [place] [address] Apr, [facility] [address] FORMER[facility] [address]AM[address] [facility] [id number] [address] [place] [address] Apr, [facility] [address] FORMER[address]AMED [facility] [id number] [address] [place] [address] Apr, [facility] [address] FORMER[facility] [address]AMED [facility] [id number] [address] [place] [address] Apr, IMMUNIZATIONS No Known Immunizations SOCIAL HISTORY [...]
--- OUTSIDE RECORDS SUMMARY | 2020-02-27 11:41 | XMS REPORT ---
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 Name Role Phone NORMA Casiano Unavailable PROBLEMS Type Condition ICD9-CM Code [id number] Code Onset Dates Condition S tatus SNOMED Code Problem Bladder prolapse, female, acquired N81.10 Active 262785789 Problem Anhedonia R45.84 Active 13496044 Problem Chronic pansinusitis J32.4 Active 90775371 Problem Severe episode of recurrent major depressive disorder, without psychotic features F33.2 Active 32505195 Problem Personal history of breast cancer Z85.3 Active 619174933 Problem Other chronic pain G89.29 Active 8 4881982 Problem Chronic allergic rhinitis, unspecified s easonality, unspecified trigger J30.9 Active 15462025 Problem Chronic UTI N39.0 Active 63528111 6 Problem Migraine G43.909 Active 29029902 Problem Personal history of malignant neoplasm of breast Z 85.3 Active 046269909 Problem Acute diverticulitis K57.92 Active 341877395 ALLERGIES No Information ENCOUNTERS Encounter Location Date Diagnosis [place] [address] [address] Jan, [facility] [address] [address] Aug, Low back pain M54.5 and Other chronic pa in G89.29 [facility] [address] [address] Jul, Acute midline low back pain without scia tru M54.5 and Severe episode of recurrent major depressive disorder, without psychotic features F33.2 [place] [address] [address] Jul, Low back pain M54.5 and Other chronic pa in G89.29 [place] [address] [address] Jun, Acute midline low back pain without scia tru M54.5 [place] [address] [address] Jun, Acute midline low back pain without scia tru M54.5 and Severe episode of recurrent major depressive disorder, without psychotic features F33.2 [place] [address] [address] Apr, [address] [address] Apr, Severe episode of recurrent major depres sive disorder, without psychotic features F33.2 ; Arthralgia, unspecified joint M25.50 ; Chilling R68.83 ; Acute non-recurrent maxillary sinusitis J01.00 and Encounter for immunization Z23 [facility] [address] [place] [id number] [address] [place] [address] November, Dysuria R30.0 and Urinary tr act infection without hematuria, site unspecified N39.0 [facility] [place] [id number] [address] [place] [address] November, Viral upper respiratory trac t infection J06.[address] [place] [address] Oct, Encounter for other screenin g for malignant neoplasm of breast Z12.39 [place] [address] [address] [place] [id number] [place] [address] Oct, Encounter for other screening for malign ant neoplasm of breast Z12.39 [place] [address] [address] Sep, Abdominal pain R10.9 ; Acute diverticuli tis K57.92 ; History of stomach ulcers Z87.19 and Dysfunction of both eustachian tubes H69.83 [place] [address] [address] Sep, [place] [address] [address] Aug, [place] [address] [address] Jun, Screening cholesterol level Z13.[address] [address] Jun, Personal history of malignant neoplasm o f breast Z85.3 ; Bladder prolapse, female, acquired N81.10 and Dizziness R42 [address] [address] May, Encounter for immunization Z23 [facility] [address] [address] May, Dysuria R30.0 and Acute urin beata tract infection N39.0 [facility] [address] [address] Mar, Insect bite (nonvenomous), r ight lower leg, initial encounter S80.861A and Bitten or stung by nonvenomous insect and other nonvenomous arthropods, initial encounter W57.XXXA [address] [address] Feb, Dizziness R42 ; Migraine G43.909 ; Anhed onia R45.84 and Screening cholesterol level Z13.220 [facility] [address] [address] Jan, Dysuria R30.0 and Acute cyst itis with hematuria N30.01 [facility] [address] [address] 14 Sep, 2017 Dysuria R30.0 ; Acute cystit is with hematuria N30.01 and Abrasion of left cornea, initial encounter S05.02XA [facility] [address] [address] Aug, Dysuria R30.0 and Acute cyst itis with hematuria N30.01 [place] [address] [address] Feb, Dizziness R42 ; Chronic pansinusitis J32 .4 and Chronic seasonal allergic rhinitis, unspecified trigger J30.2 [place] [address] [address] Dec, Personal history of breast cancer Z85.3 ; Anhedonia R45.84 ; Chronic allergic rhinitis, unspecified seasonality, unspecified trigger J30.9 and Bladder prolapse, female, acquired N81.10 [place] [address] [address] Dec, [place] [address] [address] November, Seasonal allergic rhinitis, unspecified allergic rhinitis trigger J30.2 [place] [address] [address] November, [address] [address] November, Dysuria R30.0 ; Encounter for immunizati on Z23 and Personal history of pneumonia (recurrent) Z87.01 [place] [address] [address] Aug, Sinusitis J32.9 [place] [address] [address] May, Acute recurrent maxillary sinusitis J01. [address] [address] May, Sinusitis J32.9 and Subacute maxillary s inusitis J01.00 [facility] [address] [address] May, Subacute maxillary sinusitis J01.00 [facility] [address] [id number] Feb, Dental examination Z01.[address] [facility] [address] [place] [address] Jan, Dysuria R30.0 and Acute cyst itis without hematuria N30.00 [facility] [address] [id number] Jan, Dental examination Z01.20 [facility] [address] [id number] Dec, Dental examination Z01.20 [place] [address] [address] Dec, Dental examination Z01.20 [facility] [address] [address] Oct, Dental examination Z01.20 [place] [address] [address] Aug, Acute recurrent sinusitis, unspecified l ocation J01.91 and Sinusitis J32.9 [facility] [address] [address] May, Dizziness R42 and Sinusitis J32.9 [facility] [address] [place] [address] May, Dysuria R30.0 and Urinary tr act infection N39.0 [place] [address] [address] Feb, Encounter to establish care V65.8 ; Depr ession 311 ; Sciatica 724.3 ; Peptic ulcer 533.90 and History of breast cancer V10.3 [place] [address] [address] Jan, [place] [address] [address] Jan, [place] [address] [address] Oct, [facility] [address] [id number] [place] [address] 13 Oct, 2014 [facility] [address] [id number] [place] [address] 14 Jul, 2014 [facility] [address] [id number] [place] [address] 14 Jul, 2014 [facility] [address] [id number] [place] [address] 12 Jun, 2014 [facility] [address] [id number] [place] [address] Jun, [facility] [address] [id number] [place] [address] May, [facility] [address] [id number] [place] [address] May, [facility] [address] [id number] [place] [address] 18 Mar, 2014 [facility] [address] [id number] [place] [address] 18 Mar, 2014 [facility] [address] [id number] [place] [address] 18 Mar, 2014 [facility] [address] [id number] [place] [address] 18 Mar, 2014 [facility] [address] [id number] [place] [address] November, [facility] [address] [id number] [place] [address] November, [facility] [address] [id number] [place] [address] Oct, [facility] [address] [id number] [place] [address] 22 Oct, 2013 [facility] [address] [id number] [place] [address] 17 Oct, 2013 [facility] [address] [id number] [place] [address] 17 Oct, 2013 [facility] [address] [id number] [place] [address] Oct, [facility] [address] [id number] [place] [address] Oct, [facility] [address] [id number] [place] [address] Oct, [facility] [address] [id number] [place] [address] Oct, [facility] [address] [id number] [place] [address] Aug, [facility] [address] [id number] [place] [address] Aug, [facility] [address] [id number] [place] [address] Aug, [facility] [address] [id number] [place] [address] Jul, [facility] [address] [id number] [place] [address] Jul, [facility] [address] [id number] [place] [address] Jul, [facility] [address] [id number] [place] [address] Jul, [facility] [address] [id number] [place] [address] Jul, [facility] [address] [id number] [place] [address] Jul, [facility] [address] [id number] [place] [address] Jul, [facility] [address] [id number] [place] [address] Jun, [facility] [address] [id number] [place] [address] Jun, [facility] [address] [id number] [place] [address] Jun, [facility] [address] [id number] [place] [address] Jun, [facility] [address] [id number] [place] [address] Jun, 2012 [facility] [address] [id number] [place] [address] Jun, [facility] [address] [id number] [place] [address] Jun, [facility] [address] [id number] [place] [address] Jun, [facility] [address] [id number] [place] [address] Jun, [facility] [address] [id number] [place] [address] Jun, [facility] [address] [id number] [place] [address] Apr, [facility] [address] [id number] [place] [address] Apr, [facility] [address] [id number] [place] [address] Apr, [facility] [address] [id number] [place] [address] Apr, [facility] [address] [id number] [place] [address] Apr, [facility] [address] [id number] [place] [address] Apr, [facility] [address] [place] [id number] [place] [address] Mar, [facility] [address] [id number] [place] [address] 16 Mar, 2013 [facility] [address] [id number] [place] [address] Jan, [facility] [address] [id number] [place] [address] Jul, [facility] [address] [place] [id number] [place] [address] Jun, [facility] [address] [id number] [place] [address] Jun, [facility] [address] [place] [id number] [place] [address] Jun, [facility] [address] [id number] [place] [address] Jun, [facility] [address] [place] [id number] [place] [address] Jun, [facility] [address] [id number] [place] [address] Jun, [facility] [address] [place] [id number] [place] [address] May, [facility] [address] [place] [id number] [place] [address] May, [facility] [address] [place] [id number] [place] [address] Feb, [facility] [address] [place] [id number] [place] [address] November, [facility] [address] [place] [id number] [place] [address] Apr, [facility] [address] [place] [id number] [place] [address] Apr, [facility] [address] [place] [id number] [place] [address] Apr, [facility] [address] [place] [id number] [place] [address] Apr, [facility] [address] [place] [id number] [place] [address] Apr, IMMUNIZATIONS No Known Immunizations SOCIAL HISTORY [...]
--- OUTSIDE RECORDS SUMMARY | 2020-02-27 11:41 | XMS REPORT ---
Author Author Maryam Casiano Organization [facility] Address [address] [place] [address] Care Team Providers Care Invoicing Specialist Name Role Phone NORMA Casiano Unavailable PROBLEMS Type Condition ICD9-CM Code ADX42-UM Code Onset Dates Condition S tatus SNOMED Code Problem Bladder prolapse, female, acquired N81.10 Active 347494030 Problem Anhedonia R45.84 Active 05262876 Problem Chronic pansinusitis J32.4 Active 08670064 Problem Severe episode of recurrent major depressive disorder, without psychotic features F33.2 Active 07439360 Problem Personal history of breast cancer Z85.3 Active 209960339 Problem Other chronic pain G89.29 Active 8 0802322 Problem Chronic allergic rhinitis, unspecified s easonality, unspecified trigger J30.9 Active 37554767 Problem Chronic UTI N39.0 Active 38636515 6 Problem Migraine G43.909 Active 64879038 Problem Personal history of malignant neoplasm of breast Z 85.3 Active 677288020 Problem Acute diverticulitis K57.92 Active [id number] ALLERGIES No Information ENCOUNTERS Encounter Location Date Diagnosis [place] [address] [address] Jan, [place] [address] [address] Aug, [place] [address] [address] Aug, Low back pain M54.5 and Other chronic pa in G89.29 [place] [address] [address] Jul, Acute midline low back pain without scia tru M54.5 and Severe episode of recurrent major depressive disorder, without psychotic features F33.2 [place] [address] [address] Jul, Low back pain M54.5 and Other chronic pa in G89.29 [place] [address] [address] Jun, Acute midline low back pain without scia tru M54.5 [place] [address] [address] Jun, Acute midline low back pain without scia tru M54.5 and Severe episode of recurrent major depressive disorder, without psychotic features F33.2 [place] [address] [address] Apr, [place] [address] [address] Apr, Severe episode of recurrent major depres sive disorder, without psychotic features F33.2 ; Arthralgia, unspecified joint M25.50 ; Chilling R68.83 ; Acute non-recurrent maxillary sinusitis J01.00 and Encounter for immunization Z23 [facility] [address] [place] [id number] [place] [address] November, Dysuria R30.0 and Urinary tr act infection without hematuria, site unspecified N39.0 [facility] [address] [place] [id number] [place] [address] November, Viral upper respiratory trac t infection J06.9 [address] [place] [address] Oct, Encounter for other screenin g for malignant neoplasm of breast Z12.39 [place] [address] [address] Oct, Encounter for other screening for malign ant neoplasm of breast Z12.39 [place] [address] [place] [id number] [place] [address] Sep, Abdominal pain R10.9 ; Acute diverticuli tis K57.92 ; History of stomach ulcers Z87.19 and Dysfunction of both eustachian tubes H69.83 [place] [address] [address] 18 Sep, 2018 [place] [address] [address] 11 Aug, 2018 [place] [address] [address] Jun, Screening cholesterol level Z13.220 [place] [address] [address] 17 Jun, 2018 Personal history of malignant neoplasm o f breast Z85.3 ; Bladder prolapse, female, acquired N81.10 and Dizziness R42 [address] [address] May, Encounter for immunization Z23 [facility] [address] [address] May, Dysuria R30.0 and Acute urin beata tract infection N39.0 [facility] [address] [address] Mar, Insect bite (nonvenomous), r ight lower leg, initial encounter S80.861A and Bitten or stung by nonvenomous insect and other nonvenomous arthropods, initial encounter W57.XXXA [address] [address] Feb, Dizziness R42 ; Migraine G43.909 ; Anhed onia R45.84 and Screening cholesterol level Z13.220 [facility] [address] [address] Jan, Dysuria R30.0 and Acute cyst itis with hematuria N30.01 [facility] [address] [address] 14 Sep, 2017 Dysuria R30.0 ; Acute cystit is with hematuria N30.01 and Abrasion of left cornea, initial encounter S05.02XA [facility] [address] [facility] [id number] [place] [address] Aug, Dysuria R30.0 and Acute cyst itis with hematuria N30.01 [facility] [address] [address] Feb, Dizziness R42 ; Chronic pansinusitis J32 .4 and Chronic seasonal allergic rhinitis, unspecified trigger J30.2 [place] [address] [address] Dec, Personal history of breast cancer Z85.3 ; Anhedonia R45.84 ; Chronic allergic rhinitis, unspecified seasonality, unspecified trigger J30.9 and Bladder prolapse, female, acquired N81.10 [facility] [address] [address] Dec, [place] [address] [address] November, Seasonal allergic rhinitis, unspecified allergic rhinitis trigger J30.2 [place] [address] [address] November, [place] [address] [address] November, Dysuria R30.0 ; Encounter for immunizati on Z23 and Personal history of pneumonia (recurrent) Z87.01 [place] [address] [address] Aug, Sinusitis J32.9 [place] [address] [address] May, Acute recurrent maxillary sinusitis J01. 01 [place] [address] [address] 15 May, 2016 Sinusitis J32.9 and Subacute maxillary s inusitis J01.00 [place] [address] [address] May, Subacute maxillary sinusitis J01.00 [facility] [address] [id number] Feb, Dental examination Z01.20 [facility] [address] [address] Jan, Dysuria R30.0 and Acute cyst itis without hematuria N30.00 [facility] [address] [id number] Jan, Dental examination Z01.20 [facility] [address] [id number] Dec, Dental examination Z01.20 [place] [address] [address] Dec, Dental examination Z01.20 [place] [address] [address] Oct, Dental examination Z01.20 [place] [address] [address] Aug, Acute recurrent sinusitis, unspecified l ocation J01.91 and Sinusitis J32.9 [facility] [address] [place] [address] May, Dizziness R42 and Sinusitis J32.9 [facility] [address] [address] May, Dysuria R30.0 and Urinary tr act infection N39.[address] [address] Feb, Encounter to establish care V65.8 ; Depr ession 311 ; Sciatica 724.3 ; Peptic ulcer 533.90 and History of breast cancer V10.[address] [address] Jan, [address] [address] Jan, [facility] [address] [id number] [place] [address] 14 Oct, 2014 [facility] [address] [id number] [place] [address] 13 Oct, 2014 [facility] [address] [id number] [place] [address] 14 Jul, 2014 [facility] [address] [id number] [place] [address] 14 Jul, 2014 [facility] [address] [id number] [place] [address] Jun, [facility] [address] [id number] [place] [address] Jun, [facility] [address] [id number] [place] [address] May, [facility] [address] [id number] [place] [address] May, [facility] [address] [id number] [place] [address] 18 Mar, 2014 [facility] [address] [id number] [place] [address] 18 Mar, 2014 [facility] [address] [id number] [place] [address] 18 Mar, 2014 [facility] [address] [id number] [place] [address] Mar, [facility] [address] [id number] [place] [address] November, [facility] [address] [id number] [place] [address] November, [facility] [address] [id number] [place] [address] Oct, [facility] [address] [id number] [place] [address] Oct, [facility] [address] [id number] [place] [address] Oct, [facility] [address] [facility] [id number] [place] [address] Oct, [facility] [address] [id number] [place] [address] Oct, [facility] [address] [id number] [place] [address] Oct, [facility] [address] [id number] [place] [address] Oct, [facility] [address] [facility] [id number] [place] [address] Oct, [facility] [address] [id number] [place] [address] Aug, [facility] [address] [id number] [place] [address] Aug, [facility] [address] [id number] [place] [address] Aug, [facility] [address] [id number] [place] [address] Jul, [facility] [address] [id number] [place] [address] Jul, [facility] [address] [id number] [place] [address] Jul, [facility] [address] [id number] [place] [address] Jul, [facility] [address] [facility] [id number] [place] [address] Jul, [facility] [address] [id number] [place] [address] Jul, [facility] [address] [id number] [place] [address] Jul, [facility] [address] [id number] [place] [address] Jun, [facility] [address] [id number] [place] [address] Jun, [facility] [address] [id number] [place] [address] Jun, [facility] [address] [id number] [place] [address] Jun, [facility] [address] [id number] [place] [address] Jun, 2012 [facility] [address] [id number] [place] [address] Jun, [facility] [address] [id number] [place] [address] Jun, [facility] [address] [id number] [place] [address] Jun, [facility] [address] [id number] [place] [address] Jun, [facility] [address] [id number] [place] [address] Jun, [facility] [address] [id number] [place] [address] Apr, [facility] [address] [id number] [place] [address] Apr, [facility] [address] [id number] [place] [address] Apr, [facility] [address] [id number] [place] [address] Apr, [facility] [address] [id number] [place] [address] Apr, [facility] [address] [place] [id number] [place] [address] Apr, [facility] [address] [id number] [place] [address] 20 Mar, 2013 [facility] [address] [id number] [place] [address] 16 Sep, 2013 [facility] [address] [id number] [place] [address] 16 Jan, 2013 [facility] [address] [id number] [place] [address] Jul, [facility] [address] [id number] [place] [address] 13 Jun, 2012 [facility] [address] [id number] [place] [address] Jun, [facility] [address] [id number] [place] [address] Jun, [facility] [address] [id number] [place] [address] Jun, [facility] [address] [id number] [place] [address] Jun, [facility] [address] [id number] [place] [address] Jun, [facility] [address] [id number] [place] [address] May, [facility] [address] [id number] [place] [address] May, [facility] [address] [id number] [place] [address] Feb, [facility] [address] [id number] [place] [address] November, [facility] [address] [id number] [place] [address] Apr, [facility] [address] [id number] [place] [address] Apr, [facility] [address] [id number] [place] [address] Apr, [facility] [address] [id number] [place] [address] Apr, [facility] [address] [id number] [place] [address] Apr, IMMUNIZATIONS No Known Immunizations SOCIAL HISTORY Never Assessed REASON FOR VISIT PLAN OF CARE VITAL SIGNS Height 65 in 2013-10-19 Weight 165.44 lbs 2013-10-19 Temperature 97.6 degrees Fahrenheit 2013-10-19 Heart Rate 70 bpm 2013-10-19 Respiratory Rate 18 2013-10-19 Blood pressure systolic 118 mmHg 2013-10-19 Blood pressure diastolic 74 mmHg 2013-10-19 MEDICATIONS Unknown Medications RESULTS No Results PROCEDURES [...]
--- OUTSIDE RECORDS SUMMARY | 2020-02-27 11:41 | XMS REPORT ---
Author Author Maryam Casiano Organization [facility] Address [address] [place] [address] Care Team Providers Care Entry Level Project Engineer Name Role Phone NORMA Casiano Unavailable PROBLEMS Type Condition ICD9-CM Code HDO17-RB Code Onset Dates Condition S tatus SNOMED Code Problem Bladder prolapse, female, acquired N81.10 Active 370658928 Problem Anhedonia R45.84 Active 32687005 Problem Chronic pansinusitis J32.4 Active 84258033 Problem Severe episode of recurrent major depressive disorder, without psychotic features F33.2 Active 96546094 Problem Personal history of breast cancer Z85.3 Active 019238083 Problem Other chronic pain G89.29 Active 8 5826927 Problem Chronic allergic rhinitis, unspecified s easonality, unspecified trigger J30.9 Active 81660816 Problem Chronic UTI N39.0 Active 36556623 6 Problem Migraine G43.909 Active 77644841 Problem Personal history of malignant neoplasm of breast Z 85.3 Active 742696622 Problem Acute diverticulitis K57.92 Active 359296443 ALLERGIES No Information ENCOUNTERS Encounter Location Date Diagnosis [place] [address] [address] Jan, [place] [address] [address] Aug, [place] [address] [address] Aug, Low back pain M54.5 and Other chronic pa in G89.29 [place] [address] [address] Jul, Acute midline low back pain without scia tru M54.5 and Severe episode of recurrent major depressive disorder, without psychotic features F33.2 [place] [address] [address] Jul, Low back pain M54.5 and Other chronic pa in G89.29 [place] [address] [address] Jun, Acute midline low back pain without scia tru M54.5 [place] [address] [address] Jun, Acute midline low back pain without scia tru M54.5 and Severe episode of recurrent major depressive disorder, without psychotic features F33.2 [place] [address] [address] Apr, [place] [address] [address] Apr, Severe episode of recurrent major depres sive disorder, without psychotic features F33.2 ; Arthralgia, unspecified joint M25.50 ; Chilling R68.83 ; Acute non-recurrent maxillary sinusitis J01.00 and Encounter for immunization Z23 [facility] [address] [place] [id number] [place] [address] November, Dysuria R30.0 and Urinary tr act infection without hematuria, site unspecified N39.0 [facility] [address] [place] [id number] [place] [address] November, Viral upper respiratory trac t infection J06.[address] [place] [address] Oct, Encounter for other screenin g for malignant neoplasm of breast Z12.39 [place] [address] [address] Oct, Encounter for other screening for malign ant neoplasm of breast Z12.39 [place] [address] [place] [id number] [place] [address] Sep, Abdominal pain R10.9 ; Acute diverticuli tis K57.92 ; History of stomach ulcers Z87.19 and Dysfunction of both eustachian tubes H69.83 [place] [address] [address] 18 Sep, 2018 [place] [address] [address] 11 Aug, 2018 [place] [address] [address] Jun, Screening cholesterol level Z13.220 [place] [address] [address] 17 Jun, 2018 Personal history of malignant neoplasm o f breast Z85.3 ; Bladder prolapse, female, acquired N81.10 and Dizziness R42 [address] [address] May, Encounter for immunization Z23 [facility] [address] [address] May, Dysuria R30.0 and Acute urin beata tract infection N39.0 [facility] [address] [address] Mar, Insect bite (nonvenomous), r ight lower leg, initial encounter S80.861A and Bitten or stung by nonvenomous insect and other nonvenomous arthropods, initial encounter W57.XXXA [address] [address] Feb, Dizziness R42 ; Migraine G43.909 ; Anhed onia R45.84 and Screening cholesterol level Z13.220 [facility] [address] [address] Jan, Dysuria R30.0 and Acute cyst itis with hematuria N30.01 [facility] [address] [address] 14 Sep, 2017 Dysuria R30.0 ; Acute cystit is with hematuria N30.01 and Abrasion of left cornea, initial encounter S05.02XA [facility] [address] [facility] [id number] [address] [place] [address] Aug, Dysuria R30.0 and Acute cyst itis with hematuria N30.01 [facility] [address] [address] Feb, Dizziness R42 ; Chronic pansinusitis J32 .4 and Chronic seasonal allergic rhinitis, unspecified trigger J30.2 [place] [address] [address] Dec, Personal history of breast cancer Z85.3 ; Anhedonia R45.84 ; Chronic allergic rhinitis, unspecified seasonality, unspecified trigger J30.9 and Bladder prolapse, female, acquired N81.10 [facility] [address] [address] Dec, [place] [address] [address] November, Seasonal allergic rhinitis, unspecified allergic rhinitis trigger J30.2 [place] [address] [address] November, [place] [address] [address] November, Dysuria R30.0 ; Encounter for immunizati on Z23 and Personal history of pneumonia (recurrent) Z87.01 [place] [address] [address] Aug, Sinusitis J32.9 [place] [address] [address] May, Acute recurrent maxillary sinusitis J01. 01 [place] [address] [address] 15 May, 2016 Sinusitis J32.9 and Subacute maxillary s inusitis J01.00 [place] [address] [address] May, Subacute maxillary sinusitis J01.00 [facility] [address] [id number] Feb, Dental examination Z01.20 [facility] [address] [address] Jan, Dysuria R30.0 and Acute cyst itis without hematuria N30.00 [facility] [address] [id number] Jan, Dental examination Z01.20 [facility] [address] [id number] Dec, Dental examination Z01.20 [place] [address] [address] Dec, Dental examination Z01.20 [place] [address] [address] Oct, Dental examination Z01.20 [place] [address] [address] Aug, Acute recurrent sinusitis, unspecified l ocation J01.91 and Sinusitis J32.9 [facility] [address] [place] [address] May, Dizziness R42 and Sinusitis J32.9 [facility] [address] [address] May, Dysuria R30.0 and Urinary tr act infection N39.[address] [address] Feb, Encounter to establish care V65.8 ; Depr ession 311 ; Sciatica 724.3 ; Peptic ulcer 533.90 and History of breast cancer V10.[address] [address] Jan, [address] [address] Jan, [facility] [address] [id number] [place] [address] 14 Oct, 2014 [facility] [address] [id number] [place] [address] 13 Oct, 2014 [facility] [address] [id number] [place] [address] 14 Jul, 2014 [facility] [address] [id number] [place] [address] 14 Jul, 2014 [facility] [address] [id number] [place] [address] Jun, [facility] [address] [id number] [place] [address] Jun, [facility] [address] [id number] [place] [address] May, [facility] [address] [id number] [place] [address] May, [facility] [address] [id number] [place] [address] 18 Mar, 2014 [facility] [address] [id number] [place] [address] 18 Mar, 2014 [facility] [address] [id number] [place] [address] 18 Mar, 2014 [facility] [address] [id number] [place] [address] Mar, [facility] [address] [id number] [place] [address] November, [facility] [address] [id number] [place] [address] November, [facility] [address] [id number] [place] [address] Oct, [facility] [address] [id number] [place] [address] Oct, [facility] [address] [id number] [place] [address] Oct, [facility] [address] [facility] [id number] [place] [address] Oct, [facility] [address] [id number] [place] [address] Oct, [facility] [address] [id number] [place] [address] Oct, [facility] [address] [id number] [place] [address] Oct, [facility] [address] [facility] [id number] [place] [address] Oct, [facility] [address] [id number] [place] [address] Aug, [facility] [address] [id number] [place] [address] Aug, [facility] [address] [id number] [place] [address] Aug, [facility] [address] [id number] [place] [address] Jul, [facility] [address] [id number] [place] [address] Jul, [facility] [address] [id number] [place] [address] Jul, [facility] [address] [id number] [place] [address] Jul, [facility] [address] [facility] [id number] [place] [address] Jul, [facility] [address] [id number] [place] [address] Jul, [facility] [address] [id number] [place] [address] Jul, [facility] [address] [id number] [place] [address] Jun, [facility] [address] [id number] [place] [address] Jun, [facility] [address] [id number] [place] [address] Jun, [facility] [address] [id number] [place] [address] Jun, [facility] [address] [id number] [place] [address] Jun, 2012 [facility] [address] [id number] [place] [address] Jun, [facility] [address] [id number] [place] [address] Jun, [facility] [address] [id number] [place] [address] Jun, [facility] [address] [id number] [place] [address] Jun, [facility] [address] [id number] [place] [address] Jun, [facility] [address] [id number] [place] [address] Apr, [facility] [address] [id number] [place] [address] Apr, [facility] [address] [id number] [place] [address] Apr, [facility] [address] [id number] [place] [address] Apr, [facility] [address] [id number] [place] [address] Apr, [facility] [address] [place] [id number] [place] [address] Apr, [facility] [address] [id number] [place] [address] 20 Mar, 2013 [facility] [address] [id number] [place] [address] 16 Sep, 2013 [facility] [address] [id number] [place] [address] 16 Jan, 2013 [facility] [address] [id number] [place] [address] Jul, [facility] [address] [id number] [place] [address] 13 Jun, 2012 [facility] [address] [id number] [place] [address] Jun, [facility] [address] [id number] [place] [address] Jun, [facility] [address] [id number] [place] [address] Jun, [facility] [address] [id number] [place] [address] Jun, [facility] [address] [id number] [place] [address] Jun, [facility] [address] [id number] [place] [address] May, [facility] [address] [id number] [place] [address] May, [facility] [address] [id number] [place] [address] Feb, [facility] [address] [id number] [place] [address] November, [facility] [address] [id number] [place] [address] Apr, [facility] [address] [id number] [place] [address] Apr, [facility] [address] [id number] [place] [address] Apr, [facility] [address] [id number] [place] [address] Apr, [facility] [address] [id number] [place] [address] Apr, IMMUNIZATIONS No Known Immunizations SOCIAL HISTORY [...]
--- OUTSIDE RECORDS SUMMARY | 2020-02-27 11:41 | XMS REPORT ---
Author Author Maryam Pearl Doctor Organization [facility] Address Unknown Phone Unavailable Care Team Providers Care Registered Occupational Therapist Name Role Phone Migration, Doctor Unavailable Unavailable PROBLEMS Type Condition ICD9-CM Code COW80-FM Code Onset Dates Condition S tatus SNOMED Code Problem Bladder prolapse, female, acquired N81.10 Active 084175816 Problem Anhedonia R45.84 Active 24829176 Problem Chronic pansinusitis J32.4 Active 51711818 Problem Severe episode of recurrent major depressive disorder, without psychotic features F33.2 Active 94425838 Problem Personal history of breast cancer Z85.3 Active 364818885 Problem Other chronic pain G89.29 Active 8 0087658 Problem Chronic allergic rhinitis, unspecified s easonality, unspecified trigger J30.9 Active 84697452 Problem Chronic UTI N39.0 Active 85027192 6 Problem Migraine G43.909 Active 62239007 Problem Personal history of malignant neoplasm of breast Z 85.3 Active 890354722 Problem Acute diverticulitis K57.92 Active 169222621 ALLERGIES No Information ENCOUNTERS Encounter Location Date Diagnosis [place] [address] [address] Jan, [place] [address] [address] Aug, Low back pain M54.5 and Other chronic pa in G89.29 [place] [address] [address] Jul, Acute midline low back pain without scia tru M54.5 and Severe episode of recurrent major depressive disorder, without psychotic features F33.2 [place] [address] [address] Jul, Low back pain M54.5 and Other chronic pa in G89.29 [place] [address] [address] Jun, Acute midline low back pain without scia tru M54.5 [place] [address] [address] Jun, Acute midline low back pain without scia tru M54.5 and Severe episode of recurrent major depressive disorder, without psychotic features F33.2 [place] [address] [address] Apr, [place] [address] [address] Apr, Severe episode of recurrent major depres sive disorder, without psychotic features F33.2 ; Arthralgia, unspecified joint M25.50 ; Chilling R68.83 ; Acute non-recurrent maxillary sinusitis J01.00 and Encounter for immunization Z23 [facility] IN [facility] [address] [place], [place] [id number] [address] [place] [address] November, Dysuria R30.0 and Urinary tr act infection without hematuria, site unspecified N39.0 [facility] IN [facility] [address] [place], [place] [id number] [address] [place] [address] November, Viral upper respiratory trac t infection J06.[address] [place] [address] Oct, Encounter for other screenin g for malignant neoplasm of breast Z12.39 [place] [address] [address] Oct, Encounter for other screening for malign ant neoplasm of breast Z12.39 [place] [address] [place] [id number] [place] [address] Sep, Abdominal pain R10.9 ; Acute diverticuli tis K57.92 ; History of stomach ulcers Z87.19 and Dysfunction of both eustachian tubes H69.83 [place] [address] [address] Sep, [place] [address] [address] 11 Aug, 2018 [place] [address] [address] Jun, Screening cholesterol level Z13.[address] [address] 17 Jun, 2018 Personal history of malignant neoplasm o f breast Z85.3 ; Bladder prolapse, female, acquired N81.10 and Dizziness R42 [address] [address] May, Encounter for immunization Z23 [facility] [address] [address] May, Dysuria R30.0 and Acute urin beata tract infection N39.0 [facility] [address] [address] Mar, Insect bite (nonvenomous), r ight lower leg, initial encounter S80.861A and Bitten or stung by nonvenomous insect and other nonvenomous arthropods, initial encounter W57.XXXA [address] [address] Feb, Dizziness R42 ; Migraine G43.909 ; Anhed onia R45.84 and Screening cholesterol level Z13.220 [facility] [address] [address] Jan, Dysuria R30.0 and Acute cyst itis with hematuria N30.01 [facility] [address] [place] [address] 14 Sep, 2017 Dysuria R30.0 ; Acute cystit is with hematuria N30.01 and Abrasion of left cornea, initial encounter S05.02XA [facility] [address] [address] 19 Aug, 2017 Dysuria R30.0 and Acute cyst itis with hematuria N30.01 [place] [address] [address] Feb, Dizziness R42 ; Chronic pansinusitis J32 .4 and Chronic seasonal allergic rhinitis, unspecified trigger J30.2 [place] [address] [address] Dec, Personal history of breast cancer Z85.3 ; Anhedonia R45.84 ; Chronic allergic rhinitis, unspecified seasonality, unspecified trigger J30.9 and Bladder prolapse, female, acquired N81.10 [place] [address] [address] Dec, [place] [address] [address] November, Seasonal allergic rhinitis, unspecified allergic rhinitis trigger J30.2 [place] [address] [address] November, [place] [address] [address] November, Dysuria R30.0 ; Encounter for immunizati on Z23 and Personal history of pneumonia (recurrent) Z87.01 [place] [address] [address] Aug, Sinusitis J32.9 [place] [address] [address] 18 May, 2016 Acute recurrent maxillary sinusitis J01. 01 [place] [address] [address] 15 May, 2016 Sinusitis J32.9 and Subacute maxillary s inusitis J01.00 [place] [address] [address] 14 May, 2016 Subacute maxillary sinusitis J01.00 [facility] [address] [facility] [id number] [id number] Feb, Dental examination Z01.20 [facility] [address] [facility] [id number] [address] [place] [address] Jan, Dysuria R30.0 and Acute cyst itis without hematuria N30.00 [facility] [address] [id number] Jan, Dental examination Z01.20 [facility] [address] [id number] Dec, Dental examination Z01.20 [facility] [address] [address] Dec, Dental examination Z01.20 [facility] [address] [address] Oct, Dental examination Z01.20 [facility] [address] [address] Aug, Acute recurrent sinusitis, unspecified l ocation J01.91 and Sinusitis J32.9 [facility] [address] [place] [address] May, Dizziness R42 and Sinusitis J32.9 [facility]ARE [address] [place], [place] [id number] [address] [place] [address] May, Dysuria R30.0 and Urinary tr act infection N39.0 [place] [address] [address] Feb, Encounter to establish care V65.8 ; Depr ession 311 ; Sciatica 724.3 ; Peptic ulcer 533.90 and History of breast cancer V10.3 [facility] [address] [address] Jan, [facility] [address] [address] Jan, [facility] [address] [address] Oct, [facility] [address] [address] Oct, [facility] [address] [id number] [place] [address] Jul, [facility] [address] [id number] [place] [address] Jul, [facility] [address] [id number] [place] [address] Jun, [facility] [address] [id number] [place] [address] Jun, [facility] [address] [id number] [place] [id number] May, [facility] [address] [id number] [place] [address] May, [facility] [address] [id number] [place] [address] 18 Mar, 2014 [facility] [address] [id number] [place] [address] Mar, [facility] [address] [id number] [place] [address] Mar, [facility] [address] [id number] [place] [address] Mar, [facility] [address] [id number] [place] [address] November, [facility] [address] [id number] [place] [id number] November, [facility] [address] [id number] [place] [address] Oct, [facility] [address] [id number] [place] [address] Oct, [facility] [address] [id number] [place] [address] Oct, [facility] [address] [id number] [place] [id number] 17 Oct, 2013 [facility] [address] [id number] [place] [address] Oct, [facility] [address] [id number] [place] [address] Oct, [facility] [address] [id number] [place] [address] Oct, [facility] [address] [id number] [place] [address] Oct, [facility] [address] [id number] [place] [address] Aug, [facility] [address] [id number] [place] [address] Aug, [facility] [address] [id number] [place] [address] Aug, [facility] [address] [id number] [place] [address] Jul, [facility] [address] [id number] [place] [address] Jul, [facility] [address] [id number] [place] [address] Jul, [facility] [address] [id number] [place] [id number] Jul, [facility] [address] [id number] [place] [address] Jul, [facility] [address] [id number] [place] [id number] Jul, [facility] [address] [id number] [place] [address] Jul, [facility] [address] [id number] [place] [address] Jun, [facility] [address] [id number] [place] [address] Jun, [facility] [address] [id number] [place] [address] Jun, [facility] [address] [id number] [place] [id number] Jun, 2012 [facility] [address] [id number] [place] [id number] Jun, [facility] [address] [id number] [place] [address] Jun, [facility] [address] [id number] [place] [address] Jun, [facility] [address] [id number] [place] [address] Jun, [facility] [address] [id number] [place] [address] Jun, [facility] [address] [id number] [place] [address] Jun, [facility] [address] [id number] [place] [address] Apr, [facility] [address] [id number] [place] [address] Apr, [facility] [address] [id number] [place] [id number] Apr, [facility] [address] [id number] [place] [address] Apr, [facility] [address] [id number] [place] [address] Apr, [facility] [address] [id number] [place] [address] Apr, [facility] [address] [id number] [place] [address] Mar, [facility] [address] [place] [id number] [place] [id number] Mar, [facility] [address] [id number] [place] [address] Jan, [facility] [address] [id number] [place] [address] Jul, [facility] [address] [place] [id number] [place] [address] Jun, [facility] [address] [place] [id number] [place] [address] Jun, [facility] [address] [place] [id number] [place] [address] Jun, [facility] [address] [place] [id number] [place] [address] Jun, [facility] [address] [place] [id number] [place] [address] Jun, [facility] [address] [address] Jun, [facility] [address] [place] [id number] [place] [address] May, [facility] [address] [address] May, [facility] [address] [place] [id number] [place] [address] Feb, [facility] [address] [address] November, [facility] [address] [place] [id number] [place] [address] Apr, [facility] [address] [place] [id number] [place] [address] Apr, [facility] [address] [place] [id number] [place] [address] Apr, [facility] [address] [place] [id number] [place] [address] Apr, [facility] [address] [place] [id number] [place] [address] Apr, IMMUNIZATIONS No Known Immunizations SOCIAL HISTORY [...]
--- OUTSIDE RECORDS SUMMARY | 2020-02-27 11:41 | XMS REPORT ---
Author Author Maryam Casiano Organization [facility] Address [address] [place] [address] Care Team Providers Care Grading Clerk Name Role Phone NORMA Casiano Unavailable PROBLEMS Type Condition ICD9-CM Code ACW75-CB Code Onset Dates Condition S tatus SNOMED Code Problem Bladder prolapse, female, acquired N81.10 Active 589876858 Problem Anhedonia R45.84 Active 18645166 Problem Chronic pansinusitis J32.4 Active 70305849 Problem Severe episode of recurrent major depressive disorder, without psychotic features F33.2 Active 04344308 Problem Personal history of breast cancer Z85.3 Active 848735701 Problem Other chronic pain G89.29 Active 8 8015704 Problem Chronic allergic rhinitis, unspecified s easonality, unspecified trigger J30.9 Active 39544394 Problem Chronic UTI N39.0 Active 01382797 6 Problem Migraine G43.909 Active 73554339 Problem Personal history of malignant neoplasm of breast Z 85.3 Active 561885425 Problem Acute diverticulitis K57.92 Active 620596268 ALLERGIES No Information ENCOUNTERS Encounter Location Date Diagnosis [place] [address] [address] Jan, [facility] [address] [address] Aug, Low back pain M54.5 and Other chronic pa in G89.29 [facility] [address] [address] Jul, Acute midline low back pain without scia tru M54.5 and Severe episode of recurrent major depressive disorder, without psychotic features F33.2 [place] [address] [address] Jul, Low back pain M54.5 and Other chronic pa in G89.29 [place] [address] [address] Jun, Acute midline low back pain without scia tru M54.5 [place] [address] [address] Jun, Acute midline low back pain without scia tru M54.5 and Severe episode of recurrent major depressive disorder, without psychotic features F33.2 [place] [address] [address] Apr, [address] [address] Apr, Severe episode of recurrent major depres sive disorder, without psychotic features F33.2 ; Arthralgia, unspecified joint M25.50 ; Chilling R68.83 ; Acute non-recurrent maxillary sinusitis J01.00 and Encounter for immunization Z23 [facility] [address] [place], [place] [id number] [address] [place] [address] November, Dysuria R30.0 and Urinary tr act infection without hematuria, site unspecified N39.0 [facility] [place] [id number] [address] [place] [address] November, Viral upper respiratory trac t infection J06.[address] [place] [address] Oct, Encounter for other screenin g for malignant neoplasm of breast Z12.39 [place] [address] [place] [id number] [place] [address] Oct, Encounter for other screening for malign ant neoplasm of breast Z12.39 [place] [address] [address] Sep, Abdominal pain R10.9 ; Acute diverticuli tis K57.92 ; History of stomach ulcers Z87.19 and Dysfunction of both eustachian tubes H69.83 [place] [address] [address] Sep, [place] [address] [address] Aug, [place] [address] [address] Jun, Screening cholesterol level Z13.[address] [address] Jun, Personal history of malignant neoplasm o f breast Z85.3 ; Bladder prolapse, female, acquired N81.10 and Dizziness R42 [address] [address] May, Encounter for immunization Z23 [facility] [address] [address] May, Dysuria R30.0 and Acute urin beata tract infection N39.0 [facility] [address] [address] Mar, Insect bite (nonvenomous), r ight lower leg, initial encounter S80.861A and Bitten or stung by nonvenomous insect and other nonvenomous arthropods, initial encounter W57.XXXA [address] [address] Feb, Dizziness R42 ; Migraine G43.909 ; Anhed onia R45.84 and Screening cholesterol level Z13.220 [facility] [address] [address] Jan, Dysuria R30.0 and Acute cyst itis with hematuria N30.01 [facility] [address] [address] 14 Sep, 2017 Dysuria R30.0 ; Acute cystit is with hematuria N30.01 and Abrasion of left cornea, initial encounter S05.02XA [facility] [address] [address] Aug, Dysuria R30.0 and Acute cyst itis with hematuria N30.01 [place] [address] [address] Feb, Dizziness R42 ; Chronic pansinusitis J32 .4 and Chronic seasonal allergic rhinitis, unspecified trigger J30.2 [place] [address] [address] Dec, Personal history of breast cancer Z85.3 ; Anhedonia R45.84 ; Chronic allergic rhinitis, unspecified seasonality, unspecified trigger J30.9 and Bladder prolapse, female, acquired N81.10 [place] [address] [address] Dec, [place] [address] [address] November, Seasonal allergic rhinitis, unspecified allergic rhinitis trigger J30.2 [place] [address] [address] November, [address] [address] November, Dysuria R30.0 ; Encounter for immunizati on Z23 and Personal history of pneumonia (recurrent) Z87.01 [place] [address] [address] Aug, Sinusitis J32.9 [place] [address] [address] May, Acute recurrent maxillary sinusitis J01. [address] [address] May, Sinusitis J32.9 and Subacute maxillary s inusitis J01.00 [facility] [address] [address] May, Subacute maxillary sinusitis J01.00 [facility] [address] [id number] Feb, Dental examination Z01.20 [facility] [address] [place] [address] Jan, Dysuria R30.0 and Acute cyst itis without hematuria N30.00 [facility] [address] [id number] Jan, Dental examination Z01.20 [facility] [address] [id number] Dec, Dental examination Z01.20 [place] [address] [address] Dec, Dental examination Z01.20 [facility] [address] [address] Oct, Dental examination Z01.20 [place] [address] [address] Aug, Acute recurrent sinusitis, unspecified l ocation J01.91 and Sinusitis J32.9 [facility] [address] [address] May, Dizziness R42 and Sinusitis J32.9 [facility] [address] [place] [address] May, Dysuria R30.0 and Urinary tr act infection N39.0 [place] [address] [address] Feb, Encounter to establish care V65.8 ; Depr ession 311 ; Sciatica 724.3 ; Peptic ulcer 533.90 and History of breast cancer V10.3 [place] [address] [address] Jan, [place] [address] [address] Jan, [place] [address] [address] Oct, [facility] [address] [id number] [place] [address] 13 Oct, 2014 [facility] [address] [id number] [place] [address] 14 Jul, 2014 [facility] [address] [id number] [place] [address] 14 Jul, 2014 [facility] [address] [id number] [place] [address] 12 Jun, 2014 [facility] [address] [id number] [place] [address] Jun, [facility] [address] [id number] [place] [address] May, [facility] [address] [id number] [place] [address] May, [facility] [address] [id number] [place] [address] 18 Mar, 2014 [facility] [address] [id number] [place] [address] 18 Mar, 2014 [facility] [address] [id number] [place] [address] 18 Mar, 2014 [facility] [address] [id number] [place] [address] 18 Mar, 2014 [facility] [address] [id number] [place] [address] November, [facility] [address] [id number] [place] [address] November, [facility] [address] [id number] [place] [address] Oct, [facility] [address] [id number] [place] [address] 22 Oct, 2013 [facility] [address] [id number] [place] [address] 17 Oct, 2013 [facility] [address] [id number] [place] [address] 17 Oct, 2013 [facility] [address] [id number] [place] [address] Oct, [facility] [address] [id number] [place] [address] Oct, [facility] [address] [id number] [place] [address] Oct, [facility] [address] [id number] [place] [address] Oct, [facility] [address] [id number] [place] [address] Aug, [facility] [address] [id number] [place] [address] Aug, [facility] [address] [id number] [place] [address] Aug, [facility] [address] [id number] [place] [address] Jul, [facility] [address] [id number] [place] [address] Jul, [facility] [address] [id number] [place] [address] Jul, [facility] [address] [id number] [place] [address] Jul, [facility] [address] [id number] [place] [address] Jul, [facility] [address] [id number] [place] [address] Jul, [facility] [address] [id number] [place] [address] Jul, [facility] [address] [id number] [place] [address] Jun, [facility] [address] [id number] [place] [address] Jun, [facility] [address] [id number] [place] [address] Jun, [facility] [address] [id number] [place] [address] Jun, [facility] [address] [id number] [place] [address] Jun, 2012 [facility] [address] [id number] [place] [address] Jun, [facility] [address] [id number] [place] [address] Jun, [facility] [address] [id number] [place] [address] Jun, [facility] [address] [id number] [place] [address] Jun, [facility] [address] [id number] [place] [address] Jun, [facility] [address] [id number] [place] [address] Apr, [facility] [address] [id number] [place] [address] Apr, [facility] [address] [id number] [place] [address] Apr, [facility] [address] [id number] [place] [address] Apr, [facility] [address] [id number] [place] [address] Apr, [facility] [address] [id number] [place] [address] Apr, [facility] [address] [place] [id number] [place] [address] Mar, [facility] [address] [id number] [place] [address] 16 Mar, 2013 [facility] [address] [id number] [place] [address] Jan, [facility] [address] [id number] [place] [address] Jul, [facility] [address] [place] [id number] [place] [address] Jun, [facility] [address] [id number] [place] [address] Jun, [facility] [address] [place] [id number] [place] [address] Jun, [facility] [address] [id number] [place] [address] Jun, [facility] [address] [place] [id number] [place] [address] Jun, [facility] [address] [id number] [place] [address] Jun, [facility] [address] [place] [id number] [place] [address] May, [facility] [address] [place] [id number] [place] [address] May, [facility] [address] [place] [id number] [place] [address] Feb, [facility] [address] [place] [id number] [place] [address] November, [facility] [address] [place] [id number] [place] [address] Apr, [facility] [address] [place] [id number] [place] [address] Apr, [facility] [address] [place] [id number] [place] [address] Apr, [facility] [address] [place] [id number] [place] [address] Apr, [facility] [address] [place] [id number] [place] [address] Apr, IMMUNIZATIONS No Known Immunizations SOCIAL HISTORY [...]
--- OUTSIDE RECORDS SUMMARY | 2020-02-27 11:41 | XMS REPORT ---
Author Author Maryam RENEE Organization [facility] Address [address] [place] [address] Care Team Providers Care Boat Cleaner Name Role Phone SAMUEL RENEE Unavailable PROBLEMS Type Condition ICD9-CM Code UMI52-JA Code Onset Dates Condition S tatus SNOMED Code Problem Bladder prolapse, female, acquired N81.10 Active 485144627 Problem Anhedonia R45.84 Active 82158178 Problem Chronic pansinusitis J32.4 Active 15931973 Problem Severe episode of recurrent major depressive disorder, without psychotic features F33.2 Active 06842617 Problem Personal history of breast cancer Z85.3 Active 633559434 Problem Other chronic pain G89.29 Active 8 8382773 Problem Chronic allergic rhinitis, unspecified s easonality, unspecified trigger J30.9 Active 95320521 Problem Chronic UTI N39.0 Active 58724839 6 Problem Migraine G43.909 Active 07983459 Problem Personal history of malignant neoplasm of breast Z 85.3 Active 976070820 Problem Acute diverticulitis K57.92 Active 506546912 ALLERGIES Substance Reaction Event Type Date Status SulfADIAZINE swelling Drug Allergy Sep, Active Morphine Sulfate Unknown Drug Allergy Sep, Active Shellfish Unknown Non Drug Allergy Sep, Active ENCOUNTERS Encounter Location Date Diagnosis [facility] [address] [id number] [place] [address] Jan, [facility] [address] [id number] [place] [address] Aug, Low back pain M54.5 and Other chronic pa in G89.29 [facility] [address] [id number] [place] [address] Jul, Acute midline low back pain without scia tru M54.5 and Severe episode of recurrent major depressive disorder, without psychotic features F33.2 [place] [address] [place] [id number] [place] [address] Jul, Low back pain M54.5 and Other chronic pa in G89.29 [place] [address] [address] Jun, Acute midline low back pain without scia tru M54.5 [place] [address] [address] Jun, Acute midline low back pain without scia tru M54.5 and Severe episode of recurrent major depressive disorder, without psychotic features F33.2 [place] [address] [address] Apr, [place] [address] [address] Apr, Severe episode of recurrent major depres sive disorder, without psychotic features F33.2 ; Arthralgia, unspecified joint M25.50 ; Chilling R68.83 ; Acute non-recurrent maxillary sinusitis J01.00 and Encounter for immunization Z23 [facility] [address] [place] [id number] [place] [address] November, Dysuria R30.0 and Urinary tr act infection without hematuria, site unspecified N39.0 [facility] [address] [place] [id number] [place] [address] November, Viral upper respiratory trac t infection J06.[address] [place] [address] Oct, Encounter for other screenin g for malignant neoplasm of breast Z12.39 [place] [address] [address] Oct, Encounter for other screening for malign ant neoplasm of breast Z12.39 [place] [address] [place] [id number] [place] [address] Sep, Abdominal pain R10.9 ; Acute diverticuli tis K57.92 ; History of stomach ulcers Z87.19 and Dysfunction of both eustachian tubes H69.83 [place] [address] [address] 18 Sep, 2018 [place] [address] [place] [address] 11 Aug, 2018 [place] [address] [address] Jun, Screening cholesterol level Z13.[address] [address] 17 Jun, 2018 Personal history of malignant neoplasm o f breast Z85.3 ; Bladder prolapse, female, acquired N81.10 and Dizziness R42 [address] [address] May, Encounter for immunization Z23 [facility] [address] [address] May, Dysuria R30.0 and Acute urin beata tract infection N39.0 [facility] [address] [address] Mar, Insect bite (nonvenomous), r ight lower leg, initial encounter S80.861A and Bitten or stung by nonvenomous insect and other nonvenomous arthropods, initial encounter W57.XXXA [address] [address] Feb, Dizziness R42 ; Migraine G43.909 ; Anhed onia R45.84 and Screening cholesterol level Z13.220 [facility] [address] [address] Jan, Dysuria R30.0 and Acute cyst itis with hematuria N30.01 [facility] [address] [address] 14 Sep, 2017 Dysuria R30.0 ; Acute cystit is with hematuria N30.01 and Abrasion of left cornea, initial encounter S05.02XA [facility] [address] [facility] [id number] [place] [address] Aug, Dysuria R30.0 and Acute cyst itis with hematuria N30.01 [facility] [address] [address] Feb, Dizziness R42 ; Chronic pansinusitis J32 .4 and Chronic seasonal allergic rhinitis, unspecified trigger J30.2 [place] [address] [address] Dec, Personal history of breast cancer Z85.3 ; Anhedonia R45.84 ; Chronic allergic rhinitis, unspecified seasonality, unspecified trigger J30.9 and Bladder prolapse, female, acquired N81.10 [facility] [address] [address] Dec, [place] [address] [address] November, Seasonal allergic rhinitis, unspecified allergic rhinitis trigger J30.2 [place] [address] [address] November, [place] [address] [address] November, Dysuria R30.0 ; Encounter for immunizati on Z23 and Personal history of pneumonia (recurrent) Z87.01 [place] [address] [address] Aug, Sinusitis J32.9 [place] [address] [address] May, Acute recurrent maxillary sinusitis J01. 01 [place] [address] [address] 15 May, 2016 Sinusitis J32.9 and Subacute maxillary s inusitis J01.00 [place] [address] [address] May, Subacute maxillary sinusitis J01.00 [facility] [address] [id number] Feb, Dental examination Z01.20 [facility] [address] [address] Jan, Dysuria R30.0 and Acute cyst itis without hematuria N30.00 [facility] [address] [id number] Jan, Dental examination Z01.20 [facility] [address] [id number] Dec, Dental examination Z01.20 [place] [address] [address] Dec, Dental examination Z01.20 [place] [address] [address] Oct, Dental examination Z01.20 [place] [address] [address] Aug, Acute recurrent sinusitis, unspecified l ocation J01.91 and Sinusitis J32.9 [facility] [address] [address] May, Dizziness R42 and Sinusitis J32.9 [facility] [address] [address] May, Dysuria R30.0 and Urinary tr act infection N39.[address] [address] Feb, Encounter to establish care V65.8 ; Depr ession 311 ; Sciatica 724.3 ; Peptic ulcer 533.90 and History of breast cancer V10.[address] [address] Jan, [address] [address] Jan, [facility] [address] [id number] [place] [address] 14 Oct, 2014 [facility] [address] [id number] [place] [address] 13 Oct, 2014 [facility] [address] [id number] [place] [address] 14 Jul, 2014 [facility] [address] [id number] [place] [address] 14 Jul, 2014 [facility] [address] [id number] [place] [address] Jun, [facility] [address] [id number] [place] [address] Jun, [facility] [address] [id number] [place] [address] May, [facility] [address] [id number] [place] [address] May, [facility] [address] [id number] [place] [address] 18 Mar, 2014 [facility] [address] [id number] [place] [address] 18 Mar, 2014 [facility] [address] [id number] [place] [address] 18 Mar, 2014 [facility] [address] [id number] [place] [address] Mar, [facility] [address] [id number] [place] [address] November, [facility] [address] [id number] [place] [address] November, [facility] [address] [id number] [place] [address] Oct, [facility] [address] [id number] [place] [address] Oct, [facility] [address] [id number] [place] [address] Oct, [facility] [address] [facility] [id number] [place] [address] Oct, [facility] [address] [id number] [place] [address] Oct, [facility] [address] [id number] [place] [address] Oct, [facility] [address] [id number] [place] [address] Oct, [facility] [address] [id number] [place] [address] Oct, [facility] [address] [id number] [place] [address] Aug, [facility] [address] [id number] [place] [address] Aug, [facility] [address] [id number] [place] [address] Aug, [facility] [address] [id number] [place] [address] Jul, [facility] [address] [id number] [place] [address] Jul, [facility] [address] [id number] [place] [address] Jul, [facility] [address] [id number] [place] [address] Jul, [facility] [address] [id number] [place] [address] Jul, [facility] [address] [id number] [place] [address] Jul, [facility] [address] [id number] [place] [address] Jul, [facility] [address] [id number] [place] [address] Jun, [facility] [address] [id number] [place] [address] Jun, [facility] [address] [id number] [place] [address] Jun, [facility] [address] [id number] [place] [address] Jun, [facility] [address] [id number] [place] [address] Jun, 2012 [facility] [address] [id number] [place] [address] Jun, 2012 [facility] [address] [id number] [place] [address] Jun, [facility] [address] [id number] [place] [address] Jun, [facility] [address] [id number] [place] [address] Jun, 2012 [facility] [address] [id number] [place] [address] Jun, [facility] [address] [id number] [place] [address] Apr, [facility] [address] [id number] [place] [address] Apr, [facility] [address] [id number] [place] [address] Apr, [facility] [address] [id number] [place] [address] Apr, [facility] [address] [id number] [place] [address] Apr, [facility] [address] [place] [id number] [place] [address] Apr, [facility] [address] [id number] [place] [address] 20 Mar, 2013 [facility] [address] [id number] [place] [address] 16 Sep, 2013 [facility] [address] [id number] [place] [address] 16 Jan, 2013 [facility] [address] [id number] [place] [address] Jul, [facility] [address] [id number] [place] [address] Jun, [facility] [address] [id number] [place] [address] Jun, [facility] [address] [id number] [place] [address] Jun, [facility] [address] [id number] [place] [address] Jun, [facility] [address] [id number] [place] [address] Jun, [facility] [address] [id number] [place] [address] Jun, [facility] [address] [id number] [place] [address] May, [facility] [address] [id number] [place] [address] May, [facility] [address] [id number] [place] [address] Feb, [facility] [address] [id number] [place] [address] November, [facility] [address] [id number] [place] [address] Apr, [facility] [address] [id number] [place] [address] Apr, [facility] [address] [id number] [place] [address] Apr, [facility] [address] [id number] [place] [address] Apr, [facility] [address] [id number] [place] [address] Apr, IMMUNIZATIONS No Known Immunizations SOCIAL HISTORY Never Assessed REASON FOR VISIT Ulcers Pt states she has been having issues with ulcers, today she is having lo wer abdominal pain, may be bladder or diverticulitis RAMIRO Whitt PLAN OF CARE Activity Details Follow Up prn Reason: VITAL SIGNS Height 65 in 2018-10-06 Weight 140.9 lbs 2018-10-06 Temperature 98.2 degrees Fahrenheit 2018-10-06 Heart Rate 86 bpm 2018-10-06 Respiratory Rate 18 2018-10-06 Oximetry 97 % 2018-10-06 BMI 23.44 kg/m2 2018-10-06 Blood pressure systolic 102 mmHg 2018-10-06 Blood pressure diastolic 62 mmHg 2018-10-06 MEDICATIONS Medication Instructions Dosage Frequency Start Date End Date Duration S tatus Cipro 500 mg Orally every 12 hrs 1 tablet 12h Sep, 1 0 day(s) Active DimenhyDRINATE 50 MG Orally every 6 hrs 1 tablet as needed 6h Active Fluticasone Propionate 50 MCG/ACT Nasally Once a day 1 spray in each nostril 24h Sep, 30 day(s) Active Loratadine 10 MG Orally Once a day 1 tablet 24h Active Carafate 1 GM Orally 30 min before meals and hs 1 tablet on an empt y stomach Sep, 30 day(s) Active Flagyl 500 mg Orally every 8 hrs 1 tablet 8h Sep, 1 0 days Active Citalopram Hydrobromide 20 mg Orally Once a day 1 tablet 24h Active RESULTS Name Result Date Reference Range UA LONG DIP (IN HOUSE) 2018-10-06 Lot # [id number] Exp date 04/07 Clarity clear Color yellow Odor yes GLU negative IONA negative KET negative SG <=1.005 BLO negative pH 6.0 Protein negative URO 0.2 NIT negative OMARI 1+ Lot # Exp date PROCEDURES Procedure Date Ordered Result Body Site URINALYSIS, AUTO, W/O SCOPE October 06, 2018 INSTRUCTIONS MEDICATIONS ADMINISTERED No Known Medications [...]
--- OUTSIDE RECORDS SUMMARY | 2020-02-27 11:42 | XMS REPORT ---
Author Author Maryam Casiano Organization [facility] Address [address] [place] [address] Care Team Providers Care Credit Cashier Name Role Phone NORMA Casiano Unavailable PROBLEMS Type Condition ICD9-CM Code SQP69-LI Code Onset Dates Condition S tatus SNOMED Code Problem Bladder prolapse, female, acquired N81.10 Active 751344535 Problem Anhedonia R45.84 Active 53245121 Problem Chronic pansinusitis J32.4 Active 21809243 Problem Severe episode of recurrent major depressive disorder, without psychotic features F33.2 Active 70165126 Problem Personal history of breast cancer Z85.3 Active 142380240 Problem Other chronic pain G89.29 Active 8 5055439 Problem Chronic allergic rhinitis, unspecified s easonality, unspecified trigger J30.9 Active 44229276 Problem Chronic UTI N39.0 Active 49869704 6 Problem Migraine G43.909 Active 50191973 Problem Personal history of malignant neoplasm of breast Z 85.3 Active 708145591 Problem Acute diverticulitis K57.92 Active 814494130 ALLERGIES No Information ENCOUNTERS Encounter Location Date Diagnosis [place] [address] [address] Jan, [place] [address] [address] Aug, [place] [address] [address] Aug, Low back pain M54.5 and Other chronic pa in G89.29 [place] [address] [address] Jul, Acute midline low back pain without scia tru M54.5 and Severe episode of recurrent major depressive disorder, without psychotic features F33.2 [place] [address] [address] Jul, Low back pain M54.5 and Other chronic pa in G89.29 [place] [address] [address] Jun, Acute midline low back pain without scia tru M54.5 [place] [address] [address] Jun, Acute midline low back pain without scia tru M54.5 and Severe episode of recurrent major depressive disorder, without psychotic features F33.2 [place] [address] [address] Apr, [place] [address] [address] Apr, Severe episode of recurrent major depres sive disorder, without psychotic features F33.2 ; Arthralgia, unspecified joint M25.50 ; Chilling R68.83 ; Acute non-recurrent maxillary sinusitis J01.00 and Encounter for immunization Z23 [facility] [address] [place] [id number] [address] [place] [address] November, Dysuria R30.0 and Urinary tr act infection without hematuria, site unspecified N39.0 [facility] [address] [place] [id number] [place] [address] November, Viral upper respiratory trac t infection J06.[address] [place] [address] Oct, Encounter for other screenin g for malignant neoplasm of breast Z12.39 [place] [address] [address] Oct, Encounter for other screening for malign ant neoplasm of breast Z12.39 [place] [address] [place] [id number] [place] [address] Sep, Abdominal pain R10.9 ; Acute diverticuli tis K57.92 ; History of stomach ulcers Z87.19 and Dysfunction of both eustachian tubes H69.83 [place] [address] [address] 18 Sep, 2018 [place] [address] [address] 11 Aug, 2018 [place] [address] [address] Jun, Screening cholesterol level Z13.220 [place] [address] [address] 17 Jun, 2018 Personal history of malignant neoplasm o f breast Z85.3 ; Bladder prolapse, female, acquired N81.10 and Dizziness R42 [address] [address] May, Encounter for immunization Z23 [facility] [address] [address] May, Dysuria R30.0 and Acute urin beata tract infection N39.0 [facility] [address] [address] Mar, Insect bite (nonvenomous), r ight lower leg, initial encounter S80.861A and Bitten or stung by nonvenomous insect and other nonvenomous arthropods, initial encounter W57.XXXA [address] [address] Feb, Dizziness R42 ; Migraine G43.909 ; Anhed onia R45.84 and Screening cholesterol level Z13.220 [facility] [address] [address] Jan, Dysuria R30.0 and Acute cyst itis with hematuria N30.01 [facility] [address] [address] 14 Sep, 2017 Dysuria R30.0 ; Acute cystit is with hematuria N30.01 and Abrasion of left cornea, initial encounter S05.02XA [facility] [address] [facility] [id number] [address] [place] [address] Aug, Dysuria R30.0 and Acute cyst itis with hematuria N30.01 [facility] [address] [address] Feb, Dizziness R42 ; Chronic pansinusitis J32 .4 and Chronic seasonal allergic rhinitis, unspecified trigger J30.2 [place] [address] [address] Dec, Personal history of breast cancer Z85.3 ; Anhedonia R45.84 ; Chronic allergic rhinitis, unspecified seasonality, unspecified trigger J30.9 and Bladder prolapse, female, acquired N81.10 [facility] [address] [address] Dec, [place] [address] [address] November, Seasonal allergic rhinitis, unspecified allergic rhinitis trigger J30.2 [place] [address] [address] November, [place] [address] [address] November, Dysuria R30.0 ; Encounter for immunizati on Z23 and Personal history of pneumonia (recurrent) Z87.01 [place] [address] [address] Aug, Sinusitis J32.9 [place] [address] [address] May, Acute recurrent maxillary sinusitis J01. 01 [place] [address] [address] 15 May, 2016 Sinusitis J32.9 and Subacute maxillary s inusitis J01.00 [place] [address] [address] May, Subacute maxillary sinusitis J01.00 [facility] [address] [id number] Feb, Dental examination Z01.20 [facility] [address] [address] Jan, Dysuria R30.0 and Acute cyst itis without hematuria N30.00 [facility] [address] [id number] Jan, Dental examination Z01.20 [facility] [address] [id number] Dec, Dental examination Z01.20 [place] [address] [address] Dec, Dental examination Z01.20 [place] [address] [address] Oct, Dental examination Z01.20 [place] [address] [address] Aug, Acute recurrent sinusitis, unspecified l ocation J01.91 and Sinusitis J32.9 [facility] [address] [place] [address] May, Dizziness R42 and Sinusitis J32.9 [facility] [address] [address] May, Dysuria R30.0 and Urinary tr act infection N39.[address] [address] Feb, Encounter to establish care V65.8 ; Depr ession 311 ; Sciatica 724.3 ; Peptic ulcer 533.90 and History of breast cancer V10.[address] [address] Jan, [address] [address] Jan, [facility] [address] [id number] [place] [address] 14 Oct, 2014 [facility] [address] [id number] [place] [address] 13 Oct, 2014 [facility] [address] [id number] [place] [address] 14 Jul, 2014 [facility] [address] [id number] [place] [address] 14 Jul, 2014 [facility] [address] [id number] [place] [address] Jun, [facility] [address] [id number] [place] [address] Jun, [facility] [address] [id number] [place] [address] May, [facility] [address] [id number] [place] [address] May, [facility] [address] [id number] [place] [address] 18 Mar, 2014 [facility] [address] [id number] [place] [address] 18 Mar, 2014 [facility] [address] [id number] [place] [address] 18 Mar, 2014 [facility] [address] [id number] [place] [address] Mar, [facility] [address] [id number] [place] [address] November, [facility] [address] [id number] [place] [address] November, [facility] [address] [id number] [place] [address] Oct, [facility] [address] [id number] [place] [address] Oct, [facility] [address] [id number] [place] [address] Oct, [facility] [address] [facility] [id number] [place] [address] Oct, [facility] [address] [id number] [place] [address] Oct, [facility] [address] [id number] [place] [address] Oct, [facility] [address] [id number] [place] [address] Oct, [facility] [address] [facility] [id number] [place] [address] Oct, [facility] [address] [id number] [place] [address] Aug, [facility] [address] [id number] [place] [address] Aug, [facility] [address] [id number] [place] [address] Aug, [facility] [address] [id number] [place] [address] Jul, [facility] [address] [id number] [place] [address] Jul, [facility] [address] [id number] [place] [address] Jul, [facility] [address] [id number] [place] [address] Jul, [facility] [address] [facility] [id number] [place] [address] Jul, [facility] [address] [id number] [place] [address] Jul, [facility] [address] [id number] [place] [address] Jul, [facility] [address] [id number] [place] [address] Jun, [facility] [address] [id number] [place] [address] Jun, [facility] [address] [id number] [place] [address] Jun, [facility] [address] [id number] [place] [address] Jun, [facility] [address] [id number] [place] [address] Jun, 2012 [facility] [address] [id number] [place] [address] Jun, [facility] [address] [id number] [place] [address] Jun, [facility] [address] [id number] [place] [address] Jun, [facility] [address] [id number] [place] [address] Jun, [facility] [address] [id number] [place] [address] Jun, [facility] [address] [id number] [place] [address] Apr, [facility] [address] [id number] [place] [address] Apr, [facility] [address] [id number] [place] [address] Apr, [facility] [address] [id number] [place] [address] Apr, [facility] [address] [id number] [place] [address] Apr, [facility] [address] [place] [id number] [place] [address] Apr, [facility] [address] [id number] [place] [address] 20 Mar, 2013 [facility] [address] [id number] [place] [address] 16 Sep, 2013 [facility] [address] [id number] [place] [address] 16 Jan, 2013 [facility] [address] [id number] [place] [address] Jul, [facility] [address] [id number] [place] [address] 13 Jun, 2012 [facility] [address] [id number] [place] [address] Jun, [facility] [address] [id number] [place] [address] Jun, [facility] [address] [id number] [place] [address] Jun, [facility] [address] [id number] [place] [address] Jun, [facility] [address] [id number] [place] [address] Jun, [facility] [address] [id number] [place] [address] May, [facility] [address] [id number] [place] [address] May, [facility] [address] [id number] [place] [address] Feb, [facility] [address] [id number] [place] [address] November, [facility] [address] [id number] [place] [address] Apr, [facility] [address] [id number] [place] [address] Apr, [facility] [address] [id number] [place] [address] Apr, [facility] [address] [id number] [place] [address] Apr, [facility] [address] [id number] [place] [address] Apr, IMMUNIZATIONS No Known Immunizations SOCIAL HISTORY Never Assessed REASON FOR VISIT PLAN OF CARE VITAL SIGNS Height 65 in 2013-11-08 Weight 163.5 lbs 2013-11-08 Temperature 97.8 degrees Fahrenheit 2013-11-08 Heart Rate 64 bpm 2013-11-08 Respiratory Rate 16 2013-11-08 Blood pressure systolic 104 mmHg 2013-11-08 Blood pressure diastolic 76 mmHg 2013-11-08 MEDICATIONS Unknown Medications RESULTS No Results PROCEDURES [...]
[2020-02-27 11:43] LABS: BACTERIA,URINE TRACE /HPF; WBC,URINE 25-50 /HPF
--- OUTSIDE RECORDS SUMMARY | 2020-02-27 11:44 | XMS REPORT | Continuity of Care Document ---
Demographics Preferred Language Unknown Marital Status Unknown [employer] Affiliation Unknown Race Unknown Ethnic Group Unknown Author Organization Unknown Address Unknown Phone Unavailable Allergies Active Description Code Type Severity Reaction Onset Reported/Identified Relationship to Patient Clinical Status Yes [id number] (SULFA (SULFONAMIDE ANTIBIOTI CS)) [id number] (SULFA (SULFONAMIDE ANTIBIOTICS)) Mild N/A 08/13/2009 Yes morphine Drug Allergy N/A N/A 08/23/2010 Yes sulfADIAZINE Drug Allergy N/A N/A 08/23/2010 Yes morphine Drug Allergy 08/23/2010 Yes sulfADIAZINE Drug Allergy 08/23/2010 Yes meperidine HCl [id number] Dr ug Allergy Mild "gets vicious" 11/17/2011 Yes morphine [id number] Drug Allergy Mild "gets vicious" 11/17/2011 Yes shellfish derived [id number] Drug Allergy Unknown N/A 11/17/2011 Yes shellfish Food Allergy N/A N/A 04/06/2014 Medications There is no data. Problems Date Dx Coded Attending Type Code Diagnosis Diagnosed By 09/24/2009 619.1 DIGE STIVE-GENITAL TRACT FISTULA, FEMALE 09/24/2009 RONIT SALINAS DO 619.1 DIGESTIVE-GENITAL TRACT FISTULA, FEMALE 09/24/2009 619.1 DIGE STIVE-GENITAL TRACT FISTULA, FEMALE 09/24/2009 DALILA ROLDAN MD 619.1 DIGESTIVE-GENITAL TRACT FISTULA, FEMALE 09/24/2009 [facility] DIGESTIVE-GENITAL TRACT FISTULA, FEMALE 09/24/2009 ORBIN CALIXTO APRN 61 9.1 DIGESTIVE-GENITAL TRACT FISTULA, FEMALE 09/24/2009 NORMA RAM APRN 619.1 DIGESTIVE-GENITAL TRACT FISTULA, FEMALE 09/24/2009 NORMA RAM APRN 619.1 DIGESTIVE-GENITAL TRACT FISTULA, FEMALE 09/24/2009 RONIT SALINAS DO 619.1 DIGESTIVE-GENITAL TRACT FISTULA, FEMALE 09/24/2009 NORMA RAM APRN 619.1 DIGESTIVE-GENITAL TRACT FISTULA, FEMALE 09/24/2009 MARIELA BROOKS DDS 61 9.1 DIGESTIVE-GENITAL TRACT FISTULA, FEMALE 09/24/2009 YO PHYSICIAN CHIEF OF PATHOLOGY, NORMA R 619.1 DIGESTIVE-GENITAL TRACT FISTULA, FEMALE 09/24/2009 [employer] SECRETARY, TOM B 61 9.1 DIGESTIVE-GENITAL TRACT FISTULA, FEMALE 09/24/2009 YO PHYSICIAN CHIEF OF PATHOLOGY, NORMA R 619.1 DIGESTIVE-GENITAL TRACT FISTULA, FEMALE 09/24/2009 MUKESH LYON, EVERETT L 619 .1 DIGESTIVE-GENITAL TRACT FISTULA, FEMALE 09/24/2009 YO PHYSICIAN CHIEF OF PATHOLOGY, NORMA R 619.1 DIGESTIVE-GENITAL TRACT FISTULA, FEMALE 05/08/2010 311 DEPRES SIVE DISORDER NOT ELSEWHERE CLASSIFIED 05/08/2010 593.9 UNSP ECIFIED DISORDER OF KIDNEY AND URETER 05/08/2010 V10.90 PER BISMARK HISTORY OF UNSPECIFIED MALIGNANT NEOPLASM 05/08/2010 RONIT SALINAS DO 311 DEPRESSIVE DISORDER NOT ELSEWHERE CLASSIFIED 05/08/2010 RONIT SALINAS DO 593.9 UNSPECIFIED DISORDER OF KIDNEY AND URETER 05/08/2010 RONIT SALINAS DO V10.90 PERSONAL HISTORY OF UNSPECIFIED MALIGNANT NEOPLASM 05/08/2010 311 DEPRES SIVE DISORDER NOT ELSEWHERE CLASSIFIED 05/08/2010 593.9 UNSP ECIFIED DISORDER OF KIDNEY AND URETER 05/08/2010 V10.90 PER BISMARK HISTORY OF UNSPECIFIED MALIGNANT NEOPLASM 05/08/2010 DALILA ROLDAN MD 311 DEPRESSIVE DISORDER NOT ELSEWHERE CLASSIFIED 05/08/2010 DALILA ROLDAN MD 593.9 UNSPECIFIED DISORDER OF KIDNEY AND URETER 05/08/2010 DALILA ROLDAN MD V10.9 0 PERSONAL HISTORY OF UNSPECIFIED MALIGNANT NEOPLASM 05/08/[facility] 311 DEPRESSIVE DISORDER NOT ELSEWHERE CLASSIFIED 05/08/2010 [facility] 593.9 UNSPECIFIED DISORDER OF KIDNEY AND URETER 05/08/2010 [facility], JEROD R V10.90 PERSONAL HISTORY OF UNSPECIFIED MALIGNANT NEOPLASM 05/08/2010 DURGA LYON ROBIN A 31 1 DEPRESSIVE DISORDER NOT ELSEWHERE CLASSIFIED 05/08/2010 DURGA LYON ROBIN A 59 3.9 UNSPECIFIED DISORDER OF KIDNEY AND URETER 05/08/2010 DURGA LYON ROBIN A V10.90 PERSONAL HISTORY OF UNSPECIFIED MALIGNANT NEOPLASM 05/08/2010 YO PHYSICIAN CHIEF OF PATHOLOGY, NORMA R 3 11 DEPRESSIVE DISORDER NOT ELSEWHERE CLASSIFIED 05/08/2010 YO PHYSICIAN CHIEF OF PATHOLOGY, NORMA R 593.9 UNSPECIFIED DISORDER OF KIDNEY AND URETER 05/08/2010 YO PHYSICIAN CHIEF OF PATHOLOGY, NORMA R V10.90 PERSONAL HISTORY OF UNSPECIFIED MALIGNANT NEOPLASM 05/08/2010 YO LYON, NORMA R 3 11 DEPRESSIVE DISORDER NOT ELSEWHERE CLASSIFIED 05/08/2010 YO LYON, NORMA R 593.9 UNSPECIFIED DISORDER OF KIDNEY AND URETER 05/08/2010 YO LYON, NORMA R V10.90 PERSONAL HISTORY OF UNSPECIFIED MALIGNANT NEOPLASM 05/08/2010 SALINAS DO, RONIT K 311 DEPRESSIVE DISORDER NOT ELSEWHERE CLASSIFIED 05/08/2010 SALINAS DO, RONIT K 593.9 UNSPECIFIED DISORDER OF KIDNEY AND URETER 05/08/2010 SALINAS DO, RONIT K V10.90 PERSONAL HISTORY OF UNSPECIFIED MALIGNANT NEOPLASM 05/08/2010 YO LYON, NORMA R 3 11 DEPRESSIVE DISORDER NOT ELSEWHERE CLASSIFIED 05/08/2010 YO LYON NORMA R 593.9 UNSPECIFIED DISORDER OF KIDNEY AND URETER 05/08/2010 YO LYON NORMA R V10.90 PERSONAL HISTORY OF UNSPECIFIED MALIGNANT NEOPLASM 05/08/2010 BROOKS DDS, MARIELA 31 1 DEPRESSIVE DISORDER NOT ELSEWHERE CLASSIFIED 05/08/2010 BROOKS DDS, MARIELA 59 3.9 UNSPECIFIED DISORDER OF KIDNEY AND URETER 05/08/2010 BROOKS DDS, MARIELA V10.90 PERSONAL HISTORY OF UNSPECIFIED MALIGNANT NEOPLASM 05/08/2010 YO LYON NORMA R 3 11 DEPRESSIVE DISORDER NOT ELSEWHERE CLASSIFIED 05/08/2010 YO LYON NORMA R 593.9 UNSPECIFIED DISORDER OF KIDNEY AND URETER 05/08/2010 YO LYON, NORMA R V10.90 PERSONAL HISTORY OF UNSPECIFIED MALIGNANT NEOPLASM 05/08/2010 [employer] SE[employer], TOM B 31 1 DEPRESSIVE DISORDER NOT ELSEWHERE CLASSIFIED 05/08/2010 [employer] SE[employer]ARY, TOM B 59 3.9 UNSPECIFIED DISORDER OF KIDNEY AND URETER 05/08/2010 [employer] SECR[employer]ARY, TOM B V10.90 PERSONAL HISTORY OF UNSPECIFIED MALIGNANT NEOPLASM 05/08/2010 YO LYON NORMA R 3 11 DEPRESSIVE DISORDER NOT ELSEWHERE CLASSIFIED 05/08/2010 YO LYON NORMA R 593.9 UNSPECIFIED DISORDER OF KIDNEY AND URETER 05/08/2010 YO PHYSICIAN CHIEF OF PATHOLOGY, NORMA R V10.90 PERSONAL HISTORY OF UNSPECIFIED MALIGNANT NEOPLASM 05/08/2010 MADL PHYSICIAN CHIEF OF PATHOLOGY, EVERETT L 311 DEPRESSIVE DISORDER NOT ELSEWHERE CLASSIFIED 05/08/2010 MADL PHYSICIAN CHIEF OF PATHOLOGY, EVERETT L 593 .9 UNSPECIFIED DISORDER OF KIDNEY AND URETER 05/08/2010 MADL PHYSICIAN CHIEF OF PATHOLOGY, EVERETT L V10 .90 PERSONAL HISTORY OF UNSPECIFIED MALIGNANT NEOPLASM 05/08/2010 YO PHYSICIAN CHIEF OF PATHOLOGY, NORMA R 3 11 DEPRESSIVE DISORDER NOT ELSEWHERE CLASSIFIED 05/08/2010 YO PHYSICIAN CHIEF OF PATHOLOGY, NORMA R 593.9 UNSPECIFIED DISORDER OF KIDNEY AND URETER 05/08/2010 YO PHYSICIAN CHIEF OF PATHOLOGY, NORMA R V10.90 PERSONAL HISTORY OF UNSPECIFIED MALIGNANT NEOPLASM 08/23/2010 465.9 UPPE R RESPIRATORY INFECTION 08/23/2010 RONIT SALINAS DO 465.9 UPPER RESPIRATORY INFECTION 08/23/2010 465.9 UPPE R RESPIRATORY INFECTION 08/23/2010 JAMAR JEFF, DALILA 465.9 UPPER RESPIRATORY INFECTION 08/23/2010 [facility], JEROD R 465.9 UPPER RESPIRATORY INFECTION 08/23/2010 DURGA LYON, ROBIN A 46 5.9 UPPER RESPIRATORY INFECTION 08/23/2010 YO PHYSICIAN CHIEF OF PATHOLOGY, NORMA R 465.9 UPPER RESPIRATORY INFECTION 08/23/2010 YO BHAKTAN, NORMA R 465.9 UPPER RESPIRATORY INFECTION 08/23/2010 RONIT SALINAS DO K 465.9 UPPER RESPIRATORY INFECTION 08/23/2010 YO PHYSICIAN CHIEF OF PATHOLOGY, NORMA R 465.9 UPPER RESPIRATORY INFECTION 08/23/2010 TODD ARRIOLA, MARIELA 46 5.9 UPPER RESPIRATORY INFECTION 08/23/2010 YO PHYSICIAN CHIEF OF PATHOLOGY, NORMA R 465.9 UPPER RESPIRATORY INFECTION 08/23/2010 GUADALUPE GREGORIOPC, TOM B 46 5.9 UPPER RESPIRATORY INFECTION 08/23/2010 YO PHYSICIAN CHIEF OF PATHOLOGY, NORMA R 465.9 UPPER RESPIRATORY INFECTION 08/23/2010 SHARAD MAYORGA APRNA L 465 .9 UPPER RESPIRATORY INFECTION 08/23/2010 YO PHYSICIAN CHIEF OF PATHOLOGY, NORMA R 465.9 UPPER RESPIRATORY INFECTION 09/20/2010 611.71 MAS TODYNIA 09/20/2010 786.50 UNS PECIFIED CHEST PAIN 09/20/2010 RONIT SALINAS DO K 611.71 MASTODYNIA 09/20/2010 RONIT SALINAS DO 786.50 UNSPECIFIED CHEST PAIN 09/20/2010 611.71 MAS TODYNIA 09/20/2010 786.50 UNS PECIFIED CHEST PAIN 09/20/2010 DALILA ROLDAN MD 611.7 1 MASTODYNIA 09/20/2010 DALILA ROLDAN MD 786.5 0 UNSPECIFIED CHEST PAIN 09/20/2010 [facility], JEROD R 611.71 MASTODYNIA 09/20/2010 [facility], JEROD R 786.50 UNSPECIFIED CHEST PAIN 09/20/2010 DURGA PHYSICIAN CHIEF OF PATHOLOGY, ROBIN A 611.71 MASTODYNIA 09/20/2010 DURGA PHYSICIAN CHIEF OF PATHOLOGY, ROBIN A 786.50 UNSPECIFIED CHEST PAIN 09/20/2010 YO PHYSICIAN CHIEF OF PATHOLOGY, NORMA R 611.71 MASTODYNIA 09/20/2010 YO PHYSICIAN CHIEF OF PATHOLOGY, NORMA R 786.50 UNSPECIFIED CHEST PAIN 09/20/2010 YO PHYSICIAN CHIEF OF PATHOLOGY, NORMA R 611.71 MASTODYNIA 09/20/2010 YO PHYSICIAN CHIEF OF PATHOLOGY, NORMA R 786.50 UNSPECIFIED CHEST PAIN 09/20/2010 SALINAS DO, RONIT K 611.71 MASTODYNIA 09/20/2010 SALINAS DO, RONIT K 786.50 UNSPECIFIED CHEST PAIN 09/20/2010 YO PHYSICIAN CHIEF OF PATHOLOGY, NORMA R 611.71 MASTODYNIA 09/20/2010 YO PHYSICIAN CHIEF OF PATHOLOGY, NORMA R 786.50 UNSPECIFIED CHEST PAIN 09/20/2010 BROOKS DDS, MARIELA 611.71 MASTODYNIA 09/20/2010 BROOKS DDS, MARIELA 786.50 UNSPECIFIED CHEST PAIN 09/20/2010 YO PHYSICIAN CHIEF OF PATHOLOGY, NORMA R 611.71 MASTODYNIA 09/20/2010 YO PHYSICIAN CHIEF OF PATHOLOGY, NORMA R 786.50 UNSPECIFIED CHEST PAIN 09/20/2010 [employer], TOM B 611.71 MASTODYNIA 09/20/2010 [employer] SECRETARY, TOM B 786.50 UNSPECIFIED CHEST PAIN 09/20/2010 YO PHYSICIAN CHIEF OF PATHOLOGY, NORMA R 611.71 MASTODYNIA 09/20/2010 YO PHYSICIAN CHIEF OF PATHOLOGY, NORMA R 786.50 UNSPECIFIED CHEST PAIN 09/20/2010 MADL PHYSICIAN CHIEF OF PATHOLOGY, EVERETT L 611 .71 MASTODYNIA 09/20/2010 MADL PHYSICIAN CHIEF OF PATHOLOGY, EVERETT L 786 .50 UNSPECIFIED CHEST PAIN 09/20/2010 YO PHYSICIAN CHIEF OF PATHOLOGY, NORMA R 611.71 MASTODYNIA 09/20/2010 YO PHYSICIAN CHIEF OF PATHOLOGY, NORMA R 786.50 UNSPECIFIED CHEST PAIN 10/15/2010 477.0 EL RGIC RHINITIS DUE TO POLLEN 10/15/2010 RONIT SALINAS DO K 477.0 ALLERGIC RHINITIS DUE TO POLLEN 10/15/2010 477.0 EL RGIC RHINITIS DUE TO POLLEN 10/15/2010 DALILA ROLDAN MD 477.0 ALLERGIC RHINITIS DUE TO POLLEN 10/15/2010 [facility], JEROD R 477.0 ALLERGIC RHINITIS DUE TO POLLEN 10/15/2010 DURGA PHYSICIAN CHIEF OF PATHOLOGY, ROBIN A 47 7.0 ALLERGIC RHINITIS DUE TO POLLEN 10/15/2010 YO PHYSICIAN CHIEF OF PATHOLOGY, NORMA R 477.0 ALLERGIC RHINITIS DUE TO POLLEN 10/15/2010 YO PHYSICIAN CHIEF OF PATHOLOGY, NORMA R 477.0 ALLERGIC RHINITIS DUE TO POLLEN 10/15/2010 RITA DELVALLE, RONIT K 477.0 ALLERGIC RHINITIS DUE TO POLLEN 10/15/2010 YO PHYSICIAN CHIEF OF PATHOLOGY, NORMA R 477.0 ALLERGIC RHINITIS DUE TO POLLEN 10/15/2010 MARIELA BROOKS DDS 47 7.0 ALLERGIC RHINITIS DUE TO POLLEN 10/15/2010 YO PHYSICIAN CHIEF OF PATHOLOGY, NORMA R 477.0 ALLERGIC RHINITIS DUE TO POLLEN 10/15/2010 TOM BUTCHER LCPC B 47 7.0 ALLERGIC RHINITIS DUE TO POLLEN 10/15/2010 YO PHYSICIAN CHIEF OF PATHOLOGY, NORMA R 477.0 ALLERGIC RHINITIS DUE TO POLLEN 10/15/2010 EVERETT MAYORGA APRN 477 .0 ALLERGIC RHINITIS DUE TO POLLEN 10/15/2010 YO PHYSICIAN CHIEF OF PATHOLOGY, NORMA R 477.0 ALLERGIC RHINITIS DUE TO POLLEN 11/21/2010 530.81 ESO PHAGEAL REFLUX 11/21/2010 535.10 ATR OPHIC GASTRITIS (WITHOUT HEMORRHAGE) 11/21/2010 MELODY SALINAS DOA K 530.81 ESOPHAGEAL REFLUX 11/21/2010 MELODY SALINAS DOA K 535.10 ATROPHIC GASTRITIS (WITHOUT HEMORRHAGE) 11/21/2010 530.81 ESO PHAGEAL REFLUX 11/21/2010 535.10 ATR OPHIC GASTRITIS (WITHOUT HEMORRHAGE) 11/21/2010 DALILA ROLDAN MD 530.8 1 ESOPHAGEAL REFLUX 11/21/2010 DALILA ROLDAN MD 535.1 0 ATROPHIC GASTRITIS (WITHOUT HEMORRHAGE) 11/21/2010 [facility], JEROD R 530.81 ESOPHAGEAL REFLUX 11/21/2010 [facility], JEROD R 535.10 ATROPHIC GASTRITIS (WITHOUT HEMORRHAGE) 11/21/2010 DURGA PHYSICIAN CHIEF OF PATHOLOGY, ROBIN A 530.81 ESOPHAGEAL REFLUX 11/21/2010 DURGA PHYSICIAN CHIEF OF PATHOLOGY, ROBIN A 535.10 ATROPHIC GASTRITIS (WITHOUT HEMORRHAGE) 11/21/2010 YO PHYSICIAN CHIEF OF PATHOLOGY, NORMA R 530.81 ESOPHAGEAL REFLUX 11/21/2010 YO PHYSICIAN CHIEF OF PATHOLOGY, NORMA R 535.10 ATROPHIC GASTRITIS (WITHOUT HEMORRHAGE) 11/21/2010 YO PHYSICIAN CHIEF OF PATHOLOGY, NORMA R 530.81 ESOPHAGEAL REFLUX 11/21/2010 YO PHYSICIAN CHIEF OF PATHOLOGY, NORMA R 535.10 ATROPHIC GASTRITIS (WITHOUT HEMORRHAGE) 11/21/2010 SALINAS DO, RONIT K 530.81 ESOPHAGEAL REFLUX 11/21/2010 SALINAS DO, RONIT K 535.10 ATROPHIC GASTRITIS (WITHOUT HEMORRHAGE) 11/21/2010 YO PHYSICIAN CHIEF OF PATHOLOGY, NORMA R 530.81 ESOPHAGEAL REFLUX 11/21/2010 YO PHYSICIAN CHIEF OF PATHOLOGY, NORMA R 535.10 ATROPHIC GASTRITIS (WITHOUT HEMORRHAGE) 11/21/2010 BROOKS DDS, MARIELA 530.81 ESOPHAGEAL REFLUX 11/21/2010 BROOKS DDS, MARIELA 535.10 ATROPHIC GASTRITIS (WITHOUT HEMORRHAGE) 11/21/2010 YO PHYSICIAN CHIEF OF PATHOLOGY, NORMA R 530.81 ESOPHAGEAL REFLUX 11/21/2010 YO PHYSICIAN CHIEF OF PATHOLOGY, NORMA R 535.10 ATROPHIC GASTRITIS (WITHOUT HEMORRHAGE) 11/21/2010 [employer], TOM B 530.81 ESOPHAGEAL REFLUX 11/21/2010 [employer] SECRETARY, TOM B 535.10 ATROPHIC GASTRITIS (WITHOUT HEMORRHAGE) 11/21/2010 YO PHYSICIAN CHIEF OF PATHOLOGY, NORMA R 530.81 ESOPHAGEAL REFLUX 11/21/2010 YO PHYSICIAN CHIEF OF PATHOLOGY, NORMA R 535.10 ATROPHIC GASTRITIS (WITHOUT HEMORRHAGE) 11/21/2010 MADL PHYSICIAN CHIEF OF PATHOLOGY, EVERETT L 530 .81 ESOPHAGEAL REFLUX 11/21/2010 MADL PHYSICIAN CHIEF OF PATHOLOGY, EVERETT L 535 .10 ATROPHIC GASTRITIS (WITHOUT HEMORRHAGE) 11/21/2010 YO PHYSICIAN CHIEF OF PATHOLOGY, NORMA R 530.81 ESOPHAGEAL REFLUX 11/21/2010 YO PHYSICIAN CHIEF OF PATHOLOGY, NORMA R 535.10 ATROPHIC GASTRITIS (WITHOUT HEMORRHAGE) 02/10/2011 787.02 LORRIE SEA ALONE 02/10/2011 787.1 HEAR TBURN 02/10/2011 MELODY SALINAS DOA K 787.02 NAUSEA ALONE 02/10/2011 SALINAS DO, RONIT K 787.1 HEARTBURN 02/10/2011 787.02 LORRIE SEA ALONE 02/10/2011 787.1 HEAR TBURN 02/10/2011 DALILA ROLDAN MD 787.0 2 NAUSEA ALONE 02/10/2011 DALILA ROLDAN MD 787.1 HEARTBURN 02/10/2011 [facility], JEROD R 787.02 NAUSEA ALONE 02/10/2011 [facility], JEROD R 787.1 HEARTBURN 02/10/2011 DURGAROBIN Calzada APRN A 787.02 NAUSEA ALONE 02/10/2011 ROBIN CALIXTO APRN A 78 7.1 HEARTBURN 02/10/2011 YO LYON NORMA R 787.02 NAUSEA ALONE 02/10/2011 YO LYON NORMA R 787.1 HEARTBURN 02/10/2011 ELIZABETH RAM APRNINA R 787.02 NAUSEA ALONE 02/10/2011 YO LYON NORMA R 787.1 HEARTBURN 02/10/2011 SALINAS DO, RONIT K 787.02 NAUSEA ALONE 02/10/2011 SALINAS DO, RONIT K 787.1 HEARTBURN 02/10/2011 YO LYON NORMA R 787.02 NAUSEA ALONE 02/10/2011 YO LYON NORMA R 787.1 HEARTBURN 02/10/2011 BROOKS DDS, MARIELA 787.02 NAUSEA ALONE 02/10/2011 BROOKS DDS, MARIELA 78 7.1 HEARTBURN 02/10/2011 YO LYON NORMA R 787.02 NAUSEA ALONE 02/10/2011 YO LYON NORMA R 787.1 HEARTBURN 02/10/2011 GUADALUPEGEETHA KELSEY, TOM B 787.02 NAUSEA ALONE 02/10/2011 [employer], TOM B 78 7.1 HEARTBURN 02/10/2011 YO LYON NORMA R 787.02 NAUSEA ALONE 02/10/2011 YO LYON NORMA R 787.1 HEARTBURN 02/10/2011 EVERETT MAYORGA APRN L 787 .02 NAUSEA ALONE 02/10/2011 SHARAD MAYORGA APRNA L 787 .1 HEARTBURN 02/10/2011 YO LYON NORMA R 787.02 NAUSEA ALONE 02/10/2011 NORMA RAM APRN R 787.1 HEARTBURN 04/09/2011 719.41 RAÚL N IN JOINT INVOLVING SHOULDER REGION 04/09/2011 V04.81 FLU DX (3 YRS AND ABOVE, IM) 04/09/2011 RONIT SALINAS DO 719.41 PAIN IN JOINT INVOLVING SHOULDER REGION 04/09/2011 RONIT SALINAS DO V04.81 FLU DX (3 YRS AND ABOVE, IM) 04/09/2011 719.41 RAÚL N IN JOINT INVOLVING SHOULDER REGION 04/09/2011 V04.81 FLU DX (3 YRS AND ABOVE, IM) 04/09/2011 DALILA ROLDAN MD 719.4 1 PAIN IN JOINT INVOLVING SHOULDER REGION 04/09/2011 DALILA ROLDAN MD V04.8 1 FLU DX (3 YRS AND ABOVE, IM) 04/09/2011 [facility], JEROD R 719.41 PAIN IN JOINT INVOLVING SHOULDER REGION 04/09/2011 [facility], JEROD R V04.81 FLU DX (3 YRS AND ABOVE, IM) 04/09/2011 ROBIN CALIXTO APRN A 719.41 PAIN IN JOINT INVOLVING SHOULDER REGION 04/09/2011 ROIBN CALIXTO APRN A V04.81 FLU DX (3 YRS AND ABOVE, [...] PAIN IN JOINT INVOLVING SHOULDER REGION 04/09/2011 NORMA RAM APRN R V04.81 FLU DX (3 YRS AND ABOVE, IM) 04/09/2011 MARIELA BROOKS DDS 719.41 PAIN IN JOINT INVOLVING SHOULDER REGION 04/09/2011 TODD AVINAS, MARIELA V04.81 FLU DX (3 YRS AND ABOVE, IM) 04/09/2011 YO LYON NORMA R 719.41 PAIN IN JOINT INVOLVING SHOULDER REGION 04/09/2011 YO LYON NORMA R V04.81 FLU DX (3 YRS AND ABOVE, IM) 04/09/2011 [employer], TOM B 719.41 PAIN IN JOINT INVOLVING SHOULDER REGION 04/09/2011 [employer] SECRETARY, TOM B V04.81 FLU DX (3 YRS AND ABOVE, IM) 04/09/2011 YO LYON NORMA R 719.41 PAIN IN JOINT INVOLVING SHOULDER REGION 04/09/2011 YO LYON NORMA R V04.81 FLU DX (3 YRS AND ABOVE, IM) 04/09/2011 SHARAD MAYORGA APRNA L 719 .41 PAIN IN JOINT INVOLVING SHOULDER REGION 04/09/2011 MUKESH LYON EVERETT L V04 .81 FLU DX (3 YRS AND ABOVE, IM) 04/09/2011 YO LYON NORMA R 719.41 PAIN IN JOINT INVOLVING SHOULDER REGION 04/09/2011 YO LYON NORMA R V04.81 FLU DX (3 YRS AND ABOVE, IM) 11/17/2011 Ot 724.2 LUMBAGO 11/17/2011 Ot 846.0 SPRA IN LUMBOSACRAL 11/17/2011 Ot E000.8 OTH ER EXTERNAL CAUSE STATUS 11/17/2011 Ot E849.0 ACC IDENT IN HOME 11/17/2011 Ot E927.0 OVE REXERTION FROM SUDDEN STRENUOUS MOVEM 11/27/2011 720.2 SACR OILIITIS NOT ELSEWHERE CLASSIFIED 11/27/2011 724.8 OTHE R SYMPTOMS REFERABLE TO BACK 11/27/2011 RONIT SALINAS DO 720.2 SACROILIITIS NOT ELSEWHERE CLASSIFIED 11/27/2011 RONIT SALINAS DO 724.8 OTHER SYMPTOMS REFERABLE TO BACK 11/27/2011 720.2 SACR OILIITIS NOT ELSEWHERE CLASSIFIED 11/27/2011 724.8 OTHE R SYMPTOMS REFERABLE TO BACK 11/27/2011 DLAILA ROLDAN MD 720.2 SACROILIITIS NOT ELSEWHERE CLASSIFIED 11/27/2011 DALILA ROLDAN MD 724.8 OTHER SYMPTOMS REFERABLE TO BACK 11/27/2011 [facility], JEROD R 720.2 SACROILIITIS NOT ELSEWHERE CLASSIFIED 11/27/2011 [facility], JEROD R 724.8 OTHER SYMPTOMS REFERABLE TO BACK 11/27/2011 DURGA PHYSICIAN CHIEF OF PATHOLOGY, ROBIN A 72 0.2 SACROILIITIS NOT ELSEWHERE CLASSIFIED 11/27/2011 DURGA PHYSICIAN CHIEF OF PATHOLOGY, ROBIN A 72 4.8 OTHER SYMPTOMS REFERABLE TO BACK 11/27/2011 YO LYON NORMA R 720.2 SACROILIITIS NOT ELSEWHERE CLASSIFIED 11/27/2011 YO PHYSICIAN CHIEF OF PATHOLOGY, NORMA R 724.8 OTHER SYMPTOMS REFERABLE TO BACK 11/27/2011 YO BHAKTAN, NORMA R 720.2 SACROILIITIS NOT ELSEWHERE CLASSIFIED 11/27/2011 YO LYON NORMA R 724.8 OTHER SYMPTOMS REFERABLE TO BACK 11/27/2011 SALINAS DO, RONIT K 720.2 SACROILIITIS NOT ELSEWHERE CLASSIFIED 11/27/2011 SALINAS DO, RONIT K 724.8 OTHER SYMPTOMS REFERABLE TO BACK 11/27/2011 YO LYON NORMA R 720.2 SACROILIITIS NOT ELSEWHERE CLASSIFIED 11/27/2011 YO LYON NORMA R 724.8 OTHER SYMPTOMS REFERABLE TO BACK 11/27/2011 BROOKS DDS, MARIELA 72 0.2 SACROILIITIS NOT ELSEWHERE CLASSIFIED 11/27/2011 BROOKS DDS, MARIELA 72 4.8 OTHER SYMPTOMS REFERABLE TO BACK 11/27/2011 YO LYON NORMA R 720.2 SACROILIITIS NOT ELSEWHERE CLASSIFIED 11/27/2011 YO LYON NORMA R 724.8 OTHER SYMPTOMS REFERABLE TO BACK 11/27/2011 [employer] SECR[employer], TOM B 72 0.2 SACROILIITIS NOT ELSEWHERE CLASSIFIED 11/27/2011 [employer] SECRETARY, TOM B 72 4.8 OTHER SYMPTOMS REFERABLE TO BACK 11/27/2011 YO LYON, NORMA R 720.2 SACROILIITIS NOT ELSEWHERE CLASSIFIED 11/27/2011 YO PHYSICIAN CHIEF OF PATHOLOGY, NORMA R 724.8 OTHER SYMPTOMS REFERABLE TO BACK 11/27/2011 MADL PHYSICIAN CHIEF OF PATHOLOGY, EVERETT L 720 .2 SACROILIITIS NOT ELSEWHERE CLASSIFIED 11/27/2011 MADL PHYSICIAN CHIEF OF PATHOLOGY, EVERETT L 724 .8 OTHER SYMPTOMS REFERABLE TO BACK 11/27/2011 YO PHYSICIAN CHIEF OF PATHOLOGY, NORMA R 720.2 SACROILIITIS NOT ELSEWHERE CLASSIFIED 11/27/2011 YO PHYSICIAN CHIEF OF PATHOLOGY, NORMA R 724.8 OTHER SYMPTOMS REFERABLE TO BACK 03/03/2012 477.9 RHINITIS 03/03/2012 RONIT SALINAS DO K 477.9 RHINITIS 03/03/2012 477.9 RHINITIS 03/03/2012 DALILA ROLDAN MD 477.9 RHINITIS 03/03/2012 [facility], JEROD R 477.9 RHINITIS 03/03/2012 ROBIN CALIXTO APRN A 47 7.9 RHINITIS 03/03/2012 YO PHYSICIAN CHIEF OF PATHOLOGY, NORMA R 477.9 RHINITIS 03/03/2012 YO PHYSICIAN CHIEF OF PATHOLOGY, NORMA R 477.9 RHINITIS 03/03/2012 RONIT SALINAS DO K 477.9 RHINITIS 03/03/2012 YO PHYSICIAN CHIEF OF PATHOLOGY, NORMA R 477.9 RHINITIS 03/03/2012 MARIELA BROOKS DDS 47 7.9 RHINITIS 03/03/2012 YO PHYSICIAN CHIEF OF PATHOLOGY, NORMA R 477.9 RHINITIS 03/03/2012 TOM BUTCHER LCPC 47 7.9 RHINITIS 03/03/2012 YO PHYSICIAN CHIEF OF PATHOLOGY, NORMA R 477.9 RHINITIS 03/03/2012 EVERETT MAYORGA APRN 477 .9 RHINITIS 03/03/2012 YO PHYSICIAN CHIEF OF PATHOLOGY, NORMA R 477.9 RHINITIS 06/30/2012 RONIT SALINAS DO 780.99 ANHEDONIA 06/30/2012 780.99 MARLYN EDONIA 06/30/2012 DALILA ROLDAN MD 780.9 9 ANHEDONIA 06/30/2012 [facility], JEROD R 780.99 ANHEDONIA 06/30/2012 ROBIN CALIXTO APRN A 780.99 ANHEDONIA 06/30/2012 YO PHYSICIAN CHIEF OF PATHOLOGY, NORMA R 780.99 ANHEDONIA 06/30/2012 YO PHYSICIAN CHIEF OF PATHOLOGY, NORMA R 780.99 ANHEDONIA 06/30/2012 RONIT SALINAS DO 780.99 ANHEDONIA 06/30/2012 YO PHYSICIAN CHIEF OF PATHOLOGY, NORMA R 780.99 ANHEDONIA 06/30/2012 MARIELA BROOKS DDS 780.99 ANHEDONIA 06/30/2012 YO PHYSICIAN CHIEF OF PATHOLOGY, NORMA R 780.99 ANHEDONIA 06/30/2012 TOM BUTCHER LCPC 780.99 ANHEDONIA 06/30/2012 YO PHYSICIAN CHIEF OF PATHOLOGY, NORMA R 780.99 ANHEDONIA 06/30/2012 MUKESH PHYSICIAN CHIEF OF PATHOLOGYEVERETT 780 .99 ANHEDONIA 06/30/2012 YO PHYSICIAN CHIEF OF PATHOLOGY, NORMA R 780.99 ANHEDONIA 07/14/2012 Ot 599.0 URIN TRACT INFECTION NOS 07/14/2012 Ot 789.04 ABD OMINAL PAIN, LEFT LOWER QUADRANT 07/26/2012 788.63 URI NARY URGENCY 07/26/2012 789.09 ABD OMINAL PAIN OTHER SPECIFIED SITE 07/26/2012 DALILA ROLDAN MD 788.6 3 URINARY URGENCY 07/26/2012 DALILA ROLDAN MD 789.0 9 ABDOMINAL PAIN OTHER SPECIFIED SITE 07/26/2012 [facility], JEROD R 788.63 URINARY URGENCY 07/26/2012 [facility], JEROD R 789.09 ABDOMINAL PAIN OTHER SPECIFIED SITE 07/26/2012 DURGAZheng LYON ROBIN A 788.63 URINARY URGENCY 07/26/2012 DURGAZheng LYON ROBIN A 789.09 ABDOMINAL PAIN OTHER SPECIFIED SITE 07/26/2012 YO PHYSICIAN CHIEF OF PATHOLOGY, NORMA R 788.63 URINARY URGENCY 07/26/2012 YO PHYSICIAN CHIEF OF PATHOLOGY, NORMA R 789.09 ABDOMINAL PAIN OTHER SPECIFIED SITE 07/26/2012 YO PHYSICIAN CHIEF OF PATHOLOGY, NORMA R 788.63 URINARY URGENCY 07/26/2012 YO PHYSICIAN CHIEF OF PATHOLOGY, NORMA R 789.09 ABDOMINAL PAIN OTHER SPECIFIED SITE 07/26/2012 SALINAS DO, RONIT K 788.63 URINARY URGENCY 07/26/2012 SALINAS DO, RONIT K 789.09 ABDOMINAL PAIN OTHER SPECIFIED SITE 07/26/2012 YO PHYSICIAN CHIEF OF PATHOLOGY, NORMA R 788.63 URINARY URGENCY 07/26/2012 YO PHYSICIAN CHIEF OF PATHOLOGY, NORMA R 789.09 ABDOMINAL PAIN OTHER SPECIFIED SITE 07/26/2012 BROOKS DDS, MARIELA 788.63 URINARY URGENCY 07/26/2012 BROOKS DDS, MARIELA 789.09 ABDOMINAL PAIN OTHER SPECIFIED SITE 07/26/2012 YO PHYSICIAN CHIEF OF PATHOLOGY, NORMA R 788.63 URINARY URGENCY 07/26/2012 YO PHYSICIAN CHIEF OF PATHOLOGY, NORMA R 789.09 ABDOMINAL PAIN OTHER SPECIFIED SITE 07/26/2012 [facility], TOM B 788.63 URINARY URGENCY 07/26/2012 GUAD[facility]PE GREGORIOP[facility], TOM B 789.09 ABDOMINAL PAIN OTHER SPECIFIED SITE 07/26/2012 YO PHYSICIAN CHIEF OF PATHOLOGY, NORMA R 788.63 URINARY URGENCY 07/26/2012 YO PHYSICIAN CHIEF OF PATHOLOGY, NORMA R 789.09 ABDOMINAL PAIN OTHER SPECIFIED SITE 07/26/2012 MADL PHYSICIAN CHIEF OF PATHOLOGY, EVERETT L 788 .63 URINARY URGENCY 07/26/2012 MADL PHYSICIAN CHIEF OF PATHOLOGY, EVERETT L 789 .09 ABDOMINAL PAIN OTHER SPECIFIED SITE 07/26/2012 YO PHYSICIAN CHIEF OF PATHOLOGY, NORMA R 788.63 URINARY URGENCY 07/26/2012 YO PHYSICIAN CHIEF OF PATHOLOGY, NORMA R 789.09 ABDOMINAL PAIN OTHER SPECIFIED SITE 02/01/2013 DALILA ROLDAN MD 724.3 SCIATICA 02/01/2013 [facility], JEROD R 724.3 SCIATICA 02/01/2013 ROBIN CALIXTO APRN 72 4.3 SCIATICA 02/01/2013 YO PHYSICIAN CHIEF OF PATHOLOGY, NORMA R 724.3 SCIATICA 02/01/2013 YO PHYSICIAN CHIEF OF PATHOLOGY, NORMA R 724.3 SCIATICA 02/01/2013 RONIT SALINAS DO K 724.3 SCIATICA 02/01/2013 YO PHYSICIAN CHIEF OF PATHOLOGY, NORMA R 724.3 SCIATICA 02/01/2013 MARIELA BROOKS DDS 72 4.3 SCIATICA 02/01/2013 YO PHYSICIAN CHIEF OF PATHOLOGY, NORMA R 724.3 SCIATICA 02/01/2013 GUADALUPE KELSEY, TOM B 72 4.3 SCIATICA 02/01/2013 YO PHYSICIAN CHIEF OF PATHOLOGY, NORMA R 724.3 SCIATICA 02/01/2013 MADAbdiel PHYSICIAN CHIEF OF PATHOLOGY, EVERETT L 724 .3 SCIATICA 02/01/2013 YO PHYSICIAN CHIEF OF PATHOLOGY, NORMA R 724.3 SCIATICA 03/22/2013 SUSAN ANGELES APRN Ot 465 .9 ACUTE URI NOS 03/22/2013 SUSAN ANGELES APRN Ot 490 BRONCHITIS NOS 03/22/2013 SUSAN ANGELES APRN Ot 786 .2 COUGH 04/04/2013 DALILA ROLDAN MD 686.9 UNSPECIFIED LOCAL INFECTION OF SKIN AND SUBCUTANEOUS TISSUE 04/04/2013 [facility], JEROD Vazquez 686.9 UNSPECIFIED LOCAL INFECTION OF SKIN AND SUBCUTANEOUS T ISSUE 04/04/2013 ROBIN CALIXTO APRN A 68 6.9 UNSPECIFIED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
--- NOTE | 2020-02-27 11:57 | Diagnostic Imaging Report ---
INDICATION: Low back pain with radiation superiorly into the lower pelvic region. TECHNIQUE: Single supine view of the abdomen 11:50 AM CORRELATION STUDY: None FINDINGS: There is no evidence for underlying bowel obstruction or gas to the level of the rectum. Mild/moderate severity fecal retention. No large fecal impaction. Surgical clips within the pelvis. No pathologic intra-abdominal calcifications. Osseous structures are unremarkable. IMPRESSION: 1. Mild severity fecal retention. No evidence for large fecal impaction or underlying bowel obstruction. Dictated by: Dictated on workstation # [id number]
[2020-02-27] MEDS ORDERED: cefTRIAXone FOR IV USE 1,000 MG in WATER (STERILE) FOR INJECTION 10 ML IV ONE (12:00)
[2020-02-27] MEDS ORDERED: CEPH-507 PO (12:19)
--- NOTE | 2020-02-27 12:24 | Diagnostic Imaging Report ---
PROCEDURE: CT urinary tract, rule out kidney stone. TECHNIQUE: Multiple contiguous axial images were obtained through the abdomen and pelvis without the use of intravenous contrast. Auto Exposure Controls were utilized during the CT exam to meet ALARA standards for radiation dose reduction. INDICATION: Bilateral low back pain radiating to anterior with hematuria. Correlation is made with prior CT from 08/10/2013. The lung bases are clear. The liver and gallbladder are unremarkable. No biliary ductal dilatation is identified. Pancreas and spleen are unremarkable. No adrenal mass is detected. No renal calculi are identified. There is no hydronephrosis. No definite ureteral calculi or hydronephrosis is seen. No bladder calculi are detected. The aorta is non-aneurysmal. Bowel loops are normal in caliber. There is diverticulosis of sigmoid colon. There is suggestion a mild inflammation involving the sigmoid colon, suggesting mild acute diverticulitis. No fluid collection or abscess is seen. There is no obstruction. Uterus is surgically absent. The bony structures are nonacute. IMPRESSION: 1. No CT evidence of urinary tract calculi or obstruction. 2. Findings suggestive of mild sigmoid diverticulitis. No abscess formation or bowel obstruction is identified. Dictated by: Dictated on workstation # [id number]
[2020-02-27] MEDS ORDERED: METR-145 PO (12:47)
[2020-02-27] MEDS ORDERED: CIPR500T4 PO (12:47)
[2020-02-27 12:59] VITALS: BP 106/66
== END 2020-02-27 12:54 | disposition home or self-care (01) ==
LOC: EDUNIT# 10:56 → ER 10:58
DX: N30.01 Acute cystitis with hematuria (principal); K57.32 Diverticulitis of large intestine without perforation or abscess without bleeding; Z88.5 Allergy status to narcotic agent; Z88.2 Allergy status to sulfonamides; Z85.3 Personal history of malignant neoplasm of breast
CPT/HCPCS: 74018; 74176; 81000; 87088